=== PATIENT | female | born 1975 | race Two or more races ===

== ENCOUNTER 2020-04-19 14:05 | Outpatient (REF) | payer OTHER, SELFPAY ==
[2020-04-24 11:37] LABS: CT PCR NOT DETECTED (Not Detect.); NG PCR NOT DETECTED (Not Detect.)
== END 2020-04-19 14:06 | disposition home or self-care (01) ==
LOC: HO.LAB 14:05
PROVIDERS: Visit Provider Advanced Practice Midwife
DX: Z01.419 Encounter for gynecological examination (general) (routine) without abnormal findings (principal); B96.89 Other specified bacterial agents as the cause of diseases classified elsewhere; N76.0 Acute vaginitis; Z80.41 Family history of malignant neoplasm of ovary; Z20.2 Contact with and (suspected) exposure to infections with a predominantly sexual mode of transmission
CPT/HCPCS: 87491; 87591

== ENCOUNTER 2020-08-06 09:38 | Outpatient (REF) | payer OTHER, SELFPAY ==
--- NOTE | ~2020-08-06 | XR_ITS ---
EXAMINATION: XR BILATERAL KNEES XR LEFT TOE CLINICAL INFORMATION: Pain left toe. Bilateral knee pain. COMPARISON: None. TECHNIQUE: 4 views each knee. Left toe 4 views. FINDINGS: LEFT TOE: There is hallux valgus deformity 1st MTP joint. No visible acute fracture, dislocation or subluxation seen. No bony erosive changes. There is a soft tissue calcification medially likely vascular. LEFT KNEE: There is severe loss of patellofemoral compartment joint space with moderate superior patellar spurring. No loose bodies or bony erosive changes seen. No abnormal joint effusion. RIGHT KNEE: There is severe loss of patellofemoral compartment joint space with moderate superior patellar spurring. There is intercondylar eminence spurring as well. No visible acute fracture or dislocation seen. No bony erosive changes. XR/XR knee RT 3V IMPRESSION: Severe loss of patellofemoral compartment joint space with moderate superior patella spurring, right knee. Gnsuiffm-vo-hictxo loss of patellofemoral compartment joint space with moderate superior patellar enthesophyte. No acute fracture, loose bodies or joint effusion. Hallux valgus deformity 1st MTP joint. No bony erosive changes, fracture or dislocation.
--- NOTE | ~2020-08-06 | XR_ITS ---
EXAMINATION: XR BILATERAL KNEES XR LEFT TOE CLINICAL INFORMATION: Pain left toe. Bilateral knee pain. COMPARISON: None. TECHNIQUE: 4 views each knee. Left toe 4 views. FINDINGS: LEFT TOE: There is hallux valgus deformity 1st MTP joint. No visible acute fracture, dislocation or subluxation seen. No bony erosive changes. There is a soft tissue calcification medially likely vascular. LEFT KNEE: There is severe loss of patellofemoral compartment joint space with moderate superior patellar spurring. No loose bodies or bony erosive changes seen. No abnormal joint effusion. RIGHT KNEE: There is severe loss of patellofemoral compartment joint space with moderate superior patellar spurring. There is intercondylar eminence spurring as well. No visible acute fracture or dislocation seen. No bony erosive changes. XR/XR toe LT min 2V IMPRESSION: Severe loss of patellofemoral compartment joint space with moderate superior patella spurring, right knee. Nzcnetyh-gy-esvolh loss of patellofemoral compartment joint space with moderate superior patellar enthesophyte. No acute fracture, loose bodies or joint effusion. Hallux valgus deformity 1st MTP joint. No bony erosive changes, fracture or dislocation.
--- NOTE | ~2020-08-06 | XR_ITS ---
EXAMINATION: XR BILATERAL KNEES XR LEFT TOE CLINICAL INFORMATION: Pain left toe. Bilateral knee pain. COMPARISON: None. TECHNIQUE: 4 views each knee. Left toe 4 views. FINDINGS: LEFT TOE: There is hallux valgus deformity 1st MTP joint. No visible acute fracture, dislocation or subluxation seen. No bony erosive changes. There is a soft tissue calcification medially likely vascular. LEFT KNEE: There is severe loss of patellofemoral compartment joint space with moderate superior patellar spurring. No loose bodies or bony erosive changes seen. No abnormal joint effusion. RIGHT KNEE: There is severe loss of patellofemoral compartment joint space with moderate superior patellar spurring. There is intercondylar eminence spurring as well. No visible acute fracture or dislocation seen. No bony erosive changes. XR/XR knee LT 3V IMPRESSION: Severe loss of patellofemoral compartment joint space with moderate superior patella spurring, right knee. Poxhbscr-tl-kkaoaa loss of patellofemoral compartment joint space with moderate superior patellar enthesophyte. No acute fracture, loose bodies or joint effusion. Hallux valgus deformity 1st MTP joint. No bony erosive changes, fracture or dislocation.
[2020-08-06 10:35] LABS: MANUAL DIFF FLAG NO
[2020-08-06 10:46] LABS: Basophils Percent Auto 0.8 % (0-2); Eosinophils Absolute Auto 0.1 X10*3/uL (0.0-0.4); Eosinophils Percent Auto 1.6 % (0-4); Hematocrit 34.3 % (37-47); Hemoglobin 10.3 g/dl (12.0-16.0); Imm Gran Abs Auto 0.01 X10*3/uL (0.00-0.03); Imm Gran Pct Auto 0.2 % (0.0-0.4); Lymphocytes Absolute Auto 1.4 X10*3/uL (1.2-4.9); Mean Corpuscular Hemoglobin 25.2 pg (27.0-33.0); Mean Corpuscular Volume 83.9 fL (80-98); Mean Platelet Volume 12.5 fL (9.4-12.3); Monocytes Absolute Auto 0.4 X10*3/uL (0.1-1.2); Monocytes Percent Auto 8.5 % (2-11); Neutrophils Percent Auto 60.9 % (45-73); Platelet Count 251 X10*3/uL (160-400); Red Blood Count 4.09 X10*6/uL (4.20-5.50); Red Cell Distribution Width 14.8 % (11.0-16.0); White Blood Count 4.9 X10*3/uL (4.8-10.8)
[2020-08-06 11:30] LABS: Alanine Aminotransferase 11 U/L (0-31); Albumin Level 3.7 g/dL (3.5-5.0); Alkaline Phosphatase 94 U/L (39-117); Anion Gap 11 (12-20); Aspartate Amino Transferase 19 U/L (5-31); Bilirubin Total 0.2 mg/dL (0.0-1.0); Blood Urea Nitrogen 13 mg/dL (9-16); Calcium 8.6 mg/dL (8.4-10.2); Carbon Dioxide 27 mmol/L (22-29); Chloride 105 mmol/L (96-108); Cholesterol 137 mg/dL; Estimated Glomerular Filt Rate > 60; Glucose Fasting 88 mg/dL (60-99); HDL Cholesterol 69 mg/dL; LDL Cholesterol Calculated 57 mg/dl; Potassium 4.1 mmol/L (3.3-5.1); Sodium 139 mmol/L (135-145); Total Protein 6.5 g/dL (6.5-8.0); Triglycerides 58 mg/dL
[2020-08-06 11:37] LABS: TSH reflex Free T4 0.63 uIU/mL (0.32-4.0)
[2020-08-06 11:38] LABS: Syphilis Screen Nonreactive (Nonreactive)
[2020-08-06 11:42] LABS: Erythrocyte Sedimentation Rate 16 MM/HR (0-20); Glucose Urine UA NEG (NEG); Leukocyte Esterase Urine TRACE (NEG); Nitrite Urine POS (NEG); PH 6.5 (5.0-8.0); Specific Gravity - Urine 1.025 (1.005-1.025); UACC Culture Trigger YES; Urine Blood NEG (NEG); Urine Ketones NEG (NEG); Urine Protein NEG (NEG-TRACE)
[2020-08-06 11:43] LABS: ~HepC Num1 0.09 S/CO (0.00-0.79); ~Hepatitis C Antibody Nonreactive (Nonreactive)
[2020-08-06 11:44] LABS: HBsAGNum1 0.14 S/CO (0.00-0.99); HIV AB/AG Nonreactive (Nonreactive); HIV Num 1 0.05 S/CO (0.00-0.99); Hepatitis B Surface Antigen Negative (Negative)
[2020-08-06 11:45] LABS: Appearance Urine HAZY; Color Urine AMBER
[2020-08-06 21:05] LABS: Bacteria Urine 4+ /LPF; Calcium Oxalate Crystals Urine TRACE /LPF; Mucus Urine TRACE /LPF; Squamous Epithelial Cell Urine 1+ /LPF
== END 2020-08-06 09:39 | disposition home or self-care (01) ==
LOC: HO.LAB 09:38
PROVIDERS: Advanced Practice Midwife; PCP Internal Medicine; Visit Provider Internal Medicine
DX: Z00.00 Encounter for general adult medical examination without abnormal findings (principal); E66.9 Obesity, unspecified; M16.51 Unilateral post-traumatic osteoarthritis, right hip; M17.0 Bilateral primary osteoarthritis of knee; M79.675 Pain in left toe(s); Z20.2 Contact with and (suspected) exposure to infections with a predominantly sexual mode of transmission
CPT/HCPCS: 36415; 73562; 73660; 80053; 80061; 81001; 81003; 84443; 84550; 85025; 85652; 86780; 86803; 87086; 87088; 87186; 87340; 87389

== ENCOUNTER 2020-12-13 09:10 | Outpatient (REF) | payer OTHER, SELFPAY | END 2020-12-13 09:11 | disposition home or self-care (01) | LOC: HO.HOSX 09:10 | PROVIDERS: Visit Provider Orthopaedic Surgery | DX: Z13.89 Encounter for screening for other disorder (principal) ==

== ENCOUNTER 2020-12-25 07:41 | Outpatient (REF) | payer OTHER, SELFPAY ==
--- NOTE | ~2020-12-25 | XR_ITS ---
EXAMINATION: XR HIP, RIGHT CLINICAL INFORMATION: Pain in the right hip. COMPARISON: None TECHNIQUE: Two views of the right hip. FINDINGS: AP pelvis and right hip: There is deformity and healed right subcapital femoral fracture with a solitary cancellous screw extending through the femoral neck and head junction. The left hip joint space is maintained. No acute fracture or dislocation involving the left hip. Rest of the pelvis is unremarkable. There is severe loss of right hip joint space with secondary osteoarthritis. XR/XR hip RT w PEL1V IMPRESSION: Deformity right femoral head with a solitary screw stabilizing an old healed fracture. No recurrent acute fractures seen. There is severe loss of right hip joint space from degenerative arthritic changes. Unremarkable left hip and SI joints.
== END 2020-12-25 07:42 | disposition home or self-care (01) ==
LOC: HO.XRAY 07:41
PROVIDERS: PCP Internal Medicine; Visit Provider Nurse Practitioner Family
DX: M25.551 Pain in right hip (principal)
CPT/HCPCS: 73502

== ENCOUNTER 2020-12-26 13:48 | Outpatient (REF) | payer OTHER, SELFPAY ==
[2020-12-26 14:05] LABS: MANUAL DIFF FLAG NO
[2020-12-26 14:11] LABS: Basophils Percent Auto 0.6 % (0-2); Eosinophils Absolute Auto 0.1 X10*3/uL (0.0-0.4); Eosinophils Percent Auto 2.1 % (0-4); Hematocrit 33.1 % (37-47); Hemoglobin 10.1 g/dl (12.0-16.0); Imm Gran Abs Auto 0.01 X10*3/uL (0.00-0.03); Imm Gran Pct Auto 0.2 % (0.0-0.4); Lymphocytes Absolute Auto 1.8 X10*3/uL (1.2-4.9); Lymphocytes Percent Auto 28.9 % (20-40); Mean Corpuscular HGB Conc 30.5 g/dl (31.0-35.0); Mean Corpuscular Hemoglobin 26.2 pg (27.0-33.0); Mean Platelet Volume 11.5 fL (9.4-12.3); Monocytes Absolute Auto 0.6 X10*3/uL (0.1-1.2); Monocytes Percent Auto 9.5 % (2-11); Neutrophils Absolute Auto 3.7 X10*3/uL (2.0-8.3); Neutrophils Percent Auto 58.7 % (45-73); Platelet Count 275 X10*3/uL (160-400); Red Blood Count 3.85 X10*6/uL (4.20-5.50); White Blood Count 6.3 X10*3/uL (4.8-10.8)
[2020-12-26 14:17] LABS: INTERNATIONAL NORM RATIO 1.1 (0.9-1.1); Prothrombin Time 12.1 SEC (9.9-13.0)
[2020-12-26 14:20] LABS: Partial Thromboplastin Time 38.2 SEC (24.1-38.0)
== END 2020-12-26 13:49 | disposition home or self-care (01) ==
LOC: HO.LAB 13:48
PROVIDERS: PCP Internal Medicine; Visit Provider Internal Medicine
DX: R23.3 Spontaneous ecchymoses (principal); I10 Essential (primary) hypertension; Z20.822 Contact with and (suspected) exposure to COVID-19
CPT/HCPCS: 81241; 85025; 85610; 85730; U0003; U0005

== ENCOUNTER → 2021-02-08 15:29 | Outpatient (BNVA) | payer OTHER, SELFPAY | PROVIDERS: PCP Internal Medicine; Visit Provider Nurse Practitioner Family | DX: M16.11 Unilateral primary osteoarthritis, right hip (principal); M17.11 Unilateral primary osteoarthritis, right knee | CPT/HCPCS: 99202 ==

== ENCOUNTER 2021-03-07 08:26 | Outpatient (REF) | payer OTHER, SELFPAY ==
--- NOTE | ~2021-03-07 | XR_ITS ---
EXAMINATION: XR PELVIS CLINICAL INFORMATION: Pain COMPARISON: Right hip x-rays including frontal pelvis December 25, 2020 TECHNIQUE: AP view of the pelvis. FINDINGS: The pelvic ring is intact. Sacroiliac joints are symmetric. Again demonstrated are posttraumatic/postsurgical changes of the right hip with severe associated degenerative changes. The left hip is grossly unremarkable. Surgical clip projects over the left hemipelvis. XR/XR pelvis 1-2V IMPRESSION: No pelvic fracture.
== END 2021-03-07 08:27 | disposition home or self-care (01) ==
LOC: HO.HOSX 08:26
PROVIDERS: Visit Provider Orthopaedic Surgery
DX: M16.51 Unilateral post-traumatic osteoarthritis, right hip (principal)
CPT/HCPCS: 72170; 99202

== ENCOUNTER 2021-04-01 14:40 | Outpatient (REF) | payer OTHER, SELFPAY ==
[2021-04-01 14:54] LABS: MANUAL DIFF FLAG NO
[2021-04-01 15:07] LABS: Basophils Absolute Auto 0.1 X10*3/uL (0.0-0.2); Basophils Percent Auto 0.7 % (0-2); Eosinophils Absolute Auto 0.1 X10*3/uL (0.0-0.4); Eosinophils Percent Auto 1.8 % (0-4); Hematocrit 33.6 % (37.0-47.0); Hemoglobin 10.2 g/dl (12.0-16.0); Imm Gran Abs Auto 0.02 X10*3/uL (0.00-0.03); Imm Gran Pct Auto 0.3 % (0.0-0.4); Immature Retic Fraction 9.7 % (3.0-15.9); Lymphocytes Absolute Auto 1.4 X10*3/uL (1.2-4.9); Mean Corpuscular HGB Conc 30.4 g/dl (31.0-35.0); Mean Corpuscular Hemoglobin 26.7 pg (27.0-33.0); Mean Platelet Volume 12.2 fL (9.4-12.3); Monocytes Absolute Auto 0.7 X10*3/uL (0.1-1.2); Monocytes Percent Auto 9.2 % (2-11); Neutrophils Absolute Auto 4.9 x10*3/uL (2.0-8.3); Platelet Count 324 X10*3/uL (160-400); Red Blood Count 3.82 X10*6/uL (4.20-5.50); Red Cell Distribution Width 15.9 % (11.0-16.0); Retic HGB Equivalent 27.2 pg (30.0-35.0); Reticulocyte Percent 1.3 % (0.5-1.8); Reticulocytes Absolute 0.049 X10*6/uL (0.026-0.095); White Blood Count 7.1 X10*3/uL (4.8-10.8)
[2021-04-01 15:32] LABS: Iron 21 mcg/dL (30-160); Percent Iron Saturation 6 % (15-50); Total Iron Binding Capacity 355 mcg/dL (228-428); Unsaturated Iron Binding 334 ug/dL
== END 2021-04-01 14:41 | disposition home or self-care (01) ==
LOC: HO.LAB 14:40
PROVIDERS: PCP Internal Medicine; Visit Provider Internal Medicine
DX: D50.9 Iron deficiency anemia, unspecified (principal)
CPT/HCPCS: 36415; 83540; 85025; 85045

== ENCOUNTER → 2021-05-02 08:59 | Outpatient (REF) | payer OTHER, SELFPAY ==
[2021-05-02 10:22] LABS: MANUAL DIFF FLAG NO
--- NOTE | 2021-05-02 10:23 | ECG_ITS ---
Test Reason : preop Blood Pressure : / mmHG Vent. Rate : 057 BPM Atrial Rate : 057 BPM P-R Int : 136 ms QRS Dur : 096 ms QT Int : 440 ms P-R-T Axes : 077 -16 -06 degrees QTc Int : 428 ms Sinus bradycardia Cannot rule out Anterior infarct , age undetermined Abnormal ECG When compared with ECG of 03-APR-2016 14:21, No significant change was found Referred By: Syed Sen Electronically Signed By:NICA GREWAL MD
[2021-05-02 10:38] LABS: Basophils Absolute Auto 0.1 X10*3/uL (0.0-0.2); Basophils Percent Auto 0.8 % (0-2); Eosinophils Absolute Auto 0.1 X10*3/uL (0.0-0.4); Eosinophils Percent Auto 1.9 % (0-4); Hematocrit 39.3 % (37.0-47.0); Imm Gran Abs Auto 0.01 X10*3/uL (0.00-0.03); Imm Gran Pct Auto 0.2 % (0.0-0.4); Lymphocytes Absolute Auto 1.5 X10*3/uL (1.2-4.9); Mean Corpuscular HGB Conc 30.5 g/dl (31.0-35.0); Mean Corpuscular Hemoglobin 27.5 pg (27.0-33.0); Mean Corpuscular Volume 90.1 fL (80.0-98.0); Mean Platelet Volume 11.8 fL (9.4-12.3); Monocytes Absolute Auto 0.5 X10*3/uL (0.1-1.2); Neutrophils Absolute Auto 4.2 x10*3/uL (2.0-8.3); Neutrophils Percent Auto 66.1 % (45-73); Platelet Count 328 X10*3/uL (160-400); Red Blood Count 4.36 X10*6/uL (4.20-5.50); White Blood Count 6.4 X10*3/uL (4.8-10.8)
[2021-05-02 11:02] LABS: Anion Gap 12 (12-20); Blood Urea Nitrogen 16 mg/dL (9-16); Carbon Dioxide 28 mmol/L (22-29); Chloride 107 mmol/L (96-108); Estimated Glomerular Filt Rate > 60; Glucose Random 91 mg/dL (60-115); Potassium 4.7 mmol/L (3.3-5.1); Sodium 142 mmol/L (135-145)
== END ==
LOC: HO.CARD 08:59
PROVIDERS: PCP Internal Medicine; Visit Provider Orthopaedic Surgery
DX: Z01.818 Encounter for other preprocedural examination (principal)
CPT/HCPCS: 36415; 80048; 85025; 93005

== ENCOUNTER → 2021-05-30 14:22 | Outpatient (BNVA) | payer OTHER, SELFPAY | PROVIDERS: Visit Provider Physician Assistant ==

== ENCOUNTER 2021-06-11 07:51 | Inpatient (IN) | payer OTHER, SELFPAY ==
[2021-05-24 12:04] VITALS: BP 116/64; PULSE 71; RESP 16; O2SAT 99; BMI 31.5
[2021-05-24 14:30] LABS: MRSA Nasal PCR NEGATIVE (Negative); SA Nasal PCR NEGATIVE (Negative)
--- NOTE | 2021-06-03 09:02 | HO.ANESPROP2 ---
Documented by User: Gabbie Hernadez NP 06/10/21 11:47 HPI - Anesthesia Eval Consult details Narrative: 46yo F for Right Hip Total Replacement PCP cleared [facility] Active Problems Active Problems: All Active Problems (Updated 05/22/21 @ 15:22 by [facility] Mora-C) Pre-op evaluation (Acute) Anemia (Acute) Post-traumatic acute tubular necrosis (Acute) Osteoarthritis of right knee (Acute) Osteoarthritis of right hip (Acute) Spontaneous ecchymoses (Acute) Right hip pain (Acute) Obesity (BMI 30-39.9) (Acute) Pain in left toe(s) (Acute) Bunion of great toe of left foot (Acute) Post-traumatic osteoarthritis of right hip (Acute) Primary osteoarthritis of both knees (Acute) Potential exposure to STD (Acute) Bacterial vaginosis (Acute) Family hx of ovarian malignancy (Acute) control counseling (Acute) Well woman exam with routine gynecological exam (Acute) Past Medical History Medical History Arthritis Bunion of great toe of left foot Obesity (BMI 30-39.9) Pain in left toe(s) Post-traumatic osteoarthritis of right hip Primary osteoarthritis of both knees Right hip pain Spontaneous ecchymoses Family History Family History Mother Ovarian cancer Diabetes Father HIV (human immunodeficiency virus infection) Maternal Grandmother Stomach cancer Maternal Grandfather Myocardial infarction Brother In good health Sister In good health Mental health disorder Son In good health Daughter In good health Surgical History Surgical History H/O gastric bypass History of bilateral breast reduction surgery History of hip surgery History of laparoscopic cholecystectomy History of surgery History of tubal ligation Social History Social History Housing: Apartment Are you a primary team primary care physician to a significant other at home: Yes (son age 7) Do you presently have visiting nurse or other home services: No Alcohol intake: current Alcohol intake frequency: holidays/special occasions only Patient Tobacco Use Status: Former Tobacco user Quit Date: 2009 Tobacco use type: Cigarette e-Cigarette/Vaping Use: Never Used Second Hand Smoke Exposure: No service: No Current occupational status: unemployed Gender identity: Female Cognitive needs: No Hearing needs: No Vision needs: No Meds Allergies Allergy/AdvReac Type Severity Reaction Status Date / Time hazelnut [HAZELNUT] Allergy Intermediate ITCHING Verified 05/24/21 12:17 THROAT Home Medications Medication Instructions Recorded Confirmed Last Taken Type miscellaneous medical supply ea MISCELLANEOUS 11/26/20 05/22/21 Unknown History Exam Exam Date and Time: June 03, 2021 0902 Height,Weight and Vital Signs: Height 5 ft 6 in Weight 88.6 kg Last Vital Signs Pulse 71 05/24/21 12:04 Resp 16 05/24/21 12:04 BP 116/64 05/24/21 12:04 Pulse Ox 99 05/24/21 12:04 Pertinent Lab Results Pertinent Lab Results: Laboratory Tests 05/24/21 05/24/21 12:30 13:00 Nasal Screen MRSA (PCR) NEGATIVE Nasal S. aureus Screen NEGATIVE Nasal MRSA/S.aureus Interp SEE NOTE Blood Type O Positive Antibody Screen NEGATIVE Laboratory Tests 05/02/21 05/02/21 10:20 10:20 WBC 6.4 Hgb 12.0 Hct 39.3 Plt Count 328 Sodium 142 Potassium 4.7 Chloride 107 Carbon Dioxide 28 BUN 16 Creatinine 0.72 Narrative Narrative: EKG 04/2021 Vent. Rate : 057 BPM ? ? Atrial Rate : 057 BPM ?? P-R Int : 136 ms? QRS Dur : 096 ms ? ? QT Int : 440 ms ? ? ? P-R-T Axes : 077 -16 -06 degrees ?? QTc Int : 428 ms ? Sinus bradycardia Cannot rule out Anterior infarct , age undetermined Abnormal ECG When compared with ECG of 03-APR-2016 14:21, No significant change was found Assessment and Plan Assessment Anesthesia Assessment: Chart Reviewed Documented by User: Reggie Gonzalez MD 06/11/21 10:45 PMFSH Past Medical History Medical History Arthritis Bunion of great toe of left foot Obesity (BMI 30-39.9) Pain in left toe(s) Post-traumatic osteoarthritis of right hip Primary osteoarthritis of both knees Right hip pain Spontaneous ecchymoses Family History Family History Mother Ovarian cancer Diabetes Father HIV (human immunodeficiency virus infection) Maternal Grandmother Stomach cancer Maternal Grandfather Myocardial infarction Brother In good health Sister In good health Mental health disorder Son In good health Daughter In good health Family history of problems with anesthesia: No Surgical History Surgical History H/O gastric bypass History of bilateral breast reduction surgery History of hip surgery History of laparoscopic cholecystectomy History of surgery History of tubal ligation History of Problems with Anesthesia: No Social History Social History Housing: Apartment Are you a primary team primary care physician to a significant other at home: Yes (son age 7) Do you presently have visiting nurse or other home services: No Alcohol intake: current Alcohol intake frequency: holidays/special occasions only Patient Tobacco Use Status: Former Tobacco user Quit Date: 2009 Tobacco use type: Cigarette e-Cigarette/Vaping Use: Never Used Second Hand Smoke Exposure: No service: No Current occupational status: unemployed Gender identity: Female Cognitive needs: No Hearing needs: No Vision needs: No Meds Allergies Allergy/AdvReac Type Severity Reaction Status Date / Time hazelnut [HAZELNUT] Allergy Intermediate ITCHING Verified 05/24/21 12:17 THROAT Home Medications Medication Instructions Recorded Confirmed Last Taken Type miscellaneous medical supply ea MISCELLANEOUS 11/26/20 05/22/21 Unknown History Exam Airway Mallampati Class: I TM Dist: >3cm Neck ROM: Full Loose/Missing/Broken Teeth: Yes Other: irremovable piercings lip, genital, nipple. pt counseled of risks of burn and laceration. expresses understanding and willing to proceed. Assessment and Plan Assessment Anesthesia Assessment: Anesthesia Plan Discussed Final Anesthetic Review Family History of Problems with Anesthesia: No History of Problems with Anesthesia: No NPO: Yes ASA Class: III Final Preanesthetic Review: No Changes in Pt Med Stat, Meds/Allgs Chart Reviewed, Consent Obtained/Reviewed and Anes Risks/Benef Reviewed Anesthetic Plan Anesthetic Plan: GA Disposition: Standard PACU
[2021-06-11] VITALS (15 sets, daily range): BP systolic 101–149; BP diastolic 52–94; PULSE 70–83; RESP 16–18; TEMP 36.4–37.4; O2SAT 97–100
--- NOTE | ~2021-06-11 | XR_ITS ---
EXAMINATION: XR PELVIS CLINICAL INFORMATION: Right hip replacement COMPARISON: Previous x-ray most recent February 2021 TECHNIQUE: AP view of the pelvis. FINDINGS: There is a new right hip replacement in satisfactory position. No fracture or dislocation is seen. The left hip joint is unremarkable. Bones of the visualized pelvis are unremarkable. There are postoperative changes to the soft tissues. XR/XR pelvis 1-2V IMPRESSION: Satisfactory appearance of right hip replacement.
[2021-06-11 08:31] LABS: COVID-19 Test Negative (Negative); IDNOW Serial# 9DD0AD1C
[2021-06-11] MEDS: Lactated Ringers 1,000 ML 100 ML IVCONT (08:50)
[2021-06-11] MEDS: oxyCODONE HCl ER 10 MG TAB.ER.12H PO ×2 (08:50→20:47)
--- NOTE | 2021-06-11 09:39 | MHC.SHP ---
Pre-Procedural Eval Section A Date of Service: 06/11/21 The patient is an INPATIENT: No Changes since office visit: Yes Patient answered all questions; No Cold of Flu in the past 2 weeks, No New Medical Problems and No Changes in Medication The History & Physical has been completed within 30 days and I have reviewed it.: Yes Section B Chief Complaint: RT BERNIE Allergies: Allergies Allergy/AdvReac Type Severity Reaction Status Date / Time hazelnut [HAZELNUT] Allergy Intermediate ITCHING Verified 05/24/21 12:17 THROAT Plan I have reviewed the history and physical and performed a pertinent physical examination on my patient. No changes have occurred unless specified.
--- NOTE | 2021-06-11 12:02 | P.BOP_ITS ---
Brief Operative Note Date of Service: 06/11/21 Pre-op diagnosis: right hip post traumatic OA Post-op diagnosis: same Procedure: Right BERNIE Implants: Lyla trident 2 #52/20 deg liner Lyla SucureFit #8 127 deg with + 5 36 ceramic femoral head Surgeon: Syed Sen MD Anesthesia: GETA and local Was an Physician Asst used for this Procedure?: Yes Physician Asst: Kylie John Estimated blood loss (mL): 200 IV fluids (mL): 1,000 Pathology: other Condition: stable Disposition: PACU
--- NOTE | 2021-06-11 12:07 | P.OP_ITS ---
Operative Note Operative Note Date of Service: 06/11/21 Narrative: Date of Service: 06/11/21 Pre-op diagnosis: right hip post traumatic OA Post-op diagnosis: same Procedure: Right BERNIE Implants: Lyla trident 2 #52/20 deg liner Lyla SucureFit #8 127 deg with + 5 36 ceramic femoral head Surgeon: Syed Sen MD Anesthesia: GETA and local Was an Associate Professor Computer Science used for this Procedure?: Yes Associate Professor Computer Science: Kylie John Estimated blood loss (mL): 200 IV fluids (mL): 1,000 Pathology: other Condition: stable Disposition: PACU Procedure in detail: Patient was brought into the operating room and placed in the left lateral decubitus position. All bony prominences were well padded and the limb was prepped and draped in standard sterile fashion. Time-out was called to identify proper site procedure proper surgeon IV antibiotics and 1 g of transaxemic acid were administered. I began by making a curvilinear incision over the posterolateral aspect of the greater trochanter. Dissection was taken down to the tensor fascia which was incised in line with the incision and a Charnley re tractor was placed. Cautery was used to maintain hemostasis. A werewolf device was also used. The hip was internally rotated and the external rotators were identified. The vessels were cauterized and a full-thickness capsular/external rotator layer was developed starting just proximal to the piriformis. This layer was tagged and a dull Hohmann retractor was placed underneath the neck in the hip was dislocated. The head was eburnated and deformed. There was a cannulated screw that was then removed throught the same incision. It was too embedded in the head to be removed with a screwdriver and so the head was chiseled off the screw and the head of the screw cut with a fell cutter and the remainder of the screw removed retrograde. A clean-up neck cut was made 1 cm proximal to the lesser trochanter I started with a 44 reamer and sequentially reamed up to a size51. The cupe was worn posteriorly and superiorly. I impacted a 52 at approximately 45 degrees of inclination and 25 degrees of version. I then placed a 20 deg posterior lipped liner and turned my attention to the femur. I identified the piriformis insertion and used this as a starting point for my junior cutter. The medius tendon was protected with a Hibs retractor. I then used a Charnley awl to identify the canal and a curved curette to remove the lateral bone. I irrigated copiously. I then hand-reamed to an 8 sequentially broached in the patient's natural version to a size 8 and placed my trial implant. Using a trail head I took the hip through range of motion. I was satisfied with the length. She was approximately 2 cm short on the right pre- operativley.I was very satisfied with the stability and length. Therefore I removed all instrumentation and copiously irrigated. I then placed my final femoral implant and again took the hip through range of motion and was satisfied with the stability and length using a +5 36 head. I then irrigated for 3 minutes with iodine and placed 1 g of local tranaxemic acid. I then performed a capsular closure with 2.0 fiberwire, Francesca's fascia with 0 Vicryl, subcuticular with 2-0 Vicryl and the skin with amelia. Patient was placed into a sterile dressing. Radiographs were obtained at the completion of the case and I was satisfied with the component position. Patient was extubated brought to the recovery room in stable condition.
[2021-06-11] MEDS: Ketorolac Tromethamine 15 MG/ML VIAL IVPUSH (13:18)
[2021-06-11] MEDS: oxyCODONE HCl Immed Release 5 MG TABLET PO (15:20)
[2021-06-11] MEDS: ceFAZolin Sodium/Dextrose,Iso 2 GM/50 ML PIGGYBACK IV ×3 (15:53→16:30)
[2021-06-11] MEDS: Ketorolac Tromethamine 30 MG/ML VIAL 15 MG IVPUSH (16:35)
[2021-06-11] MEDS: Dextrose 5 % and 0.45 % NaCl 1,000 ML 100 ML IVCONT (16:58)
[2021-06-11] MEDS: Docusate Sodium 100 MG CAPSULE PO (20:47)
[2021-06-11] MEDS: HYDROmorphone HCl 1 MG/ML SYRINGE 0.25 MG IVPUSH (20:47)
[2021-06-11] MEDS: Celecoxib 200 MG CAPSULE PO (20:47)
[2021-06-11] MEDS: oxyCODONE HCl Immed Release 5 MG TABLET 10 MG PO (22:53)
[2021-06-11] MEDS: Acetaminophen 325 MG TABLET 650 MG PO (22:54)
[2021-06-12 02:50] VITALS: BP 111/61; PULSE 74; RESP 18; TEMP 36.9; O2SAT 100
[2021-06-12] MEDS: Dextrose 5 % and 0.45 % NaCl 1,000 ML 100 ML IVCONT (04:00)
[2021-06-12] MEDS: oxyCODONE HCl Immed Release 5 MG TABLET 10 MG PO ×4 (05:08→16:31)
[2021-06-12] MEDS: Acetaminophen 325 MG TABLET 650 MG PO (05:08)
[2021-06-12 06:06] LABS: MANUAL DIFF FLAG NO
[2021-06-12 06:28] LABS: Anion Gap 11 (12-20); Blood Urea Nitrogen 8 mg/dL (9-16); Calcium 8.5 mg/dL (8.4-10.2); Carbon Dioxide 26 mmol/L (22-29); Chloride 105 mmol/L (96-108); Creatinine Clr Calc Pharmacy 131.9; Estimated Glomerular Filt Rate > 60; Glucose Fasting 118 mg/dL (60-99); Potassium 3.8 mmol/L (3.3-5.1); Sodium 138 mmol/L (135-145)
[2021-06-12 06:44] LABS: Basophils Percent Auto 0.3 % (0-2); Eosinophils Percent Auto 0.3 % (0-4); Hematocrit 29.9 % (37.0-47.0); Hemoglobin 9.4 g/dl (12.0-16.0); Imm Gran Abs Auto 0.05 X10*3/uL (0.00-0.03); Imm Gran Pct Auto 0.5 % (0.0-0.4); Lymphocytes Absolute Auto 1.1 X10*3/uL (1.2-4.9); Lymphocytes Percent Auto 10.5 % (20-40); Mean Corpuscular HGB Conc 31.4 g/dl (31.0-35.0); Mean Corpuscular Hemoglobin 28.1 pg (27.0-33.0); Mean Corpuscular Volume 89.3 fL (80.0-98.0); Mean Platelet Volume 12.8 fL (9.4-12.3); Monocytes Absolute Auto 1.1 X10*3/uL (0.1-1.2); Monocytes Percent Auto 11.4 % (2-11); Neutrophils Absolute Auto 7.7 x10*3/uL (2.0-8.3); Platelet Count 211 X10*3/uL (160-400); Red Blood Count 3.35 X10*6/uL (4.20-5.50); Red Cell Distribution Width 14.3 % (11.0-16.0)
[2021-06-12] MEDS: oxyCODONE HCl ER 10 MG TAB.ER.12H PO ×2 (06:44→19:54)
[2021-06-12] MEDS: Docusate Sodium 100 MG CAPSULE PO ×2 (06:44→19:54)
[2021-06-12] MEDS: Celecoxib 200 MG CAPSULE PO ×2 (06:44→19:54)
[2021-06-12 07:17] VITALS: BP 108/62; PULSE 79; RESP 17; TEMP 37.2; O2SAT 99
--- NOTE | 2021-06-12 07:42 | P.PNOP_ITS ---
Subjective Subjective Date of Service: 06/12/21 Interval history: POD1 s/p RTHA. Patient is resting comfortably in bed. No overnight events. Pain is managed, No additional complaints. Physical Exam Verdana 4l Vital Signs: Verdana 4d Verdana 4d Vital Signs: Verdana 4d Verdana 4Bd Last Vital Signs Verdana 4d Bit Gatherer New 4d Bit Gatherer New 4d Temp 98.9 F 06/12/21 07:17 Bit Gatherer New 4d Pulse 79 06/12/21 07:17 Bit Gatherer New 4d Resp 17 06/12/21 07:17 BP 108/62 06/12/21 07:17 Pulse Ox 99 06/12/21 07:17 BMI result Body Mass Index 31.5 Const: General: cooperative, healthy appearing and no acute distress Resp: Effort & Inspection: normal respiratory effort and able to speak in complete sentences Cardio: Rate: regular rate Peripheral pulses: Peripheral pulses 2+ throughout GI: Palpation (GI): Soft to palpation Skin: Lesions: no lesions Rashes: no rashes Extrem: Other: Right hip Aquacel is clean, dry, and intact. Patient is able to dorsiflex and plantarflex. NVI. Procedures Date of Service Date of Service: 06/12/21 Progress Note: A&P Assessment and plan (1) Status post total replacement of right hip: Status: Acute Assessment and Plan: Continue pain mgmnt Begin ASA for dvt ppx Continue PT for RTHA Dispo planning-Pending PT eval, pain mgmnt Fall Risk Details Current Medications: Current Medications Acetaminophen (Acetaminophen 325 Mg Tablet) 650 mg PO Q6H PRN PRN Reason: Pain, Mild (Pain Scale 1-3) Last Admin: 06/12/21 05:08 Dose: 650 mg Documented by: Celecoxib (Celecoxib 200 Mg Capsule) 200 mg PO BID [facility] Last Admin: 06/12/21 06:44 Dose: 200 mg Documented by: Docusate Sodium (Docusate Sodium 100 Mg Capsule) 100 mg PO BID [facility] Last Admin: 06/12/21 06:44 Dose: 100 mg Documented by: Hydromorphone HCl (Hydromorphone Hcl 1 Mg/Ml Syringe) 0.25 mg IVPUSH Q4H PRN; Protocol PRN Reason: Pain, Severe (Pain Scale 7-10) Last Admin: 06/11/21 20:47 Dose: 0.25 mg Documented by: Dextrose/Sodium Chloride (D51/2ns) 1,000 mls @ 100 mls/hr IVCONT .Q10H [facility] Last Admin: 06/12/21 04:00 Dose: 100 mls/hr Documented by: Ondansetron HCl (Ondansetron Hcl 4 Mg/2 Ml Vial) 4 mg IVPUSH Q8H PRN PRN Reason: Nausea and Vomiting Oxycodone HCl (Oxycodone Hcl Immed Release 5 Mg Tablet) 10 mg PO Q4H PRN PRN Reason: Pain, Moderate (Pain Scale 4-6 Last Admin: 06/12/21 05:08 Dose: 10 mg Documented by: Oxycodone HCl (Oxycodone Hcl Er 10 Mg Tab.Er.12h) 10 mg PO BID [facility] Last Admin: 06/12/21 06:44 Dose: 10 mg Documented by: Sodium Chloride (0.9 % Sodium Chloride Flush 3 Ml Syringe) [facility] Last Admin: 06/12/21 06:44 Dose: Not Given Documented by: Sodium Chloride (0.9 % Sodium Chloride Flush 3 Ml Syringe) 3 ml IVFLUSH [facility] Last Admin: 06/12/21 06:44 Dose: Not Given Documented by: Time Spent With Patient Time: Total time spent is greater than 50% in coordination of care (as documented) at patient's floor/unit and/or counseling patient: Time with patient: less than 15 minutes Quality Stroke Does the patient have a stroke diagnosis?: No VTE Prior VTE?: No VTE Risk Level:: Surgical - very high VTE Device Contraindication: N/A - Device Ordered VTE Drug Contraindication: N/A - Med Ordered
[2021-06-12] MEDS: Aspirin 325 MG TABLET PO ×2 (08:58→19:54)
--- NOTE | 2021-06-12 09:53 | MHC.CM.PN ---
MET WITH PT WHO IS INDEPENDENT CM INTERVENTION IS NOT EXPECTED TO BE NEEDED
--- NOTE | 2021-06-12 10:04 | HO.POSTANES ---
Post Anesthesia Evaluation Post Anesthesia Evaluation Vital Signs: Vital Signs Temp Pulse Resp BP Pulse Ox 06/12/21 07:17 98.9 F 79 17 108/62 99 06/12/21 02:50 98.5 F 74 18 111/61 100 06/11/21 23:35 98.8 F 75 16 122/65 98 Anesthesia: General Mental Status: Awake Pain Control: Satisfactory Nausea/Vomiting: None Hydration: Adequate Anesthesia-Related Issues: No Anes. Related Issues
[2021-06-12 11:41] VITALS: BP 115/78; PULSE 80; RESP 18; TEMP 36.9; O2SAT 100
--- NOTE | 2021-06-12 13:39 | MHC.CM.PN ---
Per PT note recommends home w/ services. referral for [facility] sent @ 11:21, accepted by [facility]. Discussed with patient, accepting of home services.
[2021-06-12 15:16] VITALS: BP 110/61; PULSE 88; RESP 18; TEMP 36.5; O2SAT 100
[2021-06-12 19:34] VITALS: BP 104/57; PULSE 92; RESP 18; TEMP 37.1; O2SAT 100
[2021-06-13] VITALS: BP 106/58; PULSE 67; RESP 16; TEMP 36.8; O2SAT 98
[2021-06-13] MEDS: oxyCODONE HCl Immed Release 5 MG TABLET 10 MG PO ×4 (00:06→14:00)
[2021-06-13 04:00] VITALS: BP 115/69; PULSE 72; RESP 16; TEMP 36.9; O2SAT 97
[2021-06-13 05:43] LABS: MANUAL DIFF FLAG NO
[2021-06-13 05:49] LABS: Basophils Percent Auto 0.3 % (0-2); Eosinophils Absolute Auto 0.1 X10*3/uL (0.0-0.4); Eosinophils Percent Auto 0.5 % (0-4); Hematocrit 27.7 % (37.0-47.0); Hemoglobin 8.7 g/dl (12.0-16.0); Imm Gran Abs Auto 0.04 X10*3/uL (0.00-0.03); Imm Gran Pct Auto 0.3 % (0.0-0.4); Lymphocytes Absolute Auto 0.9 X10*3/uL (1.2-4.9); Lymphocytes Percent Auto 7.4 % (20-40); Mean Corpuscular HGB Conc 31.4 g/dl (31.0-35.0); Mean Corpuscular Hemoglobin 28.2 pg (27.0-33.0); Mean Corpuscular Volume 89.9 fL (80.0-98.0); Mean Platelet Volume 12.8 fL (9.4-12.3); Monocytes Absolute Auto 1.2 X10*3/uL (0.1-1.2); Monocytes Percent Auto 10.1 % (2-11); Neutrophils Absolute Auto 9.4 x10*3/uL (2.0-8.3); Neutrophils Percent Auto 81.4 % (45-73); Platelet Count 196 X10*3/uL (160-400); Red Blood Count 3.08 X10*6/uL (4.20-5.50); Red Cell Distribution Width 14.4 % (11.0-16.0); White Blood Count 11.5 X10*3/uL (4.8-10.8)
[2021-06-13 06:32] LABS: Anion Gap 10 (12-20); Blood Urea Nitrogen 8 mg/dL (9-16); Calcium 8.6 mg/dL (8.4-10.2); Carbon Dioxide 27 mmol/L (22-29); Chloride 104 mmol/L (96-108); Creatinine Clr Calc Pharmacy 136.3; Estimated Glomerular Filt Rate > 60; Glucose Fasting 99 mg/dL (60-99); Potassium 3.6 mmol/L (3.3-5.1); Sodium 137 mmol/L (135-145)
[2021-06-13 08:00] VITALS: BP 119/73; PULSE 98; RESP 20; TEMP 37; O2SAT 100
[2021-06-13] MEDS: oxyCODONE HCl ER 10 MG TAB.ER.12H PO (09:43)
[2021-06-13] MEDS: Aspirin 325 MG TABLET PO (09:43)
[2021-06-13] MEDS: Celecoxib 200 MG CAPSULE PO (09:43)
[2021-06-13] MEDS: Docusate Sodium 100 MG CAPSULE PO (09:43)
[2021-06-13 11:59] VITALS: BP 116/87; PULSE 100; RESP 20; TEMP 36.9; O2SAT 99
--- NOTE | 2021-06-13 12:31 | P.DS_ITS ---
DS: Providers Provider Date of Service: 06/13/21 <Glo Mijares PA-C - Last Filed: 06/13/21 19:20> Date of admission: 06/11/21 07:51 <Glo Mijares PA-C - Last Filed: 06/13/21 19:20> Primary care physician: Aditya Aguirre MD <Glo Mjiares PA-C - Last Filed: 06/13/21 19:20> DS: Diagnosis Discharge Diagnosis (1) Status post total replacement of right hip: Status: Acute <Glo Mijares PA-C - Last Filed: 06/13/21 19:20> DS: Summary Hospital Course Hospital Course: The patient underwent a successful right total hip arthroplasty, they were transferred to PACU and then to the floor to recover. During their stay, their vitals were stable, afebrile at 98.4. Labs were unremarkable, H/H 8.7/11/12. POD 1 they were started on Aspirin 325mg po bid for DVT ppx, they also received Physical Therapy services twice a day. Prior to discharge, their dressing was changed, incision clean dry and intact, new Aquacel dressing applied and the plan was to be discharged home with VNA services. <Glo Mijares PA-C - Last Filed: 06/13/21 19:20> Time Spent with Patient Time attestation: Total time spent providing and/or coordinating discharge services: <Glo Mijares PA-C - Last Filed: 06/13/21 19:20> Discharge coordination time: Less than 30 minutes <Glo Mijares PA-C - Last Filed: 06/13/21 19:20> Quality: Stroke Does the patient have a stroke diagnosis?: No <Glo Mijares PA-C - Last Filed: 06/13/21 19:20> Physical Exam Verdana 4l Vital Signs: Verdana 4d Verdana 4d Vital Signs: Verdana 4d Verdana 4Bd Last Vital Signs Verdana 4d Education Specialist New 4d Education Specialist New 4d Temp 98.5 F 06/13/21 11:59 Education Specialist New 4d Pulse 100 06/13/21 11:59 Education Specialist New 4d Resp 20 06/13/21 11:59 BP 116/87 06/13/21 11:59 Pulse Ox 99 06/13/21 11:59 BMI result Body Mass Index 31.5 <KENDRICK Amaya Last Filed: 06/13/21 19:20> Extrem: Other: Right hip Aquacel is clean, dry, and intact. [place] intact. No drainage. Daysi ent is able to dorsiflex and plantarflex. NVI. New Aquacel dressing applied. <KENDRICK Amaya Last Filed: 06/13/21 19:20> DS: Data Data Completed and Pending Pending studies at discharge: Pending at discharge 06/11/21 11:11 Surgical [PTH] Routine <KENDRICK Amaya Last Filed: 06/13/21 19:20> Labs on day of discharge: Laboratory Results - last 24 hr 06/13/21 06/13/21 05:07 05:07 WBC 11.5 H RBC 3.08 L Hgb 8.7 L Hct 27.7 L MCV 89.9 MCH 28.2 MCHC 31.4 RDW 14.4 Plt Count 196 MPV 12.8 H Immature Gran % (Auto) 0.3 Neut % (Auto) 81.4 H Lymph % (Auto) 7.4 L Gilchrist % (Auto) 10.1 Eos % (Auto) 0.5 Baso % (Auto) 0.3 Lymph # (Auto) 0.9 L Gilchrist # (Auto) 1.2 Eos # (Auto) 0.1 Baso # (Auto) 0.0 Abs Immat Gran (auto) 0.04 H Absolute Neuts (auto) 9.4 H Absolute Nucleated RBC 0.000 Nucleated RBC % (auto) 0.0 Sodium 137 Potassium 3.6 Chloride 104 Carbon Dioxide 27 Anion Gap 10 L BUN 8 L Creatinine 0.59 Estim Creat Clear Calc 136.3 Estimated GFR > 60 Fasting Glucose 99 Calcium 8.6 <KENDRICK Amaya Last Filed: 06/13/21 19:20> Discharge Plan Discharge Patient Disposition: Home Health Service <KENDRICK Amaya Last Filed: 06/13/21 19:20> Discharge Diagnosis: RT BERNIE <Glo Mijares PA-C - Last Filed: 06/13/21 19:20> Referrals: [facility] [Outside] - 1 Day (HOME PHYSICAL THERAPY) Kylie John PA-C [Physician Human Resources Vice President] - 1 Week (06/27/20 at 1:45pm) <Glo Mijares PA-C - Last Filed: 06/13/21 19:20> Discharge Medications: New celecoxib 200 mg Capsule 200 mg PO BID 42 Days Qty: 84 0RF acetaminophen 325 mg Tablet 650 mg PO Q6H PRN (Reason: Pain, Mild (Pain Scale 1-3)) 30 Days Qty: 240 0RF aspirin 325 mg Tablet 325 mg PO BID 42 Days Qty: 84 0RF docusate sodium 100 mg Capsule 100 mg PO BID 30 Days Qty: 60 0RF oxycodone 5 mg Tablet 10 mg PO Q4H PRN (Reason: Pain, Moderate (Pain Scale 4-6) 7 Days Qty: 42 0RF Continued ferrous sulfate 325 mg (65 mg iron) tablet 325 mg PO DAILY Qty: 90 0RF (DME) cane Device See Rx Instructions .ROUTE .MEDSUPPLY Qty: 1 0RF Rx Instructions: As directed (DME) walker Misc See Rx Instructions .MEDSUPPLY Qty: 1 0RF Rx Instructions: Folding Front wheeled walker lidocaine [Aspercreme (lidocaine HCl)] 4 % adhesive patch,medicated 1 patch topical DAILY PRN (Reason: pain) Qty: 15 1RF (DME) LIGHTWEIGHT CANE See Rx Instructions .Route .MEDSUPPLY Qty: 1 0RF Rx Instructions: As directed ibuprofen 800 mg tablet 800 mg PO TID PRN (Reason: pain) 30 Days Qty: 90 3RF Rx Instructions: take WITH FOOD Discontinued tramadol 50 mg tablet 50 mg PO TID PRN (Reason: pain) 30 Days Qty: 90 0RF No Action (DME) miscellaneous medical supply Misc See Rx Instructions .Route Qty: 1 0RF Rx Instructions: As directed <Glo Mijares PA-C - Last Filed: 06/13/21 19:20> Discharge Orders: Discharge Order (Routine); Ordered 06/13/21 Ordered By: Glo Mijares <Glo Mijares PA-C - Last Filed: 06/13/21 19:20> Diet: advance to usual diet <Glo Mijares PA-C - Last Filed: 06/13/21 19:20> Activity on Discharge: Use cane or walker <Glo Mijares PA-C - Last Filed: 06/13/21 19:20> Stand Alone Forms: Patient Portal Discharge page <KENDRICK Amaya Last Filed: 06/13/21 19:20> Activity Restrictions/Additional Instructions: Physical Therapy for total hip arthroplasty: posterior precautions, gait training, ROM, strength Limit stair climbing No showering, no tub bath-keep dressing clean, dry and intact No driving x6 weeks Continue Aspirin tabs twce a day x 6 weeks Follow up with [facility] Orthopedics in 2 weeks <Glo Mijares PA-C - Last Filed: 06/13/21 19:20> Care Plan Goals: restore fxn to right hip <Glo Mijares PA-C - Last Filed: 06/13/21 19:20> Health Concerns: none <Glo Mijares PA-C - Last Filed: 06/13/21 19:20> Plan of Treatment: Physical Therapy for total hip arthroplasty: posterior precautions, gait training, ROM, strength Limit stair climbing No showering, no tub bath-keep dressing clean, dry and intact No driving x6 weeks Follow up with [facility] Orthopedics in 2 weeks <Glo Mijares PA-C - Last Filed: 06/13/21 19:20> Assessment: stable for d/c <Glo Mijares PA-C - Last Filed: 06/13/21 19:20> Discharge Date/Time: 06/13/21 14:43 <Glo Mijares PA-C - Last Filed: 06/13/21 19:20>
== END 2021-06-13 14:43 | disposition home health service (06) | DRG 324 ==
LOC: HO.SSSA 08:05 → HO.S3 15:01
PROVIDERS: Physician Assistant; Admitting Provider Orthopaedic Surgery; PCP Internal Medicine; Visit Provider Orthopaedic Surgery
PROC: 0SR903A Replacement of Right Hip Joint with Ceramic Synthetic Substitute, Uncemented, Open Approach (ICD-10-PCS; CPT 27130; principal; 2021-06-11 09:40)
DX: M16.11 Unilateral primary osteoarthritis, right hip (principal); E66.9 Obesity, unspecified; Z20.822 Contact with and (suspected) exposure to COVID-19; Z68.31 Body mass index [BMI] 31.0-31.9, adult; Z79.899 Other long term (current) drug therapy
CPT/HCPCS: 36415; 72170; 80048; 85025; 86850; 86900; 86901; 87635; 87640; 87641; 88304; 88311; 97110; 97116; 97162; 97165; 97530; 97535; C1776; J0131; J0690; J1100; J1170; J1885; J2250; J3010

== ENCOUNTER → 2021-06-27 13:39 | Outpatient (BNVA) | payer OTHER, SELFPAY | PROVIDERS: PCP Internal Medicine; Visit Provider Physician Assistant | DX: Z47.1 Aftercare following joint replacement surgery (principal); Z96.641 Presence of right artificial hip joint | CPT/HCPCS: 99212 ==

== ENCOUNTER → 2021-07-25 10:50 | Outpatient (BNVA) | payer OTHER, SELFPAY | PROVIDERS: PCP Internal Medicine; Visit Provider Physician Assistant | DX: Z47.1 Aftercare following joint replacement surgery (principal); Z96.641 Presence of right artificial hip joint | CPT/HCPCS: 99212 ==

== ENCOUNTER 2021-08-13 09:00 | Outpatient (RCR) | payer OTHER, SELFPAY ==
--- NOTE | 2021-06-13 14:48 | W.MHC.F2F ---
Service Date Service Date: 06/13/21 Encounter Date of encounter: 06/13/21 Encounter: Pt. is considered homebound due to recent surgery. Unable to drive, poor balance, poor gait mechanics. Reasons for Services Signs and symptoms assessed: Pt. is considered homebound due to recent surgery. Unable to drive, poor balance, poor gait mechanics. Reason for physical therapy: home safety and mobility, therapeutic exercises, restore joint function, gait/transfer training, assess need for DME and ADL training Reason for occupational therapy: home safety and mobility, therapeutic exercises, restore joint function, gait/transfer training, assess need for DME and ADL training Homebound: Leaving the home is medically contraindicated at this time without the asist of a device and/or another person due th the listed conditions above and below. Reason homebound: unsteady gait / fall risk, leg weakness, pain with ambulation, pain with transfers, poor balance / fall risk and unable to drive Homebound supporting statement: Pt. is considered homebound due to recent surgery. Unable to drive, poor balance, poor gait mechanics. Certification: Based on the above findings, I certify that this patient is confined to the home and needs intermittent long term care, physical therapy and/or speech therapy, or continues to need occupational therapy. The patient is under my care, and I have initiated the establishment of the plan of care. The patient will be followed by a physician who will periodically review the plan of care.
--- NOTE | 2021-06-27 15:12 | MHC.PT.EP ---
[facility] [place] Office [place] Office [place] Office [address] Omari Perales [address] [phone] F: [phone] F: [phone] F: [phone] F: [phone] Physical Therapy Plan of Care Date of Evaluation: Date of Surgery: 06/11/21 Diagnosis: R BERNIE on 06/11/21 Assessment: pt presents to physical therapy s/p posterior hip BERNIE on 06/11/21. pt presents to physical therapy with pain, decreased range of motion, decreased strength, impaired functional mobility, impaired postural awareness, and gait deviations. pt is a good candidate for skilled PT due to age, potential remediation of impairments, typical disease/condition progression and prognosis, comorbidities, and motivation. pt would benefit from tailored strengthening and stretching exercise program, functional training, gait training, postural re-training, neuromuscular re-education, modalities as needed for pain, equipment safety demonstration. Frequency and Duration: The patient will be seen 2x/wk for 4 wks, reassess at that time Short Term Goals: pt will be I w/ HEP to promote self-management of condition. pt will improve R hip flexion to at least 4/5 to improve ease w/ lifting leg for car transfers. pt will demo proper long sitting w/ hip abduction bed mobility to comply w/ post-surgical precautions and joint replacement protection. Senior Living Goals: pt will report a statistically significant improvement in self-reported outcome measure, LEFI, to promote return to PLOF. pt will ambulate >2600' w/o AD to promote return to community level ambulation to return to grocery shopping. Treatment Plan: Modalities to reduce pain, spasms and effusion. Manual therapy to restore motion and function. Therapeutic exercise to improve strength and flexibility. Neuromuscular re-education for posture and balance. Therapeutic activities to return to functional activities of daily living. Electronically signed by: Radha Bennett PT, DPT Please sign and return to therapist. Thank you for your referral.
--- NOTE | 2021-08-13 13:01 | MHC.PT.DC ---
[facility] [place] Office [place] Office [place] Office [address] Omari Perales [address] [phone] F: [phone] F: [phone] F: [phone] F: [phone] Physical Therapy Discharge Report Diagnosis: R BERNIE on 06/11/21 Date of Surgery: 06/11/21 Date of Evaluation: 06/27/21 Date of Discharge: 08/13/21 Treatments to Date: 11 Cancellations to Date: 3 No Shows to Date: 1 Discharge Status: Achieved Goals Improved Function Independent with HEP Discharge Summary: Pt has made good progress since beginning skilled PT. Fair compliance continues during sessions as she consistently is on the phone vs focusing on her exercises. Despite this she has met all her goals at this time allowing her to demonstrate good functional status. At times she still has some low level pain consistent with the procedure she had performed but with time this will continue to subside. Reviewed importance of continuation of HEP to continue to make strength gains and she verbalized understanding. At this point max benefits of PT have been provided and skilled PT is no longer indicated. Pt is in agreement with d/c at this time. Electronically signed by: Anne Hussein, PT, DPT, ATC Please sign and return to therapist. Thank you for your referral.
== END 2021-08-13 13:01 | disposition home or self-care (01) ==
LOC: HO.PTCHIC 09:00
PROVIDERS: Visit Provider Physician Assistant
DX: Z96.641 Presence of right artificial hip joint (principal)
CPT/HCPCS: 97110; 97162; 97530

== ENCOUNTER 2021-09-09 07:16 | Outpatient (REF) | payer OTHER, SELFPAY | END 2021-09-09 07:17 | disposition home or self-care (01) | LOC: HO.HOSX 07:16 | PROVIDERS: Visit Provider Orthopaedic Surgery | DX: Z13.89 Encounter for screening for other disorder (principal) ==

== ENCOUNTER 2021-09-11 11:48 | Outpatient (REF) | payer OTHER, SELFPAY ==
--- NOTE | ~2021-09-11 | XR_ITS ---
EXAMINATION: XR PELVIS XR HIP, RIGHT CLINICAL INFORMATION: Pain. COMPARISON: Most recent pelvic radiograph dated 06/11/2021. TECHNIQUE: AP view the pelvis. AP view the right hip. FINDINGS: Redemonstration of a right hip arthroplasty in unchanged anatomic alignment. No acute hardware or osseous fracture. No perihardware lucency to suggest loosening or infection. No osseous erosion. No abnormal soft tissue calcification. XR/XR pelvis 1-2V IMPRESSION: Right hip arthroplasty without evidence of complication.
--- NOTE | ~2021-09-11 | XR_ITS ---
EXAMINATION: XR PELVIS XR HIP, RIGHT CLINICAL INFORMATION: Pain. COMPARISON: Most recent pelvic radiograph dated 06/11/2021. TECHNIQUE: AP view the pelvis. AP view the right hip. FINDINGS: Redemonstration of a right hip arthroplasty in unchanged anatomic alignment. No acute hardware or osseous fracture. No perihardware lucency to suggest loosening or infection. No osseous erosion. No abnormal soft tissue calcification. XR/XR hip RT 1V IMPRESSION: Right hip arthroplasty without evidence of complication.
--- NOTE | ~2021-09-11 | XR_ITS ---
EXAMINATION: XR KNEE, LEFT CLINICAL INFORMATION: Left knee osteoarthritis. COMPARISON: None TECHNIQUE: Four views of the left knee. FINDINGS: Moderate patellofemoral degenerative joint changes are seen more pronounced laterally with joint space narrowing and periarticular sclerosis. Mild medial femoral-tibial joint space narrowing is seen. There is no acute fracture or dislocation. There is a small suprapatellar joint effusion. The soft tissues are unremarkable. XR/XR knee LT 4V IMPRESSION: 1. Degenerative joint changes most pronounced in the lateral femoral tibial compartment, most consistent with osteoarthritis. 2. Small suprapatellar joint effusion.
--- NOTE | ~2021-09-11 | XR_ITS ---
EXAMINATION: XR KNEE, RIGHT CLINICAL INFORMATION: Right knee osteoarthritis. COMPARISON: None TECHNIQUE: Four views of the right knee. FINDINGS: Moderate patellofemoral degenerative joint changes are seen most pronounced in the lateral patellofemoral joint space. Mild medial femoral-tibial joint space narrowing is seen. There is no acute fracture, dislocation or joint effusion. XR/XR knee RT 4V IMPRESSION: Degenerative joint changes most consistent with osteoarthritis. No acute abnormality.
== END 2021-09-11 11:49 | disposition home or self-care (01) ==
LOC: HO.XRAY 11:48
PROVIDERS: Absent Provider Internal Medicine; PCP Internal Medicine; Visit Provider Orthopaedic Surgery
DX: M25.551 Pain in right hip (principal); M17.0 Bilateral primary osteoarthritis of knee
CPT/HCPCS: 72170; 73501; 73502; 73564

== ENCOUNTER 2021-09-23 09:45 | Emergency (ER) | payer OTHER, SELFPAY ==
[2021-09-23 09:53] VITALS: BP 114/62; PULSE 83; RESP 18; TEMP 36.7; O2SAT 99; BMI 29.0
--- NOTE | 2021-09-23 10:48 | ED_ITS ---
HPI - Eye Problem General Chief complaint: Eye Problems Stated complaint: Eye pain Time Seen by Provider: 09/23/21 10:26 Source: patient Mode of arrival: ambulatory Limitations: no limitations History of Present Illness chief complaint: eye redness Onset (ago): day(s) (3) Onset description: gradual Duration: constant and progressively worsening Location: right eye (Now radiating to the left eyelid per patient) Eye Symptoms: burning, redness, itching and discharge Place: home Mechanism: none Severity: mild Associated symptoms: none Treatments Prior to Arrival: irrigated eye Related Data Previous Rx's Medication Instructions Recorded ferrous sulfate 325 mg (65 mg 325 mg PO DAILY #90 tab 09/14/20 iron) tablet cane #1 ea 12/07/20 LIGHTWEIGHT CANE #1 ea 12/26/20 walker #1 ea 03/07/21 lidocaine 4 % topical patch 1 patch TOPICAL DAILY PRN #15 ea 04/24/21 (Aspercreme (lidocaine)) acetaminophen 325 mg tablet 650 mg PO Q6H PRN 30 Days #240 tab 06/13/21 aspirin 325 mg tablet 325 mg PO BID 42 Days #84 tab 06/13/21 docusate sodium 100 mg capsule 100 mg PO BID 30 Days #60 cap 06/13/21 miscellaneous medical supply #1 ea 06/13/21 celecoxib 200 mg capsule 200 mg PO BID 42 Days #84 cap 07/25/21 tramadol 50 mg tablet 50 mg PO TID PRN 10 Days #30 tab 08/27/21 doxycycline monohydrate 100 mg 100 mg PO BID 10 Days #20 cap 09/23/21 capsule erythromycin 5 mg/gram (0.5 %) eye 0.5 inch OPHTHALMIC (EYE) QID 7 09/23/21 ointment Days #3.5 g Allergies Allergy/AdvReac Type Severity Reaction Status Date / Time hazelnut [HAZELNUT] Allergy Intermediate ITCHING Verified 08/27/21 10:50 THROAT Review of Systems Review of Systems: Constitutional : No fevers, no chills, No changes in activity, No lethargy, No recent prior head injury, No agitation, No increased fussiness ENT/Mouth : No Ear Pain, No Nasal discharge/drainage Eyes: + eyelid swelling/redness with associated purulent discharge/itching, No Vision changes/blurry/decreased vision, No Eye Pain, No Swelling, No Foreign Body, No Photophobia, no contact lens uses, no recent welding, no bleeding Cardiovascular : No Chest Pain, No SOB Respiratory : No Cough Gastrointestinal : No Nausea, No Vomiting, No abdominal Pain Genitourinary : No Dysuria, No Urinary Frequency, No Urinary Incontinence, No Urgency, No Flank Pain Musculoskeletal : No joint pain, No neck stiffness, No back pain/injury Skin : No lacerations Neuro : No unsteady gait, No Paresthesias, No Loss of Consciousness, No altered mental status, No dizziness, No Headache Denies past medical history of HIV, recent trauma, coagulopathy, recent spinal/ epidural procedure, new medication, URI symptoms, close contacts with similar symptoms, tick bite, or known CO2 exposure. Yes all other systems are reviewed and are negative [facility] Past Medical History Attestation statement: The following information was validated with the patient. Medical History Arthritis Bunion of great toe of left foot Obesity (BMI 30-39.9) Pain in left toe(s) Post-traumatic osteoarthritis of right hip Primary osteoarthritis of both knees Right hip pain Spontaneous ecchymoses Surgical History H/O gastric bypass History of bilateral breast reduction surgery History of hip surgery History of laparoscopic cholecystectomy History of surgery History of tubal ligation Family History Family History Mother Ovarian cancer Diabetes Father HIV (human immunodeficiency virus infection) Maternal Grandmother Stomach cancer Maternal Grandfather Myocardial infarction Brother In good health Sister In good health Mental health disorder Son In good health Daughter In good health Social History Social History Household Members: Family Housing: Apartment 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 (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 age 7) Do you presently have visiting nurse or other home services: No Alcohol intake: current Alcohol intake frequency: holidays/special occasions only Patient Tobacco Use Status: Former Tobacco user Quit Date: 2009 Tobacco use type: Cigarette e-Cigarette/Vaping Use: Never Used Second Hand Smoke Exposure: No Substance Use Type: Marijuana Advance Directives: No Advance Directives Information Provided: No Patient : No service: No Current occupational status: unemployed Gender identity: Female Cognitive needs: No Hearing needs: No Vision needs: No Physical Exam Vital Signs: Vital Signs: Last Vital Signs Temp 98.0 F 09/23/21 09:53 Pulse 83 09/23/21 09:53 Resp 18 09/23/21 09:53 BP 114/62 09/23/21 09:53 Pulse Ox 99 09/23/21 09:53 BMI result Body Mass Index 29.0 vital signs have been reviewed as normal and appeared to be correct. Blood pressure normal. Heart rate normal. Respiration rate normal. Temperature normal. Oxygen saturation normal. Appearance: Alert. Oriented X3. No acute distress. Head: Normal external exam. Normocephalic. Atraumatic. No [place] signs noted. No raccoon eyes noted Eyes: PERRLA. EOMI. Right eyelid mildly erythematous/edematous consistent with blepharitis. Conjunctiva are normal. Cornea are normal. Funduscopic exam within normal limits. Sclera normal. Left eyelid within normal limits at this time. No papilledema noted. Anterior chamber normal. No photophobia noted. ENT: EAC normal. TM's Normal. Pharynx normal. Uvula midline. Moist mucous membranes. Neck: Normal inspection. Neck supple. FROM. No adenopathy. Thyroid Normal. No meningeal signs. No neck mass noted. CVS: Normal heart rate and rhythm. Heart sound normal. No murmurs noted. Pulses normal throughout. Respiratory: No respiratory distress. Painless inspiration. Breath sounds normal. Back: Full range of motion noted. Skin: Skin warm and dry. Normal skin color. Normal skin turgor. No rashes/lesions/lacerations noted. Extremities: Extremities exhibit normal range of motion. Extremities nontender. Neuro: Oriented X 3. No motor deficit. No sensory deficit. Reflexes normal. Course Course Course Narrative: Patient with blepharitis. Will DC home with topical and oral treatment and instructions to follow-up with ophthalmology and to return if any new or worsening symptoms. Patient understands agrees with this plan. MDM - Eye Problem Medical Records Attestation: I reviewed the patient's medical records. Discharge Plan Discharge Clinical Impression: Blepharitis of eyelid of right eye Patient Disposition: Home, Self-Care Instructions: Blepharitis (ED) Prescriptions: New erythromycin 5 mg/gram (0.5 %) ointment 0.5 inch ophthalmic (eye) QID 7 Days Qty: 3.5 0RF doxycycline monohydrate 100 mg capsule 100 mg PO BID 10 Days Qty: 20 0RF No Action ferrous sulfate 325 mg (65 mg iron) tablet 325 mg PO DAILY Qty: 90 0RF (DME) cane Device See Rx Instructions .ROUTE .MEDSUPPLY Qty: 1 0RF Rx Instructions: As directed (DME) walker [facility] [place] [facility] See Rx Instructions .MEDSUPPLY Qty: 1 0RF Rx Instructions: Folding Front wheeled walker lidocaine [Aspercreme (lidocaine HCl)] 4 % adhesive patch,medicated 1 patch topical DAILY PRN (Reason: pain) Qty: 15 1RF (DME) [facility] See Rx Instructions .Route Qty: 1 0RF Rx Instructions: As directed tramadol 50 mg tablet 50 mg PO TID PRN (Reason: pain) 10 Days Qty: 30 0RF acetaminophen 325 mg Tablet 650 mg PO Q6H PRN (Reason: Pain, Mild (Pain Scale 1-3)) 30 Days Qty: 240 0RF aspirin 325 mg Tablet 325 mg PO BID 42 Days Qty: 84 0RF docusate sodium 100 mg Capsule 100 mg PO BID 30 Days Qty: 60 0RF (DME) LIGHTWEIGHT CANE See Rx Instructions .Route .MEDSUPPLY Qty: 1 0RF Rx Instructions: As directed celecoxib 200 mg capsule 200 mg PO BID 42 Days Qty: 84 0RF Referrals: Aditya Aguirre MD [Primary Care Provider] - 2 days Marcial Beverly [Physician] - 2 days Print Language: Kazakh
[2021-09-23] MEDS: Erythromycin Base 0.5% Oph Oin 1 GM TUBE 1 CM EYE-RIGHT (10:52)
== END 2021-09-23 11:14 | disposition home or self-care (01) ==
PROVIDERS: Emergency Provider Emergency Medicine; PCP Internal Medicine
DX: H01.003 Unspecified blepharitis right eye, unspecified eyelid (principal)
CPT/HCPCS: 99283

== ENCOUNTER 2021-10-07 07:02 | Outpatient (REF) | payer OTHER, SELFPAY | END 2021-10-07 07:03 | disposition home or self-care (01) | LOC: HO.HOSX 07:02 | PROVIDERS: Visit Provider Orthopaedic Surgery | DX: Z13.89 Encounter for screening for other disorder (principal) ==

== ENCOUNTER 2021-10-24 08:37 | Outpatient (REF) | payer OTHER, SELFPAY ==
--- NOTE | ~2021-10-24 | XR_ITS ---
EXAMINATION: XR PELVIS CLINICAL INFORMATION: Pain COMPARISON: Previous x-ray August 2021 TECHNIQUE: AP view of the pelvis. FINDINGS: There is a right hip replacement in satisfactory position. No fracture or dislocation is seen. The left hip joint is normal. Bones of the pelvis are normal. There are degenerative changes of the lower lumbar spine. Soft tissues are normal. XR/XR pelvis 1-2V IMPRESSION: Satisfactory appearance of right hip replacement.
== END 2021-10-24 08:38 | disposition home or self-care (01) ==
LOC: HO.HOSX 08:37
PROVIDERS: Visit Provider Orthopaedic Surgery
DX: M17.12 Unilateral primary osteoarthritis, left knee (principal); Z96.641 Presence of right artificial hip joint
CPT/HCPCS: 20610; 72170; J1100

== ENCOUNTER 2021-11-08 07:41 | Emergency (ER) | payer OTHER, SELFPAY ==
--- NOTE | ~2021-11-08 | US_ITS ---
EXAMINATION: US PELVIS CLINICAL INFORMATION: Right adnexal tenderness and vaginal bleeding COMPARISON: None TECHNIQUE: Ultrasound of the pelvis is performed using both transabdominal and transvaginal transducers along with Doppler. Transvaginal imaging is performed due to inadequate visualization transabdominally. FINDINGS: Uterus: The uterus is anteverted and measures 9.9 x 4.9 x 6.3 cm. There is a small 6 mm hypoechoic lesion in the posterior uterine body questionable for a small fibroid. No other focal uterine lesion. The double wall endometrial thickness is 0.9 mm. The uterus is smooth in contour and has normal myometrial echogenicity. No visible fibroid. Adnexa: Both ovaries are visualized. There is normal color flow to the adnexa. There is no ovarian torsion. There is a small amount of fluid in the pelvis. Right ovary measures 2.8 x 3.4 x 2.7 cm. There is a small likely complex 2.3 x 1.3 x 1.8 cm cyst. Left ovary measures 4 x 3.8 x 2.8 cm. There is a 2.8 x 2.3 x 2.5 cm cyst. US/US pelvic and transvaginal IMPRESSION: No evidence of torsion. Small bilateral ovarian cysts. Small amount of fluid in the pelvis.
--- NOTE | ~2021-11-08 | US_ITS ---
EXAMINATION: US PELVIS CLINICAL INFORMATION: Right adnexal tenderness and vaginal bleeding COMPARISON: None TECHNIQUE: Ultrasound of the pelvis is performed using both transabdominal and transvaginal transducers along with Doppler. Transvaginal imaging is performed due to inadequate visualization transabdominally. FINDINGS: Uterus: The uterus is anteverted and measures 9.9 x 4.9 x 6.3 cm. There is a small 6 mm hypoechoic lesion in the posterior uterine body questionable for a small fibroid. No other focal uterine lesion. The double wall endometrial thickness is 0.9 mm. The uterus is smooth in contour and has normal myometrial echogenicity. No visible fibroid. Adnexa: Both ovaries are visualized. There is normal color flow to the adnexa. There is no ovarian torsion. There is a small amount of fluid in the pelvis. Right ovary measures 2.8 x 3.4 x 2.7 cm. There is a small likely complex 2.3 x 1.3 x 1.8 cm cyst. Left ovary measures 4 x 3.8 x 2.8 cm. There is a 2.8 x 2.3 x 2.5 cm cyst. US/US pelvic ovarian doppler IMPRESSION: No evidence of torsion. Small bilateral ovarian cysts. Small amount of fluid in the pelvis.
[2021-11-08 07:42] VITALS: BP 123/76; PULSE 80; RESP 17; TEMP 36.6; O2SAT 99; BMI 29.0
[2021-11-08 08:10] VITALS: BP 121/69; PULSE 66; RESP 16; O2SAT 99
--- NOTE | 2021-11-08 08:29 | ED.GENADULT ---
HPI - General Adult General Chief complaint: Abdominal Pain Stated complaint: pelvic pain Time Seen by Provider: 11/08/21 08:28 Source: patient Mode of arrival: ambulatory Limitations: no limitations History of Present Illness HPI narrative: 46-year-old female with past medical history of gastric bypass and tubal ligation presents for pelvic pain for the last 7 days and abnormal vaginal bleeding. Patient has had pelvic pain right more than left, that is a sharp pain, in addition she has had urinary urgency and dysuria. Patient is also had dyspareunia. Patient's last menstrual period was October 30, but she has had spotting since then. Patient does request STD testing as well Related Data Previous Rx's Medication Instructions Recorded ferrous sulfate 325 mg (65 mg 325 mg PO DAILY #90 tabs 09/14/20 iron) tablet cane #1 ea 12/07/20 LIGHTWEIGHT CANE #1 ea 12/26/20 walker #1 ea 03/07/21 lidocaine 4 % topical patch 1 patch topical DAILY PRN pain #15 04/24/21 (Aspercreme (lidocaine)) ea acetaminophen 325 mg tablet 650 mg PO Q6H PRN Pain, Mild (Pain 06/13/21 Scale 1-3) 30 days #240 tabs aspirin 325 mg tablet 325 mg PO BID 42 days #84 tabs 06/13/21 docusate sodium 100 mg capsule 100 mg PO BID 30 days #60 caps 06/13/21 miscellaneous medical supply #1 ea 06/13/21 celecoxib 200 mg capsule 200 mg PO BID pain and swelling 07/25/21 42 days #84 caps doxycycline monohydrate 100 mg 100 mg PO BID 10 days #20 caps 09/23/21 capsule erythromycin 5 mg/gram (0.5 %) eye 0.5 inch ophthalmic (eye) QID 09/23/21 ointment Blepharitis 7 days #3.5 grams tramadol 50 mg tablet 50 mg PO TID PRN pain 30 days #90 10/22/21 tabs diclofenac sodium 1 % topical gel 4 g topical QID #100 grams 10/24/21 (Arthritis Pain (diclofenac)) cephalexin 500 mg capsule 500 mg PO QID 5 days #20 caps 11/08/21 doxycycline hyclate 100 mg tablet 100 mg PO BID 7 days #14 tabs 11/08/21 Allergies Allergy/AdvReac Type Severity Reaction Status Date / Time hazelnut [HAZELNUT] Allergy Intermediate ITCHING Verified 10/24/21 09:37 THROAT Review of Systems Constitutional: Constitutional: Denies body ache(s), Denies chills, Denies fatigue, Denies fever(s), Denies malaise and Denies weakness Eyes: Eyes: Denies diplopia Cardiovascular: Cardiovascular: Denies chest pain, Denies syncope, Denies leg edema, Denies lightheadedness, Denies Loss of Consciousness, Denies palpitations and Denies dyspnea Respiratory: Respiratory: Denies chest congestion, Denies cough and Denies dyspnea Gastrointestinal: Gastrointestinal: Denies abdominal pain, Denies hematochezia, Denies constipation, Denies diarrhea, Reports nausea and Denies vomiting Genitourinary: Genitourinary: Reports abnormal vaginal bleeding, Reports dyspareunia, Reports dysuria, Reports pelvic pain, Denies flank pain, Reports urinary urgency, Denies vaginal odor and Denies vaginal pruritus Musculoskeletal: Musculoskeletal: Reports no additional musculoskeletal complaints and Denies back pain Integumentary/Breasts: Skin/Breast: Denies rash Neurologic: Denies confusion, Denies syncope and Denies weakness Psychiatric: Psychiatric: Denies anxiety, Denies confusion and Denies depression Endocrine: Endocrine: Denies fatigue and Denies palpitations PMFSH Past Medical History Medical History Arthritis Surgical History H/O gastric bypass History of bilateral breast reduction surgery History of hip surgery History of laparoscopic cholecystectomy History of surgery History of tubal ligation Family History Family History Mother Ovarian cancer Diabetes Father HIV (human immunodeficiency virus infection) Maternal Grandmother Stomach cancer Maternal Grandfather Myocardial infarction Brother In good health Sister In good health Mental health disorder Son In good health Daughter In good health Social History Social History Household Members: Family Housing: Apartment 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 you 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 at home: Yes (son age 7) Do you presently have visiting nurse or other home services: No Alcohol intake: current Alcohol intake frequency: holidays/special occasions only Patient Tobacco Use Status: Former Tobacco user Quit Date: 2009 Tobacco use type: Cigarette e-Cigarette/Vaping Use: Never Used Second Hand Smoke Exposure: No Substance Use Type: Marijuana Advance Directives: No Advance Directives Information Provided: Yes service: No Current occupational status: unemployed Gender identity: Female Cognitive needs: No Hearing needs: No Vision needs: No Physical Exam ED Vital Signs: Vital Signs - 24 hr 11/08/21 07:42 11/08/21 08:10 11/08/21 10:02 Temperature 98 F Pulse Rate 80 66 57 Respiratory Rate 17 16 18 Blood Pressure 123/76 121/69 114/72 Pulse Oximetry 99 99 100 Oxygen Delivery Method Room Air Room Air Room Air 11/08/21 12:01 Temperature Pulse Rate 65 Respiratory Rate 16 Blood Pressure 120/69 Pulse Oximetry 100 Oxygen Delivery Method Room Air BMI result Body Mass Index 29.0 Const General: No confusion Nutritional Appearance: well nourished Orientation/consciousness: No confusion Limitations: no limitations Eyes Conjunctivae: conjunctivae normal Pupils: Equal, round and reactive pupils present EOM: EOMs intact bilaterally Neck Neck: Yes full ROM, Yes no lymphadenopathy and Yes supple Resp Effort & Inspection: normal respiratory effort and able to speak in complete sentences Auscultation: clear to auscultation bilaterally, no crackles, no rales, no rhonchi and no wheezes Cardio Rate: regular rate Rhythm: regular rhythm Heart sounds: S1 normal heart sound present and S2 normal heart sound present GI Inspection: Yes normal to inspection Palpation (GI): Soft to palpation, nontender, no guarding and not rigid Percussion: Yes normal to percussion Auscultation: normal bowel sounds External Female Exam: normal external appearance and normal appearance of the urethra Speculum Exam - Vagina: normal appearance of the vagina, normal palpation, vaginal bleeding (scant) and nontender Speculum Exam - Cervix: normal appearance of the cervix, normal palpation and normal vervical discharge Bimanual exam- vagina & uterus: normal palpation and normal palpation Bimanual Exam- Adnexa, other: tender on the right OB/external & speculum: vaginal bleeding (scant) Skin General skin exam: no rashes or lesions noted Neuro General: No confusion Cranial nerves: Yes Equal, round and reactive pupils present Extrem General: Yes normal to inspection and Yes full ROM Psych Appearance: grossly normal Affect: normal affect Attitude: cooperative Thought process: Normal thought process present Course Course Course Narrative: 46-year-old female presents with pelvic pain for the last week. Patient has had right-sided pelvic pain that is sharp, with dysuria and urinary frequency, dyspareunia, and some mild vaginal bleeding between her periods. On exam, patient is well-appearing, benign abdominal exam, vitals are stable, afebrile. Patient has tenderness on portable track crew chief exam right adnexa. Speculum exam reveals some blood in the vaginal vault. BV panel and CTNG were obtained, I called the lab, and BV panel will not return until tomorrow. Patient has infection in her urine, she is not , labs are remarkable for anemia which is her baseline, ultrasound shows small fibroid Will treat for gonorrhea and Chlamydia, will treat for UTI, will refer to Dr. Wright before normal vaginal bleeding, counseled patient will call her tomorrow if her bacterial vaginosis panel returns positive. Counseled patient to call her PCP for anemia treatment Roll Tube Setter return to emergency room if worsening pelvic pain, fevers, vomiting, lightheadedness or dizziness, or any new or concerning symptoms Reevaluation(s) Reevaluation #1: FINDINGS: Uterus: The uterus is anteverted and measures 9.9 x 4.9 x 6.3 cm. There is a small 6 mm hypoechoic lesion in the posterior uterine body questionable for a small fibroid. No other focal uterine lesion. The double wall endometrial thickness is 0.9 mm.? The uterus is smooth in contour and has normal myometrial echogenicity. ? No visible fibroid. Adnexa: Both ovaries are visualized. There is normal color flow to the adnexa. There is no ovarian torsion.? There is a small amount of fluid in the pelvis. Right ovary measures 2.8 x 3.4 x 2.7 cm. There is a small likely complex 2.3 x 1.3 x 1.8 cm cyst. Left ovary measures 4 x 3.8 x 2.8 cm. There is a 2.8 x 2.3 x 2.5 cm cyst. US/US pelvic and transvaginal IMPRESSION: No evidence of torsion. Small bilateral ovarian cysts. Small amount of fluid in the pelvis. Medical Decision Making Lab Data Result diagrams: 11/08/21 09:45 11/08/21 09:45 Labs: Lab Results 11/08/21 11/08/21 11/08/21 Range/Units 09:37 09:37 09:45 WBC 6.0 (4.8-10.8) X10*3/uL RBC 4.16 L D (4.20-5.50) X10*6/uL Hgb 9.9 L (12.0-16.0) g/dl Hct 33.1 L (37.0-47.0) % MCV 79.6 L (80.0-98.0) fL MCH 23.8 L (27.0-33.0) pg MCHC 29.9 L (31.0-35.0) g/dl RDW 17.6 H (11.0-16.0) % Plt Count 323 D (160-400) X10*3/uL MPV 12.4 H (9.4-12.3) fL Immature Gran % (Auto) 0.3 (0.0-0.4) % Neut % (Auto) 67.7 (45-73) % Lymph % (Auto) 21.2 (20-40) % [place] % (Auto) 9.1 (2-11) % Eos % (Auto) 1.0 (0-4) % Baso % (Auto) 0.7 (0-2) % Lymph # (Auto) 1.3 (1.2-4.9) X10*3/uL [place] # (Auto) 0.6 (0.1-1.2) X10*3/uL Eos # (Auto) 0.1 (0.0-0.4) X10*3/uL Baso # (Auto) 0.0 (0.0-0.2) X10*3/uL Abs Immat Gran (auto) 0.02 (0.00-0.03) X10*3/uL Absolute Neuts (auto) 4.1 (2.0-8.3) x10*3/uL Absolute Nucleated RBC 0.000 (0.0-0.012) X10*3/uL Nucleated RBC % (auto) 0.0 (0.0-0.2) /100WBC Sodium (135-145) mmol/L Potassium (3.3-5.1) mmol/L Chloride (96-108) mmol/L Carbon Dioxide (22-29) mmol/L Anion Gap (12-20) BUN (9-16) mg/dL Creatinine (0.5-1.4) mg/dL Estim Creat Clear Calc Estimated GFR Random Glucose (60-115) mg/dL Calcium (8.4-10.2) mg/dL Total Bilirubin (0.0-1.0) mg/dL AST (5-31) U/L ALT (0-31) U/L Alkaline Phosphatase (39-117) U/L Total Protein (6.5-8.0) g/dL Albumin (3.5-5.0) g/dL Urine Color YELLOW Urine Appearance HAZY Urine pH 6.5 (5.0-8.0) Ur Specific [place] 1.020 (1.005-1.025) Urine Protein NEG (NEG-TRACE) MG/DL Urine Glucose (UA) NEG (NEG) MG/DL Urine Ketones NEG (NEG) MG/DL Urine Blood TRACE (NEG) Urine Nitrite NEG (NEG) Ur Leukocyte Esterase 1+ H (NEG) Urine RBC 1-4 (0) /HPF Urine WBC 10-14 H (0-4) /HPF Ur Squamous Epith Cells 2+ /LPF Urine Bacteria 4+ /LPF Urine Test NEGATIVE (NEGATIVE) 11/08/21 Range/Units 09:45 WBC (4.8-10.8) X10*3/uL RBC (4.20-5.50) X10*6/uL Hgb (12.0-16.0) g/dl Hct (37.0-47.0) % MCV (80.0-98.0) fL MCH (27.0-33.0) pg MCHC (31.0-35.0) g/dl RDW (11.0-16.0) % Plt Count (160-400) X10*3/uL MPV (9.4-12.3) fL Immature Gran % (Auto) (0.0-0.4) % Neut % (Auto) (45-73) % Lymph % (Auto) (20-40) % [place] % (Auto) (2-11) % Eos % (Auto) (0-4) % Baso % (Auto) (0-2) % Lymph # (Auto) (1.2-4.9) X10*3/uL [place] # (Auto) (0.1-1.2) X10*3/uL Eos # (Auto) (0.0-0.4) X10*3/uL Baso # (Auto) (0.0-0.2) X10*3/uL Abs Immat Gran (auto) (0.00-0.03) X10*3/uL Absolute Neuts (auto) (2.0-8.3) x10*3/uL Absolute Nucleated RBC (0.0-0.012) X10*3/uL Nucleated RBC % (auto) (0.0-0.2) /100WBC Sodium 138 (135-145) mmol/L Potassium 4.0 (3.3-5.1) mmol/L Chloride 105 (96-108) mmol/L Carbon Dioxide 26 (22-29) mmol/L Anion Gap 11 L (12-20) BUN 13 D (9-16) mg/dL Creatinine 0.70 (0.5-1.4) mg/dL Estim Creat Clear Calc 110.4 Estimated GFR > 60 Random Glucose 88 (60-115) mg/dL Calcium 8.8 (8.4-10.2) mg/dL Total Bilirubin 0.4 (0.0-1.0) mg/dL AST 16 (5-31) U/L ALT 12 (0-31) U/L Alkaline Phosphatase 87 (39-117) U/L Total Protein 6.7 (6.5-8.0) g/dL Albumin 3.8 (3.5-5.0) g/dL Urine Color Urine Appearance Urine pH (5.0-8.0) Ur Specific [place] (1.005-1.025) Urine Protein (NEG-TRACE) MG/DL Urine Glucose (UA) (NEG) MG/DL Urine Ketones (NEG) MG/DL Urine Blood (NEG) Urine Nitrite (NEG) Ur Leukocyte Esterase (NEG) Urine RBC (0) /HPF Urine WBC (0-4) /HPF Ur Squamous Epith Cells /LPF Urine Bacteria /LPF Urine Test (NEGATIVE) Discharge Plan Discharge Clinical Impression: Abnormal vaginal bleeding in premenopausal patient, Anemia, UTI (urinary tract infection), Potential exposure to STD Patient Disposition: Home, Self-Care Instructions: Dysfunctional Uterine Bleeding (ED), Sexually Transmitted Diseases (ED), Safe Sex Practices (ED), Urinary Tract Infection in Women (ED) Additional Instructions: Please call your primary care provider to see if they want to start you again on iron supplements for your mild anemia. You also have a urinary tract infection, I will treat that with antibiotics to her pharmacy. You will also be treated with a different antibiotic for possible chlamydia. We will call you if your sexually transmitted disease labs come back positive. Please call Dr. Wright at the following number, I have referred you to him, but if you do not hear from him by Thursday, please call [phone] for follow-up of your abnormal vaginal bleeding, as this could be uterine cancer and we want to rule that out Please alternate Tylenol and ibuprofen for pain. Take 1 or the other every 4 hours. For example, at midnight take 1000 mg of Tylenol, then at 4:00 a.m. take 800 mg ibuprofen, at 8:00 a.m. take 1000 mg of Tylenol, at noon take 800 mg of ibuprofen, at 4:00 p.m. take 1000 mg of Tylenol, at 8:00 p.m. take 800 mg of ibuprofen. Do not exceed 3000 mg of Tylenol in 24 hours. This method is proven to be as effective as an opioid for pain control. Please return to emergency room if you have any lightheadedness, dizziness, worsening pain, or any other new or concerning symptoms Prescriptions: New cephalexin 500 mg capsule 500 mg PO QID 5 Days Qty: 20 0RF doxycycline hyclate 100 mg tablet 100 mg PO BID 7 Days Qty: 14 0RF No Action ferrous sulfate 325 mg (65 mg iron) tablet 325 mg PO DAILY Qty: 90 0RF (DME) cane Device See Rx Instructions .ROUTE .MEDSUPPLY Qty: 1 0RF Rx Instructions: As directed [place]DME[place] [facility] [place]MEDSUPPLY Qty: 1 0RF Rx Instructions: [place] Front wheeled daren lidocaine [Aspercreme (lidocaine HCl)] 4 % adhesive patch,medicated 1 patch topical DAILY PRN (Reason: pain) Qty: 15 1RF (DME) [facility] See Rx Instructions .Route Qty: 1 0RF Rx Instructions: As directed tramadol 50 mg tablet 50 mg PO TID PRN (Reason: pain) 30 Days Qty: 90 0RF acetaminophen 325 mg Tablet 650 mg PO Q6H PRN (Reason: Pain, Mild (Pain Scale 1-3)) 30 Days Qty: 240 0RF aspirin 325 mg Tablet 325 mg PO BID 42 Days Qty: 84 0RF docusate sodium 100 mg Capsule 100 mg PO BID 30 Days Qty: 60 0RF erythromycin 5 mg/gram (0.5 %) ointment 0.5 inch ophthalmic (eye) QID 7 Days Qty: 3.5 0RF doxycycline monohydrate 100 mg capsule 100 mg PO BID 10 Days Qty: 20 0RF (DME) LIGHTWEIGHT CANE See Rx Instructions .Route .MEDSUPPLY Qty: 1 0RF Rx Instructions: As directed celecoxib 200 mg capsule 200 mg PO BID 42 Days Qty: 84 0RF diclofenac sodium [Arthritis Pain (diclofenac)] 1 % gel 4 g topical QID Qty: 100 0RF Rx Instructions: apply to single knee, ankle, foot; for foot includes sole/toes/top of foot Referrals: Narinder Wright MD [Physician] -
[2021-11-08 09:48] LABS: MANUAL DIFF FLAG NO
[2021-11-08 09:55] LABS: Appearance Urine HAZY; Color Urine YELLOW; Glucose Urine UA NEG (NEG); Leukocyte Esterase Urine 1+ (NEG); Nitrite Urine NEG (NEG); PH 6.5 (5.0-8.0); UACC Culture Trigger YES; Urine Blood TRACE (NEG); Urine Ketones NEG (NEG); Urine Protein NEG (NEG-TRACE)
[2021-11-08 09:57] LABS: UPreg QC Valid YES; Urine Pregnancy NEGATIVE (NEGATIVE)
[2021-11-08 10:02] VITALS: BP 114/72; PULSE 57; RESP 18; O2SAT 100
[2021-11-08 10:05] LABS: Bacteria Urine 4+ /LPF; Squamous Epithelial Cell Urine 2+ /LPF
[2021-11-08 10:07] LABS: Alanine Aminotransferase 12 U/L (0-31); Albumin Level 3.8 g/dL (3.5-5.0); Alkaline Phosphatase 87 U/L (39-117); Anion Gap 11 (12-20); Aspartate Amino Transferase 16 U/L (5-31); Bilirubin Total 0.4 mg/dL (0.0-1.0); Blood Urea Nitrogen 13 mg/dL (9-16); Calcium 8.8 mg/dL (8.4-10.2); Carbon Dioxide 26 mmol/L (22-29); Chloride 105 mmol/L (96-108); Creatinine Clr Calc Pharmacy 110.4; Estimated Glomerular Filt Rate > 60; Glucose Random 88 mg/dL (60-115); Sodium 138 mmol/L (135-145); Total Protein 6.7 g/dL (6.5-8.0)
[2021-11-08 10:09] LABS: Basophils Percent Auto 0.7 % (0-2); Eosinophils Absolute Auto 0.1 X10*3/uL (0.0-0.4); Hematocrit 33.1 % (37.0-47.0); Hemoglobin 9.9 g/dl (12.0-16.0); Imm Gran Abs Auto 0.02 X10*3/uL (0.00-0.03); Imm Gran Pct Auto 0.3 % (0.0-0.4); Lymphocytes Absolute Auto 1.3 X10*3/uL (1.2-4.9); Lymphocytes Percent Auto 21.2 % (20-40); Mean Corpuscular HGB Conc 29.9 g/dl (31.0-35.0); Mean Corpuscular Hemoglobin 23.8 pg (27.0-33.0); Mean Corpuscular Volume 79.6 fL (80.0-98.0); Mean Platelet Volume 12.4 fL (9.4-12.3); Monocytes Absolute Auto 0.6 X10*3/uL (0.1-1.2); Monocytes Percent Auto 9.1 % (2-11); Neutrophils Absolute Auto 4.1 x10*3/uL (2.0-8.3); Neutrophils Percent Auto 67.7 % (45-73); Platelet Count 323 X10*3/uL (160-400); Red Blood Count 4.16 X10*6/uL (4.20-5.50); Red Cell Distribution Width 17.6 % (11.0-16.0)
[2021-11-08 12:01] VITALS: BP 120/69; PULSE 65; RESP 16; O2SAT 100
[2021-11-08 12:59] LABS: CT PCR NOT DETECTED (Not Detect.); NG PCR NOT DETECTED (Not Detect.)
[2021-11-08] MEDS: cefTRIAXone sodium 500 MG, Lidocaine HCl 1 % MPF 1 ML IM (13:40)
[2021-11-09 15:09] LABS: BV Int Neg Control Negative (Negative); BV Int Pos Control Positive (Positive)
== END 2021-11-08 13:42 | disposition home or self-care (01) ==
PROVIDERS: Physician Assistant; Emergency Provider Emergency Medicine Emergency Medical Services; PCP Internal Medicine
DX: N92.4 Excessive bleeding in the premenopausal period (principal); N39.0 Urinary tract infection, site not specified; D64.9 Anemia, unspecified; R30.0 Dysuria; R35.0 Frequency of micturition; Z20.2 Contact with and (suspected) exposure to infections with a predominantly sexual mode of transmission; Z87.891 Personal history of nicotine dependence; Z79.899 Other long term (current) drug therapy; Z98.84 Bariatric surgery status
CPT/HCPCS: 36415; 76830; 76856; 80053; 81001; 81025; 85025; 87086; 87088; 87186; 87480; 87491; 87510; 87591; 87660; 93975; 96372; 99284; J0696

== ENCOUNTER → 2021-11-27 08:33 | Outpatient (BNVA) | payer OTHER, SELFPAY | PROVIDERS: PCP Internal Medicine; Visit Provider Physician Assistant Surgical | DX: E66.3 Overweight (principal); R10.13 Epigastric pain; Z98.84 Bariatric surgery status; Z68.29 Body mass index [BMI] 29.0-29.9, adult | CPT/HCPCS: 99212 ==

== ENCOUNTER 2021-11-28 06:24 | Outpatient (REF) | payer OTHER, SELFPAY ==
[2021-11-28 06:39] LABS: MANUAL DIFF FLAG NO
[2021-11-28 08:25] LABS: Basophils Percent Auto 0.7 % (0-2); Eosinophils Absolute Auto 0.1 X10*3/uL (0.0-0.4); Eosinophils Percent Auto 1.9 % (0-4); Hematocrit 29.9 % (37.0-47.0); Hemoglobin 8.8 g/dl (12.0-16.0); Imm Gran Abs Auto 0.01 X10*3/uL (0.00-0.03); Imm Gran Pct Auto 0.2 % (0.0-0.4); Lymphocytes Absolute Auto 1.5 X10*3/uL (1.2-4.9); Lymphocytes Percent Auto 25.5 % (20-40); Mean Corpuscular HGB Conc 29.4 g/dl (31.0-35.0); Mean Corpuscular Hemoglobin 23.5 pg (27.0-33.0); Mean Corpuscular Volume 79.7 fL (80.0-98.0); Mean Platelet Volume 11.8 fL (9.4-12.3); Monocytes Absolute Auto 0.6 X10*3/uL (0.1-1.2); Monocytes Percent Auto 10.2 % (2-11); Neutrophils Absolute Auto 3.6 x10*3/uL (2.0-8.3); Neutrophils Percent Auto 61.5 % (45-73); Platelet Count 308 X10*3/uL (160-400); Red Blood Count 3.75 X10*6/uL (4.20-5.50); Red Cell Distribution Width 16.8 % (11.0-16.0); White Blood Count 5.9 X10*3/uL (4.8-10.8)
[2021-11-28 08:29] LABS: Estimated Average Glucose 103 mg/dL; Hemoglobin A1c % 5.2 %
[2021-11-28 08:50] LABS: Alanine Aminotransferase 14 U/L (0-31); Albumin Level 3.8 g/dL (3.5-5.0); Alkaline Phosphatase 81 U/L (39-117); Anion Gap 11 (12-20); Aspartate Amino Transferase 20 U/L (5-31); Bilirubin Total 0.3 mg/dL (0.0-1.0); Blood Urea Nitrogen 19 mg/dL (9-16); C Reactive Protein 0.06 mg/dL (< or = 0.50); Calcium 8.5 mg/dL (8.4-10.2); Carbon Dioxide 27 mmol/L (22-29); Chloride 104 mmol/L (96-108); Cholesterol 149 mg/dL; Estimated Glomerular Filt Rate > 60; Glucose Random 80 mg/dL (60-115); HDL Cholesterol 67 mg/dL; Iron 22 mcg/dL (30-160); LDL Cholesterol Calculated 71 mg/dl; Percent Iron Saturation 6 % (15-50); Potassium 4.1 mmol/L (3.3-5.1); Sodium 138 mmol/L (135-145); Total Iron Binding Capacity 361 mcg/dL (228-428); Total Protein 6.3 g/dL (6.5-8.0); Triglycerides 59 mg/dL; Unsaturated Iron Binding 339 ug/dL
[2021-11-28 09:17] LABS: Ferritin 6 ng/mL (10-250); TSH reflex Free T4 0.56 uIU/mL (0.32-4.0); Vitamin D 25-OH Total 22.9 ng/mL (>30)
[2021-11-28 09:23] LABS: Folate 16.2 ng/mL (> or = 4.0); Vitamin B12 171 pg/mL (200-900)
[2021-11-28 09:55] LABS: Insulin 7 uU/mL (2-29)
[2021-11-29 13:26] LABS: Calcium (PTHI) 8.7 mg/dL (8.6-10.2); PTHI 82 pg/mL (16-77)
[2021-12-03 05:52] LABS: Zinc 76 mcg/dL (60-130)
[2021-12-04 16:37] LABS: Vitamin B1 8 nmol/L (8-30)
[2021-12-04 17:27] LABS: Vitamin A 37 mcg/dL (38-98)
== END 2021-11-28 06:25 | disposition home or self-care (01) ==
LOC: HO.LAB 06:24
PROVIDERS: PCP Internal Medicine; Visit Provider Physician Assistant Surgical
DX: Z98.84 Bariatric surgery status (principal)
CPT/HCPCS: 36415; 80053; 80061; 82306; 82607; 82728; 82746; 83036; 83525; 83540; 83970; 84425; 84443; 84590; 84630; 85025; 86140

== ENCOUNTER → 2022-03-17 09:19 | Outpatient (BNVA) | payer OTHER, SELFPAY | PROVIDERS: PCP Internal Medicine; Visit Provider Orthopaedic Surgery | DX: M17.12 Unilateral primary osteoarthritis, left knee (principal); Z96.641 Presence of right artificial hip joint | CPT/HCPCS: 20610; 99212; J1100 ==

== ENCOUNTER → 2022-04-08 10:31 | Outpatient (BNVA) | payer OTHER, SELFPAY | PROVIDERS: PCP Internal Medicine; Visit Provider Physician Assistant Surgical | DX: R10.13 Epigastric pain (principal); E66.3 Overweight; Z98.84 Bariatric surgery status | CPT/HCPCS: 99212 ==

== ENCOUNTER 2022-04-22 06:33 | Day surgery (SDC) | payer OTHER, SELFPAY ==
--- NOTE | 2022-04-18 23:11 | MHC.SHP ---
Pre-Procedural Eval Section A Date of Service: 04/18/22 The patient is an INPATIENT: No The History & Physical has been completed within 30 days and I have reviewed it.: Yes Section B Chief Complaint: Epigastric pain Relevant Family History (Specify if Yes): No Relevant Social History: None Present Medications: None Medical History: No relevant PMH History of Previous Operations: Relevant previous surgery/procedure and date(s) (lap gastric bypass) Allergies: Allergies Allergy/AdvReac Type Severity Reaction Status Date / Time hazelnut [HAZELNUT] Allergy Intermediate ITCHING Verified 04/08/22 10:35 THROAT Review of Systems Sugical H&P ROS: Negative: Constitution, Cardiovascular, Respiratory, Neurological, Psychiatric, Hem-Onc, Allergic/Immunologic, Genitourinary, Musculoskeletal, Integumentary, Endocrine and Eyes/Ears/Nose/Throat and Yes, Specify: Gastrointestinal (epigastric pain) Exam Surgical H&P Exam: Normal: HEENT, Normal: Heart, Normal: Lungs, Normal: Extremities, Normal: Abdomen, Normal: Skin and Normal: Neurological Plan Diagnosis/Plan: Unchanged (Endoscopy to rule out an anastomotic ulcer. Risks and complications including bleeding and perforation were discussed with the patient. Patient is in agreement with the plan ) I have reviewed the history and physical and performed a pertinent physical examination on my patient. No changes have occurred unless specified.
--- NOTE | 2022-04-21 10:27 | HO.ANESPROP2 ---
Documented by User: Gabbie Hernadez NP 04/21/22 10:29 HPI - Anesthesia Eval Consult details Narrative: 47yo F for Upper Endoscopy prn Tramadol PMFSH Active Problems Active Problems: All Active Problems (Updated 11/27/21 @ 09:59 by CAMILA Hess) Epigastric abdominal pain (Acute) S/P gastric bypass (Acute) Overweight (Acute) Bromhidrosis (Acute) Hyperhidrosis of axilla (Acute) Abnormal vaginal bleeding in premenopausal patient (Acute) Anemia (Acute) UTI (urinary tract infection) (Acute) Osteoarthritis of left knee (Acute) Status post total replacement of right hip (Acute) Pre-op evaluation (Acute) Anemia (Acute) Post-traumatic acute tubular necrosis (Acute) Osteoarthritis of right knee (Acute) Osteoarthritis of right hip (Acute) Spontaneous ecchymoses (Acute) Right hip pain (Acute) Obesity (BMI 30-39.9) (Acute) Pain in left toe(s) (Acute) Bunion of great toe of left foot (Acute) Post-traumatic osteoarthritis of right hip (Acute) Primary osteoarthritis of both knees (Acute) Potential exposure to STD (Acute) Bacterial vaginosis (Acute) Family hx of ovarian malignancy (Acute) control counseling (Acute) Well woman exam with routine gynecological exam (Acute) Past Medical History Medical History Arthritis Family History Family History Mother Ovarian cancer Diabetes Father HIV (human immunodeficiency virus infection) Maternal Grandmother Stomach cancer Maternal Grandfather Myocardial infarction Brother In good health Sister In good health Mental health disorder Son In good health Daughter In good health Family history of problems with anesthesia: No Surgical History Surgical History H/O gastric bypass History of bilateral breast reduction surgery History of hip surgery History of laparoscopic cholecystectomy History of surgery History of tubal ligation History of Problems with Anesthesia: No Social History Social History Household Members: Family Housing: Apartment 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 at home: Yes (son age 7) Do you presently have visiting nurse or other home services: No Alcohol intake: current Alcohol intake frequency: holidays/special occasions only Patient Tobacco Use Status: Former Tobacco user Quit Date: 2009 Tobacco use type: Cigarette e-Cigarette/Vaping Use: Never Used Second Hand Smoke Exposure: No Substance Use Type: Marijuana service: No Current occupational status: unemployed Gender identity: Female Cognitive needs: No Hearing needs: No Vision needs: No Meds Allergies Allergy/AdvReac Type Severity Reaction Status Date / Time hazelnut [HAZELNUT] Allergy Intermediate ITCHING Verified 04/08/22 10:35 THROAT Home Medications Medication Instructions Recorded Confirmed Last Taken Type sennosides 8.6 mg-docusate sodium 1 tab PO DAILY 11/27/21 04/22/22 Unknown History 50 mg tablet (Stool Softener-Laxative) Exam Exam Date and Time: April 21, 2022 1027 Pertinent Lab Results Pertinent Lab Results: Laboratory Tests 11/28/21 11/28/21 06:37 06:37 WBC 5.9 Hgb 8.8 L Hct 29.9 L Plt Count 308 Sodium 138 Potassium 4.1 Chloride 104 Carbon Dioxide 27 BUN 19 H Creatinine 0.69 Assessment and Plan Assessment Anesthesia Assessment: Chart Reviewed Final Anesthetic Review Family History of Problems with Anesthesia: No History of Problems with Anesthesia: No Documented by User: German Murcia MD 04/22/22 19:39 [facility] Past Medical History Medical History Arthritis Functional capacity: independent ambulation Family History Family History Mother Ovarian cancer Diabetes Father HIV (human immunodeficiency virus infection) Maternal Grandmother Stomach cancer Maternal Grandfather Myocardial infarction Brother In good health Sister In good health Mental health disorder Son In good health Daughter In good health Surgical History Surgical History H/O gastric bypass History of bilateral breast reduction surgery History of hip surgery History of laparoscopic cholecystectomy History of surgery History of tubal ligation Social History Social History Household Members: Family Housing: Apartment 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 at home: Yes (son age 7) Do you presently have visiting nurse or other home services: No Alcohol intake: current Alcohol intake frequency: holidays/special occasions only Patient Tobacco Use Status: Former Tobacco user Quit Date: 2009 Tobacco use type: Cigarette e-Cigarette/Vaping Use: Never Used Second Hand Smoke Exposure: No Substance Use Type: Marijuana service: No Current occupational status: unemployed Gender identity: Female Cognitive needs: No Hearing needs: No Vision needs: No Meds Allergies Allergy/AdvReac Type Severity Reaction Status Date / Time hazelnut [HAZELNUT] Allergy Intermediate ITCHING Verified 04/08/22 10:35 THROAT Home Medications Medication Instructions Recorded Confirmed Last Taken Type sennosides 8.6 mg-docusate sodium 1 tab PO DAILY 11/27/21 04/22/22 Unknown History 50 mg tablet (Stool Softener-Laxative) Exam Airway Mallampati Class: III TM Dist: >3cm Neck ROM: Full Loose/Missing/Broken Teeth: Yes (Missing teeth ) Heart: S1,S2 Lungs: b/l breath sounds Assessment and Plan Assessment Anesthesia Assessment: Anesthesia Plan Discussed Final Anesthetic Review NPO: Yes ASA Class: III Final Preanesthetic Review: Meds/Allgs Chart Reviewed, Consent Obtained/Reviewed and Anes Risks/Benef Reviewed Patient Risk: Intermediate Procedure Risk: Intermediate Anesthetic Plan Anesthetic Plan: MAC: Disposition: Standard PACU
[2022-04-21 13:53] LABS: COVID-19 Test Negative (Negative); IDNOW Serial# 55D5AD1C
[2022-04-22 06:47] VITALS: BMI 28.2
[2022-04-22 06:55] VITALS: BP 104/40; PULSE 72; RESP 16; TEMP 36.3; O2SAT 98
[2022-04-22] MEDS: Lactated Ringers 1,000 ML 80 ML IVCONT (07:05)
--- NOTE | 2022-04-22 07:42 | PM.OP ---
Brief Operative Note Procedure: PROCEDURE DATE: ?04/22/2022 PREOPERATIVE DIAGNOSIS: Epigastric pain, s/p gastric bypass POSTOPERATIVE DIAGNOSIS: ?Same as above. PROCEDURE: [id number] with biopsies Surgeon: ?Arturo Krishnan M.D.. Ph.D. Capacity Planning Engineer: ?None ? Anesthesia: IV sedation Estimated blood loss: ?Minimal FINDINGS AND PROCEDURE: ? OPERATIVE INDICATIONS: ?The patient is a 47 year old female known to me who underwent a laparoscopic gastric bypass by me. The patient complains of persistent epigastric pain intermittently for the last 2 years.? Based on this information I recommended an upper endoscopy to evaluate the patient's symptoms.? Risks and complications of the surgery were discussed with the patient in advance particularly the possibility of perforation or bleeding that may require surgical intervention. The patient understood the risks and was in agreement with the plan. ? PROCEDURE: After informed consent was obtained by the patient, the patient was ?transferred to the Operating Room and was placed in the supine position.? After successful induction of IV sedation, a mouth block was placed and the patient was placed in the left lateral decubitus position. An upper endoscopy was performed next, the oropharynx and esophagus appeared within the normal limits. There was no hiatal hernia.? The z-line was smooth. Two biopsies were obtained from the distal esophagus 2-3 cm proximal to the GE junction and two biopsies from the GE junction. The small pouch was entered, appeared to be of normal size. There was no gastritis and the gastrojejunostomy was patent. A biopsy was obtained from the gastric pouch. No significant bleeding was noted from any of the biopsy sites. There was no anastomotic ulcer.? At that point the scope was advanced into the proximal small intestine (proximal Jose limb) which appeared to be normal as well. The Jose limb and the pouch were decompressed and the scope was withdrawn from the patient's mouth. The patient was awaken and was transferred in stable condition to the Recovery Room for further care. I was present and performed all steps of the procedure. There were no residents to assist with this case. Arturo Krishnan M.D., Ph.D. Surgeon: Jv Krishnan MD Was an Capacity Planning Engineer used for this Procedure?: No
--- NOTE | 2022-04-22 08:01 | PM.OP ---
Brief Operative Note Date of Service: 04/22/22 Pre-op diagnosis: Epigastric pain, s/p gastric bypass Post-op diagnosis: same Procedure: PROCEDURE DATE: ?04/22/2022 PREOPERATIVE DIAGNOSIS: Epigastric pain, s/p gastric bypass POSTOPERATIVE DIAGNOSIS: ?Same as above. Enteritis at the gastro-jejunostomy PROCEDURE: [id number] with biopsy Surgeon: ?Arturo Krishnan M.D.. Ph.D. Roofing Subcontractor: ?None ? Anesthesia: IV sedation Estimated blood loss: ?Minimal FINDINGS AND PROCEDURE: ? OPERATIVE INDICATIONS: ?The patient is a 47 year old female known to me who underwent a laparoscopic gastric bypass by me. The patient complains of intermittent epigastric pain for the last 2 years.? Based on this information I recommended an upper endoscopy to evaluate the patient's symptoms.? Risks and complications of the surgery were discussed with the patient in advance particularly the possibility of perforation or bleeding that may require surgical intervention. The patient understood the risks and was in agreement with the plan. ? PROCEDURE: After informed consent was obtained by the patient, the patient was ?transferred to the Operating Room and was placed in the supine position.? After successful induction of IV sedation, a mouth block was placed and the patient was placed in the left lateral decubitus position. An upper endoscopy was performed next, the oropharynx and esophagus appeared within the normal limits. There was no hiatal hernia.? The z-line was smooth. The small pouch was entered, appeared to be of normal size. There was no gastritis and the gastrojejunostomy was patent. A biopsy was obtained from the gastric pouch. No significant bleeding was noted from any of the biopsy sites. There was no discrete anastomotic ulcer but there was some inflammation at the gastro-jejunostomy.? At that point the scope was advanced into the proximal small intestine (proximal Jose limb) which appeared to be normal as well. The Jose limb and the pouch were decompressed and the scope was withdrawn from the patient's mouth. The patient was awaken and was transferred in stable condition to the Recovery Room for further care. I was present and performed all steps of the procedure. There were no residents to assist with this case. Arturo Krishnan M.D., Ph.D. Surgeon: Jv Krishnan MD Anesthesia: MAC Was an Roofing Subcontractor used for this Procedure?: No Estimated blood loss (mL): 0 IV fluids (mL): 400 Urine output (mL): 0 (No Goins to record) Pathology: other (1) gastric pouch) Condition: stable Disposition: PACU
[2022-04-22 08:33] VITALS: BP 130/83; PULSE 105; RESP 16; TEMP 36.8; O2SAT 96
[2022-04-22 08:54] VITALS: BP 133/76; PULSE 98; RESP 18; TEMP 36.8; O2SAT 100
== END 2022-04-22 09:07 | disposition home or self-care (01) ==
PROVIDERS: Physician Assistant Surgical; PCP Internal Medicine; Visit Provider Surgery
PROC: 0DJ08ZZ Inspection of Upper Intestinal Tract, Via Natural or Artificial Opening Endoscopic (ICD-10-PCS; CPT 43235; principal; 2022-04-22 08:10)
DX: R10.13 Epigastric pain (principal); K52.9 Noninfective gastroenteritis and colitis, unspecified; Z98.84 Bariatric surgery status; Z90.49 Acquired absence of other specified parts of digestive tract; Z20.822 Contact with and (suspected) exposure to COVID-19
CPT/HCPCS: 43239; 87635; 88305; 88342; J2250

== ENCOUNTER → 2022-07-31 11:09 | Outpatient (BNVA) | payer OTHER, SELFPAY | PROVIDERS: PCP Internal Medicine; Visit Provider Physician Assistant Surgical | DX: R10.13 Epigastric pain (principal); L98.7 Excessive and redundant skin and subcutaneous tissue; Z98.84 Bariatric surgery status | CPT/HCPCS: 99212 ==

== ENCOUNTER → 2022-08-26 10:44 | Outpatient (BNVA) | payer OTHER, SELFPAY | PROVIDERS: PCP Internal Medicine; Visit Provider Physician Assistant Surgical | DX: E66.3 Overweight (principal); L98.7 Excessive and redundant skin and subcutaneous tissue; Z68.25 Body mass index [BMI] 25.0-25.9, adult | CPT/HCPCS: 99212 ==

== ENCOUNTER → 2022-10-02 10:35 | Outpatient (BNVA) | payer OTHER, SELFPAY | PROVIDERS: PCP Internal Medicine; Visit Provider Physician Assistant Surgical | DX: E66.3 Overweight (principal); Z68.25 Body mass index [BMI] 25.0-25.9, adult; L98.7 Excessive and redundant skin and subcutaneous tissue; Z98.84 Bariatric surgery status | CPT/HCPCS: 99212 ==

== ENCOUNTER 2022-10-14 14:32 | Outpatient (REF) | payer OTHER, SELFPAY ==
[2022-10-14 17:35] LABS: Appearance Urine Cloudy; Color Urine Yellow; Glucose Urine UA Negative (Negative); Leukocyte Esterase Urine Moderate (2+) (Negative); Nitrite Urine Negative (Negative); UMIC TRIGGER UACC YES; Urine Blood Negative (Negative); Urine Ketones Negative (Negative); Urine Protein Negative (Neg-Trace)
[2022-10-14 17:41] LABS: Bacteria Urine 4+ (None Seen); Hyaline Casts Urine 0-2 /LPF (0-2); RBC Urine 0-2 /HPF (0-2); UACC Culture Trigger YES; WBC Urine 21-50 /HPF (0-5)
[2022-10-14 18:49] LABS: CT PCR NOT DETECTED (Not Detect.); NG PCR NOT DETECTED (Not Detect.)
[2022-10-15 12:38] LABS: BV Int Neg Control Negative (Negative); BV Int Pos Control Positive (Positive)
== END 2022-10-14 14:33 | disposition home or self-care (01) ==
LOC: HO.LAB 14:32
PROVIDERS: PCP Internal Medicine; Visit Provider Advanced Practice Midwife
DX: N89.8 Other specified noninflammatory disorders of vagina (principal); R82.90 Unspecified abnormal findings in urine
CPT/HCPCS: 0353U; 81001; 81003; 87086; 87088; 87186; 87480; 87510; 87660; 99202

== ENCOUNTER 2022-10-14 15:34 | Outpatient (REF) | payer OTHER, SELFPAY ==
[2022-10-16 22:54] LABS: HPV mRNA E6/E7 rflx Not Detected (Not Detected)
== END 2022-10-14 15:35 | disposition home or self-care (01) ==
LOC: HO.LNP 15:34
PROVIDERS: Visit Provider Advanced Practice Midwife
DX: Z12.4 Encounter for screening for malignant neoplasm of cervix (principal); Z11.51 Encounter for screening for human papillomavirus (HPV)
CPT/HCPCS: 87624; 88142

== ENCOUNTER 2022-10-27 11:39 | Emergency (ER) | payer OTHER, SELFPAY ==
[2022-10-27 11:52] VITALS: BP 110/39; PULSE 85; RESP 18; TEMP 36.6; O2SAT 98; BMI 25.0
--- NOTE | 2022-10-27 11:52 | ED_ITS ---
HPI - General Adult General Chief complaint: Eye Problems Stated complaint: Eye irritation/Unable to taste/Fatigue Time Seen by Provider: 10/27/22 12:00 Source: patient Mode of arrival: ambulatory Limitations: no limitations History of Present Illness HPI narrative: Patient is a 47 year old female with history of bilateral itching and discharge from eyes, decreased sense of taste and fatigue for a week. She states that her eye itching and discharge began in her left eye and then a couple of days later spread to her right eye as well. She states that the discharge is white/clear colored and without odor and very thin/liquid. Discharge is worse in the morning. She reports it has been worse when she is outside and she has been outside a lot lately. Denies sick contacts. She denies fever, chills, chest aliyah n, shortness of breath, changes in vision, , painful eye movements, nausea, vomiting, abdominal pain, diarrhea,changes in hearing, numbness, tingling at this time. Related Data Home Medications Medication Instructions Recorded Confirmed sennosides 8.6 mg-docusate sodium 1 tab PO DAILY 11/27/21 10/02/22 50 mg tablet (Stool Softener-Laxative) cyanocobalamin (vitamin B-12) 1,000 mcg PO DAILY 10/14/22 1,000 mcg tablet Previous Rx's Medication Instructions Recorded cane #1 ea 12/07/20 diclofenac sodium 1 % topical gel 4 g topical QID #100 grams 10/24/21 (Arthritis Pain (diclofenac)) cholecalciferol (vitamin D3) 25 25 mcg PO DAILY #30 caps 12/05/21 mcg (1,000 unit) capsule ferrous sulfate 325 mg (65 mg 325 mg PO DAILY #30 tabs 12/05/21 iron) tablet mecobalamin (vitamin B12) 1,000 1,000 mcg PO DAILY #30 tabs 12/05/21 mcg chewable tablet (B12 Active) vitamin A palmitate 7,500 mcg 7,500 mcg PO DAILY #30 caps 12/05/21 (25,000 unit) capsule clotrimazole 1 % topical cream 1 appl topical BID #45 grams 07/31/22 pantoprazole 40 mg tablet,delayed 40 mg PO DAILY #90 tabs 07/31/22 release sucralfate 100 mg/mL oral 10 ml PO BID #414 mL 07/31/22 suspension (Carafate) metronidazole 500 mg tablet 500 mg PO BID 7 days #14 tabs 10/16/22 nitrofurantoin 100 mg PO BID 5 days #10 caps 10/16/22 monohydrate/macrocrystals 100 mg capsule (Macrobid) tramadol 50 mg tablet 50 mg PO TID PRN pain 30 days #90 10/24/22 tabs loratadine 10 mg tablet 10 mg PO DAILY #30 tabs 10/27/22 sulfacetamide sodium 10 % eye drops 1 drp ophthalmic (eye) Q4H 7 days 10/27/22 #15 mL Allergies Allergy/AdvReac Type Severity Reaction Status Date / Time hazelnut [HAZELNUT] Allergy Intermediate ITCHING Verified 10/27/22 11:52 THROAT Review of Systems Review of Systems: Constitutional : No Weight loss, No Fever, No Chills, + Fatigue, + Malaise ENT/Mouth : No sore throat, No Rhinorrhea Eyes: + pruritis bilaterally. + discharge bilaterally. No Eye Pain, No Swelling, No Redness Cardiovascular : No Chest Pain, No SOB, No Dyspnea on Exertion, No Orthopnea, No Edema, No Palpitations Respiratory : No Cough, No Sputum, No Wheezing Gastrointestinal : No Nausea, No Vomiting, No Diarrhea, No Constipation, No abdominal Pain, No Hematochezia, No Melena Genitourinary : No Dysuria, No Urinary Frequency, No Hematuria, Musculoskeletal : No joint pain, No Myalgias, No Joint Swelling Skin : No Skin Lesions, No rash Neuro : No Weakness, No Numbness, No Dizziness, No Headache Psych : No Anxiety/Panic, No Depression All other systems reviewed and are negative [facility] Past Medical History Attestation statement: The following information was validated with the patient. Source: old records reviewed and nursing notes reviewed Medical History Arthritis Bunion of great toe of left foot Obesity (BMI 30-39.9) Pain in left toe(s) Post-traumatic osteoarthritis of right hip Primary osteoarthritis of both knees Right hip pain Spontaneous ecchymoses Surgical History H/O gastric bypass History of bilateral breast reduction surgery History of hip surgery History of laparoscopic cholecystectomy History of surgery History of tubal ligation Family History Family History Mother Ovarian cancer Diabetes Father HIV (human immunodeficiency virus infection) Maternal Grandmother Stomach cancer Maternal Grandfather Myocardial infarction Brother In good health Sister In good health Mental health disorder Son In good health Daughter In good health Social History Social History Household Members: Family Housing: Apartment Are you a primary child care director to a significant other at home: Yes (son age 7) Do you presently have visiting nurse or other home services: No Alcohol intake: current Alcohol intake frequency: holidays/special occasions only Patient Tobacco Use Status: Former Tobacco user Quit Date: 2009 Tobacco use type: Cigarette e-Cigarette/Vaping Use: Never Used Second Hand Smoke Exposure: No Substance Use Type: Marijuana Advance Directives: No Advance Directives Information Provided: Yes service: No Current occupational status: unemployed Gender identity: Female Cognitive needs: No Hearing needs: No Vision needs: No Physical Exam ED Vital Signs: Vital Signs - 24 hr 10/27/22 11:52 Temperature 98 F Pulse Rate 85 Respiratory Rate 18 Blood Pressure 110/39 L Pulse Oximetry 98 BMI result Body Mass Index 25.0 vital signs stable Appearance: Alert.? Oriented X3.? No acute distress.? Head: Normocephalic, atraumatic, no step-offs or deformities Eyes: Minimal erythema bilaterally to scleral. No discharge presently. No pain with extraocular eye movements. Pupils equal, round and reactive to light.? no periorbital cellulitis or warmth. ENT: Pharynx normal.??External ears normal, TMs normal bilaterally and EAC's normal. No pain with manipulation of external ears bilaterally. No mastoid tenderness.? CVS: Normal heart rate and rhythm.? Pulses normal.? Respiratory: No respiratory distress.? Breath sounds normal.? Abdomen: Soft and nontender.? Skin: Skin warm and dry.? Normal skin color.? Normal skin turgor.? Extremities: No lower extremity edema.? No calf ttp. 5/5 strength to bilateral upper and lower extremities Neuro: Oriented X 3.? No motor deficit.? No sensory deficit. CN 2-12 intact Course Course Course Narrative: RME: 47yo F w/PMHx gastric bypass, anemia, c/o bilateral eye irritation, crusting and drainage since . Also reports loss of taste/smell. Took home COVID which was negative, requesting to be re-tested Admits to wearing glasses not contacts COVID/Flu, Visual acuity ordered. Full HPI, ROS and PE to be performed by primary ED provider. Reevaluation(s) Reevaluation #1: Viral panel negative. will treat patient for conjunctivitis and will also give her loratadine for seasonal allergies. Educated patient on diagnosis and treatment plan, answered all question, patient verbalizes understanding. At this time patient will be discharged home, advised to return with new or worsening symptoms. Educated on worrisome signs and symptoms and when to return. At this time I feel comfortable discharge home. Time: 12:55 Medical Decision Making Medical Decision Making [facility] Narrative: Patient is a 47 year old female presenting with one week of eye pruritis with white discharge, decreased sense of taste and fatigue. Physical exam Minimal erythema bilaterally to scleral. No discharge presently. No pain with extraocular eye movements. Pupils equal, round and reactive to light.? no periorbital cellulitis or warmth. Differential diagnosis includes most likely viral vs bacterial conjunctivitis, COVID, flu, rhinovirus. Unlikely orbital celulitis as there is no eye pain. No lesions or erythema evident on exam, unlikely blepharitis, hordeolum. I am not concerned for acute closed angle glaucoma, wet macular degeneration, periorbital or orbital cellulitis. Plan viral panel. Differential Diagnosis Differential Diagnoses: The differential diagnosis associated with the presentation includes Differential diagnosis includes most likely viral vs bacterial conjunctivitis, COVID, flu, rhinovirus. Unlikely orbital celulitis as there is no eye pain. No lesions or erythema evident on exam, unlikely blepharitis, hordeolum. I am not concerned for acute closed angle glaucoma, wet macular degeneration, periorbital or orbital cellulitis. Admission/Observation Consideration of admission/observation: Escalation of care including admission/observation considered unlikely Lab Data MDM Lab Attestation statement: I reviewed the patient's lab results. Labs: Lab Results 10/27/22 10/27/22 Range/Units 12:00 12:00 COVID-19 (BRAIN) Negative (Negative) COVID-19 Clin Com See Note Influenza Type A (ANYI) Negative (Negative) Influenza Type B (ANYI) Negative (Negative) Influenza A & B Note See Note External Record Review External record reviewed: Inpatient record, Office record, Outpatient record, Prior outpatient labs, Prior outpatient radiology, Primary care record and Outside ED record Core Measures AMI core measures followed: Yes Measure exclusions: not indicated Discharge Plan Discharge Clinical Impression: Conjunctivitis, Allergies Patient Disposition: Home, Self-Care Instructions: Conjunctivitis (ED), Allergy Testing (ED) Additional Instructions: Take your medications as prescribed. If you were prescribed antibiotics today, it is important that you take your medication to their entirety, do not skip any doses, do not finish them early. Follow-up with your primary care provider this week. Return to the emergency department with new or worsening symptoms. Such as fevers, chills, chest pain, shortness of breath, nausea, vomiting, dizziness, headache, vision changes, lethargy In case of emergency call 911 Prescriptions: New sulfacetamide sodium 10 % drops 1 drp ophthalmic (eye) Q4H 7 Days Qty: 15 0RF loratadine 10 mg tablet 10 mg PO DAILY Qty: 30 0RF No Action (DME) cane Device See Rx Instructions .ROUTE .MEDSUPPLY Qty: 1 0RF Rx Instructions: As directed ferrous sulfate 325 mg (65 mg iron) tablet 325 mg PO DAILY Qty: 30 11RF B12 Active 1,000 mcg tablet,chewable 1,000 mcg PO DAILY Qty: 30 11RF cholecalciferol (vitamin D3) 25 mcg (1,000 unit) capsule 25 mcg PO DAILY Qty: 30 11RF vitamin A palmitate 7,500 mcg (25,000 unit) capsule 7,500 mcg PO DAILY Qty: 30 11RF nitrofurantoin monohyd/m-cryst [Macrobid] 100 mg capsule 100 mg PO BID 5 Days Qty: 10 0RF tramadol 50 mg tablet 50 mg PO TID PRN (Reason: pain) 30 Days Qty: 90 0RF diclofenac sodium [Arthritis Pain (diclofenac)] 1 % gel 4 g topical QID Qty: 100 0RF Rx Instructions: apply to single knee, ankle, foot; for foot includes sole/toes/top of foot sennosides-docusate sodium [Stool Softener-Laxative] 8.6-50 mg tablet 1 tab PO DAILY pantoprazole 40 mg tablet,delayed release (DR/EC) 40 mg PO DAILY Qty: 90 3RF sucralfate [Carafate] 100 mg/mL suspension 10 ml PO BID Qty: 414 3RF clotrimazole 1 % cream 1 appl topical BID Qty: 45 3RF cyanocobalamin (vitamin B-12) 1,000 mcg tablet 1,000 mcg PO DAILY metronidazole 500 mg tablet 500 mg PO BID 7 Days Qty: 14 0RF Rx Instructions: Take with food, Avoid alcohol and vinegar products Referrals: Aditya Aguirre MD [Primary Care Provider] - 2 days
--- NOTE | 2022-10-27 12:10 | ED_ITS ---
HPI - Eye Problem General Chief complaint: Eye Problems Stated complaint: Eye irritation/Unable to taste/Fatigue Time Seen by Provider: 10/27/22 12:00 Source: patient Mode of arrival: ambulatory Limitations: no limitations Related Data Home Medications Medication Instructions Recorded Confirmed sennosides 8.6 mg-docusate sodium 1 tab PO DAILY 11/27/21 10/02/22 50 mg tablet (Stool Softener-Laxative) cyanocobalamin (vitamin B-12) 1,000 mcg PO DAILY 10/14/22 1,000 mcg tablet Previous Rx's Medication Instructions Recorded cane #1 ea 12/07/20 diclofenac sodium 1 % topical gel 4 g topical QID #100 grams 10/24/21 (Arthritis Pain (diclofenac)) cholecalciferol (vitamin D3) 25 25 mcg PO DAILY #30 caps 12/05/21 mcg (1,000 unit) capsule ferrous sulfate 325 mg (65 mg 325 mg PO DAILY #30 tabs 12/05/21 iron) tablet mecobalamin (vitamin B12) 1,000 1,000 mcg PO DAILY #30 tabs 12/05/21 mcg chewable tablet (B12 Active) vitamin A palmitate 7,500 mcg 7,500 mcg PO DAILY #30 caps 12/05/21 (25,000 unit) capsule clotrimazole 1 % topical cream 1 appl topical BID #45 grams 07/31/22 pantoprazole 40 mg tablet,delayed 40 mg PO DAILY #90 tabs 07/31/22 release sucralfate 100 mg/mL oral 10 ml PO BID #414 mL 07/31/22 suspension (Carafate) metronidazole 500 mg tablet 500 mg PO BID 7 days #14 tabs 10/16/22 nitrofurantoin 100 mg PO BID 5 days #10 caps 10/16/22 monohydrate/macrocrystals 100 mg capsule (Macrobid) tramadol 50 mg tablet 50 mg PO TID PRN pain 30 days #90 10/24/22 tabs Allergies Allergy/AdvReac Type Severity Reaction Status Date / Time hazelnut [HAZELNUT] Allergy Intermediate ITCHING Verified 10/27/22 11:52 THROAT PMFSH Past Medical History Medical History Arthritis Bunion of great toe of left foot Obesity (BMI 30-39.9) Pain in left toe(s) Post-traumatic osteoarthritis of right hip Primary osteoarthritis of both knees Right hip pain Spontaneous ecchymoses Surgical History H/O gastric bypass History of bilateral breast reduction surgery History of hip surgery History of laparoscopic cholecystectomy History of surgery History of tubal ligation Family History Family History Mother Ovarian cancer Diabetes Father HIV (human immunodeficiency virus infection) Maternal Grandmother Stomach cancer Maternal Grandfather Myocardial infarction Brother In good health Sister In good health Mental health disorder Son In good health Daughter In good health Social History Social History Household Members: Family Housing: Apartment Are you 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 coronary care 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 to a significant other at home: Yes (son age 7) Do you presently have visiting nurse or other home services: No Alcohol intake: current Alcohol intake frequency: holidays/special occasions only Patient Tobacco Use Status: Former Tobacco user Quit Date: 2009 Tobacco use type: Cigarette e-Cigarette/Vaping Use: Never Used Second Hand Smoke Exposure: No Substance Use Type: Marijuana Advance Directives: No Advance Directives Information Provided: Yes service: No Current occupational status: unemployed Gender identity: Female Cognitive needs: No Hearing needs: No Vision needs: No Physical Exam Vital Signs: Vital Signs: Last Vital Signs Temp 98 F 10/27/22 11:52 Pulse 85 10/27/22 11:52 Resp 18 10/27/22 11:52 BP 110/39 L 10/27/22 11:52 Pulse Ox 98 10/27/22 11:52 BMI result Body Mass Index 25.0 Discharge Plan Discharge Prescriptions: No Action (DME) cane Device See Rx Instructions .ROUTE .MEDSUPPLY Qty: 1 0RF Rx Instructions: As directed ferrous sulfate 325 mg (65 mg iron) tablet 325 mg PO DAILY Qty: 30 11RF B12 Active 1,000 mcg tablet,chewable 1,000 mcg PO DAILY Qty: 30 11RF cholecalciferol (vitamin D3) 25 mcg (1,000 unit) capsule 25 mcg PO DAILY Qty: 30 11RF vitamin A palmitate 7,500 mcg (25,000 unit) capsule 7,500 mcg PO DAILY Qty: 30 11RF nitrofurantoin monohyd/m-cryst [Macrobid] 100 mg capsule 100 mg PO BID 5 Days Qty: 10 0RF tramadol 50 mg tablet 50 mg PO TID PRN (Reason: pain) 30 Days Qty: 90 0RF diclofenac sodium [Arthritis Pain (diclofenac)] 1 % gel 4 g topical QID Qty: 100 0RF Rx Instructions: apply to single knee, ankle, foot; for foot includes sole/toes/top of foot sennosides-docusate sodium [Stool Softener-Laxative] 8.6-50 mg tablet 1 tab PO DAILY pantoprazole 40 mg tablet,delayed release (DR/EC) 40 mg PO DAILY Qty: 90 3RF sucralfate [Carafate] 100 mg/mL suspension 10 ml PO BID Qty: 414 3RF clotrimazole 1 % cream 1 appl topical BID Qty: 45 3RF cyanocobalamin (vitamin B-12) 1,000 mcg tablet 1,000 mcg PO DAILY metronidazole 500 mg tablet 500 mg PO BID 7 Days Qty: 14 0RF Rx Instructions: Take with food, Avoid alcohol and vinegar products
--- NOTE | 2022-10-27 12:10 | ED.EYEPROB ---
HPI - Eye Problem General Chief complaint: Eye Problems Stated complaint: Eye irritation/Unable to taste/Fatigue Time Seen by Provider: 10/27/22 12:00 Related Data Previous Rx's ?Medication ?Instructions ?Recorded cane #1 ea 12/07/20 pantoprazole 40 mg tablet,delayed 40 mg PO DAILY #90 tabs 03/24/23 release sucralfate 100 mg/mL oral 10 ml PO BID #414 mL 03/24/23 suspension (Carafate) ferrous sulfate 325 mg (65 mg 325 mg PO DAILY #30 tabs 05/19/23 iron) tablet (FeroSul) cholecalciferol (vitamin D3) 25 25 mcg PO DAILY #30 caps 08/25/23 mcg (1,000 unit) capsule (Vitamin D3) clotrimazole 1 % topical cream 1 appl topical BID #45 grams 08/25/23 cyanocobalamin (vitamin B-12) 1,000 mcg PO DAILY #30 tabs 08/25/23 1,000 mcg tablet loratadine 10 mg tablet 10 mg PO DAILY #30 tabs 08/25/23 vitamin A palmitate 7,500 mcg 7,500 mcg PO DAILY #30 caps 08/25/23 (25,000 unit) capsule diclofenac sodium 1 % topical gel 4 g topical QID #100 grams 10/26/23 (Arthritis Pain (diclofenac)) tramadol 50 mg tablet 50 mg PO TID PRN pain 30 days #90 10/26/23 tabs estradiol 10 mcg vaginal tablet 10 mcg vaginal 2XW #8 tabs 11/05/23 (Vagifem) levofloxacin 500 mg tablet 500 mg PO DAILY 7 days #7 tabs 11/05/23 Allergies Allergy/AdvReac Type Severity Reaction Status Date / Time hazelnut [HAZELNUT] Allergy Intermediate ITCHING Verified 11/05/23 09:07 THROAT PMFSH Past Medical History Medical History Overweight (BMI 25.0-29.9) Excess skin Spontaneous ecchymoses Right hip pain Obesity (BMI 30-39.9) Pain in left toe(s) Bunion of great toe of left foot Post-traumatic osteoarthritis of right hip Primary osteoarthritis of both knees Arthritis Surgical History History of esophagogastroduodenoscopy (EGD) History of total right hip arthroplasty (~06/04/21) History of surgery History of bilateral breast reduction surgery History of hip surgery H/O gastric bypass History of laparoscopic cholecystectomy History of tubal ligation Family History Family History Mother Ovarian cancer Diabetes Father HIV (human immunodeficiency virus infection) Maternal Grandmother Stomach cancer Maternal Grandfather Myocardial infarction Brother In good health Sister In good health Mental health disorder Son In good health Daughter In good health Social History Social History Household Members: Family Household Members Other:: minor child Housing: Apartment Are you a primary home health care physician to a significant other at home: No Do you presently have visiting nurse or other home services: No Alcohol intake: current Alcohol intake frequency: does not drink Patient Tobacco Use Status: Former Tobacco user Tobacco use type: Cigarette e-Cigarette/Vaping Use: Never Used Second Hand Smoke Exposure: No Substance Use Type: Marijuana service: No Current occupational status: unemployed Gender identity: Female Cognitive needs: No Hearing needs: No Vision needs: No Physical Exam Vital Signs: Vital Signs: Last Vital Signs Temp 98 F 10/27/22 11:52 Pulse 85 10/27/22 11:52 Resp 18 10/27/22 11:52 BP 110/39 L 10/27/22 11:52 Pulse Ox 98 10/27/22 11:52 BMI result Body Mass Index 25.0 Medical Decision Making Lab Data Labs: Lab Results 10/27/22 Range/Units 12:00 COVID-19 (BRAIN) Negative (Negative) COVID-19 Clin Com See Note Influenza Type A (ANYI) Negative (Negative) Influenza Type B (ANYI) Negative (Negative) Influenza A & B Note See Note Discharge Plan Discharge Clinical Impression: Conjunctivitis, Allergies Patient Disposition: Home, Self-Care Instructions: Conjunctivitis (ED), Allergy Testing (ED) Additional Instructions: Take your medications as prescribed. If you were prescribed antibiotics today, it is important that you take your medication to their entirety, do not skip any doses, do not finish them early. Follow-up with your primary care provider this week. Return to the emergency department with new or worsening symptoms. Such as fevers, chills, chest pain, shortness of breath, nausea, vomiting, dizziness, headache, vision changes, lethargy In case of emergency call 911 Prescriptions: No Action (DME) cane Device See Rx Instructions .ROUTE .MEDSUPPLY Qty: 1 0RF Rx Instructions: As directed ferrous sulfate [FeroSul] 325 mg (65 mg iron) tablet 325 mg PO DAILY Qty: 30 11RF diclofenac sodium [Arthritis Pain (diclofenac)] 1 % gel 4 g topical QID Qty: 100 0RF Rx Instructions: apply to single knee, ankle, foot; for foot includes sole/toes/top of foot tramadol 50 mg tablet 50 mg PO TID PRN (Reason: pain) 30 Days Qty: 90 0RF clotrimazole 1 % cream 1 appl topical BID Qty: 45 3RF vitamin A palmitate 7,500 mcg (25,000 unit) capsule 7,500 mcg PO DAILY Qty: 30 11RF cyanocobalamin (vitamin B-12) 1,000 mcg tablet 1,000 mcg PO DAILY Qty: 30 11RF cholecalciferol (vitamin D3) [Vitamin D3] 25 mcg (1,000 unit) capsule 25 mcg PO DAILY Qty: 30 11RF loratadine 10 mg tablet 10 mg PO DAILY Qty: 30 0RF estradiol [Vagifem] 10 mcg tablet 10 mcg vaginal 2XW Qty: 8 3RF Rx Instructions: insert vaginally at bedtime twice a week Mon and Thurs levofloxacin 500 mg tablet 500 mg PO DAILY 7 Days Qty: 7 0RF sucralfate [Carafate] 100 mg/mL suspension 10 ml PO BID Qty: 414 3RF pantoprazole 40 mg tablet,delayed release (DR/EC) 40 mg PO DAILY Qty: 90 3RF Referrals: Aditya Aguirre MD [Primary Care Provider] - 2 days Interventions: ED Discharge Assessment Last Done: 10/27/22 13:19 Discharge Date/Time: 10/27/22 13:19 Print Language: Japanese
[2022-10-27 12:47] LABS: COVID-19 Test Negative (Negative); IDNOW Serial# 55D5AD1C
[2022-10-27 12:48] LABS: IDNOW Serial# 9DB6401D; Influenza A Negative (Negative); Influenza B2 Negative (Negative)
== END 2022-10-27 13:19 | disposition home or self-care (01) ==
PROVIDERS: Physician Assistant; Emergency Provider Emergency Medicine; PCP Internal Medicine
DX: H10.9 Unspecified conjunctivitis (principal); R53.83 Other fatigue; Z20.822 Contact with and (suspected) exposure to COVID-19
CPT/HCPCS: 87502; 87635; 99283

== ENCOUNTER 2023-02-04 17:02 | Outpatient (AMB) | payer OTHER, SELFPAY ==
[2023-02-04 17:04] VITALS: BP 110/68; PULSE 68; O2SAT 98; BMI 26.5
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
== END 2023-02-04 17:30 | disposition home or self-care (01) ==
PROVIDERS: PCP Internal Medicine; Visit Provider Internal Medicine
DX: Z00.00 Encounter for general adult medical examination without abnormal findings (principal); M54.2 Cervicalgia; M25.511 Pain in right shoulder; M25.521 Pain in right elbow; M25.551 Pain in right hip; R07.9 Chest pain, unspecified; D64.9 Anemia, unspecified; E66.3 Overweight; Z12.31 Encounter for screening mammogram for malignant neoplasm of breast; Z12.11 Encounter for screening for malignant neoplasm of colon
CPT/HCPCS: 99396

== ENCOUNTER 2023-02-05 06:50 | Outpatient (REF) | payer OTHER, SELFPAY ==
--- NOTE | ~2023-02-05 | XR_ITS ---
EXAMINATION: XR SHOULDER, RIGHT XR ELBOW, RIGHT CLINICAL INFORMATION: Pain. COMPARISON: None available. TECHNIQUE: AP, Grashey, scapular Y, and axillary views of the right shoulder. AP, oblique, and lateral views of the right elbow. FINDINGS: Right Shoulder: No acute fracture or dislocation. Acromioclavicular joint space narrowing with moderate marginal osteophytes. No glenohumeral joint space narrowing or marginal osteophytes. No osseous erosion. No abnormal soft tissue calcification. Right Elbow: No acute fracture or dislocation. Mild ulnotrochlear joint space narrowing with small marginal osteophytes. No osseous erosion. No significant joint effusion. No abnormal soft tissue calcification. XR/XR elbow RT min 3V IMPRESSION: RIGHT SHOULDER: [id number] acromioclavicular osteoarthritis. RIGHT ELBOW: Mild ulnotrochlear osteoarthritis.
--- NOTE | ~2023-02-05 | XR_ITS ---
EXAMINATION: XR CERVICAL SPINE CLINICAL INFORMATION: Cervicalgia. COMPARISON: None available. TECHNIQUE: 3 views of the cervical spine were obtained. FINDINGS: Straightening of the normal cervical lordosis which may be positional or related to muscular spasm. No acute fracture or subluxation. Normal atlantoaxial alignment. No loss of vertebral body height. Loss of intervertebral disc with anterior and posterior osteophytes at C4-C5 and C5-C6. No concerning lytic or blastic osseous lesion. Unremarkable prevertebral soft tissues. XR/XR cervical spine 3V IMPRESSION: 1. Straightening of the normal cervical lordosis which may be positional or related to muscular spasm. 2. Moderate degenerative disc disease at C4-C5 and C5-C6.
--- NOTE | ~2023-02-05 | XR_ITS ---
EXAMINATION: XR HIP, RIGHT CLINICAL INFORMATION: Pain. Arthroplasty. COMPARISON: Most recent pelvic radiographs dated 10/24/2021. TECHNIQUE: 2 views of the right hip. FINDINGS: Right hip arthroplasty in unchanged anatomic alignment. No evidence of asymmetric wear. No hardware or osseous fracture. Perihardware lucency adjacent to the distal aspect of the femoral component measuring up to 0.3 cm which may represent the postsurgical result or indicate early loosening. Phleboliths redemonstrated within the pelvis. XR/XR hip RT min 2V IMPRESSION: 1. Right hip arthroplasty in unchanged anatomic alignment. 2. Perihardware lucency adjacent to the distal aspect of the femoral component measuring up to 0.3 cm which may represent the postsurgical result or indicate early loosening.
--- NOTE | ~2023-02-05 | XR_ITS ---
EXAMINATION: XR RIBS, RIGHT CLINICAL INFORMATION: Chest pain. COMPARISON: Most recent chest radiograph dated 06/22/2017. TECHNIQUE: PA view of the chest as well as 3 views of the right ribs. FINDINGS: No airspace consolidation. No pleural effusion or pneumothorax. Stable cardiomediastinal silhouette. Left and right upper quadrant surgical clips are redemonstrated. No displaced fracture. No lytic or blastic osseous lesion. No abnormal soft tissue calcification. XR/XR ribs RT min 3V w CXR1V IMPRESSION: No displaced fracture.
--- NOTE | ~2023-02-05 | XR_ITS ---
EXAMINATION: XR SHOULDER, RIGHT XR ELBOW, RIGHT CLINICAL INFORMATION: Pain. COMPARISON: None available. TECHNIQUE: AP, Grashey, scapular Y, and axillary views of the right shoulder. AP, oblique, and lateral views of the right elbow. FINDINGS: Right Shoulder: No acute fracture or dislocation. Acromioclavicular joint space narrowing with moderate marginal osteophytes. No glenohumeral joint space narrowing or marginal osteophytes. No osseous erosion. No abnormal soft tissue calcification. Right Elbow: No acute fracture or dislocation. Mild ulnotrochlear joint space narrowing with small marginal osteophytes. No osseous erosion. No significant joint effusion. No abnormal soft tissue calcification. XR/XR shoulder RT min 2V IMPRESSION: RIGHT SHOULDER: [id number] acromioclavicular osteoarthritis. RIGHT ELBOW: Mild ulnotrochlear osteoarthritis.
[2023-02-05 07:08] LABS: MANUAL DIFF FLAG NO
[2023-02-05 07:34] LABS: Appearance Urine Cloudy; Color Urine Yellow; Glucose Urine UA Negative (Negative); Leukocyte Esterase Urine Moderate (2+) (Negative); Nitrite Urine Positive (Negative); PH 6.5 (5.0-9.0); Specific Gravity - Urine 1.025 (1.005-1.025); UMIC TRIGGER UACC YES; Urine Blood Negative (Negative); Urine Ketones Negative (Negative); Urine Protein Trace mg/dL (Neg-Trace)
[2023-02-05 07:37] LABS: Basophils Absolute Auto 0.1 X10*3/uL (0.0-0.2); Basophils Percent Auto 1.2 % (0-2); Eosinophils Absolute Auto 0.1 X10*3/uL (0.0-0.4); Eosinophils Percent Auto 1.8 % (0-4); Hematocrit 35.1 % (37.0-47.0); Hemoglobin 10.4 g/dl (12.0-16.0); Imm Gran Abs Auto 0.02 X10*3/uL (0.00-0.03); Imm Gran Pct Auto 0.4 % (0.0-0.4); Lymphocytes Absolute Auto 1.4 X10*3/uL (1.2-4.9); Mean Corpuscular HGB Conc 29.6 g/dl (31.0-35.0); Mean Corpuscular Hemoglobin 24.5 pg (27.0-33.0); Mean Corpuscular Volume 82.6 fL (80.0-98.0); Mean Platelet Volume 12.6 fL (9.4-12.3); Monocytes Absolute Auto 0.5 X10*3/uL (0.1-1.2); Monocytes Percent Auto 10.1 % (2-11); Neutrophils Absolute Auto 2.9 x10*3/uL (2.0-8.3); Neutrophils Percent Auto 58.5 % (45-73); Platelet Count 322 X10*3/uL (160-400); Red Blood Count 4.25 X10*6/uL (4.20-5.50); Red Cell Distribution Width 15.3 % (11.0-16.0)
[2023-02-05 07:38] LABS: Basophils Absolute Auto 0.1 X10*3/uL (0.0-0.2); Eosinophils Absolute Auto 0.1 X10*3/uL (0.0-0.4); Hematocrit 34.7 % (37.0-47.0); Hemoglobin 10.3 g/dl (12.0-16.0); Imm Gran Abs Auto 0.01 X10*3/uL (0.00-0.03); Imm Gran Pct Auto 0.2 % (0.0-0.4); Lymphocytes Absolute Auto 1.4 X10*3/uL (1.2-4.9); Lymphocytes Percent Auto 28.4 % (20-40); MANUAL DIFF FLAG SCAN; Mean Corpuscular HGB Conc 29.7 g/dl (31.0-35.0); Mean Corpuscular Hemoglobin 24.3 pg (27.0-33.0); Mean Corpuscular Volume 81.8 fL (80.0-98.0); Mean Platelet Volume 12.3 fL (9.4-12.3); Monocytes Absolute Auto 0.4 X10*3/uL (0.1-1.2); Monocytes Percent Auto 8.8 % (2-11); Neutrophils Absolute Auto 2.9 x10*3/uL (2.0-8.3); Neutrophils Percent Auto 59.6 % (45-73); Platelet Count 311 X10*3/uL (160-400); Red Blood Count 4.24 X10*6/uL (4.20-5.50); Red Cell Distribution Width 15.3 % (11.0-16.0); Reticulocytes Absolute 0.043 X10*6/uL (0.026-0.095); SCAN SMEAR FLAG 1; White Blood Count 4.9 X10*3/uL (4.8-10.8)
[2023-02-05 07:40] LABS: Bacteria Urine 4+ (None Seen); Hyaline Casts Urine 0-2 /LPF (0-2); UACC Culture Trigger YES; WBC Urine >50 /HPF (0-5)
[2023-02-05 07:52] LABS: Estimated Average Glucose 105 mg/dL; Hemoglobin A1c % 5.3 % (<6.0)
[2023-02-05 07:57] LABS: SLIDE REVIEW VERIFIED
[2023-02-05 08:13] LABS: Cholesterol 156 mg/dL (<200); HDL Cholesterol 82 mg/dL (>40); Iron 35 mcg/dL (30-160); LDL Cholesterol Calculated 65 mg/dL (<100); Percent Iron Saturation 10 % (15-50); Total Iron Binding Capacity 338 mcg/dL (228-428); Triglycerides 49 mg/dL (<150); Unsaturated Iron Binding 303 ug/dL
[2023-02-05 08:30] LABS: TSH reflex Free T4 0.67 uIU/mL (0.32-4.0)
[2023-02-05 08:32] LABS: Alanine Aminotransferase 14 U/L (0-31); Albumin Level 3.7 g/dL (3.5-5.0); Alkaline Phosphatase 71 U/L (39-117); Anion Gap 10 (12-20); Aspartate Amino Transferase 18 U/L (5-31); Bilirubin Total 0.3 mg/dL (0.0-1.0); Blood Urea Nitrogen 18 mg/dL (9-16); C Reactive Protein < 0.04 mg/dL (< or = 0.50); Carbon Dioxide 29 mmol/L (22-29); Chloride 107 mmol/L (96-108); Cholesterol 154 mg/dL (<200); Estimated Glomerular Filt Rate > 60; Glucose Fasting 90 mg/dL (60-99); Glucose Random 89 mg/dL (60-115); HDL Cholesterol 80 mg/dL (>40); Iron 33 mcg/dL (30-160); LDL Cholesterol Calculated 65 mg/dL (<100); Percent Iron Saturation 10 % (15-50); Potassium 3.8 mmol/L (3.3-5.1); Sodium 142 mmol/L (135-145); Total Iron Binding Capacity 332 mcg/dL (228-428); Total Protein 6.5 g/dL (6.5-8.0); Triglycerides 47 mg/dL (<150); Unsaturated Iron Binding 299 ug/dL
[2023-02-05 08:36] LABS: Ferritin 10 ng/mL (10-250); Insulin 7 uU/mL (2-29); TSH reflex Free T4 0.69 uIU/mL (0.32-4.0); Vitamin D 25-OH Total 30.6 ng/mL (>30)
[2023-02-05 08:51] LABS: Folate 14.9 ng/mL (> or = 4.0); Vitamin B12 494 pg/mL (200-900)
[2023-02-05 08:53] LABS: Folate 14.3 ng/mL (> or = 4.0); Vitamin B12 425 pg/mL (200-900)
[2023-02-07 02:09] LABS: Erythropoietin (EPO) 30.4 mIU/mL (2.6-18.5)
[2023-02-09 14:38] LABS: Calcium (PTHI) 9.3 mg/dL (8.6-10.2); PTHI 54 pg/mL (16-77)
[2023-02-10 06:28] LABS: Zinc 69 mcg/dL (60-130)
[2023-02-13 17:13] LABS: Vitamin B1 38 nmol/L (8-30)
== END 2023-02-05 06:51 | disposition home or self-care (01) ==
LOC: HO.LAB 06:50
PROVIDERS: Physician Assistant Surgical; PCP Internal Medicine; Visit Provider Internal Medicine
DX: Z00.00 Encounter for general adult medical examination without abnormal findings (principal); R82.90 Unspecified abnormal findings in urine; M25.511 Pain in right shoulder; M16.11 Unilateral primary osteoarthritis, right hip; R07.9 Chest pain, unspecified; M25.521 Pain in right elbow; M54.2 Cervicalgia; E53.8 Deficiency of other specified B group vitamins; D64.9 Anemia, unspecified; E55.9 Vitamin D deficiency, unspecified; R30.0 Dysuria; E78.00 Pure hypercholesterolemia, unspecified; M25.551 Pain in right hip; Z98.84 Bariatric surgery status
CPT/HCPCS: 36415; 71101; 72040; 73030; 73080; 73502; 80053; 80061; 81001; 82306; 82607; 82668; 82728; 82746; 83036; 83525; 83540; 83970; 84425; 84443; 84590; 84630; 85025; 85045; 86140; 87086; 87088; 87186

== ENCOUNTER 2023-02-06 11:03 | Outpatient (REF) | payer OTHER, SELFPAY ==
[2023-02-12 05:48] LABS: Vitamin A 44 mcg/dL (38-98)
== END 2023-02-06 11:04 | disposition home or self-care (01) ==
LOC: HO.LAB 11:03
PROVIDERS: PCP Internal Medicine; Visit Provider Physician Assistant Surgical
DX: Z98.84 Bariatric surgery status (principal)
CPT/HCPCS: 36415; 84590

== ENCOUNTER 2023-02-17 08:51 | Outpatient (REF) | payer OTHER, SELFPAY ==
--- NOTE | ~2023-02-17 | MM_ITS ---
EXAMINATION: MM SCREENING DIGITAL BREAST TOMOSYNTHESIS, BILATERAL CLINICAL INFORMATION: Screening. Asymptomatic. The patient is status post breast reduction and significant weight loss. COMPARISON: Mammography: This study is compared with prior exams dating back to 2016. There are no interval mammograms between 2019 and 2022. TECHNIQUE: Digital breast tomosynthesis is performed in both the craniocaudal and mediolateral oblique views along with computer-aided detection (CAD). Synthesized 2D images are generated from the tomosynthesis. FINDINGS: There are scattered areas of fibroglandular density (ACR BI-RADS breast composition Category b). There are no significant masses, abnormal calcifications, or other abnormalities. Post reduction changes are present. MM/MM tomosynthesis screening BI IMPRESSION: No mammographic evidence of malignancy. ASSESSMENT: BI-RADS BI-RADS 2 - Benign Findings RECOMMENDATION: Routine annual mammography screening. 1 year F/U This examination should not preclude the clinical evaluation of a suspicious palpable abnormality. This patient's information was entered into a reminder system with a target due date for their next mammogram.
== END 2023-02-17 08:52 | disposition home or self-care (01) ==
LOC: HO.MAMMO 08:51
PROVIDERS: Visit Provider Internal Medicine
DX: Z12.31 Encounter for screening mammogram for malignant neoplasm of breast (principal)
CPT/HCPCS: 77063; 77067

== ENCOUNTER → 2023-02-17 09:00 | Outpatient (BNV) | payer OTHER, SELFPAY | PROVIDERS: Visit Provider Radiology Diagnostic Radiology | DX: Z12.31 Encounter for screening mammogram for malignant neoplasm of breast (principal) | CPT/HCPCS: 77063; 77067 ==

== ENCOUNTER 2023-03-24 10:41 | Outpatient (AMB) | payer OTHER, SELFPAY ==
--- NOTE | 2023-03-24 10:47 | A.OFFVIS_ITS ---
Intake Vital Signs 03/24/23 10:49 Height 5 ft 6 in Weight 160 lb BMI 25.8 BP 111/62 Blood Pressure Location Lt brachial Position Sitting Pulse 65 Intake Visit Reasons: Colonoscopy Screening Intake Note: Patient new consult for 1st pre colonoscopy screening. Patient cc: no appetite, loss weight, abdominal pain with acid reflex on and off, denies any other GI issues. Regulatory Affairs Consultant Required: No Accompanied by: Self / Same As Patient Allergies hazelnut [HAZELNUT] Allergy (Intermediate, Verified 03/24/23 12:41) ITCHING THROAT Medication List - Last Reconciled 03/24/23 by Maribell Rivera PA-C cane As directed cholecalciferol (vitamin D3) 50 mcg PO DAILY 90 days clotrimazole 1% 1 appl topical BID cyanocobalamin (vitamin B-12) 1,000 mcg PO DAILY diclofenac sodium 1% (Arthritis Pain (diclofenac)) 4 grams topical QID ferrous sulfate 325 mg PO DAILY loratadine 10 mg PO DAILY mecobalamin (vitamin B12) (B12 Active) 1,000 mcg PO DAILY pantoprazole 40 mg PO DAILY sennosides-docusate sodium 8.6-50 mg (Stool Softener-Laxative) 1 tab PO DAILY sucralfate (Carafate) 10 mL PO BID tramadol 50 mg PO TID PRN 30 days vitamin A palmitate 7,500 mcg PO DAILY HPI HPI Comments History of Present Illness Details 47-year-old female referred for index sc reening colonoscopy presents with of weight loss- however- appetite less since gastric bypass. She does not want to lose any more weight She has acid reflux despite PPI, intermittent discomfort when eating unable to describe. No nausea or vomiting Bowels are normal she has no issues Abnormal menses- pre menopause- ,TL- She has no nausea, no vomiting, some water brash, no hematemesis or hematoch ezia. No fevers or chills PFSH Medical History (Updated 03/24/23 @ 11:12 by Maribell Rivera PA-C) Overweight (BMI 25.0-29.9) Spontaneous ecchymoses Right hip pain Obesity (BMI 30-39.9) Pain in left toe(s) Bunion of great toe of left foot Post-traumatic osteoarthritis of right hip Primary osteoarthritis of both knees Arthritis Surgical History History of total right hip arthroplasty (~06/04/21) History of surgery History of bilateral breast reduction surgery History of hip surgery H/O gastric bypass History of laparoscopic cholecystectomy History of tubal ligation Family History Mother Ovarian cancer Diabetes Father HIV (human immunodeficiency virus infection) Maternal Grandmother Stomach cancer Maternal Grandfather Myocardial infarction Brother In good health Sister In good health Mental health disorder Son In good health Daughter In good health Social History Household Members: Family Housing: Apartment Are you a primary career technical counselor to a significant other at home: Yes (son age 7) Do you presently have visiting nurse or other home services: No Alcohol intake: current Alcohol intake frequency: holidays/special occasions only Patient Tobacco Use Status: Former Tobacco user Quit Date: 2009 Tobacco use type: Cigarette e-Cigarette/Vaping Use: Never Used Second Hand Smoke Exposure: No Substance Use Type: Marijuana service: No Current occupational status: unemployed Gender identity: Female Cognitive needs: No Hearing needs: No Vision needs: No Female Reproductive History Menstrual Age of Menarche: 15 Review of Systems Const All systems reviewed & are unremarkable except as noted in HPI and below Card Denies dyspnea Resp Denies dyspnea GI Denies abdominal pain, Reports heartburn, Denies diarrhea and Denies nausea Physical Exam Vital Signs: Last Vital Signs Pulse 65 03/24/23 10:49 BP 111/62 03/24/23 10:49 BMI result Body Mass Index 25.8 Const General: cooperative, healthy appearing, comfortable and no acute distress Orientation/consciousness: patient oriented x3 Limitations: no limitations Eyes Sclerae: sclerae normal Resp Effort & Inspection: normal respiratory effort and able to speak in complete sentences Auscultation: clear to auscultation bilaterally, no rales, no rhonchi and no wheezes Cardio Rate: regular rate Rhythm: regular rhythm Heart sounds: S1 normal heart sound present and S2 normal heart sound present GI Palpation (GI): Soft to palpation and nontender Auscultation: normal bowel sounds Skin General skin exam: no rashes or lesions noted Neuro General: patient oriented x3 Extrem General: Yes full ROM Psych Appearance: grossly normal and well kempt Mental Status: mental status grossly normal Affect: normal affect Attitude: cooperative Thought content: Normal thought content present Insight: Good insight present (Psych) Judgement: Good judgement present (Psych) Assessment & Plan Assessment & Plan (1) S/P gastric bypass: Comment: Acid reflux, Code(s): Z98.84 - Bariatric surgery status Plan: Continue pantoprazole 40 mg daily Avoid culprits (2) Anemia: Code(s): D64.9 - Anemia, unspecified Qualifiers: Anemia type: unspecified type Qualified Code(s): D64.9 - Anemia, unspecified (3) H/O gastric bypass: Comment: 07/10/2016 upper endoscopy and laparoscopic Jose-en-Y gastric bypass (with a total bypassed limb of 200 cm) - Dr. Krishnan Code(s): Z98.84 - Bariatric surgery status (4) Acid reflux: Code(s): K21.9 - Gastro-esophageal reflux disease without esophagitis Plan: s/p-gastric bypass EGD r/o pud, nonulcer dyspepsia, esophagitis, other endoscopic findings to account for Plan EGD/ colo MG Orders: Orders EGD/[place] Combo - GI Use Only Today D64.9 - Anemia, unspecified, K21.9 - Gastro- esophageal reflux disease without esophagitis, Z98.84 - Bariatric surgery status Medications: New bisacodyl (Dulcolax (bisacodyl)) Day before procedure, prep day Take 4 tablets by mouth upon awakening followed by large glass of water 20 mg (4 x 5 mg) PO ONCE 1 day 4 tabs 0RF colonoscopy prep Z12.11 - Encounter for screening for malignant neoplasm of colon polyethylene glycol 3350 (Miralax) Take as directed by mouth the day before your procedure. 238 grams PO ONCE 1 day PRN 238 grams 0RF laxative effect Patient Instructions: 47-year-old female status post gastric bypass persistent acid reflux age- appropriate for index screening colonoscopy Discussed procedures Rare risks Need for escorted due to anesthesia MiraLax Gatorade prep Reflux precautions Avoid culprits Encouraged to call questions or concerns Follow back with weight management for any concerns with weight Coding Level of Care Code New Pt Level 4 (32933) Diagnoses S/P gastric bypass Z98.84 Anemia, unspecified type D64.9 Anemia type: unspecified type H/O gastric bypass Z98.84 Acid reflux K21.9 Time Spent (min) 35 Comment
[2023-03-24 10:49] VITALS: BP 111/62; PULSE 65; BMI 25.8
== END 2023-03-24 11:36 | disposition home or self-care (01) ==
PROVIDERS: PCP Internal Medicine; Visit Provider Physician Assistant
DX: Z98.84 Bariatric surgery status (principal); D64.9 Anemia, unspecified; K21.9 Gastro-esophageal reflux disease without esophagitis
CPT/HCPCS: 99204

== ENCOUNTER → 2023-03-24 10:41 | Outpatient (BNVA) | payer OTHER, SELFPAY | PROVIDERS: PCP Internal Medicine; Visit Provider Physician Assistant | DX: E66.3 Overweight (principal); L98.7 Excessive and redundant skin and subcutaneous tissue; K21.9 Gastro-esophageal reflux disease without esophagitis; D64.9 Anemia, unspecified; Z98.84 Bariatric surgery status; Z68.27 Body mass index [BMI] 27.0-27.9, adult | CPT/HCPCS: 99202; 99212 ==

== ENCOUNTER 2023-03-24 12:37 | Outpatient (AMB) | payer OTHER, SELFPAY ==
--- NOTE | 2023-03-24 12:40 | A.OFFVIS_ITS ---
Intake VS Expanded 03/24/23 12:56 BP 119/77 Blood Pressure Location Rt brachial Blood Pressure Position Sitting Pulse 71 Pulse Source Pulse Oximeter Temp 97.5 F Temperature Source Temporal Artery Scan Pulse Oximetry 100 Oxygen Delivery Method Room Air Height 5 ft 5 in Weight 165 lb BMI 27.5 Body Fat % 23.1 Body Fat Mass 38.2 Fat Free Mass 126.8 Visceral Fat Rating 4.0 Body Water % 54.8 Body Water Mass 90.4 Muscle Mass/Score 120.4 Basal Metabolic Rate/Score 1,671 Intake Visit Reasons: (OV)PO GBP 07/10/16 Allergies hazelnut [HAZELNUT] Allergy (Intermediate, Verified 03/24/23 12:41) ITCHING THROAT Medication List - Last Reconciled 03/24/23 by CAMILA Hess bisacodyl (Dulcolax (bisacodyl)) 20 mg (4 x 5 mg) PO ONCE 1 day cane As directed cholecalciferol (vitamin D3) (Vitamin D3) 25 mcg PO DAILY clotrimazole 1% 1 appl topical BID cyanocobalamin (vitamin B-12) 1,000 mcg PO DAILY diclofenac sodium 1% (Arthritis Pain (diclofenac)) 4 grams topical QID ferrous sulfate (FeroSul) 325 mg PO DAILY loratadine 10 mg PO DAILY mecobalamin (vitamin B12) (B12 Active) 1,000 mcg PO DAILY pantoprazole 40 mg PO DAILY polyethylene glycol 3350 (Miralax) 238 grams PO ONCE PRN 1 day sennosides-docusate sodium 8.6-50 mg (Stool Softener-Laxative) 1 tab PO DAILY sucralfate (Carafate) 10 mL PO BID tramadol 50 mg PO TID PRN 30 days vitamin A palmitate 7,500 mcg PO DAILY HPI HPI Comments History of Present Illness Details Pt is s/p RYGB 2017. Weight has remained relatively stable since last visit with less than 5% change. She had undergone EGD 04/22/22 with findings of enteritis at GJ anastomosis. She continues to feel with the PPI and carafate. Pt does not smoke cigarettes, occasionally smokes marijuana, rare use of NSAIDs around menstrual cycle. Doing better getting enough protein, using protein rapp. Having repeat EGD as well as colonoscopy with GI soon. Continues to exercise 5x/week 1 hour usually, doing mostly home exercises and includes weight training. Currently taking iron for anemia. Pt reports problems of ongoing problems of excess skin of abdomen and arms. Regarding abdomen, reports rashes of skin fold of abdomen and has been using clotrimazole ointment since July 2022 but this has not helped. Moisture collects in skin fold which smells malodorous. Has to shower multiple times a day to keep area clean and prevent odor. Extra skin is very uncomfortable during walking and exercise as it limits her range of motion. It also increases her back pain due to heaviness of the excess skin of her abdomen. Regarding arms, pt reports malodorous moisture that collects in excess skin of arm folds. Gets rashes up near axillae due to excess skin making contact/friction with the rest of the body. Topical creams including clotrimazole have not been helping; she has been trying to use topical Rx creams since July 2022. The moisture here has been with increasingly unpleasant odor and she has to shower multiple times a day to prevent odor. Has limited range of motion at the gym and has difficulty performing all the movements/exercises she would like to do, due to discomfort and skin getting in the way. She tries to wear compression sleeves on her upper arms to help with discomfort but this does not solve the problem. ON LICENSE OF [facility] Medical History (Updated 03/24/23 @ 11:12 by Maribell Rivera PA-C) Overweight (BMI 25.0-29.9) Spontaneous ecchymoses Right hip pain Obesity (BMI 30-39.9) Pain in left toe(s) Bunion of great toe of left foot Post-traumatic osteoarthritis of right hip Primary osteoarthritis of both knees Arthritis Surgical History History of total right hip arthroplasty (~06/04/21) History of surgery History of bilateral breast reduction surgery History of hip surgery H/O gastric bypass History of laparoscopic cholecystectomy History of tubal ligation Family History Mother Ovarian cancer Diabetes Father HIV (human immunodeficiency virus infection) Maternal Grandmother Stomach cancer Maternal Grandfather Myocardial infarction Brother In good health Sister In good health Mental health disorder Son In good health Daughter In good health Social History Household Members: Family Housing: Apartment Are you a primary patient care technician to a significant other at home: Yes (son age 7) Do you presently have visiting nurse or other home services: No Alcohol intake: current Alcohol intake frequency: holidays/special occasions only Patient Tobacco Use Status: Former Tobacco user Quit Date: 2009 Tobacco use type: Cigarette e-Cigarette/Vaping Use: Never Used Second Hand Smoke Exposure: No Substance Use Type: Marijuana service: No Current occupational status: unemployed Gender identity: Female Cognitive needs: No Hearing needs: No Vision needs: No Female Reproductive History Menstrual Age of Menarche: 15 Physical Exam Const General: cooperative, comfortable and no acute distress Orientation/consciousness: patient oriented x3 Skin Other: Grade II pannus arms with excess skin measuring 8cm on L arm, 7cm on R arm from level of the triceps Neuro General: patient oriented x3 Assessment & Plan Assessment & Plan (1) H/O gastric bypass: Comment: 07/10/2016 upper endoscopy and laparoscopic Jose-en-Y gastric bypass (with a total bypassed limb of 200 cm) - Dr. Krishnan Code(s): Z98.84 - Bariatric surgery status (2) Overweight (BMI 25.0-29.9): Code(s): E66.3 - Overweight (3) Excess skin: Code(s): L98.7 - Excessive and redundant skin and subcutaneous tissue Plan Pt is having problems of excess skin of abdomen, resulting in malodorous painful rashes refractory to topical rx treatment. She is also experiencing additional pain from heaviness of skin which worsens her back pain. She would benefit from panniculectomy for definitive treatment to restore integrity of her skin, alleviate pain and discomfort, and restore physical function, including ability to walk and exercise to be able to maintain her excellent weight loss results. In addition, pt is having problems of excess skin of upper arms, resulting in malodorous rashes refractory to topical rx treatment. The excess skin also causes heaviness and discomfort which worsens evgeny pain. She would benefit from bilateral brachioplasty for definitive treatment to restore integrity of her skin, alleviate pain and discomfort, and restore physical function, including normal range of motion and ability to exercise to be able to maintain her excellent weight loss results. Pt's weight has remained stable within 5% variance since last visit. She will continue high protein meal plan and exercise regimen. Will submit to insurance today, photos taken. Advised to stop smoking anything for at least 1 month prior to surgery and avoid NSAIDs as well. Pt expressed understanding. Patient is overweight with problems of excess skin and is not considered stable at this time. I spent a total of 30 minutes reviewing/updating records, examining the patient and counseling the patient on weight management as detailed above. Medications: Refilled sucralfate (Carafate) 10 mL PO BID 414 mL 3RF pantoprazole 40 mg PO DAILY 90 tabs 3RF Coding Level of Care Code Est Pt Level 4 (64306) Diagnoses H/O gastric bypass Z98.84 Overweight (BMI 25.0-29.9) E66.3 Excess skin L98.7
[2023-03-24 12:56] VITALS: BP 119/77; PULSE 71; TEMP 36.4; O2SAT 100; BMI 27.5
== END 2023-03-24 13:13 | disposition home or self-care (01) ==
PROVIDERS: PCP Internal Medicine; Visit Provider Physician Assistant Surgical
DX: L98.7 Excessive and redundant skin and subcutaneous tissue (principal); E66.3 Overweight; Z68.27 Body mass index [BMI] 27.0-27.9, adult; Z98.84 Bariatric surgery status
CPT/HCPCS: 99214

== ENCOUNTER 2023-04-17 07:56 | Outpatient (AMB) | payer OTHER, SELFPAY ==
--- NOTE | 2023-04-17 08:16 | A.OFFVIS_ITS ---
Intake Intake Visit Reasons: TV Pre Op Pannic/Brachio 04/23/23 Allergies hazelnut [HAZELNUT] Allergy (Intermediate, Verified 03/24/23 12:41) ITCHING THROAT HPI TV Pre Op Pannic/Brachio 04/23/23 HPI Details Start time: 8.07am, End time: 8.37am ?I spent 25 minutes speaking with the patient on the phone plus an additional 5 minutes reviewing and updating records for a total of 30 minutes HPI Comments History of Present Illness Details Excellent weight loss of 121.4lbs, or 43.14% TBWL Is doing one Fairlife and Quest and one meal Has developed excess skin in upper arms and abdomen. [facility]LY [facility] Medical History (Updated 04/17/23 @ 08:32 by Jv Krishnan MD) Excess skin Overweight (BMI 25.0-29.9) Spontaneous ecchymoses Right hip pain Obesity (BMI 30-39.9) Pain in left toe(s) Bunion of great toe of left foot Post-traumatic osteoarthritis of right hip Primary osteoarthritis of both knees Arthritis Surgical History History of total right hip arthroplasty (~06/04/21) History of surgery History of bilateral breast reduction surgery History of hip surgery H/O gastric bypass History of laparoscopic cholecystectomy History of tubal ligation Family History Mother Ovarian cancer Diabetes Father HIV (human immunodeficiency virus infection) Maternal Grandmother Stomach cancer Maternal Grandfather Myocardial infarction Brother In good health Sister In good health Mental health disorder Son In good health Daughter In good health Social History Household Members: Family Housing: Apartment Are you a primary residential caregiver to a significant other at home: Yes (son age 7) Do you presently have visiting nurse or other home services: No Alcohol intake: current Alcohol intake frequency: holidays/special occasions only Comment: aware of trip hazard Patient Tobacco Use Status: Former Tobacco user Quit Date: 2009 Tobacco use type: Cigarette e-Cigarette/Vaping Use: Never Used Second Hand Smoke Exposure: No Substance Use Type: Marijuana service: No Current occupational status: unemployed Gender identity: Female Cognitive needs: No Hearing needs: No Vision needs: No Female Reproductive History Menstrual Age of Menarche: 15 Assessment & Plan Assessment & Plan (1) Excess skin: Code(s): L98.7 - Excessive and redundant skin and subcutaneous tissue Plan: 1. Plan for bilateral brachioplasty and panniculectomy. Risks of infection, bleeding, asymmetry, wound dehiscence and blood clots were discussed with the patient. 2. You will have a drain the abdomen that may stay a few weeks before it may be removed 3. You will need to be doing sponge baths the first 1-2 weeks. No showers. You need to have help at home to get you up and limit your activities as much as possible for at least the 4-6 weeks after surgery 4. We will arrange for a visiting nurse to come at home to help you with dressing changes and send me pictures of the procedures. We will send at your home supplies for the dressing changes. 5. Change nutritional plan to three FAIRLIFE shakes (mixing one third of the bottle to 6oz of low fat unsweetened almond milk at 6am-8am, 9am-11am and 12pm- 2pm, one Quest bar at 3pm-5pm and one meal at 6pm (6 forks of protein and 6 forks of salad or vegetables). If needed, do another HALF bar at 8pm-9pm if you feel hungry. This will improve weight loss and healing after surgery. 6. Continue all vitamins 7. Stop Ibuprofen as of today 04/17/23 8. Do blood work not fasting today 04/17/23 and slate picker the antibiotic prescription from your pharmacy 9. Risks and complications were discussed the possibility of bleeding that may require transfusion, loss of the umbilicus, wound dehiscence or infection, dog ears , flap asymmetry. We also discussed the importance of strict avoidance of weight lifting. 10. Avoid aspirin, motrin, ibuprofen, Aleve, Advil, Naproxyn. Only Tylenol is OK Plan 1. Plan for bilateral brachioplasty and panniculectomy. Risks of infection, bl eeding, asymmetry, wound dehiscence and blood clots were discussed with the patient. 2. You will have a drain the abdomen that may stay a few weeks before it may be removed 3. You will need to be doing sponge baths the first 1-2 weeks. No showers. You need to have help at home to get you up and limit your activities as much as possible for at least the 4-6 weeks after surgery 4. We will arrange for a visiting nurse to come at home to help you with dressing changes and send me pictures of the procedures. We will send at your h ome supplies for the dressing changes. 5. Change nutritional plan to three FAIRLIFE shakes (mixing one third of the bottle to 6oz of low fat unsweetened almond milk at 6am-8am, 9am-11am and 12pm- 2pm, one Quest bar at 3pm-5pm and one meal at 6pm (6 forks of protein and 6 forks of salad or vegetables). If needed, do another HALF bar at 8pm-9pm if you feel hungry. This will improve weight loss and healing after surgery. 6. Continue all vitamins 7. Stop Ibuprofen as of today 04/17/23 8. Do blood work not fasting today 04/17/23 and slate picker the antibiotic prescription from your pharmacy 9. Risks and complications were discussed the possibility of bleeding that may require transfusion, loss of the umbilicus, wound dehiscence or infection, dog ears , flap asymmetry. We also discussed the importance of strict avoidance of weight lifting. 10. Avoid aspirin, motrin, ibuprofen, Aleve, Advil, Naproxyn. 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 Panel Today K91.2 - Postsurgical malabsorption, not elsewhere classified, 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] Medications: New docusate sodium (Colace) 100 mg PO DAILY 30 caps 2RF K59.00 - Constipation, unspecified cephalexin 500 mg PO Q12H 30 caps 2RF L03.90 - Cellulitis, unspecified Telehealth Telehealth Location of provider rendering services: practice address Location of patient: address on file Patient Identification confirmed using: Name, : Yes Telehealth method: voice only Patient verbally consented to treatment: Yes Patient verbally consented to billing insurance company: Yes Patient informed of any privacy concerns related to visit: Yes Minutes spent on Phone/Video with Pt.: 30 Coding Level of Care Code Tele Est Pt Level 4 (14832) Diagnoses Excess skin L98.7 Time Spent (min) 30
== END 2023-04-17 08:38 | disposition home or self-care (01) ==
LOC: HO.HBS 07:56
PROVIDERS: PCP Internal Medicine; Visit Provider Surgery
DX: L98.7 Excessive and redundant skin and subcutaneous tissue (principal)
CPT/HCPCS: 99214

== ENCOUNTER 2023-04-17 07:56 | Outpatient (REF) | payer OTHER, SELFPAY ==
[2023-04-17 10:30] LABS: MANUAL DIFF FLAG NO
[2023-04-17 10:35] LABS: Basophils Percent Auto 0.6 % (0-2); Eosinophils Absolute Auto 0.1 X10*3/uL (0.0-0.4); Eosinophils Percent Auto 1.1 % (0-4); Hematocrit 31.4 % (37.0-47.0); Hemoglobin 9.4 g/dl (12.0-16.0); Imm Gran Abs Auto 0.01 X10*3/uL (0.00-0.03); Imm Gran Pct Auto 0.2 % (0.0-0.4); Lymphocytes Absolute Auto 1.1 X10*3/uL (1.2-4.9); Lymphocytes Percent Auto 17.4 % (20-40); Mean Corpuscular HGB Conc 29.9 g/dl (31.0-35.0); Mean Corpuscular Hemoglobin 25.1 pg (27.0-33.0); Mean Platelet Volume 12.2 fL (9.4-12.3); Monocytes Absolute Auto 0.5 X10*3/uL (0.1-1.2); Monocytes Percent Auto 7.3 % (2-11); Neutrophils Absolute Auto 4.8 x10*3/uL (2.0-8.3); Neutrophils Percent Auto 73.4 % (45-73); Platelet Count 275 X10*3/uL (160-400); Red Blood Count 3.74 X10*6/uL (4.20-5.50); Red Cell Distribution Width 16.2 % (11.0-16.0); White Blood Count 6.6 X10*3/uL (4.8-10.8)
[2023-04-17 10:41] LABS: INTERNATIONAL NORM RATIO 0.9 (0.9-1.1)
[2023-04-17 10:44] LABS: Partial Thromboplastin Time 30.3 SEC (26.0-36.4)
[2023-04-17 11:08] LABS: Alanine Aminotransferase 12 U/L (0-31); Albumin Level 3.7 g/dL (3.5-5.0); Alkaline Phosphatase 77 U/L (39-117); Anion Gap 11 (12-20); Aspartate Amino Transferase 16 U/L (5-31); Bilirubin Total 0.2 mg/dL (0.0-1.0); Blood Urea Nitrogen 15 mg/dL (9-16); Calcium 8.4 mg/dL (8.4-10.2); Carbon Dioxide 27 mmol/L (22-29); Chloride 107 mmol/L (96-108); Estimated Glomerular Filt Rate > 60; Glucose Random 112 mg/dL (60-115); Potassium 3.6 mmol/L (3.3-5.1); Sodium 141 mmol/L (135-145); Total Protein 6.6 g/dL (6.5-8.0)
== END 2023-04-17 07:57 | disposition home or self-care (01) ==
LOC: HO.LAB 07:56
PROVIDERS: PCP Internal Medicine; Visit Provider Surgery
DX: K91.2 Postsurgical malabsorption, not elsewhere classified (principal); Z90.3 Acquired absence of stomach [part of]; L98.7 Excessive and redundant skin and subcutaneous tissue
CPT/HCPCS: 36415; 80053; 85025; 85610; 85730

== ENCOUNTER → 2023-04-22 11:58 | Outpatient (BNVA) | payer OTHER, SELFPAY | PROVIDERS: PCP Internal Medicine; Visit Provider Surgery ==

== ENCOUNTER 2023-04-23 06:03 | Day surgery (SDC) | payer OTHER, SELFPAY ==
[2023-04-17 10:27] VITALS: BMI 26.6
--- NOTE | 2023-04-19 15:29 | MHC.SHP ---
Pre-Procedural Eval Section A Date of Service: 04/19/23 The patient is an INPATIENT: No The History & Physical has been completed within 30 days and I have reviewed it.: Yes Section B Chief Complaint: Excessive and redundant skin and subcutaneous tiss Relevant Family History (Specify if Yes): No Relevant Social History: None Present Medications: None Medical History: No relevant PMH History of Previous Operations: Relevant previous surgery/procedure and date(s) (laparoscopic gastric bypass) Allergies: Allergies Allergy/AdvReac Type Severity Reaction Status Date / Time hazelnut [HAZELNUT] Allergy Intermediate ITCHING Verified 03/24/23 12:41 THROAT Review of Systems Sugical H&P ROS: Negative: Constitution, Cardiovascular, Respiratory, Neurological, Psychiatric, Hem-Onc, Allergic/Immunologic, Gastrointestinal, Genitourinary, Musculoskeletal, Integumentary, Endocrine and Eyes/Ears/Nose/Throat Exam Surgical H&P Exam: Normal: HEENT, Normal: Heart, Normal: Lungs, Normal: Skin and Normal: Neurological and Not Evaluated: Extremities (skin laxity) and Not Evaluated: Abdomen (significant abdominal pannus) Plan Diagnosis/Plan: Unchanged I have reviewed the history and physical and performed a pertinent physical examination on my patient. No changes have occurred unless specified. Time Spent With Patient Time: Total time managing care of this patient today ____ minutes.
--- NOTE | 2023-04-22 09:21 | P.CONAN_ITS ---
Documented by User: Gabbie Hernadez NP 04/22/23 09:25 HPI - Anesthesia Eval Consult details Narrative: 48yo F for Panniculectomy, Bilateral Brachioplasty PMFSH Active Problems Active Problems: All Active Problems (Updated 04/17/23 @ 08:32 by Jv Krishnan MD) Constipation (Acute) Postgastrectomy malabsorption (Acute) Acid reflux (Acute) Colon cancer screening (Acute) Breast cancer screening by mammogram (Acute) Annual physical exam (Acute) Right-sided chest pain (Acute) Right elbow pain (Acute) Right shoulder pain (Acute) Neck pain (Acute) Cervical cancer screening (Acute) Malodorous urine (Acute) Vaginal itching (Acute) Epigastric abdominal pain (Acute) S/P gastric bypass (Acute) Overweight (Acute) Bromhidrosis (Acute) Hyperhidrosis of axilla (Acute) UTI (urinary tract infection) (Acute) Anemia (Acute) Abnormal vaginal bleeding in premenopausal patient (Acute) Osteoarthritis of left knee (Acute) Status post total replacement of right hip (Acute) Pre-op evaluation (Acute) Anemia (Acute) Post-traumatic acute tubular necrosis (Acute) Osteoarthritis of right knee (Acute) Osteoarthritis of right hip (Acute) Potential exposure to STD (Acute) Bacterial vaginosis (Acute) Family hx of ovarian malignancy (Acute) control counseling (Acute) Well woman exam with routine gynecological exam (Acute) Excess skin (Acute) H/O gastric bypass (Acute) Overweight (BMI 25.0-29.9) (Acute) Spontaneous ecchymoses (Acute) Right hip pain (Acute) Obesity (BMI 30-39.9) (Acute) Pain in left toe(s) (Acute) Bunion of great toe of left foot (Acute) Post-traumatic osteoarthritis of right hip (Acute) Primary osteoarthritis of both knees (Acute) Past Medical History Medical History Overweight (BMI 25.0-29.9) Excess skin Spontaneous ecchymoses Right hip pain Obesity (BMI 30-39.9) Pain in left toe(s) Bunion of great toe of left foot Post-traumatic osteoarthritis of right hip Primary osteoarthritis of both knees Arthritis Family History Family History Mother Ovarian cancer Diabetes Father HIV (human immunodeficiency virus infection) Maternal Grandmother Stomach cancer Maternal Grandfather Myocardial infarction Brother In good health Sister In good health Mental health disorder Son In good health Daughter In good health Family history of problems with anesthesia: No Surgical History Surgical History History of esophagogastroduodenoscopy (EGD) History of total right hip arthroplasty (~06/04/21) History of surgery History of bilateral breast reduction surgery History of hip surgery H/O gastric bypass History of laparoscopic cholecystectomy History of tubal ligation History of Problems with Anesthesia: No Social History Social History Household Members: Family Household Members Other:: minor child Housing: Apartment Are you a primary neonatal intensive care nurse to a significant other at home: No Do you presently have visiting nurse or other home services: No Alcohol intake: current Alcohol intake frequency: a few times a month Comment: aware of trip hazard Patient Tobacco Use Status: Former Tobacco user Quit Date: 2009 Tobacco use type: Cigarette e-Cigarette/Vaping Use: Never Used Second Hand Smoke Exposure: No Use of substances other than those prescribed or required for medical reasons: Yes Substance Use Type: Marijuana Substance Use Frequency: Daily Have you been hit, kicked, punched, or otherwise hurt by someone within the past year? If so, by whom?: No Are you DNR?: No Advance Directives: No Advance Directives Information Provided: Yes (brochure mailed) Advance Directives on File: No Recently lost weight without trying: No Eating poorly because of decreased appetite: No Nutrition Risks: No Nutritional Risk Patient : No FDLMP: 04/16/23 : No Poor oral hygiene: No service: No Current occupational status: unemployed Gender identity: Female Cognitive needs: No Hearing needs: No Vision needs: No Meds Allergies Allergy/AdvReac Type Severity Reaction Status Date / Time hazelnut [HAZELNUT] Allergy Intermediate ITCHING Verified 03/24/23 12:41 THROAT Home Medications Medication Instructions Recorded Confirmed Last Taken Type sennosides 8.6 mg-docusate sodium 1 tab PO DAILY 11/27/21 04/17/23 Unknown History 50 mg tablet (Stool Softener-Laxative) Exam Height,Weight and Vital Signs: Height 5 ft 6 in Weight 74.843 kg Pertinent Lab Results Pertinent Lab Results: Laboratory Tests 04/17/23 10:25 Blood Type O Positive Antibody Screen NEGATIVE Laboratory Tests 04/17/23 10:28 WBC 6.6 Hgb 9.4 L Hct 31.4 L Plt Count 275 Sodium 141 Potassium 3.6 Chloride 107 Carbon Dioxide 27 BUN 15 Creatinine 0.58 Assessment and Plan Assessment Anesthesia Assessment: Chart Reviewed Final Anesthetic Review Family History of Problems with Anesthesia: No History of Problems with Anesthesia: No Documented by User: Carmen Bermudez MD 04/23/23 07:50 PMFSH Active Problems Active Problems: All Active Problems (Updated 04/23/23 @ 07:22 by Carmen Bermudez MD) Constipation (Acute) Postgastrectomy malabsorption (Acute) Acid reflux (Acute) Right-sided chest pain (Acute) Right elbow pain (Acute) Right shoulder pain (Acute) Neck pain (Acute) Epigastric abdominal pain (Acute) S/P gastric bypass (Acute) Overweight (Acute) Bromhidrosis (Acute) Hyperhidrosis of axilla (Acute) Anemia (Acute) Abnormal vaginal bleeding in premenopausal patient (Acute) Osteoarthritis of left knee (Acute) Status post total replacement of right hip (Acute) Pre-op evaluation (Acute) Post-traumatic acute tubular necrosis (Acute) Osteoarthritis of right knee (Acute) Osteoarthritis of right hip (Acute) Potential exposure to STD (Acute) Bacterial vaginosis (Acute) Family hx of ovarian malignancy (Acute) control counseling (Acute) Excess skin (Acute) H/O gastric bypass 2015 Overweight (BMI 25.0-29.9) (Acute) Spontaneous ecchymoses (Acute) Right hip pain (Acute) Obesity (BMI 30-39.9) (Acute) Pain in left toe(s) (Acute) Bunion of great toe of left foot (Acute) Post-traumatic osteoarthritis of right hip (Acute) Primary osteoarthritis of both knees (Acute) Past Medical History Medical History Overweight (BMI 25.0-29.9) Excess skin Spontaneous ecchymoses Right hip pain Obesity (BMI 30-39.9) Pain in left toe(s) Bunion of great toe of left foot Post-traumatic osteoarthritis of right hip Primary osteoarthritis of both knees Arthritis Family History Family History Mother Ovarian cancer Diabetes Father HIV (human immunodeficiency virus infection) Maternal Grandmother Stomach cancer Maternal Grandfather Myocardial infarction Brother In good health Sister In good health Mental health disorder Son In good health Daughter In good health Surgical History Surgical History History of esophagogastroduodenoscopy (EGD) History of total right hip arthroplasty (~06/04/21) History of surgery History of bilateral breast reduction surgery History of hip surgery H/O gastric bypass History of laparoscopic cholecystectomy History of tubal ligation Social History Social History Household Members: Family Household Members Other:: minor child Housing: Apartment Are you a primary neonatal intensive care nurse to a significant other at home: No Do you presently have visiting nurse or other home services: No Alcohol intake: current Alcohol intake frequency: a few times a month Comment: aware of trip hazard Patient Tobacco Use Status: Former Tobacco user Quit Date: 2009 Tobacco use type: Cigarette e-Cigarette/Vaping Use: Never Used Second Hand Smoke Exposure: No Use of substances other than those prescribed or required for medical reasons: Yes Substance Use Type: Marijuana Substance Use Frequency: Daily Have you been hit, kicked, punched, or otherwise hurt by someone within the past year? If so, by whom?: No Are you DNR?: No Advance Directives: No Advance Directives Information Provided: Yes (brochure mailed) Advance Directives on File: No Recently lost weight without trying: No Eating poorly because of decreased appetite: No Nutrition Risks: No Nutritional Risk Patient : No FDLMP: 04/16/23 : No Poor oral hygiene: No service: No Current occupational status: unemployed Gender identity: Female Cognitive needs: No Hearing needs: No Vision needs: No Meds Allergies Allergy/AdvReac Type Severity Reaction Status Date / Time hazelnut [HAZELNUT] Allergy Intermediate ITCHING Verified 03/24/23 12:41 THROAT Home Medications Medication Instructions Recorded Confirmed Last Taken Type sennosides 8.6 mg-docusate sodium 1 tab PO DAILY 11/27/21 04/17/23 Unknown History 50 mg tablet (Stool Softener-Laxative) Exam Height,Weight and Vital Signs: Height 5 ft 6 in Weight 74.843 kg Vital Signs Temp Pulse Resp BP Pulse Ox O2 Del Method 04/23/23 06:49 98.1 F 70 16 110/61 100 Room Air Pertinent Lab Results Pertinent Lab Results: Laboratory Tests 04/17/23 10:25 Blood Type O Positive Antibody Screen NEGATIVE Laboratory Tests 04/17/23 10:28 WBC 6.6 Hgb 9.4 L Hct 31.4 L Plt Count 275 Sodium 141 Potassium 3.6 Chloride 107 Carbon Dioxide 27 BUN 15 Creatinine 0.58 Lab Results 04/17/23 04/22/23 Range/Units 10:25 11:40 Blood Type O Positive O Positive Antibody Screen NEGATIVE NEGATIVE Airway Mallampati Class: I TM Dist: >3cm Neck ROM: Full Loose/Missing/Broken Teeth: Yes (Missing teeth top and bottom left back. Denies broken or loose teeth) Heart: RRR Lungs: CTAB Assessment and Plan Assessment Anesthesia Assessment: Anesthesia Plan Discussed Final Anesthetic Review NPO: Yes ASA Class: III Final Preanesthetic Review: No Changes in Pt Med Stat, Meds/Allgs Chart Reviewed, Consent Obtained/Reviewed and Anes Risks/Benef Reviewed Patient Risk: Intermediate Procedure Risk: Intermediate Assessment/Block/Sedation in SS: Assess/Block/Sedation-SS Anesthetic Plan Anesthetic Plan: GA Disposition: Standard PACU
[2023-04-23] VITALS (13 sets, daily range): BP systolic 110–155; BP diastolic 61–77; PULSE 59–84; RESP 13–18; TEMP 36.1–36.7; O2SAT 98–100
[2023-04-23] MEDS: Lactated Ringers 1,000 ML 80 ML IVCONT (06:56)
--- NOTE | 2023-04-23 07:55 | P.BOP_ITS ---
Brief Operative Note Date of Service: 04/23/23 Pre-op diagnosis: Excess skin Post-op diagnosis: same Procedure: PROCEDURE: Panniculectomy with umbilical transposition and bilateral subcutaneous fat flaps, bilateral brachioplasty INDICATION: This a 71 year old female who underwent laparoscopic gastric bypass on 07/10/2016. She had an excellent result achieving a BMI of 26.3 kg/m2 with a total weight loss of 121.4lbs, or 43.1% of her TBWL. As a result, she has developed panniculitis which has not resolved despite continuous use of clotrimazole ointment as well as skin irritation and intetrigo in both upper arms. On exam she has extreme skin laxity due to massive weight loss and age with the abdominal pannus completely hiding the genitalia and the upper arms 6 cm below the level of the triceps. Panniculectomy with bilateral brachioplasty was recommended. We discussed the two options for the panniculectomy of using a combined vertical and horizontal incisions or just a horizontal (bikini) incision. It was my recommendation to do only horizontal incision based on her body habitus and skin laxity. The patient agreed with this. Risks and complications were discussed with the patient including bleeding, infection, umbilical loss, flap necrosis, asymmetry, dehiscence, seroma, VTE. The patient understood the risks and was in agreement to proceed with surgery. In addition, the patient was found to have anemia. Given her history of gastric bypass, I would like to rule out the possibility of an anastomotic ulcer. Based on this information I recommended an upper endoscopy to evaluate the patient's symptoms.? Risks and complications of the surgery were discussed with the patient in advance particularly the possibility of perforation or bleeding that may require surgical intervention. The patient understood the risks and was in agreement with the plan. ? PROCEDURE: The incisions were appropriately marked at the preop area with the patient standing and laying down. After induction of general anesthesia a Goins catheter and pneumatic compression devices were placed. The patient was prepped and draped in the usual sterile manner and the incisions were marked again and confirmed. In similar fashion both upper arms were also marked when the patient was standing. The upper arms were performed first. The skin was infiltrated with lidocaine and epinephrine. Skin was excised with the #15 blade. Cautery was used to separate the skin from subcutaneous tissues. Careful attention was paid to make sure that the plain of excision was superficial as close to the skin as possible. The right upper arm skin was 30 cm x 9 cm and the left 34 cm x 7 cm. Skin was closed in two layers using interrupted 3.0 Monocryl sutures for the dermis and 4.0 subcuticular Monocryl suture for the skin. The skin was infiltrated with lidocaine and epinephrine. The #10 blade scalpel was used for the large incisions and the #15 blade scalpel for the umbilicus. Cautery was used to divide the subcutaneous tissues until the fascia was identified. Then I used the cautery to separate the pannus from the fascia. The inferior incision was made initially and I mobilized the flap for a several centimeters cephalad to the umbilicus. The umbilicus was incised circumferentially and detached from the surrounding tissues all the way to the fascia while its stalk was preserved. With the patient in reflex position I confirmed that the skin flaps were appropriate and would allow for the tissues to come together with reasonable tension. At that point a horizontal incision was made 4 cm above the umbilicus. #10 blade was used for the skin, cautery for the dermis and for the remaining tissues. A subcutaneous fat flap was raised from the upper skin flap in order to fill the space under the skin and support the closure of the two flaps. In addition the inferior flap was mobilized caudally for a few centimeters to create a space for the subcutaneous fat flap as well as relieve tension from the closure. A circumferential incision was made at the area where the umbilicus would be re-implanted. The umbilicus was appropriately oriented and was delivered through the defect and was secured in place with a Lilia. No bleeding was noted anywhere. One SONAM drain was placed from the left corner of the horizontal incision across the wound and was secured in place with a silk suture. A total of 7ml of Zynrelef was applied on top of the fascia and under the subcutaneous fat flaps. The subcutaneous fat flap was secured under the inferior flap with several interrupted 3.0 Monocryl sutures. The two flaps were brought together and were attached at the midline of the horizontal incision with a #3.0 Monocryl suture. At that point the umbilicus was properly oriented and was re-approximated to the skin with 8 interrupted 3.0 Monocryl sutures. In a similar fashion the skin flaps were re-approximated with multiple 3.0 Monocryl sutures. The skin was closed in all incisions and umbilicus with 4.0 Monocryl sutures. Steri-strips, xeroform gauzes and gauzes were used to cover the incisions. An abdominal binder was also placed. An upper endoscopy was performed next, the oropharynx and esophagus appeared within the normal limits. There was no hiatal hernia.? The z-line was smooth. Two biopsies were obtained from the distal esophagus 2-3 cm proximal to the GE junction and two biopsies from the GE junction. The small pouch was entered, appeared to be of normal size. There was no gastritis and the gastrojejunostomy was patent. A biopsy was obtained from the gastric pouch. No significant bleeding was noted from any of the biopsy sites. There was no anastomotic ulcer.? At that point the scope was advanced into the proximal small intestine (proximal Jose limb) which appeared to be normal as well. The Jose limb and the pouch were decompressed and the scope was withdrawn from the patient's mouth. The was awaken and was transferred to the recover room in a stable condition. I was present and performed the entire procedure. Kely was the licensed occupational therapy assistant. Arturo Krishnan MD, PhD, FACS Surgeon: Jv Krishnan MD Surgeon: Jv Krishnan MD Anesthesia: GETA, local and other (Zynrelef 7ml) Was an Squeegee Operator used for this Procedure?: No Squeegee Operator: Yair Edge Estimated blood loss (mL): 10 IV fluids (mL): 2,000 Urine output (mL): 500 Pathology: other (1) abdominal pannus, 2) bilateral upper arm skin) Condition: stable Disposition: PACU
[2023-04-23] MEDS: oxyCODONE HCl Immed Release 5 MG TABLET PO (14:21)
[2023-04-23] MEDS: HYDROmorphone HCl 0.5 MG/0.5 ML SYRINGE 0.25 MG IVPUSH (14:21)
== END 2023-04-23 17:17 | disposition home or self-care (01) ==
PROVIDERS: PCP Internal Medicine; Visit Provider Surgery
PROC: 0JB80ZZ Excision of Abdomen Subcutaneous Tissue and Fascia, Open Approach (ICD-10-PCS; CPT 15830; principal; 2023-04-23 07:30)
PROC: (CPT 15836; 2023-04-23 07:30)
PROC: 0DJ08ZZ Inspection of Upper Intestinal Tract, Via Natural or Artificial Opening Endoscopic (ICD-10-PCS; CPT 43235; 2023-04-23 07:30)
DX: L98.7 Excessive and redundant skin and subcutaneous tissue (principal); K91.2 Postsurgical malabsorption, not elsewhere classified; Z90.3 Acquired absence of stomach [part of]; L30.4 Erythema intertrigo; M79.3 Panniculitis, unspecified; D64.9 Anemia, unspecified; M17.0 Bilateral primary osteoarthritis of knee; M16.51 Unilateral post-traumatic osteoarthritis, right hip; T14.90XS Injury, unspecified, sequela; Z98.84 Bariatric surgery status; Z87.891 Personal history of nicotine dependence; Z98.890 Other specified postprocedural states; Z79.899 Other long term (current) drug therapy
CPT/HCPCS: 15830; 15847; 15836; 86850; 86900; 86901; 88304; C9088; J0131; J0690; J1100; J1170; J1756; J2250; J2371; J2405; J2704; J3010; J3370

== ENCOUNTER → 2023-04-23 06:03 | Outpatient (BNV) | payer OTHER, SELFPAY | PROVIDERS: PCP Internal Medicine; Visit Provider Surgery | DX: L98.7 Excessive and redundant skin and subcutaneous tissue (principal); Z90.3 Acquired absence of stomach [part of]; Z98.84 Bariatric surgery status | CPT/HCPCS: 15830; 15836 ==

== ENCOUNTER 2023-04-29 09:58 | Outpatient (AMB) | payer OTHER, SELFPAY ==
--- NOTE | 2023-04-29 10:03 | A.OFFVIS_ITS ---
Intake VS Expanded 04/29/23 10:24 BP 150/95 H Blood Pressure Location Rt brachial Blood Pressure Position Sitting Pulse 100 Pulse Source Pulse Oximeter Temp 98.4 F Temperature Source Tympanic Pulse Oximetry 99 Oxygen Delivery Method Room Air Height 5 ft 5 in Weight 159 lb 12.8 oz BMI 26.6 Body Fat % 19.5 Body Fat Mass 31.0 Fat Free Mass 128.6 Visceral Fat Rating 3.0 Body Water % 57.3 Body Water Mass 91.4 Muscle Mass/Score 122.2 Basal Metabolic Rate/Score 1,680 Intake Visit Reasons: (OV) PO Pannic/Brachio 04/23/23 Allergies hazelnut [HAZELNUT] Allergy (Intermediate, Verified 04/29/23 10:27) ITCHING THROAT HPI HPI Comments History of Present Illness Details Pleasant 48-year-old female, postop day 6, status post panniculectomy and brachioplasty performed on 04/23/2023. She states that she is following the meal plan ?mostly? in that she is not doing the protein bars. She is having some sugar free candy. We discussed the importance of communicating with Dr. Krishnan exactly what she is doing and not doing to ensure her optimal healing and she states that she will communicate this with him. She continues on antibiotics. She offers no significant complaints. 40-50 mL serosanguineous fluid output vi a drain daily. [facility] Medical History Overweight (BMI 25.0-29.9) Excess skin Spontaneous ecchymoses Right hip pain Obesity (BMI 30-39.9) Pain in left toe(s) Bunion of great toe of left foot Post-traumatic osteoarthritis of right hip Primary osteoarthritis of both knees Arthritis Surgical History History of esophagogastroduodenoscopy (EGD) History of total right hip arthroplasty (~06/04/21) History of surgery History of bilateral breast reduction surgery History of hip surgery H/O gastric bypass History of laparoscopic cholecystectomy History of tubal ligation Family History Mother Ovarian cancer Diabetes Father HIV (human immunodeficiency virus infection) Maternal Grandmother Stomach cancer Maternal Grandfather Myocardial infarction Brother In good health Sister In good health Mental health disorder Son In good health Daughter In good health Social History Household Members: Family Household Members Other:: minor child Housing: Apartment Are you a primary medicare coordinator to a significant other at home: No Do you presently have visiting nurse or other home services: No Alcohol intake: current Alcohol intake frequency: a few times a month Comment: aware of trip hazard Patient Tobacco Use Status: Former Tobacco user Quit Date: 2009 Tobacco use type: Cigarette e-Cigarette/Vaping Use: Never Used Second Hand Smoke Exposure: No Substance Use Type: Marijuana service: No Current occupational status: unemployed Gender identity: Female Cognitive needs: No Hearing needs: No Vision needs: No Female Reproductive History Menstrual Age of Menarche: 15 Physical Exam Skin Other: All incisions are healing nicely. There is some distal ecchymosis about the right arm. No evidence of dehiscence or infection. Umbilicus is viable. Assessment & Plan Assessment & Plan (1) S/P panniculectomy: Code(s): Z98.890 - Other specified postprocedural states Plan: Continue antibiotics Continue dressing change Continue monitoring fluid output Expressed the essential need to communicate with Dr. Krishnan exactly which she is doing or not doing with the meal plan. Return to clinic 1 week. (2) S/P brachioplasty: Code(s): Z98.890 - Other specified postprocedural states Plan: as above Coding Level of Care Code Global (88611) Diagnoses S/P panniculectomy Z98.890 S/P brachioplasty Z98.890
[2023-04-29 10:24] VITALS: BP 150/95; PULSE 100; TEMP 36.9; O2SAT 99; BMI 26.6
== END 2023-04-29 10:47 | disposition home or self-care (01) ==
PROVIDERS: PCP Internal Medicine; Visit Provider Physician Assistant Surgical
DX: Z98.890 Other specified postprocedural states (principal)
CPT/HCPCS: 99024

== ENCOUNTER → 2023-04-29 09:58 | Outpatient (BNVA) | payer OTHER, SELFPAY | PROVIDERS: PCP Internal Medicine; Visit Provider Physician Assistant Surgical | DX: Z98.890 Other specified postprocedural states (principal) | CPT/HCPCS: 99212 ==

== ENCOUNTER 2023-05-05 09:39 | Outpatient (AMB) | payer OTHER, SELFPAY ==
[2023-05-05 09:45] VITALS: BP 142/87; PULSE 81; TEMP 36; O2SAT 100
--- NOTE | 2023-05-05 09:45 | MHC.OFFVISWM ---
Intake VS Expanded 05/05/23 09:45 BP 142/87 H Blood Pressure Location Lt radial Pulse 81 Pulse Source Pulse Oximeter Temp 96.8 F Pulse Oximetry 100 Oxygen Delivery Method Room Air Intake Visit Reasons: (OV) PO Pannic/Brachio 04/23/23 Allergies hazelnut [HAZELNUT] Allergy (Intermediate, Verified 05/05/23 09:46) ITCHING THROAT HPI HPI Comments History of Present Illness Details 48-year-old female returns to the office today upon request of Dr. Krishnan due to a change in her umbilicus. She is not completely sure however sometime between 2 days ago and yesterday, the lower portion of the umbilicus skin and dehisced. She denies any significant pain and notes only minimal drainage from the umbilical site. She notes approximately 25-30 mL serosanguineous fluid from the collection bulb daily. She states she is following the meal plan including to ready to drink fair life shakes (26 g of protein each), 1 Quest bar, 1 meal with 6 forks of protein and 6 forks of salad or vegetables. She continues antibiotics. [facility] Medical History Overweight (BMI 25.0-29.9) Excess skin Spontaneous ecchymoses Right hip pain Obesity (BMI 30-39.9) Pain in left toe(s) Bunion of great toe of left foot Post-traumatic osteoarthritis of right hip Primary osteoarthritis of both knees Arthritis Surgical History History of esophagogastroduodenoscopy (EGD) History of total right hip arthroplasty (~06/04/21) History of surgery History of bilateral breast reduction surgery History of hip surgery H/O gastric bypass History of laparoscopic cholecystectomy History of tubal ligation Family History Mother Ovarian cancer Diabetes Father HIV (human immunodeficiency virus infection) Maternal Grandmother Stomach cancer Maternal Grandfather Myocardial infarction Brother In good health Sister In good health Mental health disorder Son In good health Daughter In good health Social History Household Members: Family Household Members Other:: minor child Housing: Apartment Are you a primary workforce investment act career manager to a significant other at home: No Do you presently have visiting nurse or other home services: No Alcohol intake: current Alcohol intake frequency: a few times a month Comment: aware of trip hazard Patient Tobacco Use Status: Former Tobacco user Quit Date: 2009 Tobacco use type: Cigarette e-Cigarette/Vaping Use: Never Used Second Hand Smoke Exposure: No Substance Use Type: Marijuana service: No Current occupational status: unemployed Gender identity: Female Cognitive needs: No Hearing needs: No Vision needs: No Female Reproductive History Menstrual Age of Menarche: 15 Physical Exam Vital Signs: Last Vital Signs Temp 96.8 F 05/05/23 09:45 Pulse 81 05/05/23 09:45 BP 142/87 H 05/05/23 09:45 Pulse Ox 100 05/05/23 09:45 Oxygen Delivery Method Room Air 05/05/23 09:45 Skin Other: Transverse incision is clean, dry, intact. There is dehiscence of the umbilicus, 3 o'clock to 10 o'clock position Assessment & Plan Assessment & Plan (1) External incisional dehiscence: Code(s): T81.31XA - Disruption of external operation (surgical) wound, not elsewhere classified, initial encounter Plan: Patient had three 3-0 vertical mattress sutures placed with reapproximation of the umbilical skin. Patient tolerated the procedure well without any difficulty. She will keep her appointment on this coming Thursday. Coding Level of Care Code Global (56825) Diagnoses External incisional dehiscence T81.31XA
== END 2023-05-05 10:53 | disposition home or self-care (01) ==
LOC: HO.HBS 09:39
PROVIDERS: PCP Internal Medicine; Visit Provider Physician Assistant Surgical
DX: T81.31XA Disruption of external operation (surgical) wound, not elsewhere classified, initial encounter (principal)
CPT/HCPCS: 99024

== ENCOUNTER → 2023-05-05 09:39 | Outpatient (BNVA) | payer OTHER, SELFPAY | PROVIDERS: PCP Internal Medicine; Visit Provider Physician Assistant Surgical | DX: T81.31XA Disruption of external operation (surgical) wound, not elsewhere classified, initial encounter (principal) | CPT/HCPCS: 99212 ==

== ENCOUNTER 2023-05-08 08:59 | Outpatient (AMB) | payer OTHER, SELFPAY ==
[2023-05-08 09:15] VITALS: BP 124/72; PULSE 74; TEMP 35.6; O2SAT 100
--- NOTE | 2023-05-08 09:15 | MHC.OFFVISWM ---
Intake VS Expanded 05/08/23 09:15 BP 124/72 Blood Pressure Location Rt brachial Blood Pressure Position Sitting Pulse 74 Pulse Source Pulse Oximeter Temp 96.0 F L Temperature Source Temporal Artery Scan Pulse Oximetry 100 Oxygen Delivery Method Room Air Intake Visit Reasons: (OV) PO Pannic/Brachio 04/23/23 Allergies hazelnut [HAZELNUT] Allergy (Intermediate, Verified 05/08/23 09:32) ITCHING THROAT HPI HPI Comments History of Present Illness Details 48-year-old female status post panniculectomy and brachioplasty on 04/23/2023. She was last seen in the office on 05/05/2023 due to dehiscence of the umbilicus. Three nylon sutures were placed at 03:00 o'clock, 06:00 o'clock, 09:00 o'clock. She returns today for follow-up. She states she continues on her meal plan as directed by Dr. Krishnan and continues antibiotics. She denies any significant pain. She reports approximately 50-60 mL of serosanguineous fluid from the collection bulb daily. [facility] Medical History Overweight (BMI 25.0-29.9) Excess skin Spontaneous ecchymoses Right hip pain Obesity (BMI 30-39.9) Pain in left toe(s) Bunion of great toe of left foot Post-traumatic osteoarthritis of right hip Primary osteoarthritis of both knees Arthritis Surgical History History of esophagogastroduodenoscopy (EGD) History of total right hip arthroplasty (~06/04/21) History of surgery History of bilateral breast reduction surgery History of hip surgery H/O gastric bypass History of laparoscopic cholecystectomy History of tubal ligation Family History Mother Ovarian cancer Diabetes Father HIV (human immunodeficiency virus infection) Maternal Grandmother Stomach cancer Maternal Grandfather Myocardial infarction Brother In good health Sister In good health Mental health disorder Son In good health Daughter In good health Social History Household Members: Family Household Members Other:: minor child Housing: Apartment Are you a primary grounds caretaker to a significant other at home: No Do you presently have visiting nurse or other home services: No Alcohol intake: current Alcohol intake frequency: a few times a month Comment: aware of trip hazard Patient Tobacco Use Status: Former Tobacco user Quit Date: 2009 Tobacco use type: Cigarette e-Cigarette/Vaping Use: Never Used Second Hand Smoke Exposure: No Substance Use Type: Marijuana service: No Current occupational status: unemployed Gender identity: Female Cognitive needs: No Hearing needs: No Vision needs: No Female Reproductive History Menstrual Age of Menarche: 15 Physical Exam Vital Signs: Last Vital Signs Temp 96.0 F L 05/08/23 09:15 Pulse 74 05/08/23 09:15 BP 124/72 05/08/23 09:15 Pulse Ox 100 05/08/23 09:15 Oxygen Delivery Method Room Air 05/08/23 09:15 Skin Other: The sutures did not hold the dehiscence. The 03:00 o'clock and 09:00 o'clock suture continue to tether the skin however the 06:00 o'clock suture was removed. The rest of the transverse abdominal incision and bilateral arm incisions are intact and healing nicely Assessment & Plan Assessment & Plan (1) External incisional dehiscence: Code(s): T81.31XA - Disruption of external operation (surgical) wound, not elsewhere classified, initial encounter Plan: Very gently pack the inferior half of the dehisced umbilical open area with quarter-inch packing strip daily. Continue to wear the abdominal binder, follow the meal plan, continue antibiotics. Return to clinic in 1 week. (2) S/P panniculectomy: Code(s): Z98.890 - Other specified postprocedural states Plan: As above (3) S/P brachioplasty: Code(s): Z98.890 - Other specified postprocedural states Plan: As above Coding Level of Care Code Global (60390) Diagnoses External incisional dehiscence T81.31XA S/P panniculectomy Z98.890 S/P brachioplasty Z98.890
== END 2023-05-08 09:55 | disposition home or self-care (01) ==
PROVIDERS: PCP Internal Medicine; Visit Provider Physician Assistant Surgical
DX: T81.31XA Disruption of external operation (surgical) wound, not elsewhere classified, initial encounter (principal); Z98.890 Other specified postprocedural states
CPT/HCPCS: 99024

== ENCOUNTER → 2023-05-08 08:59 | Outpatient (BNVA) | payer OTHER, SELFPAY | PROVIDERS: PCP Internal Medicine; Visit Provider Physician Assistant Surgical | DX: T81.31XD Disruption of external operation (surgical) wound, not elsewhere classified, subsequent encounter (principal); Z98.890 Other specified postprocedural states | CPT/HCPCS: 99212 ==

== ENCOUNTER 2023-05-15 11:56 | Outpatient (AMB) | payer OTHER, SELFPAY ==
--- NOTE | 2023-05-15 11:58 | MHC.OFFVISWM ---
Intake VS Expanded 05/15/23 12:07 BP 132/76 Blood Pressure Location Rt brachial Blood Pressure Position Sitting Pulse 90 Pulse Source Pulse Oximeter Temp 97.3 F Temperature Source Tympanic Pulse Oximetry 100 Oxygen Delivery Method Room Air Height 5 ft 5 in Weight 172 lb 3.2 oz BMI 28.7 Body Fat % 22.2 Body Fat Mass 38.2 Fat Free Mass 134.0 Visceral Fat Rating 4.0 Body Water % 55.4 Body Water Mass 95.4 Muscle Mass/Score 127.2 Basal Metabolic Rate/Score 1,762 Intake Visit Reasons: (OV) PO Pannic/Brachio 04/23/23 Allergies hazelnut [HAZELNUT] Allergy (Intermediate, Verified 05/15/23 12:14) ITCHING THROAT HPI HPI Comments History of Present Illness Details 48-year-old female returns to the office today in follow-up. She is status post panniculectomy and brachioplasty performed on 04/23/2023. She states that she is still having approximally 25-30 mL of serosanguineous fluid from the drain bulb collected daily although the color is lightening. She additionally is complaining of some constipation and has run out of MiraLax. No other complaints. [facility] Medical History Overweight (BMI 25.0-29.9) Excess skin Spontaneous ecchymoses Right hip pain Obesity (BMI 30-39.9) Pain in left toe(s) Bunion of great toe of left foot Post-traumatic osteoarthritis of right hip Primary osteoarthritis of both knees Arthritis Surgical History History of esophagogastroduodenoscopy (EGD) History of total right hip arthroplasty (~06/04/21) History of surgery History of bilateral breast reduction surgery History of hip surgery H/O gastric bypass History of laparoscopic cholecystectomy History of tubal ligation Family History Mother Ovarian cancer Diabetes Father HIV (human immunodeficiency virus infection) Maternal Grandmother Stomach cancer Maternal Grandfather Myocardial infarction Brother In good health Sister In good health Mental health disorder Son In good health Daughter In good health Social History Household Members: Family Household Members Other:: minor child Housing: Apartment Are you a primary progressive care manager to a significant other at home: No Do you presently have visiting nurse or other home services: No Alcohol intake: current Alcohol intake frequency: a few times a month Comment: aware of trip hazard Patient Tobacco Use Status: Former Tobacco user Quit Date: 2009 Tobacco use type: Cigarette e-Cigarette/Vaping Use: Never Used Second Hand Smoke Exposure: No Substance Use Type: Marijuana service: No Current occupational status: unemployed Gender identity: Female Cognitive needs: No Hearing needs: No Vision needs: No Female Reproductive History Menstrual Age of Menarche: 15 Physical Exam Vital Signs: Last Vital Signs Temp 97.3 F 05/15/23 12:07 Pulse 90 05/15/23 12:07 BP 132/76 05/15/23 12:07 Pulse Ox 100 05/15/23 12:07 Oxygen Delivery Method Room Air 05/15/23 12:07 BMI result Body Mass Index 28.7 Skin Other: Bilateral arms and transverse abdominal incision are all healing nicely. The umbilical dehiscence is filling in slightly from the inferior portion. No evidence of infection. Assessment & Plan Assessment & Plan (1) S/P panniculectomy: Code(s): Z98.890 - Other specified postprocedural states Plan: Continue current treatment plans. Continue antibiotics. Continue meal plan as prescribed by Dr. Krishnan. Increased water from 2 bottles per day to 4 bottles per day given her complaint of constipation. Rx for MiraLax has been renewed. Return to clinic 2 weeks (2) S/P brachioplasty: Code(s): Z98.890 - Other specified postprocedural states Plan: As above Medications: Changed From polyethylene glycol 3350 (Miralax) Take as directed by mouth the day before your procedure. 238 grams PO ONCE 1 day PRN 238 grams 0RF laxative effect To polyethylene glycol 3350 (Miralax) Take as directed by mouth the day before your procedure. 17 grams PO ONCE PRN 238 grams 2RF laxative effect 1 day Coding Level of Care Code Global (67586) Diagnoses S/P panniculectomy Z98.890 S/P brachioplasty Z98.890
[2023-05-15 12:07] VITALS: BP 132/76; PULSE 90; TEMP 36.3; O2SAT 100; BMI 28.7
== END 2023-05-15 12:34 | disposition home or self-care (01) ==
PROVIDERS: PCP Internal Medicine; Visit Provider Physician Assistant Surgical
DX: Z98.890 Other specified postprocedural states (principal)
CPT/HCPCS: 99024

== ENCOUNTER → 2023-05-15 11:56 | Outpatient (BNVA) | payer OTHER, SELFPAY | PROVIDERS: PCP Internal Medicine; Visit Provider Physician Assistant Surgical | DX: Z48.89 Encounter for other specified surgical aftercare (principal) | CPT/HCPCS: 99212 ==

== ENCOUNTER 2023-05-29 11:00 | Outpatient (AMB) | payer OTHER, SELFPAY ==
--- NOTE | 2023-05-29 11:01 | A.OFFVIS_ITS ---
Intake VS Expanded 05/29/23 11:09 BP 130/82 Blood Pressure Location Rt brachial Blood Pressure Position Sitting Pulse 70 Pulse Source Pulse Oximeter Temp 96.5 F L Temperature Source Temporal Artery Scan Intake Visit Reasons: (OV) PO Pannic/Brachio 04/23/23 Allergies hazelnut [HAZELNUT] Allergy (Intermediate, Verified 05/29/23 11:10) ITCHING THROAT HPI HPI Comments History of Present Illness Details 48-year-old female returns to the office today in follow up after her brachioplasty and panniculectomy performed on 04/23/2023. Overall she reports she is doing very well. She states she is having approximately 10-15 mL of the collection bulb per day. She continues to follow with meal plan and continues antibiotics. She has no complaints. Previous constipation has resolved. [facility] Medical History Overweight (BMI 25.0-29.9) Excess skin Spontaneous ecchymoses Right hip pain Obesity (BMI 30-39.9) Pain in left toe(s) Bunion of great toe of left foot Post-traumatic osteoarthritis of right hip Primary osteoarthritis of both knees Arthritis Surgical History History of esophagogastroduodenoscopy (EGD) History of total right hip arthroplasty (~06/04/21) History of surgery History of bilateral breast reduction surgery History of hip surgery H/O gastric bypass History of laparoscopic cholecystectomy History of tubal ligation Family History Mother Ovarian cancer Diabetes Father HIV (human immunodeficiency virus infection) Maternal Grandmother Stomach cancer Maternal Grandfather Myocardial infarction Brother In good health Sister In good health Mental health disorder Son In good health Daughter In good health Social History Household Members: Family Household Members Other:: minor child Housing: Apartment Are you a primary healthcare financial analyst to a significant other at home: No Do you presently have visiting nurse or other home services: No Alcohol intake: current Alcohol intake frequency: a few times a month Comment: aware of trip hazard Patient Tobacco Use Status: Former Tobacco user Quit Date: 2009 Tobacco use type: Cigarette e-Cigarette/Vaping Use: Never Used Second Hand Smoke Exposure: No Substance Use Type: Marijuana service: No Current occupational status: unemployed Gender identity: Female Cognitive needs: No Hearing needs: No Vision needs: No Female Reproductive History Menstrual Age of Menarche: 15 Physical Exam Vital Signs: Last Vital Signs Temp 96.5 F L 05/29/23 11:09 Pulse 70 05/29/23 11:09 BP 130/82 05/29/23 11:09 GI Other: Transverse incision of the abdomen and bilateral arm incisions are healing nicely. Umbilicus is granulating. No evidence of infection. Approximately 15 mL serous fluid in the collection bulb. Assessment & Plan Assessment & Plan (1) S/P panniculectomy: Code(s): Z98.890 - Other specified postprocedural states Plan: Incisions healing nicely. Umbilicus is viable. Continue with a small strip of Xeroform to the umbilicus daily. The drain was removed without incident. She may shower in 48 hours. No submerge in into a bath or body of water. Continue antibiotics for 1 more week. Return to clinic in 2 weeks. Coding Level of Care Code Global (68175) Diagnoses S/P panniculectomy Z98.890
[2023-05-29 11:09] VITALS: BP 130/82; PULSE 70; TEMP 35.8
== END 2023-05-29 11:28 | disposition home or self-care (01) ==
PROVIDERS: PCP Internal Medicine; Visit Provider Physician Assistant Surgical
DX: Z98.890 Other specified postprocedural states (principal)
CPT/HCPCS: 99024

== ENCOUNTER → 2023-05-29 11:00 | Outpatient (BNVA) | payer OTHER, SELFPAY | PROVIDERS: PCP Internal Medicine; Visit Provider Physician Assistant Surgical | DX: Z48.89 Encounter for other specified surgical aftercare (principal) | CPT/HCPCS: 99212 ==

== ENCOUNTER 2023-06-16 10:29 | Outpatient (AMB) | payer OTHER, SELFPAY ==
--- NOTE | 2023-06-16 10:38 | MHC.OFFVISWM ---
Intake VS Expanded 06/16/23 10:39 BP 124/89 Blood Pressure Location Rt radial Blood Pressure Position Sitting Pulse 72 Pulse Source Pulse Oximeter Temp 96.3 F L Temperature Source Tympanic Pulse Oximetry 100 Oxygen Delivery Method Room Air Intake Visit Reasons: (OV) PO Pannic/Brachio 04/23/23 Allergies hazelnut [HAZELNUT] Allergy (Intermediate, Verified 06/16/23 10:39) ITCHING THROAT HPI HPI Comments History of Present Illness Details The patient is a pleasant 48-year-old female who returns to the office today in follow-up. She is status post panniculectomy and brachioplasty performed on 04/23/2023. She had her drain removed approximately 2 weeks ago. She is doing very well, continuing to wear the abdominal binder. Offers no complaints at today's visit. [facility] Medical History Overweight (BMI 25.0-29.9) Excess skin Spontaneous ecchymoses Right hip pain Obesity (BMI 30-39.9) Pain in left toe(s) Bunion of great toe of left foot Post-traumatic osteoarthritis of right hip Primary osteoarthritis of both knees Arthritis Surgical History History of esophagogastroduodenoscopy (EGD) History of total right hip arthroplasty (~06/04/21) History of surgery History of bilateral breast reduction surgery History of hip surgery H/O gastric bypass History of laparoscopic cholecystectomy History of tubal ligation Family History Mother Ovarian cancer Diabetes Father HIV (human immunodeficiency virus infection) Maternal Grandmother Stomach cancer Maternal Grandfather Myocardial infarction Brother In good health Sister In good health Mental health disorder Son In good health Daughter In good health Social History Household Members: Family Household Members Other:: minor child Housing: Apartment Are you a primary lawn caretaker to a significant other at home: No Do you presently have visiting nurse or other home services: No Alcohol intake: current Alcohol intake frequency: a few times a month Comment: aware of trip hazard Patient Tobacco Use Status: Former Tobacco user Quit Date: 2009 Tobacco use type: Cigarette e-Cigarette/Vaping Use: Never Used Second Hand Smoke Exposure: No Substance Use Type: Marijuana service: No Current occupational status: unemployed Gender identity: Female Cognitive needs: No Hearing needs: No Vision needs: No Female Reproductive History Menstrual Age of Menarche: 15 Physical Exam Vital Signs: Last Vital Signs Temp 96.3 F L 06/16/23 10:39 Pulse 72 06/16/23 10:39 BP 124/89 06/16/23 10:39 Pulse Ox 100 06/16/23 10:39 Oxygen Delivery Method Room Air 06/16/23 10:39 GI Inspection: Yes incision (Incisions healing nicely. Umbilical dehiscence has granulated) Assessment & Plan Assessment & Plan (1) S/P panniculectomy: Code(s): Z98.890 - Other specified postprocedural states Plan: Previously noted umbilical dehiscence has granulated. She is doing very well. She requires no further dressings. VNA can be discontinued. She will resume treadmill next week, for 2 weeks, and then incorporate elliptical, continuing to wear the abdominal binder for 3 months total and no abdominal exercises for 3 months total. Return to clinic 1 month. Coding Level of Care Code Global (03642) Diagnoses S/P panniculectomy Z98.890
[2023-06-16 10:39] VITALS: BP 124/89; PULSE 72; TEMP 35.7; O2SAT 100
== END 2023-06-16 10:49 | disposition home or self-care (01) ==
PROVIDERS: PCP Internal Medicine; Visit Provider Physician Assistant Surgical
DX: Z98.890 Other specified postprocedural states (principal)
CPT/HCPCS: 99024

== ENCOUNTER → 2023-06-16 10:29 | Outpatient (BNVA) | payer OTHER, SELFPAY | PROVIDERS: PCP Internal Medicine; Visit Provider Physician Assistant Surgical | DX: Z48.89 Encounter for other specified surgical aftercare (principal) | CPT/HCPCS: 99212 ==

== ENCOUNTER 2023-07-24 09:31 | Outpatient (AMB) | payer OTHER, SELFPAY ==
--- NOTE | 2023-07-24 09:41 | MHC.OFFVISWM ---
Intake VS Expanded 07/24/23 09:48 BP 109/60 Blood Pressure Location Rt brachial Blood Pressure Position Sitting Pulse 76 Pulse Source Pulse Oximeter Temp 97.6 F Temperature Source Tympanic Pulse Oximetry 98 Oxygen Delivery Method Room Air Height 5 ft 5 in Weight 169 lb BMI 28.1 Body Fat % 29.1 Body Fat Mass 49.2 Fat Free Mass 119.8 Visceral Fat Rating 6.0 Body Water % 50.5 Body Water Mass 85.4 Muscle Mass/Score 113.8 Basal Metabolic Rate/Score 1,600 Intake Visit Reasons: (OV) PO Pannic/Brachio 04/23/23 Braille Proofreader Required: No Allergies hazelnut [HAZELNUT] Allergy (Intermediate, Verified 06/16/23 10:39) ITCHING THROAT Medication List - Last Reconciled 07/24/23 by CAMILA Jacques bisacodyl (Dulcolax (bisacodyl)) 20 mg (4 x 5 mg) PO ONCE 1 day cane As directed cholecalciferol (vitamin D3) (Vitamin D3) 25 mcg PO DAILY clotrimazole 1% 1 appl topical BID cyanocobalamin (vitamin B-12) 1,000 mcg PO DAILY diclofenac sodium 1% (Arthritis Pain (diclofenac)) 4 grams topical QID docusate sodium (Colace) 100 mg PO DAILY ferrous sulfate (FeroSul) 325 mg PO DAILY loratadine 10 mg PO DAILY mecobalamin (vitamin B12) (B12 Active) 1,000 mcg PO DAILY pantoprazole 40 mg PO DAILY polyethylene glycol 3350 (Miralax) 17 grams PO ONCE PRN 1 day sucralfate (Carafate) 10 mL PO BID tramadol 50 mg PO TID PRN 30 days vitamin A palmitate 7,500 mcg PO DAILY HPI HPI Comments History of Present Illness Details Patient is a very pleasant 48 year old female who has a history of gastric bypass performed on 07/10/2016 and panniculectomy with brachioplasty performed on 04/23/2023. She reports she has healed well from her panniculectomy and brachioplasty. She offers no significant complaints at today's visit. Weight today is 169 lb with a BMI of 28.1. meal plan: 2 eggs, 6 am fairlife 30 gm rtd, 9 am salad, crackers, chicken, 4 forks chciken/4 forks salad, 12 noon yogurt, 2 pm 1/2 shkae, 6 forks meat 40-60 oz fluids Exercise plan: walking outside 3 x per week Any post op complications: none TERESSA: never DM: never HTN: never Hyperlipidemia: never GERD:?0-5 scale ??0 = no symptoms ??1 = symptoms noticeable but not bothersome 2 =symptoms bothersome but not daily ? 3 = symptoms bothersome and daily 4 = symptoms affect daily activities 5 = symptoms are incapacitating, unable to do daily activities ? How bad is the heartburn: 0 ? Heartburn while lying down: 0 ? Heartburn when standing up: 0 ? Heartburn after meals: 0 ? Does heartburn change your diet: 0 ? Does heartburn wake you up from sleep: 0 ? Do you have difficulty swallowin ? Do you have pain with swallowin ? If you take medicine for your reflux, does this affect your daily life: 0 Satisfaction with present condition - satisfied or not satisfied: ramona [facility] Medical History Overweight (BMI 25.0-29.9) Excess skin Spontaneous ecchymoses Right hip pain Obesity (BMI 30-39.9) Pain in left toe(s) Bunion of great toe of left foot Post-traumatic osteoarthritis of right hip Primary osteoarthritis of both knees Arthritis Surgical History History of esophagogastroduodenoscopy (EGD) History of total right hip arthroplasty (~06/04/21) History of surgery History of bilateral breast reduction surgery History of hip surgery H/O gastric bypass History of laparoscopic cholecystectomy History of tubal ligation Family History Mother Ovarian cancer Diabetes Father HIV (human immunodeficiency virus infection) Maternal Grandmother Stomach cancer Maternal Grandfather Myocardial infarction Brother In good health Sister In good health Mental health disorder Son In good health Daughter In good health Social History Household Members: Family Household Members Other:: minor child Housing: Apartment Are you a primary healthcare corporate account director to a significant other at home: No Do you presently have visiting nurse or other home services: No Alcohol intake: current Alcohol intake frequency: a few times a month Comment: aware of trip hazard Patient Tobacco Use Status: Former Tobacco user Quit Date: 2009 Tobacco use type: Cigarette e-Cigarette/Vaping Use: Never Used Second Hand Smoke Exposure: No Substance Use Type: Marijuana service: No Current occupational status: unemployed Gender identity: Female Cognitive needs: No Hearing needs: No Vision needs: No Female Reproductive History Menstrual Age of Menarche: 15 Review of Systems Const All systems reviewed & are unremarkable except as noted in HPI and below Physical Exam Const General: cooperative and no acute distress Orientation/consciousness: patient oriented x3 Resp Effort & Inspection: normal respiratory effort Auscultation: clear to auscultation bilaterally Cardio Rate: regular rate Rhythm: regular rhythm GI Inspection: Yes normal to inspection and Yes incision (well healed) Palpation (GI): Soft to palpation, no masses and Other GI palpation findings present (Some firmness to the suprapubic fat pad without tenderness) Skin Other: Incisions all healed nicely. Neuro General: patient oriented x3 Assessment & Plan Assessment & Plan (1) S/P gastric bypass: Comment: Acid reflux, Code(s): Z98.84 - Bariatric surgery status Plan: Check 7 year postop labs. Recommend 1 shake per day, split in half. Additionally 1 egg in the morning instead of 2. Stop crackers. Increase exercise to daily, increased pace of walking. Track calories while walking. Return to clinic in 6 weeks, sooner with any questions or concerns. Additionally encouraged to text weekly her weight and if any questions. (2) S/P panniculectomy: Code(s): Z98.890 - Other specified postprocedural states Plan: Well healed (3) S/P brachioplasty: Code(s): Z98.890 - Other specified postprocedural states Plan: Well healed Orders: Orders Insulin Today K91.2 - Postsurgical malabsorption, not elsewhere classified, 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], Z98.84 - Bariatric surgery status Hemoglobin A1c Today K91.2 - Postsurgical malabsorption, not elsewhere classified, 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], Z98.84 - Bariatric surgery status Complete Blood Count Auto Diff Today K91.2 - Postsurgical malabsorption, not elsewhere classified, 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], Z98.84 - Bariatric surgery status Lipid Panel Today K91.2 - Postsurgical malabsorption, not elsewhere classified, 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], Z98.84 - Bariatric surgery status IRON PROFILE Today K91.2 - Postsurgical malabsorption, not elsewhere classified, 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], Z98.84 - Bariatric surgery status Vitamin B12 and Folate Today K91.2 - Postsurgical malabsorption, not elsewhere classified, 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], Z98.84 - Bariatric surgery status Zinc Today K91.2 - Postsurgical malabsorption, not elsewhere classified, 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], Z98.84 - Bariatric surgery status C Reactive Protein Today K91.2 - Postsurgical malabsorption, not elsewhere classified, 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], Z98.84 - Bariatric surgery status Vitamin B1 Today K91.2 - Postsurgical malabsorption, not elsewhere classified, 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], Z98.84 - Bariatric surgery status Vitamin A Today K91.2 - Postsurgical malabsorption, not elsewhere classified, 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], Z98.84 - Bariatric surgery status TSH reflex Free T4 Today K91.2 - Postsurgical malabsorption, not elsewhere classified, 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], Z98.84 - Bariatric surgery status Ferritin Today K91.2 - Postsurgical malabsorption, not elsewhere classified, 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], Z98.84 - Bariatric surgery status Vitamin D 25-OH Total Today K91.2 - Postsurgical malabsorption, not elsewhere classified, 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], Z98.84 - Bariatric surgery status Basic Metabolic Panel Today K91.2 - Postsurgical malabsorption, not elsewhere classified, 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], Z98.84 - Bariatric surgery status Coding Level of Care Code Est Pt Level 4 (45210) Diagnoses S/P gastric bypass Z98.84 S/P panniculectomy Z.890 S/P brachioplasty Z98.0
[2023-07-24 09:48] VITALS: BP 109/60; PULSE 76; TEMP 36.4; O2SAT 98; BMI 28.1
== END 2023-07-24 10:09 | disposition home or self-care (01) ==
PROVIDERS: PCP Internal Medicine; Visit Provider Physician Assistant Surgical
DX: L98.7 Excessive and redundant skin and subcutaneous tissue (principal); E66.3 Overweight; Z68.28 Body mass index [BMI] 28.0-28.9, adult; Z98.84 Bariatric surgery status
CPT/HCPCS: 99214

== ENCOUNTER → 2023-07-24 09:31 | Outpatient (BNVA) | payer OTHER, SELFPAY | PROVIDERS: PCP Internal Medicine; Visit Provider Physician Assistant Surgical | DX: Z98.890 Other specified postprocedural states (principal); Z98.84 Bariatric surgery status | CPT/HCPCS: 99212 ==

== ENCOUNTER 2023-08-25 12:50 | Outpatient (AMB) | payer OTHER, SELFPAY ==
--- NOTE | 2023-08-25 12:58 | A.OFFPC_ITS ---
Vital Signs 08/25/23 13:00 Height 5 ft 5 in Weight 174 lb 2 oz BMI 29.0 BP 120/74 Blood Pressure Location Lt brachial Position Sitting Pulse 73 Pulse Source Pulse Oximeter Pulse Oximetry (%) 99 Oxygen Delivery Method Room Air Intake Visit Reasons: follow up with pcp Intake Note: Patient is here to follow up on GERD, Osteoarthritis . Risk Control Director Required: No President And Chief Commercial Officer: Not Required per policy Accompanied by: Self / Same As Patient Allergies hazelnut [HAZELNUT] Allergy (Intermediate, Verified 02/10/24 14:41) ITCHING THROAT Medication List - Last Reconciled 08/25/23 by Aditya Aguirre MD bisacodyl (Dulcolax (bisacodyl)) 20 mg (4 x 5 mg) PO ONCE 1 day cane As directed cholecalciferol (vitamin D3) (Vitamin D3) 25 mcg PO DAILY clotrimazole 1% 1 appl topical BID cyanocobalamin (vitamin B-12) 1,000 mcg PO DAILY diclofenac sodium 1% (Arthritis Pain (diclofenac)) 4 grams topical QID docusate sodium (Colace) 100 mg PO DAILY ferrous sulfate (FeroSul) 325 mg PO DAILY loratadine 10 mg PO DAILY pantoprazole 40 mg PO DAILY polyethylene glycol 3350 (Miralax) 17 grams PO ONCE PRN 1 day sucralfate (Carafate) 10 mL PO BID tramadol 50 mg PO TID PRN 30 days vitamin A palmitate 7,500 mcg PO DAILY Tobacco use date assessed: 08/25/23 Dental Screening Dental Screen Date: 08/25/23 Did you have a dental visit in the last 12 months?: Yes Did you have a dental problem in the last 6 months where you did not have access to dental care?: No Was dental information given to patient?: Patient has dentist HPI follow up with pcp HPI Details Patient comes in today for her follow up visit States that she has been experiencing recurrent symptoms of urinary incontinence for almost a year now, and feels that her symptoms have been increasing lately She denies any pain or burning sensation on urination She denies any headaches or dizziness Denies any chest pains, no increased SOB No nausea/vomiting, no abdominal pain No change in bowel habits noted Needs several of her Rx refilled She was not able to get her previously ordered labs done yet - states that she will try to get them done [facility] Medical History (Updated 02/14/24 @ 20:06 by Aditya Aguirre MD) Allergic rhinitis GERD without esophagitis Vitamin D deficiency Overweight (BMI 25.0-29.9) Excess skin Spontaneous ecchymoses Right hip pain Obesity (BMI 30-39.9) Pain in left toe(s) Bunion of great toe of left foot Post-traumatic osteoarthritis of right hip Primary osteoarthritis of both knees Arthritis Surgical History (Updated 02/14/24 @ 19:39 by Aditya Aguirre MD) Hx of colonoscopy History of esophagogastroduodenoscopy (EGD) History of total right hip arthroplasty (~06/04/21) History of surgery History of bilateral breast reduction surgery History of hip surgery H/O gastric bypass History of laparoscopic cholecystectomy History of tubal ligation Family History Mother Ovarian cancer Diabetes Father HIV (human immunodeficiency virus infection) Maternal Grandmother Stomach cancer Maternal Grandfather Myocardial infarction Brother In good health Sister In good health Mental health disorder Son In good health Daughter In good health Social History Household Members: Family Household Members Other:: minor child Housing: Apartment Are you a primary care services manager to a significant other at home: No Do you presently have visiting nurse or other home services: No Alcohol intake: current Alcohol intake frequency: does not drink Patient Tobacco Use Status: Former Tobacco user Tobacco use type: Cigarette e-Cigarette/Vaping Use: Never Used Second Hand Smoke Exposure: No Substance Use Type: Marijuana service: No Current occupational status: unemployed Gender identity: Female Cognitive needs: No Hearing needs: No Vision needs: No Female Reproductive History Menstrual Age of Menarche: 15 Questionnaire PHQ-9 Over the last 2 weeks, how often have you been bothered by any of the following problems? 1. Little interest or pleasure in doing things: not at all 2. Feeling down, depressed, or hopeless: not at all 3. Trouble falling or staying asleep, or sleeping too much: not at all 4. Feeling tired or having little energy: not at all 5. Poor appetite or overeating: not at all 6. Feeling bad about yourself - or that you are a failure or have let yourself or your family down: not at all 7. Trouble concentrating on things, such as reading the newspaper or watching television: not at all 8. Moving or speaking so slowly that other people could have noticed. Or the opposite - being so fidgety or restless that you have been moving around a lot more than usual: not at all 9. Thoughts that you would be better off or of hurting yourself in some way: not at all Total score: 0 Depression Screening Interpretation: Negative Depression Screening Done: Yes 88948 - PHQ-9 Billing: Yes Source: Developed by Drs. Rashel Oneil, Cassandra Alcazar, Raymon Joseph and colleagues, with an educational naman from [email or web address] Thrive Questionnaire Date Thrive assessed: 08/25/23 I am a: Patient What is your living situation today?: I have a steady place to live Within the past 12 months, did the food you bought not last and you didn't have the money to get more?: Never true Within the past 12 months, did you worry whether your food would run out before you got money to buy more?: Never true Do you have trouble paying for medicines?: No Do you have trouble getting transportation to medical appointments?: No Do you have trouble paying your heating and electricity bill?: No Do you have trouble taking care of your child, family member or friend?: No Do you have trouble with day-to-day activities such as bathing, preparing meals, shopping, managing finances, etc.?: No Are you currently unemployed and looking for a job?: No Are you interested in more education?: No Currently or been in a relationship where the following occur: no concerns reported THRIVE Score: 0 AUDIT C Alcohol Use Questionnaire (AUDIT-C) 1. How often do you have a drink containing alcohol?: Monthly or less 2. How many drinks containing alcohol do you have on a typical day when you are drinking?: 1 or 2 3. How often do you have six or more drinks on one occasion?: Never Total Score: 1 Score Reviewed/Action Taken: Yes ADRIAN-7 AMB Questionnaire ADRIAN-7 Date ADRIAN - 7 assessed: 08/25/23 Feeling nervous, anxious, or on edge: 0 = Not at all Not being able to stop or control worryin = Not at all Worrying too much about different things: 0 = Not at all Trouble relaxin = Not at all Being so restless that it is hard to sit still: 0 = Not at all Becoming easily annoyed or irritable: 0 = Not at all Feeling afraid as if something awful might happen: 0 = Not at all Total ADRIAN-7 score (0-4 normal; 5-9 mild; 10-14 moderate; 15-21 severe): 0 Source: Developed by Drs. Rashel Oneil, Cassandra Alcazar, Raymon Joseph and colleagues, with an educational naman from [email or web address] Review of Systems Const Denies fatigue, Denies fever(s) and Denies headache(s) ENT Denies dysphagia, Denies dizziness, Denies otalgia, Denies headache(s), Denies neck pain, Denies odynophagia and Denies sore throat Card Denies chest pain, Denies irregular heart rhythm, Denies palpitations and Denies dyspnea Resp Denies chest congestion, Denies cough and Denies dyspnea GI Denies abdominal pain, Denies constipation, Denies dysphagia, Denies heartburn, Denies diarrhea, Denies nausea, Denies odynophagia and Denies vomiting Denies hematuria, Denies urinary frequency, Denies dysuria, Denies urinary incontinence and Denies urinary urgency Musc Denies back pain, Reports arthralgias (in the right hip, right shoulder and right elbow) and Denies neck pain Skin/Breast Denies rash Neuro Denies dizziness, Denies headache(s) and Denies paresthesias Psych Denies anxiety Endo Denies fatigue and Denies palpitations Murali/Lymph Denies easy bruising Physical exam (Primary Care) Vital Signs: Last Vital Signs Pulse 73 08/25/23 13:00 BP 120/74 08/25/23 13:00 Pulse Ox 99 08/25/23 13:00 Oxygen Delivery Method Room Air 08/25/23 13:00 BMI result Body Mass Index 29.0 Tobacco/Smoking Status: Tobacco use Status Tobacco use date assessed 08/25/23 08/25/23 13:05 Patient Tobacco Use Status Former Tobacco user 08/25/23 13:05 Tobacco use type Cigarette 08/25/23 13:05 e-Cigarette/Vaping Use Never Used 08/25/23 13:05 PHQ-9: PHQ-9 Score PHQ-9: Total score 0 08/25/23 13:58 Depression Screening Interpretation: Negative Thrive Assessment: Date of Thrive Assessment Date Thrive assessed 08/25/23 08/25/23 13:05 Currently or been in a relationship where the following occur: no concerns re ported Const General: no acute distress and alert HENMT Ears: TM's normal bilaterally and EAC's normal Throat: Yes posterior oropharynx normal and Yes tonsils normal (no TP congestion) Neck Neck: Yes no lymphadenopathy and Yes supple Thyroid: Thyroid normal Resp Auscultation: clear to auscultation bilaterally, no rales and no wheezes Cardio Rate: regular rate Rhythm: regular rhythm Heart sounds: no murmurs GI Palpation (GI): Soft to palpation and nontender Auscultation: normal bowel sounds General: Yes no CVA tenderness Back/Spine/Pelvis Back: no CVA tenderness Cervical Spine: Cervical spine tenderness (mild) Thoracic/Lumbar Spine: No lumbar spinal tenderness Skin Rashes: no rashes Extrem General: Yes no clubbing, cyanosis or edema Right upper extremity: shoulder/upper arm Details: tenderness Location: of the A-C joint and elbow/forearm Details: tenderness Location: of the olecranon Right lower extremity: hip/thigh Details: tenderness Location: of the hip Assessment and Plan Assessment & Plan (1) Urinary incontinence: Code(s): R32 - Unspecified urinary incontinence Qualifiers: Urinary Incontinence type: unspecified incontinence Qualified Code(s): R32 - Unspecified urinary incontinence Plan: Will refer her to urology for further evaluation and management (2) Anemia: Code(s): D64.9 - Anemia, unspecified Qualifiers: Anemia type: unspecified type Qualified Code(s): D64.9 - Anemia, unspecified Plan: Continue Ferrous Sulfate 325 mg QD She is instructed to get her previously ordered labs done JACK and this should also update her CBC Will also refer her to hematology for further evaluation and management (3) Vitamin D deficiency: Code(s): E55.9 - Vitamin D deficiency, unspecified Plan: Continue Vitamin D3 1000 units QD (4) GERD without esophagitis: Code(s): K21.9 - Gastro-esophageal reflux disease without esophagitis Plan: Dietary restrictions reinforced Continue Pantoprazole 40 mg QD and Carafate 10 ml BID (5) Allergic rhinitis: Code(s): J30.9 - Allergic rhinitis, unspecified Qualifiers: Allergic rhinitis trigger: unspecified Allergic rhinitis seasonality: unspecified Qualified Code(s): J30.9 - Allergic rhinitis, unspecified Plan: Continue Loratadine 10 mg QD PRN (6) Right hip pain: Code(s): M25.551 - Pain in right hip Plan: (+) Hx of right hip surgery X-rays of her right hip in January 2023 came out okay - (+) right hip arthroplasty in unchanged anatomic alignment. Perihardware lucency adjacent to the distal aspect of the femoral component measuring up to 0.3 cm which may represent the postsurgical result or indicate early loosening Continue topical Diclofenac 1% QID PRN and Tramadol 50 mg TID PRN for pain (7) Osteoarthritis: Code(s): M19.90 - Unspecified osteoarthritis, unspecified site Qualifiers: Osteoarthritis location: multiple joints Osteoarthritis type: primary Qualified Code(s): M15.0 - Primary generalized (osteo)arthritis Plan: Have advised patient that her right shoulder and right elbow x-rays done last January (2022) revealed (+ OA changes Continue Tramadol 50 mg TID PRN and Diclofenac 1% topical gel QID PRN for pain Can consider referring to orthopedics if her joint pains get worse (8) Overweight (BMI 25.0-29.9): Code(s): E66.3 - Overweight Plan: S/P bariatric surgery (gastric bypass) back on 07/10/2016 Reinforced diet/exercise as tolerated/lose weight Follow up with weight management as scheduled Plan To return as scheduled on 02/10/2024 for her annual physical examination Orders: Referrals Urology Referral R32 - Unspecified urinary incontinence Hematology & Oncology Referral D64.9 - Anemia, unspecified Medications: Changed From diclofenac sodium 1% apply to single knee, ankle, foot; for foot includes sole/toes/top of foot 4 grams topical QID 100 grams 0RF To diclofenac sodium 1% (Arthritis Pain (diclofenac)) apply to single knee, ankle, foot; for foot includes sole/toes/top of foot 4 grams topical QID 100 grams 0RF From vitamin A palmitate 7,500 mcg PO DAILY 30 caps 11RF To vitamin A palmitate 7,500 mcg PO DAILY 30 caps 11RF From cyanocobalamin (vitamin B-12) 1,000 mcg PO DAILY 30 tabs 11RF To cyanocobalamin (vitamin B-12) 1,000 mcg PO DAILY 30 tabs 11RF Refilled clotrimazole 1% 1 appl topical BID 45 grams 3RF tramadol 50 mg PO TID PRN 90 tabs 0RF pain 30 days cholecalciferol (vitamin D3) (Vitamin D3) 25 mcg PO DAILY 30 caps 11RF loratadine 10 mg PO DAILY 30 tabs 0RF Coding Level of Care Code Est Pt Level 4 (52586) Diagnoses Urinary incontinence, unspecified type R32 Urinary Incontinence type: unspecified incontinence Anemia, unspecified type D64.9 Anemia type: unspecified type Vitamin D deficiency E55.9 GERD without esophagitis K21.9 Allergic rhinitis, unspecified seasonality, unspecified trigger J30.9 Allergic rhinitis trigger: unspecified Allergic rhinitis seasonality: unspecified Right hip pain M25.551 Primary osteoarthritis involving multiple joints M15.0 Osteoarthritis location: multiple joints Osteoarthritis type: primary Overweight (BMI 25.0-29.9) E66.3
[2023-08-25 13:00] VITALS: BP 120/74; PULSE 73; O2SAT 99; BMI 29.0
== END 2023-08-25 14:08 | disposition home or self-care (01) ==
PROVIDERS: PCP Internal Medicine; Visit Provider Internal Medicine
DX: R32 Unspecified urinary incontinence (principal); D64.9 Anemia, unspecified; E55.9 Vitamin D deficiency, unspecified; K21.9 Gastro-esophageal reflux disease without esophagitis; J30.9 Allergic rhinitis, unspecified; M25.551 Pain in right hip; M15.0 Primary generalized (osteo)arthritis; E66.3 Overweight
CPT/HCPCS: 99499

== ENCOUNTER 2023-09-02 07:57 | Day surgery (SDC) | payer OTHER, SELFPAY ==
[2023-08-28 13:17] VITALS: BMI 25.8
[2023-09-02 08:04] VITALS: BP 127/71; PULSE 65; RESP 20; TEMP 36.9; O2SAT 98; BMI 26.2
--- NOTE | 2023-09-02 08:23 | P.CONAN_ITS ---
HPI - Anesthesia Eval Consult details Narrative: for upper and colon PMFSH Active Problems Active Problems: All Active Problems Urinary incontinence (Acute) External incisional dehiscence (Acute) S/P brachioplasty (Acute) S/P panniculectomy (Acute) Constipation (Acute) Postgastrectomy malabsorption (Acute) Acid reflux (Acute) Colon cancer screening (Acute) Breast cancer screening by mammogram (Acute) Annual physical exam (Acute) Right-sided chest pain (Acute) Right elbow pain (Acute) Right shoulder pain (Acute) Neck pain (Acute) Cervical cancer screening (Acute) Malodorous urine (Acute) Vaginal itching (Acute) Epigastric abdominal pain (Acute) S/P gastric bypass (Acute) Overweight (Acute) Bromhidrosis (Acute) Hyperhidrosis of axilla (Acute) UTI (urinary tract infection) (Acute) Anemia (Acute) Abnormal vaginal bleeding in premenopausal patient (Acute) Osteoarthritis of left knee (Acute) Status post total replacement of right hip (Acute) Pre-op evaluation (Acute) Anemia (Acute) Post-traumatic acute tubular necrosis (Acute) Osteoarthritis of right knee (Acute) Osteoarthritis of right hip (Acute) Potential exposure to STD (Acute) Bacterial vaginosis (Acute) Family hx of ovarian malignancy (Acute) control counseling (Acute) Well woman exam with routine gynecological exam (Acute) Excess skin (Acute) H/O gastric bypass (Acute) Overweight (BMI 25.0-29.9) (Acute) Spontaneous ecchymoses (Acute) Right hip pain (Acute) Obesity (BMI 30-39.9) (Acute) Pain in left toe(s) (Acute) Bunion of great toe of left foot (Acute) Post-traumatic osteoarthritis of right hip (Acute) Primary osteoarthritis of both knees (Acute) Past Medical History Medical History Overweight (BMI 25.0-29.9) Excess skin Spontaneous ecchymoses Right hip pain Obesity (BMI 30-39.9) Pain in left toe(s) Bunion of great toe of left foot Post-traumatic osteoarthritis of right hip Primary osteoarthritis of both knees Arthritis Family History Family History Mother Ovarian cancer Diabetes Father HIV (human immunodeficiency virus infection) Maternal Grandmother Stomach cancer Maternal Grandfather Myocardial infarction Brother In good health Sister In good health Mental health disorder Son In good health Daughter In good health Family history of problems with anesthesia: No Surgical History Surgical History History of esophagogastroduodenoscopy (EGD) History of total right hip arthroplasty (~06/04/21) History of surgery History of bilateral breast reduction surgery History of hip surgery H/O gastric bypass History of laparoscopic cholecystectomy History of tubal ligation History of Problems with Anesthesia: No Social History Social History Household Members: Family Household Members Other:: minor child Housing: Apartment Are you a primary care transitions manager to a significant other at home: No Do you presently have visiting nurse or other home services: No Alcohol intake: current Alcohol intake frequency: does not drink Comment: aware of trip hazard Patient Tobacco Use Status: Former Tobacco user Quit Date: 2009 Tobacco use type: Cigarette e-Cigarette/Vaping Use: Never Used Second Hand Smoke Exposure: No Substance Use Type: Marijuana Substance Use Type Other:: SMOKED YESTERDAY NIGHT MARIJUANA Are you DNR?: No Advance Directives: No Advance Directives Information Provided: Yes Nutrition Risks: No Nutritional Risk service: No Current occupational status: unemployed Gender identity: Female Cognitive needs: No Hearing needs: No Vision needs: No Meds Allergies Allergy/AdvReac Type Severity Reaction Status Date / Time hazelnut [HAZELNUT] Allergy Intermediate ITCHING Verified 08/25/23 13:57 THROAT Active Medications: Current Medications Lactated Ringer's (Lr) 1,000 mls @ 50 mls/hr IVCONT .Q20H [facility] Exam Height,Weight and Vital Signs: Height 5 ft 6 in Weight 73.5 kg Last Vital Signs Temp 98.5 F 09/02/23 08:04 Pulse 65 09/02/23 08:04 Resp 20 09/02/23 08:04 BP 127/71 09/02/23 08:04 Pulse Ox 98 09/02/23 08:04 O2 Del Method Room Air 09/02/23 08:04 Airway Mallampati Class: II TM Dist: >3cm Neck ROM: Full Heart: rrr Lungs: cta Assessment and Plan Assessment Anesthesia Assessment: Anesthesia Plan Discussed and Chart Reviewed Final Anesthetic Review Family History of Problems with Anesthesia: No History of Problems with Anesthesia: No NPO: Yes ASA Class: II Final Preanesthetic Review: No Changes in Pt Med Stat, Meds/Allgs Chart Reviewed, Consent Obtained/Reviewed and Anes Risks/Benef Reviewed Patient Risk: Low Procedure Risk: Low Anesthetic Plan Anesthetic Plan: MAC: Disposition: Standard PACU
[2023-09-02] MEDS: Lactated Ringers 1,000 ML 50 ML IVCONT (08:24)
--- NOTE | 2023-09-02 08:40 | MHC.SHP ---
Pre-Procedural Eval Section A - 24 Hr Update-Section A only Date of Service: 09/02/23 Section B - Complete if H&P > 30 days Chief Complaint: Bariatric surgery status,gerd, Relevant Family History (Specify if Yes): No Relevant Social History: None Present Medications: see Short Stay Collaborative assessment Medical History: Significant History (Overweight (BMI 25.0-29.9) Excess skin Spontaneous ecchymoses Right hip pain Obesity (BMI 30-39.9) Pain in left toe(s) Bunion of great toe of left foot Post-traumatic osteoarthritis of right hip Primary osteoarthritis of both knees Arthritis) History of Previous Operations: Relevant previous surgery/procedure and date(s) (History of esophagogastroduodenoscopy (EGD) History of total right hip arthroplasty (~06/04/21) History of surgery History of bilateral breast reduction surgery History of hip surgery H/O gastric bypass History of laparoscopic cholecystectomy History of tubal ligation) Allergies: Allergies Allergy/AdvReac Type Severity Reaction Status Date / Time hazelnut [HAZELNUT] Allergy Intermediate ITCHING Verified 08/25/23 13:57 THROAT Review of Systems Sugical H&P ROS: Negative: Constitution, Cardiovascular, Respiratory, Neurological, Psychiatric, Hem-Onc, Allergic/Immunologic, Gastrointestinal, Genitourinary, Musculoskeletal, Integumentary, Endocrine and Eyes/Ears/Nose/Throat Exam Surgical H&P Exam: Normal: HEENT, Normal: Heart, Normal: Lungs, Normal: Extremities, Normal: Abdomen, Normal: Skin and Normal: Neurological Plan Diagnosis/Plan: Unchanged I have reviewed the history and physical and performed a pertinent physical examination on my patient. No changes have occurred unless specified. Time Spent With Patient Time: Total time managing care of this patient today ____ minutes.
--- NOTE | 2023-09-02 08:42 | W.PM.OPN ---
Operative Note Operative Note Date of Service: 09/02/23 Narrative: Operative Information Procedure Description: EGD, Colonoscopy Indication: GERD and screening Anesthesia: MAC FLEXIBLE TRANSORAL UPPER GASTROINTESTINAL ENDOSCOPY AND COLONOSCOPY PROCEDURE NOTE UPPER ENDOSCOPY Consent: Indications for the procedure and potential complications of bleeding, perforation, reaction to medications and missed diagnosis were discussed with the patient and informed consent was obtained. Instrument: Olympus GIF H 190 J mid size upper endoscope Monitoring: Vital signs and clinical assessment, continuous EKG monitoring, Pulse oximetry, Carbon Dioxide monitoring and blood pressure monitoring were done throughout the procedure. Procedure: The patient was placed in the left lateral decubitis position and pre-procedure medications were administered and a bite block was placed. The endoscope was inserted into the mouth and advanced under direct vision to the third part of duodenum. A careful inspection was made as the upper endoscope was withdrawn including a retroflexed examination of the proximal stomach; Findings and interventions are described below. Findings: Larynx:normal Esophagus: GE junction at 38 cm, diaphragm hiatus at 38 cm, normal mucosa, distal esophagus bx taken Stomach pouch: Normal mucosa. Biopsies were obtained. Grade 2 flap valve on retroflexed examination of the cardia. gastrojejunal junction--erythema, bx taken also retained amelia removed jejunum: normal, bx taken Intervention: Biopsies as noted above, removal of amelia COLONOSCOPY Instrument: Olympus variable stiffness pediatric scope 190L Colonoscopy Monitoring: Vital signs and clinical assessment, continuous EKG monitoring, Pulse oximetry, Carbon Dioxide monitoring and blood pressure monitoring were done throughout the procedure. Colon withdrawal time was 6 minutes. Procedure: The patient was placed in the left lateral decubitis position and pre-procedure medications were administered. After a digital rectal examination of the ano-rectum, the video colonoscope was inserted into the rectum and advanced through the colon to the cecum/TI. The colonoscope was slowly withdrawn in a retrograde panoramic fashion and the colon mucosa was carefully examined including a retroflexed view of the rectum. Findings and interventions are described below. Procedure Difficulty:moderate Findings: Terminal Ileum-normal Cecum:normal right sided retroflexion- normal Ascending Colon: normal Transverse Colon -normal Descending Colon:normal Sigmoid Colon: normal Rectum: Retroflexion with small internal hemorrhoids, grade I, 10 mm sessile polyp removed with cold snare Anorectum - normal Colon preparation: [place] Bowel Preparation Scale Right colon; 3 Transverse colon: 3 Left colon; 3 (0 = Unprepared colon segment with mucosa not seen due to solid stool that cannot be cleared. 1 = Portion of mucosa of the colon segment seen, but other areas of the colon segment not well seen due to staining, residual stool and/or opaque liquid. 2 = Minor amount of residual staining, small fragments of stool and/or opaque liquid, but mucosa of colon segment seen well. 3 = Entire mucosa of colon segment seen well with no residual staining, small fragments of stool or opaque liquid) Impression and Post Procedure Diagnosis: Endoscopy Findings: mild erythema gastrojejunal jn around amelia, removed and bx taken Colonoscopy Findings: colon polyp internal hemorrhoids Plan: Await Pathology results Repeat Colonoscopy in 5 years due to adenomatous polyp or earlier if clinically indicated High fiber diet leaflet avoid straining at stool, epsom salts and sitz bath, anusol supps or cream GERD precautions Above findings were reviewed with the patient and relevant handouts were provided if indicated.
[2023-09-02 09:18] VITALS: BP 100/49; PULSE 69; RESP 16; TEMP 36.4; O2SAT 98
[2023-09-02 09:33] VITALS: BP 124/71; PULSE 54; RESP 16; O2SAT 99
[2023-09-02 09:48] VITALS: BP 102/70; PULSE 50; RESP 16; TEMP 36.2; O2SAT 100
== END 2023-09-02 10:47 | disposition home or self-care (01) ==
PROVIDERS: PCP Internal Medicine; Visit Provider Internal Medicine Gastroenterology
PROC: (CPT 45385; principal; 2023-09-02 09:20)
DX: Z12.11 Encounter for screening for malignant neoplasm of colon (principal); D12.8 Benign neoplasm of rectum; K64.0 First degree hemorrhoids; K21.9 Gastro-esophageal reflux disease without esophagitis; K29.50 Unspecified chronic gastritis without bleeding; K44.9 Diaphragmatic hernia without obstruction or gangrene; Z98.84 Bariatric surgery status; M79.5 Residual foreign body in soft tissue; D64.9 Anemia, unspecified; Z79.899 Other long term (current) drug therapy; Z87.891 Personal history of nicotine dependence; Z98.890 Other specified postprocedural states; Z56.0 Unemployment, unspecified
CPT/HCPCS: 45385; 43247; 43239; 88305; 88313; 88342; J1100; J1596; J2704

== ENCOUNTER → 2023-09-02 07:57 | Outpatient (BNV) | payer OTHER, SELFPAY | PROVIDERS: PCP Internal Medicine; Visit Provider Internal Medicine Gastroenterology | DX: Z12.11 Encounter for screening for malignant neoplasm of colon (principal); K21.9 Gastro-esophageal reflux disease without esophagitis; D12.0 Benign neoplasm of cecum; D12.8 Benign neoplasm of rectum | CPT/HCPCS: 43239; 45385 ==

== ENCOUNTER 2023-09-03 07:19 | Outpatient (REF) | payer OTHER, SELFPAY ==
[2023-09-03 07:37] LABS: MANUAL DIFF FLAG NO
[2023-09-03 08:30] LABS: Basophils Percent Auto 0.5 % (0-2); Eosinophils Absolute Auto 0.1 X10*3/uL (0.0-0.4); Eosinophils Percent Auto 1.1 % (0-4); Hematocrit 39.3 % (37.0-47.0); Hemoglobin 12.5 g/dl (12.0-16.0); Imm Gran Abs Auto 0.01 X10*3/uL (0.00-0.03); Imm Gran Pct Auto 0.2 % (0.0-0.4); Lymphocytes Absolute Auto 1.8 X10*3/uL (1.2-4.9); Lymphocytes Percent Auto 28.3 % (20-40); Mean Corpuscular HGB Conc 31.8 g/dl (31.0-35.0); Mean Corpuscular Hemoglobin 29.1 pg (27.0-33.0); Mean Corpuscular Volume 91.4 fL (80.0-98.0); Mean Platelet Volume 12.6 fL (9.4-12.3); Monocytes Absolute Auto 0.5 X10*3/uL (0.1-1.2); Monocytes Percent Auto 8.5 % (2-11); Neutrophils Absolute Auto 3.8 x10*3/uL (2.0-8.3); Neutrophils Percent Auto 61.4 % (45-73); Platelet Count 234 X10*3/uL (160-400); Red Cell Distribution Width 13.3 % (11.0-16.0); White Blood Count 6.2 X10*3/uL (4.8-10.8)
[2023-09-03 08:36] LABS: Estimated Average Glucose 117 mg/dL; Hemoglobin A1c % 5.7 % (<6.0)
[2023-09-03 09:14] LABS: Anion Gap 12 (12-20); Blood Urea Nitrogen 10 mg/dL (9-16); C Reactive Protein < 0.10 mg/dL (< or = 0.50); Calcium 9.2 mg/dL (8.4-10.2); Carbon Dioxide 27 mmol/L (22-29); Chloride 109 mmol/L (96-108); Cholesterol 171 mg/dL (<200); Estimated Glomerular Filt Rate > 60; HDL Cholesterol 81 mg/dL (>40); Iron 33 mcg/dL (30-160); LDL Cholesterol Calculated 80 mg/dL (<100); Percent Iron Saturation 10 % (15-50); Potassium 3.5 mmol/L (3.3-5.1); Sodium 144 mmol/L (135-145); Total Iron Binding Capacity 327 mcg/dL (228-428); Triglycerides 50 mg/dL (<150); Unsaturated Iron Binding 294 ug/dL
[2023-09-03 09:20] LABS: Glucose Random 56 mg/dL (60-115)
[2023-09-03 09:31] LABS: Folate 10.4 ng/mL (> or = 4.0); Vitamin B12 311 pg/mL (200-900)
[2023-09-03 09:32] LABS: Ferritin 14 ng/mL (10-250); Insulin 29 uU/mL (2-29); Vitamin D 25-OH Total 19.3 ng/mL (>30)
[2023-09-07 12:48] LABS: Zinc 57 mcg/dL (60-130)
[2023-09-07 15:37] LABS: Vitamin B1 9 nmol/L (8-30)
[2023-09-08 06:14] LABS: Vitamin A 33 mcg/dL (38-98)
== END 2023-09-03 07:20 | disposition home or self-care (01) ==
LOC: HO.LAB 07:19
PROVIDERS: PCP Internal Medicine; Referring Provider Internal Medicine; Visit Provider Physician Assistant Surgical
DX: K91.2 Postsurgical malabsorption, not elsewhere classified (principal); Z90.3 Acquired absence of stomach [part of]; Z98.84 Bariatric surgery status
CPT/HCPCS: 36415; 80048; 80061; 82306; 82607; 82728; 82746; 83036; 83525; 83540; 84425; 84443; 84590; 84630; 85025; 86140

== ENCOUNTER → 2023-09-18 10:59 | Outpatient (BNV) | payer OTHER, SELFPAY | PROVIDERS: PCP Internal Medicine; Visit Provider Internal Medicine | DX: D50.9 Iron deficiency anemia, unspecified (principal); Z98.84 Bariatric surgery status | CPT/HCPCS: 99203 ==

== ENCOUNTER 2023-11-05 08:55 | Outpatient (AMB) | payer OTHER, SELFPAY ==
--- NOTE | 2023-11-05 09:06 | A.OFFVIS_ITS ---
Intake Visit Reasons: urinary incontinence Intake Note: NEW Patient presents today to established treatment for Urinary Incotinence: Meds- None Allergies to Antibiotic- No Known Allergies Blood Thinner- None Post Void Residual: 38 mL Channel Specialist Required: No Accompanied by: Self / Same As Patient Allergies hazelnut [HAZELNUT] Allergy (Intermediate, Verified 11/05/23 09:07) ITCHING THROAT HPI Comments Details: Meghna is a 48-year-old female who states she has had urinary incontinence which is worsening over the last year. She leaks with coughing and sneezing she also has urgency. She has had recurrent UTIs in the past. In further discussion she does admit to vaginal dryness and irregular menstrual cycle. Urinalysis is nitrite positive. I will empirically start Levaquin 500 mg daily pending urine culture. Schedule renal bladder ultrasound. Discussed Vagifem twice a week. Will refer to gyn physician regarding irregular menstrual cycle. [facility] Medical History Overweight (BMI 25.0-29.9) Excess skin Spontaneous ecchymoses Right hip pain Obesity (BMI 30-39.9) Pain in left toe(s) Bunion of great toe of left foot Post-traumatic osteoarthritis of right hip Primary osteoarthritis of both knees Arthritis Surgical History History of esophagogastroduodenoscopy (EGD) History of total right hip arthroplasty (~06/04/21) History of surgery History of bilateral breast reduction surgery History of hip surgery H/O gastric bypass History of laparoscopic cholecystectomy History of tubal ligation Family History Mother Ovarian cancer Diabetes Father HIV (human immunodeficiency virus infection) Maternal Grandmother Stomach cancer Maternal Grandfather Myocardial infarction Brother In good health Sister In good health Mental health disorder Son In good health Daughter In good health Social History Household Members: Family Household Members Other:: minor child Housing: Apartment Are you a primary customer care specialist to a significant other at home: No Do you presently have visiting nurse or other home services: No Alcohol intake: current Alcohol intake frequency: does not drink Patient Tobacco Use Status: Former Tobacco user Tobacco use type: Cigarette e-Cigarette/Vaping Use: Never Used Second Hand Smoke Exposure: No Substance Use Type: Marijuana service: No Current occupational status: unemployed Gender identity: Female Cognitive needs: No Hearing needs: No Vision needs: No Female Reproductive History Menstrual Age of Menarche: 15 Review of Systems Const All systems reviewed & are unremarkable except as noted in HPI and below Reports no additional complaints Eyes Reports no additional complaints ENT Reports no additional complaints Card Reports no additional complaints Resp Reports no additional complaints GI Reports no additional complaints Reports as per HPI Musc Reports no additional complaints Skin/Breast Reports system reviewed and no additional complaints, except as documented Neuro Reports no additional complaints Psych Reports no additional complaints Endo Reports no additional complaints Murali/Lymph Reports no additional complaints Aller/Immun Reports no additional complaints Physical Exam Const General: cooperative, healthy appearing and no acute distress Orientation/consciousness: patient oriented x3 HEENT Head: Yes normal to inspection, Yes normocephalic and Yes atraumatic Eyes Conjunctivae: conjunctivae normal Neck Neck: Yes normal visual inspection and Yes trachea midline Chest Chest palpation & inspection: normal inspection of the chest Resp Effort & Inspection: normal respiratory effort Cardio Rate: regular rate GI Inspection: Yes normal to inspection Palpation (GI): Soft to palpation Skin General skin exam: no rashes or lesions noted Neuro General: patient oriented x3 Extrem General: No edema Psych Appearance: grossly normal Office Procedures Post Void Residual Post Residual Void Post Void Residual (PVR): 38 [id number] Void Residual by ultrasound Results AMB Urinalysis, Automated UA Leukoctes 70 Qing/uL Last Edit by GUILHERME De Los Santos on 11/05/23 09:31 1+ Evy Gilliam 11/05/23 09:31 UA Nitrite Positive Last Edit by GUILHERME De Los Santos on 11/05/23 09:31 UA Urobilinogen 0.2 mg/dL Last Edit by GUILHERME De Los Santos on 11/05/23 09:3 1 UA Protein 15 mg/dL Last Edit by AMERICA De Los SantosA on 11/05/23 09:31 UA pH 6.0 Last Edit by Evy Gilliam A on 11/05/23 09:31 UA Blood 0 Adelso/uL Last Edit by MikaAMERICA BlockA on 11/05/23 09:31 UA Specific [place] 1.020 Last Edit by Evy Gilliam A on 11/05/23 09: 31 UA Ketone Negative Last Edit by AMERICA De Los SantosA on 11/05/23 09:31 UA Bilirubin 0 mg/dL Last Edit by AMERICA De Los SantosA on 11/05/23 09:31 UA Glucose 0 mg/dL Last Edit by GUILHEREM De Los Santos on 11/05/23 09:31 Results Reviewed Results Reviewed: Laboratory Last Values Urine pH (Auto) 6.0 11/05/23 09:30 Specific [place] (Auto) 1.020 11/05/23 09:30 Urine Protein (Auto) 15 mg/dL 11/05/23 09:30 Glucose (UA)(Auto) 0 mg/dL 11/05/23 09:30 Urine Ketones (Auto) Negative 11/05/23 09:30 Urine Blood (Auto) 0 Adelso/uL 11/05/23 09:30 Urine Nitrite (Auto) Positive 11/05/23 09:30 Urine Bilirubin (Auto) 0 mg/dL 11/05/23 09:30 Urine Urobilinogen (Auto) 0.2 mg/dL 11/05/23 09:30 Leukocyte Esterase (Auto) 70 Qing/uL 11/05/23 09:30 Collected: 02/05/23 Status: COMP Req#: [id number] Received: 02/05/23 Source: [facility] Sp Desc: Urine page Subm Dr: Aditya Aguirre MD Ordered: Urine Culture Procedure Result Verified Urine Culture Final 02/07/23 Organism 1 Escherichia coli Quant > 100,000 cfu/mL E coli M.I.C. RX --------- --- Ampicillin >=32 R Ceftriaxone <=0.25 S Gentamicin <=1 S Levofloxacin <=0.12 S Nitrofurantoin <=16 S Trimethoprim/Sulfamethoxazole >=320 R Assessment & Plan Assessment & Plan (1) Urinary incontinence: Code(s): R32 - Unspecified urinary incontinence Category: Medical (2) Recurrent UTI: Code(s): N39.0 - Urinary tract infection, site not specified Category: Medical (3) Perimenopausal atrophic vaginitis: Code(s): N95.2 - Postmenopausal atrophic vaginitis Category: Medical (4) Perimenopausal symptoms: Code(s): N95.1 - Menopausal and female climacteric states Category: Medical Plan Urine Culture Levaquin 500 mg for 7 days pending urine culture. Renal/bladder ultrasound Vagifem Urodynamics Referral to gyn physician Orders: Orders AMB Post Void Residual by ultrasound Today N39.8 - Other specified disorders of urinary system Urine Culture Today N39.0 - Urinary tract infection, site not specified US retroperitoneal comp Today N39.0 - Urinary tract infection, site not specified AMB Urinalysis Automated Today Z13.9 - Encounter for screening, unspecified Referrals AUDIO EXPERIENCE EXPERT Referral N95.1 - Menopausal and female climacteric states Medications: New estradiol (Vagifem) insert vaginally at bedtime twice a week Mon and Thurs 10 mcg vaginal 2XW 8 tabs 3RF levofloxacin 500 mg PO DAILY 7 days 7 tabs 0RF Patient Instructions: The patient had an opportunity to ask questions regarding treatment plan. The patient expressed understanding and agreement with the above treatment plan. The patient is aware they should contact our office by phone for worsening of their current condition or the appearance of new symptoms. Compliance is encouraged with any medications and followup testing that is ordered. It is a privilege to be allowed the opportunity to participate in the urologic care of your patient. If you have any questions or concerns regarding treatment for the above conditions please do not hesitate to contact me. The office telephone contact is [phone]. This note is constructed in part using voice recognition software. While every effort has been made to ensure accuracy bar helper errors may have been included. Yours sincerely, Marla Webster MD Coding Level of Care Code New Pt Level 4 (49132) Diagnoses Urinary incontinence R32 Recurrent UTI N39.0 Perimenopausal atrophic vaginitis N95.2 Perimenopausal symptoms N95.1 CPT Codes Post Residual Void - PVR CPT Code: 96344-Cvkt Void Residual by ultrasound ([id number])
== END 2023-11-05 10:09 | disposition home or self-care (01) ==
PROVIDERS: PCP Internal Medicine; Visit Provider Urology
DX: R32 Unspecified urinary incontinence (principal); N39.0 Urinary tract infection, site not specified; N95.2 Postmenopausal atrophic vaginitis; N95.1 Menopausal and female climacteric states; Z13.9 Encounter for screening, unspecified
CPT/HCPCS: 99204

== ENCOUNTER 2023-11-05 08:55 | Outpatient (REF) | payer OTHER, SELFPAY | END 2023-11-05 08:56 | disposition home or self-care (01) | LOC: HO.LAB 08:55 | PROVIDERS: PCP Internal Medicine; Visit Provider Urology | DX: N39.0 Urinary tract infection, site not specified (principal); R32 Unspecified urinary incontinence; N95.2 Postmenopausal atrophic vaginitis; N95.1 Menopausal and female climacteric states | CPT/HCPCS: 51798; 81003; 87086; 87088; 87186; 99202 ==

== ENCOUNTER 2023-11-24 10:44 | Outpatient (AMB) | payer OTHER, SELFPAY ==
--- NOTE | 2023-11-24 10:51 | A.OFFVIS_ITS ---
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 She could 2 tampons in and she thinks she removed it but isn't sure this period Is also lingering on her so she wants to be sure. Since she was last seen here she had cosmetic surgery on arms to remove excess skin. She had lost in total 150 lb, 50 before her bypass surgery 100 after. Also after her hip replacement she lost a lot of weight she was depressed. She is feeling great right now. She thought she needed knee surgery in her left knee but she was recommended by the doctor to put it off that she was too young. On questioning and demonstration she is doing quad strengthening exercises that she showed me.. Also after she had changed she shared that she is in the middle of a workup with a doctor to figure out if she needs some sort of bladder surgery because sometimes she pees on herself. She also has questions about menopause and the changes she is noticing more vag inal dryness and she has on occasion skipped a period. [facility] Medical History Overweight (BMI 25.0-29.9) Excess skin Spontaneous ecchymoses Right hip pain Obesity (BMI 30-39.9) Pain in left toe(s) Bunion of great toe of left foot Post-traumatic osteoarthritis of right hip Primary osteoarthritis of both knees Arthritis Surgical History History of esophagogastroduodenoscopy (EGD) History of total right hip arthroplasty (~06/04/21) History of surgery History of bilateral breast reduction surgery History of hip surgery H/O gastric bypass History of laparoscopic cholecystectomy History of tubal ligation Family History Mother Ovarian cancer Diabetes Father HIV (human immunodeficiency virus infection) Maternal Grandmother Stomach cancer Maternal Grandfather Myocardial infarction Brother In good health Sister In good health Mental health disorder Son In good health Daughter In good health Social History Household Members: Family Household Members Other:: minor child Housing: Apartment Are you a primary primary care physician to a significant other at home: No Do you presently have visiting nurse or other home services: No Alcohol intake: current Alcohol intake frequency: does not drink Patient Tobacco Use Status: Former Tobacco user Tobacco use type: Cigarette e-Cigarette/Vaping Use: Never Used Second Hand Smoke Exposure: No Substance Use Type: Marijuana service: No Current occupational status: unemployed Gender identity: Female Cognitive needs: No Hearing needs: No Vision needs: No Female Reproductive History Menstrual Age of Menarche: 15 Duration of menses: <3 days Date of last menstrual period: 11/16/23 control method: permanent sterilization Total pregnancies: 2 Full term: 2 Date of last pap smear: 08/15/22 (negative) History of abnormal pap smear: No Physical Exam Vital Signs: Last Vital Signs BP 112/70 11/24/23 10:52 External Female Exam: normal external appearance Speculum Exam - Vagina: normal appearance of the vagina and normal vaginal discharge Speculum Exam - Cervix: normal appearance of the cervix Bimanual exam- vagina & uterus: normal bimanual exam, uterine size normal, consistency normal, uterine mobility normal, uterine shape normal and non-tender Bimanual Exam- Adnexa, other: normal adnexae, no masses and No adnexal tenderness Results Reviewed Results Reviewed: Name: Meghna Louie Age/Sex: 47/F Attending: Kristine Malik CNM : 1975 Submitted by: Kristine Malik CNM Copies to: MR #: [id number] Status: DEP REF Collected: 10/14/22 Location: [facility] Received: 10/15/22 Interpretation Satisfactory for evaluation. Negative for intraepithelial lesion or malignancy. HPV mRNA E6/E7: NOT DETECTED This assay detects E6/E7 viral messenger RNA (mRNA) from 14 high-risk HPV types (16, 18, 31, 33, 35, 39, 45, 51, 52, 56, 58, 59, 66, 68) HPV testing performed by [employer], [place], [place]. See reference laboratory portion of the EMR for entire report. Clinical Information LMP: 09/15/22 Previous PAP test: 2013, WNL Material Received ThinPrep-Cervical Electronically Signed By: Saskia Louise 11/03/22 1316 The Pap Test is a screening procedure with the inherent possibility of both false negative and false positive results. Results should be interpreted in the context of historic and current clinical findings. Reliability of the Pap Test is enhanced by performing the test on a regular repetitive basis. Patient: Meghna Louie Age/Sex: 47/F MR#: [id number] Page 1 of 1 Assessment & Plan Assessment & Plan (1) Perimenopausal symptoms: Code(s): N95.1 - Menopausal and female climacteric states Category: Medical (2) Perimenopausal atrophic vaginitis: Code(s): N95.2 - Postmenopausal atrophic vaginitis Category: Medical (3) External incisional dehiscence: Code(s): T81.31XA - Disruption of external operation (surgical) wound, not elsewhere classified, initial encounter Category: Medical (4) Encounter for screening examination for sexually transmitted disease: Code(s): Z11.3 - Encounter for screening for infections with a predominantly sexual mode of transmission Category: Medical Plan No tampon found on exam patient had a normal exam with pink end of menses type discharge no foreign body found at all cultures done out of an abundance of caution. Discussed menopausal changes they are in fact normal discussed use of [id number] water-based lubricant if she desires discussed that if she had bothersome symptoms and wanted to discuss further taking hormonal replacement she might want to see a different provider than myself. Discussed doing Kegel exercises while she has in the middle of her evaluation to see if she needs surgery. Also discussed the physical therapy is helpful for this I did not teach her Kegel's during the exam because the issues brought up as she was getting dressed and leaving the office but I did give her a handout on how to do them her muscle tone was perceived to be decent during the exam though again it was specifically tested for. Discussed her content min with her various surgeries and the need to make sure that she has weight-bearing exercise and calcium for her bones as she enters the menopausal range discussed the real symptoms of menopause but that they are in fact normal. Coding Level of Care Code Est Pt Level 3 (24416) Diagnoses Perimenopausal symptoms N95.1 Perimenopausal atrophic vaginitis N95.2 External incisional dehiscence T81.31XA Encounter for screening examination for sexually transmitted disease Z11.3
[2023-11-24 10:52] VITALS: BP 112/70; BMI 29.5
== END 2023-11-24 11:37 | disposition home or self-care (01) ==
LOC: HO.HWSM 10:44
PROVIDERS: PCP Internal Medicine; Visit Provider Advanced Practice Midwife
DX: N95.1 Menopausal and female climacteric states (principal); N95.2 Postmenopausal atrophic vaginitis; T81.31XA Disruption of external operation (surgical) wound, not elsewhere classified, initial encounter; Z11.3 Encounter for screening for infections with a predominantly sexual mode of transmission
CPT/HCPCS: 99213

== ENCOUNTER 2023-11-24 10:44 | Outpatient (REF) | payer OTHER, SELFPAY ==
[2023-11-25 04:49] LABS: CT PCR NOT DETECTED (Not Detect.); NG PCR NOT DETECTED (Not Detect.)
[2023-11-25 09:19] LABS: Bacterial Vaginosis PCR POSITIVE (Negative); Candida Group PCR NOT DETECTED (Not Detect); Candida glab krusei PCR NOT DETECTED (Not Detect); Trichomonas vaginalis PCR DETECTED (Not Detect)
== END 2023-11-24 10:45 | disposition home or self-care (01) ==
LOC: HO.LAB 10:44
PROVIDERS: PCP Internal Medicine; Visit Provider Advanced Practice Midwife
DX: Z11.3 Encounter for screening for infections with a predominantly sexual mode of transmission (principal); N95.1 Menopausal and female climacteric states; N95.2 Postmenopausal atrophic vaginitis; T81.31XA Disruption of external operation (surgical) wound, not elsewhere classified, initial encounter
CPT/HCPCS: 0352U; 87491; 87591; 99212

== ENCOUNTER 2023-12-16 11:04 | Outpatient (AMB) | payer OTHER, SELFPAY ==
[2023-12-16 11:08] VITALS: BP 110/60; BMI 29.1
--- NOTE | 2023-12-16 11:08 | A.OFFVIS_ITS ---
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: No Information Interpreted: clinical only Employment Director: Employment Director Present Allergies hazelnut [HAZELNUT] Allergy (Intermediate, Verified 12/16/23 11:10) ITCHING THROAT Medication List - Last Reconciled 12/16/23 by VIVIAN Cruz As directed cholecalciferol (vitamin D3) (Vitamin D3) 25 mcg PO DAILY clotrimazole 1% 1 appl topical BID cyanocobalamin (vitamin B-12) 1,000 mcg PO DAILY diclofenac sodium 1% (Arthritis Pain (diclofenac)) 4 grams topical QID estradiol (Vagifem) 10 mcg vaginal 2XW ferrous sulfate (FeroSul) 325 mg PO DAILY levofloxacin 500 mg PO DAILY 7 days loratadine 10 mg PO DAILY pantoprazole 40 mg PO DAILY sucralfate (Carafate) 10 mL PO BID tramadol 50 mg PO TID PRN 30 days vitamin A palmitate 7,500 mcg PO DAILY Is last menstrual period known: Yes Last menstrual period: 11/16/23 Do you need a note to return to daycare/school/sports/work: No HPI HPI cee 2-3 weeks: Details: For test of cure visit. She was diagnosed with trichomoniasis at the November 23 visit. She says she took medicine right away and she took it for a week twice a day and she does knows her discharge better she did not really have any symptoms of it before she came. She did tell her partner who is the only person she had been with and he e xpressed surprise. She said she made appointment for him to go get treated but she does not if he has but she is not talking to have anymore anyway safer sex and exchange infections back and forth was discussed. [facility] Medical History Overweight (BMI 25.0-29.9) Excess skin Spontaneous ecchymoses Right hip pain Obesity (BMI 30-39.9) Pain in left toe(s) Bunion of great toe of left foot Post-traumatic osteoarthritis of right hip Primary osteoarthritis of both knees Arthritis Surgical History History of esophagogastroduodenoscopy (EGD) History of total right hip arthroplasty (~06/04/21) History of surgery History of bilateral breast reduction surgery History of hip surgery H/O gastric bypass History of laparoscopic cholecystectomy History of tubal ligation Family History Mother Ovarian cancer Diabetes Father HIV (human immunodeficiency virus infection) Maternal Grandmother Stomach cancer Maternal Grandfather Myocardial infarction Brother In good health Sister In good health Mental health disorder Son In good health Daughter In good health Social History Household Members: Family Household Members Other:: minor child Housing: Apartment Are you a primary foster care therapist to a significant other at home: No Do you presently have visiting nurse or other home services: No Alcohol intake: current Alcohol intake frequency: does not drink Patient Tobacco Use Status: Former Tobacco user Tobacco use type: Cigarette e-Cigarette/Vaping Use: Never Used Second Hand Smoke Exposure: No Substance Use Type: Marijuana service: No Current occupational status: unemployed Gender identity: Female Cognitive needs: No Hearing needs: No Vision needs: No Female Reproductive History Menstrual Age of Menarche: 15 Duration of menses: <3 days Date of last menstrual period: 11/16/23 control method: permanent sterilization Total pregnancies: 2 Full term: 2 Date of last pap smear: 08/15/22 (negative) Physical Exam Vital Signs: Last Vital Signs BP 110/60 12/16/23 11:08 BMI result Body Mass Index 29.1 Other: External exam within normal limits vagina is pink and moist fairly normal appearing whitish clear mucus multiparous cervix is pink and smooth with no abnormal discharge. External Female Exam: normal external appearance and normal appearance of the urethra Speculum Exam - Vagina: normal appearance of the vagina and normal vaginal discharge Speculum Exam - Cervix: normal appearance of the cervix and Cervical os closed Results Reviewed Results Reviewed: Name: Meghan Louie Age/Sex: 48/F [facility] 1975 [id number] [id number] Attend Dr: Kristine Malik Jarret VIVIAN Re11/24/23 Status: DEP REF Location: .LAB Dis ch: SPEC : [id number] JACK: 11/24/23-UNK STATUS: COMP REQ : [id number] RECD: 11/24/[address]: Kristine Malik Jarret MARYANN COMP: 11/25/23 ENTERED: 11/24/[address]: Aditya Aguirre MD ORDERED: BV Panel Test Result Flag Reference TV PCR DETECTED A Not Detect BV PCR POSITIVE A Negative The BV organism targets of the Xpert Xpress MVP test can be commensal in women; Xpert Xpress MVP positive results for bacterial vaginosis should be considered in conjunction with other clinical and patient information to determine the disease status. Organisms that are not detected by the Xpert Xpress MVP test have also been reported to be associated with BV and aerobic vaginitis. The Xpert Xpress MVP test performance has not been evaluated in patients under the age of 14. Keturah Grp PCR NOT DETECTED Not Detect Can gla-kru NOT DETECTED Not Detect END OF REPORT Assessment & Plan Assessment & Plan (1) Encounter for screening examination for sexually transmitted disease: Code(s): Z11.3 - Encounter for screening for infections with a predominantly sexual mode of transmission Category: Medical (2) Trichomoniasis: Comment: DX 11/24/2023 treated, test of cure done 12/16/2023 recommend serum testing for STIs as well. Code(s): A59.9 - Trichomoniasis, unspecified Category: Medical Plan For test of cure visit. She was diagnosed with trichomoniasis at the November 23 visit. She says she took medicine right away and she took it for a week twice a day and she does knows her discharge better she did not really have any symptoms of it before she came. She did tell her partner who is the only person she had been with and he expressed surprise. She said she made appointment for him to go get treated but she does not if he has but she is not talking to have anymore anyway safer sex and exchange infections back and forth was discussed. Testing done today during the visit for gonorrhea chlamydia trichomoniasis bacterial vaginosis and Keturah. (BV often is present when trich is present.) Discussed safer sex in detail also foot orders in for other STI tests and gave her the information on portal and she will ask her friend to help her set it up. This is so she can get her results herself. We will see her in a year. Orders: Orders CT NG by PCR Today N89.8 - Other specified noninflammatory disorders of vagina, Z20.2 - Contact with and (suspected) exposure to infections with a predominantly sexual mode of transmission Bacterial Vaginosis Panel Today N89.8 - Other specified noninflammatory disorders of vagina Hepatitis B Surface Antigen Today A59.9 - Trichomoniasis, unspecified, Z11.3 - Encounter for screening for infections with a predominantly sexual mode of transmission Hepatitis C Antibody Today A59.9 - Trichomoniasis, unspecified, Z11.3 - Encounter for screening for infections with a predominantly sexual mode of transmission HIV Ab/Ag Today A59.9 - Trichomoniasis, unspecified, Z11.3 - Encounter for screening for infections with a predominantly sexual mode of transmission Syphilis Screen Today A59.9 - Trichomoniasis, unspecified, Z11.3 - Encounter for screening for infections with a predominantly sexual mode of transmission Coding Level of Care Code Est Pt Level 3 (22101) Diagnoses Encounter for screening examination for sexually transmitted disease Z11.3 Trichomoniasis A59.9
== END 2023-12-16 11:47 | disposition home or self-care (01) ==
LOC: HO.HWSM 11:04
PROVIDERS: PCP Internal Medicine; Visit Provider Advanced Practice Midwife
DX: Z11.3 Encounter for screening for infections with a predominantly sexual mode of transmission (principal); A59.9 Trichomoniasis, unspecified
CPT/HCPCS: 99213

== ENCOUNTER 2023-12-16 11:04 | Outpatient (REF) | payer OTHER, SELFPAY ==
[2023-12-17 04:10] LABS: CT PCR NOT DETECTED (Not Detect.); NG PCR NOT DETECTED (Not Detect.)
[2023-12-17 09:43] LABS: Bacterial Vaginosis PCR NEGATIVE (Negative); Candida Group PCR DETECTED (Not Detect); Candida glab krusei PCR NOT DETECTED (Not Detect); Trichomonas vaginalis PCR NOT DETECTED (Not Detect)
== END 2023-12-16 11:05 | disposition home or self-care (01) ==
LOC: HO.LAB 11:04
PROVIDERS: PCP Internal Medicine; Visit Provider Advanced Practice Midwife
DX: N89.8 Other specified noninflammatory disorders of vagina (principal); A59.9 Trichomoniasis, unspecified; Z20.2 Contact with and (suspected) exposure to infections with a predominantly sexual mode of transmission
CPT/HCPCS: 0352U; 87491; 87591; 99212

== ENCOUNTER 2024-02-10 13:43 | Outpatient (AMB) | payer OTHER, SELFPAY ==
[2024-02-10 13:45] VITALS: BP 118/76; PULSE 73; O2SAT 96; BMI 29.4
--- NOTE | 2024-02-10 13:45 | A.OFFPC_ITS ---
Vital Signs 02/10/24 13:45 Height 5 ft 5 in Weight 176 lb 8 oz BMI 29.4 BP 118/76 Blood Pressure Location Lt brachial Position Sitting Pulse 73 Pulse Source Pulse Oximeter Pulse Oximetry (%) 96 Oxygen Delivery Method Room Air Intake Visit Reasons: pe Acid Painter Required: No Accompanied by: Self / Same As Patient Allergies hazelnut [HAZELNUT] Allergy (Intermediate, Verified 02/10/24 14:41) ITCHING THROAT Medication List - Last Reconciled 02/10/24 by MD angelina Sheriffe As directed cholecalciferol (vitamin D3) (Vitamin D3) 25 mcg PO DAILY clotrimazole 1% 1 appl topical BID cyanocobalamin (vitamin B-12) 1,000 mcg PO DAILY diclofenac sodium 1% (Arthritis Pain (diclofenac)) 4 grams topical QID estradiol (Vagifem) 10 mcg vaginal 2XW ferrous sulfate (FeroSul) 325 mg PO DAILY loratadine 10 mg PO DAILY pantoprazole 40 mg PO DAILY polyethylene glycol 3350 (Miralax) 17 grams PO DAILY 30 days sucralfate (Carafate) 10 mL PO BID terconazole 0.8% 1 appful vaginal BEDTIME 3 days tramadol 50 mg PO TID PRN 30 days vitamin A palmitate 7,500 mcg PO DAILY Tobacco use date assessed: 02/10/24 Dental Screening Dental Screen Date: 02/10/24 Did you have a dental visit in the last 12 months?: Yes Did you have a dental problem in the last 6 months where you did not have access to dental care?: No Was dental information given to patient?: Patient has dentist HPI pe HPI Details Patient comes in today for her annual physical examination States that she has been experiencing increased pain in her right hip for a while now (+) Hx of right hip surgery and states t hat her x-rays last year did not really show any changes She denies any recent injury to her hip States that she feels okay otherwise She denies any headaches or dizziness Denies any chest pains, no SOB No nausea/vomiting, no abdominal pain but her stomach feels bloated often as she has been experiencing increased constipation lately She denies any acute urinary symptoms She last had her mammogram in February 2023 and is scheduled for her yearly mammogram next week on 02/19/2024 She was seen by gynecology for her yearly exam back in late November 2023 She had her colonoscopy done last August (09/02/2023) with Dr. Cardoso and was advised to get a repeat colonoscopy done in 5 years (2028) [facility] Medical History (Updated 02/14/24 @ 19:54 by Aditya Aguirre MD) Allergic rhinitis GERD without esophagitis Vitamin D deficiency Overweight (BMI 25.0-29.9) Excess skin Spontaneous ecchymoses Right hip pain Obesity (BMI 30-39.9) Pain in left toe(s) Bunion of great toe of left foot Post-traumatic osteoarthritis of right hip Primary osteoarthritis of both knees Arthritis Surgical History (Updated 02/14/24 @ 19:39 by Aditya Aguirre MD) Hx of colonoscopy History of esophagogastroduodenoscopy (EGD) History of total right hip arthroplasty (~06/04/21) History of surgery History of bilateral breast reduction surgery History of hip surgery H/O gastric bypass History of laparoscopic cholecystectomy History of tubal ligation Family History Mother Ovarian cancer Diabetes Father HIV (human immunodeficiency virus infection) Maternal Grandmother Stomach cancer Maternal Grandfather Myocardial infarction Brother In good health Sister In good health Mental health disorder Son In good health Daughter In good health Social History Household Members: Family Household Members Other:: minor child Housing: Apartment Are you a primary child care center assistant director to a significant other at home: No Do you presently have visiting nurse or other home services: No Alcohol intake: current Alcohol intake frequency: does not drink Patient Tobacco Use Status: Former Tobacco user Tobacco use type: Cigarette e-Cigarette/Vaping Use: Never Used Second Hand Smoke Exposure: No Substance Use Type: Marijuana service: No Current occupational status: unemployed Gender identity: Female Cognitive needs: No Hearing needs: No Vision needs: No Female Reproductive History Menstrual Age of Menarche: 15 Questionnaire PHQ-9 Over the last 2 weeks, how often have you been bothered by any of the following problems? 1. Little interest or pleasure in doing things: nearly every day 2. Feeling down, depressed, or hopeless: several days 3. Trouble falling or staying asleep, or sleeping too much: several days 4. Feeling tired or having little energy: several days 5. Poor appetite or overeating: several days 6. Feeling bad about yourself - or that you are a failure or have let yourself or your family down: more than half the days 7. Trouble concentrating on things, such as reading the newspaper or watching television: not at all 8. Moving or speaking so slowly that other people could have noticed. Or the opposite - being so fidgety or restless that you have been moving around a lot more than usual: not at all 9. Thoughts that you would be better off or of hurting yourself in some way: not at all Total score: 0 Depression Screening Interpretation: Negative Depression Screening Done: Yes 88449 - PHQ-9 Billing: Yes Source: Developed by Drs. Rashel Oneil, Cassandra Alcazar, Raymon Joseph and colleagues, with an educational naman from [email or web address]. Thrive Questionnaire Date Thrive assessed: 02/10/24 I am a: Patient What is your living situation today?: I choose not to answer this question Within the past 12 months, did the food you bought not last and you didn't have the money to get more?: Never true Within the past 12 months, did you worry whether your food would run out before you got money to buy more?: Never true Do you have trouble paying for medicines?: No Do you have trouble getting transportation to medical appointments?: I choose not to answer this question Do you have trouble paying your heating and electricity bill?: I choose not to answer this question Do you have trouble taking care of your child, family member or friend?: I choose not to answer this question Do you have trouble with day-to-day activities such as bathing, preparing meals, shopping, managing finances, etc.?: No Are you currently unemployed and looking for a job?: I choose not to answer this question Are you interested in more education?: I choose not to answer this question Please select the resources that you would like help with: Childcare Currently or been in a relationship where the following occur: I choose not to answer THRIVE Score: 0 AUDIT C Alcohol Use Questionnaire (AUDIT-C) 1. How often do you have a drink containing alcohol?: Never 3. How often do you have six or more drinks on one occasion?: Never Total Score: 0 Score Reviewed/Action Taken: Yes ADRIAN-7 AMB Questionnaire ADRIAN-7 Date ADRIAN - 7 assessed: 02/10/24 Feeling nervous, anxious, or on edge: 1 = Several days Not being able to stop or control worryin = Not at all Worrying too much about different things: 1 = Several days Trouble relaxin = Several days Being so restless that it is hard to sit still: 1 = Several days Becoming easily annoyed or irritable: 1 = Several days Feeling afraid as if something awful might happen: 1 = Several days Total ADRIAN-7 score (0-4 normal; 5-9 mild; 10-14 moderate; 15-21 severe): 6 Source: Developed by Drs. Rashel Oneil, Cassandra Alcazar, Raymon Joseph and colleagues, with an educational naman from [email or web address]. Review of Systems Const Denies chills, Denies fatigue, Denies fever(s), Denies headache(s) and Denies malaise Eyes Denies blurry vision, Denies change in vision, Denies irritation and Denies itchy eyes ENT Denies dysphagia, Denies dizziness, Denies otalgia, Denies headache(s), Denies nasal congestion, Denies neck pain, Denies odynophagia, Denies sinus pain and Denies sore throat Card Denies chest pain, Denies rapid heart rate, Denies irregular heart rhythm, Denies palpitations and Denies dyspnea Resp Denies chest congestion, Denies cough, Denies dyspnea and Denies wheezing GI Denies abdominal pain, Reports bloating (recurrent), Reports constipation (increased lately), Denies dysphagia, Denies heartburn, Denies diarrhea, Denies nausea, Denies odynophagia and Denies vomiting Denies hematuria, Denies urinary frequency, Denies dysuria, Denies urinary incontinence and Denies urinary urgency Musc Denies back pain, Reports arthralgias (in the right hip, right shoulder and right elbow), Denies joint swelling, Denies muscle weakness and Denies neck pain Skin/Breast Denies breast pain, Denies breast mass, Denies change in pigmentation, Denies lesions, Denies rash and Denies unusual bruising Neuro Denies dizziness, Denies headache(s) and Denies paresthesias Psych Denies anxiety and Denies depression Endo Denies fatigue and Denies palpitations Murali/Lymph Denies easy bruising Aller/Immun Denies itchy eyes and Denies wheezing Physical exam (Primary Care) Vital Signs: Last Vital Signs Pulse 73 02/10/24 13:45 BP 118/76 02/10/24 13:45 Pulse Ox 96 02/10/24 13:45 Oxygen Delivery Method Room Air 02/10/24 13:45 BMI result Body Mass Index 29.4 Tobacco/Smoking Status: Tobacco use Status Tobacco use date assessed 02/10/24 02/10/24 13:54 Patient Tobacco Use Status Former Tobacco user 02/10/24 13:54 Tobacco use type Cigarette 02/10/24 13:54 e-Cigarette/Vaping Use Never Used 02/10/24 13:54 Depression Screening Interpretation: Negative Thrive Assessment: Date of Thrive Assessment Date Thrive assessed 02/10/24 02/10/24 13:54 Currently or been in a relationship where the following occur: I choose not to answer Const General: no acute distress, alert and awake Orientation/consciousness: patient oriented x3 HENMT Head: Yes normocephalic and Yes atraumatic Ears: external ears normal, TM's normal bilaterally and EAC's normal General nose exam: No nasal discharge present Face and sinus: Yes normal facial exam and Yes sinuses nontender Teeth and gingiva: dentition normal Throat: Yes posterior oropharynx normal and Yes tonsils normal (no TP congestion) Eyes Eyelids: Yes eyelids normal Conjunctivae: conjunctivae normal Pupils: Equal, round and reactive pupils present EOM: EOMs intact bilaterally Neck Neck: Yes no lymphadenopathy and Yes supple Thyroid: Thyroid normal Resp Auscultation: clear to auscultation bilaterally, no rales and no wheezes Cardio Rate: regular rate Rhythm: regular rhythm Heart sounds: no murmurs GI Palpation (GI): Soft to palpation, nontender and No hepatosplenomegaly present Auscultation: normal bowel sounds General: Yes no CVA tenderness Back/Spine/Pelvis Back: no CVA tenderness Thoracic/Lumbar Spine: thoracic and lumbar spine normal to inspection Skin Lesions: no lesions Rashes: no rashes Neuro General: patient oriented x3, moves all extremities, no focal motor deficits and CN's II-XI intact bilaterally Cranial nerves: Yes Equal, round and reactive pupils present Cognition (Neuro): normal cognition Gait exam (Neuro): Normal gait present Extrem General: Yes no clubbing, cyanosis or edema Right lower extremity: hip/thigh Details: tenderness Location: of the hip Results Reviewed Results Reviewed: Laboratory Tests 09/03/23 07:35 WBC 6.2 Hgb 12.5 D Hct 39.3 D Plt Count 234 Sodium 144 Potassium 3.5 Creatinine 0.70 Estimated GFR > 60 Random Glucose 56 L* Hemoglobin A1c % 5.7 Insulin Level 29 Calcium 9.2 D Triglycerides 50 Cholesterol 171 LDL Cholesterol, Calc 80 HDL Cholesterol 81 Vitamin A 33 L Vitamin B1 9 Vitamin B12 311 25-OH Vitamin D Total 19.3 L TSH 0.50 Assessment and Plan Assessment & Plan (1) Annual physical exam: Code(s): Z00.00 - Encounter for general adult medical examination without abnormal findings Plan: Check labs She is currently up-to-date with all of her cancer screenings (2) Right hip pain: Code(s): M25.551 - Pain in right hip Plan: (+) Hx of right hip surgery X-rays of her right hip last year came out okay - (+) right hip arthroplasty in unchanged anatomic alignment. Perihardware lucency adjacent to the distal aspect of the femoral component measuring up to 0.3 cm which may represent the postsurgical result or indicate early loosening Continue topical Diclofenac 1% QID PRN and Tramadol 50 mg TID PRN for pain Will send her for repeat x-rays of the right hip for further evaluation (3) Anemia: Code(s): D64.9 - Anemia, unspecified Qualifiers: Anemia type: unspecified type Qualified Code(s): D64.9 - Anemia, unspecified Plan: Her H/H was normal at 12.5/39.3 when last checked in August 2023 Continue Ferrous Sulfate 325 mg QD Will send her for repeat CBC for follow-up (4) Constipation: Code(s): K59.00 - Constipation, unspecified Qualifiers: Constipation type: unspecified constipation type Qualified Code(s): K59.00 - Constipation, unspecified Plan: Encouraged increased oral fluids and dietary fiber Advised that her iron tablets may be contributing to her constipation Will start patient again on Miralax 17 gm QD (5) Vitamin D deficiency: Code(s): E55.9 - Vitamin D deficiency, unspecified Plan: Continue Vitamin D3 1000 units QD (6) GERD without esophagitis: Code(s): K21.9 - Gastro-esophageal reflux disease without esophagitis Plan: Dietary restrictions reinforced Continue Pantoprazole 40 mg QD (7) Allergic rhinitis: Code(s): J30.9 - Allergic rhinitis, unspecified Qualifiers: Allergic rhinitis trigger: unspecified Allergic rhinitis seasonality: unspecified Qualified Code(s): J30.9 - Allergic rhinitis, unspecified Plan: Continue Loratadine 10 mg QD PRN (8) Overweight (BMI 25.0-29.9): Code(s): E66.3 - Overweight Plan: S/P bariatric surgery (gastric bypass) back on 07/10/2016 Reinforced diet/exercise as tolerated/lose weight Follow up with weight management as scheduled Plan Follow up in 4 months Orders: Orders Complete Blood Count Auto Diff 02/10/24 D64.9 - Anemia, unspecified, Z00.00 - Encounter for general adult medical examination without abnormal findings Comprehensive [place]. Panel Fast 02/10/24 E78.00 - Pure hypercholesterolemia, unspecified, Z00.00 - Encounter for general adult medical examination without abnormal findings Lipid Panel 02/10/24 E78.00 - Pure hypercholesterolemia, unspecified, Z00.00 - Encounter for general adult medical examination without abnormal findings TSH reflex Free T4 02/10/24 E78.00 - Pure hypercholesterolemia, unspecified, Z00.00 - Encounter for general adult medical examination without abnormal findings Hemoglobin A1c 02/10/24 E11.9 - Type 2 diabetes mellitus without complications, Z00.00 - Encounter for general adult medical examination without abnormal findings XR hip RT min 2V 02/10/24 M25.551 - Pain in right hip IRON PROFILE 02/10/24 D50.9 - Iron deficiency anemia, unspecified UA CC w/rflx Micro + Cult 02/10/24 R30.0 - Dysuria, Z00.00 - Encounter for general adult medical examination without abnormal findings Vitamin D 25-OH Total 02/10/24 E55.9 - Vitamin D deficiency, unspecified, Z00.00 - Encounter for general adult medical examination without abnormal findings Vitamin B12 and Folate 02/10/24 E53.8 - Deficiency of other specified B group vitamins, K91.2 - Postsurgical malabsorption, not elsewhere classified, Z00.00 - Encounter for general adult medical examination without abnormal findings, 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] Medications: New polyethylene glycol 3350 (Miralax) 17 grams PO DAILY 30 days 510 grams 3RF Coding Level of Care Code Est Pt Prev Care 40-64y(46772) Diagnoses Annual physical exam Z00.00 Right hip pain M25.551 Anemia, unspecified type D64.9 Anemia type: unspecified type Constipation, unspecified constipation type K59.00 Constipation type: unspecified constipation type Vitamin D deficiency E55.9 GERD without esophagitis K21.9 Allergic rhinitis, unspecified seasonality, unspecified trigger J30.9 Allergic rhinitis trigger: unspecified Allergic rhinitis seasonality: unspecified Overweight (BMI 25.0-29.9) E66.3
== END 2024-02-10 14:47 | disposition home or self-care (01) ==
PROVIDERS: PCP Internal Medicine; Visit Provider Internal Medicine
DX: Z00.00 Encounter for general adult medical examination without abnormal findings (principal); M25.551 Pain in right hip; D64.9 Anemia, unspecified; K59.00 Constipation, unspecified; E55.9 Vitamin D deficiency, unspecified; K21.9 Gastro-esophageal reflux disease without esophagitis; J30.9 Allergic rhinitis, unspecified; E66.3 Overweight

== ENCOUNTER → 2024-02-10 13:43 | Outpatient (BNVA) | payer OTHER, SELFPAY | PROVIDERS: PCP Internal Medicine; Visit Provider Internal Medicine | DX: Z00.01 Encounter for general adult medical examination with abnormal findings (principal); M25.551 Pain in right hip; D64.9 Anemia, unspecified; K59.00 Constipation, unspecified; E55.9 Vitamin D deficiency, unspecified; K21.9 Gastro-esophageal reflux disease without esophagitis; J30.9 Allergic rhinitis, unspecified; E66.3 Overweight; Z68.29 Body mass index [BMI] 29.0-29.9, adult; Z71.3 Dietary counseling and surveillance | CPT/HCPCS: 96127; 99396 ==

== ENCOUNTER → 2024-02-19 09:45 | Outpatient (BNV) | payer OTHER, SELFPAY | PROVIDERS: PCP Internal Medicine; Visit Provider Internal Medicine | DX: Z12.31 Encounter for screening mammogram for malignant neoplasm of breast (principal) | CPT/HCPCS: 77063; 77067 ==

== ENCOUNTER 2024-02-19 09:46 | Outpatient (REF) | payer OTHER, SELFPAY ==
--- NOTE | ~2024-02-19 | MM_ITS ---
EXAMINATION: MM SCREENING DIGITAL BREAST TOMOSYNTHESIS, BILATERAL CLINICAL INFORMATION: Screening. Asymptomatic. COMPARISON: Mammography: Comparison is made with available priors TECHNIQUE: Digital breast mammography with tomosynthesis is performed in both the craniocaudal and mediolateral oblique views along with computer-aided detection (CAD). FINDINGS: There are scattered areas of fibroglandular density (ACR BI-RADS breast composition Category b). Bilateral reduction mammoplasty. There are no significant masses, abnormal calcifications, or other abnormalities. MM/MM tomosynthesis screening BI IMPRESSION: No mammographic evidence of malignancy. ASSESSMENT: BI-RADS BI-RADS 2 - Benign Findings RECOMMENDATION: Routine annual mammography screening. 1 year F/U This examination should not preclude the clinical evaluation of a suspicious palpable abnormality. This patient's information was entered into a reminder system with a target due date for their next mammogram. Electronically signed by: Catrachita Mcgregor DO 03/02/2024 12:51 PM EDT
== END 2024-02-19 09:47 | disposition home or self-care (01) ==
LOC: HO.MAMMO 09:46
PROVIDERS: PCP Internal Medicine; Visit Provider Internal Medicine
DX: Z12.31 Encounter for screening mammogram for malignant neoplasm of breast (principal)
CPT/HCPCS: 77063; 77067

== ENCOUNTER 2024-02-29 08:27 | Outpatient (REF) | payer OTHER, SELFPAY ==
--- NOTE | ~2024-02-29 | XR_ITS ---
EXAMINATION: XR HIP, RIGHT CLINICAL INFORMATION: Pain in the right hip COMPARISON: X-ray of the right hip January 2023 TECHNIQUE: Two views of the right hip. FINDINGS: Right total hip arthroplasty in place. The components are in the usual position and are unchanged. Minimal lucency surrounding the distal tip of the femoral prosthesis unchanged. There is no effusion. . Surrounding soft tissues are normal. Incidental note made of surgical clips in the right pelvis. Phleboliths in the pelvis unchanged. XR/XR hip RT min 2V IMPRESSION: Right total hip arthroplasty without complication or change by x-ray. Stable minimal periprostatic lucency along the distal tip of the femur likely reflects postsurgical result rather than a focal osteolysis Electronically signed by: Michael Piedra MD 03/06/2024 11:54 AM EDT RP
[2024-02-29 08:44] LABS: MANUAL DIFF FLAG NO
[2024-02-29 08:53] LABS: Basophils Percent Auto 0.9 % (0-2); Eosinophils Absolute Auto 0.1 X10*3/uL (0.0-0.4); Eosinophils Percent Auto 1.3 % (0-4); Hemoglobin 10.7 g/dl (12.0-16.0); Imm Gran Abs Auto 0.02 X10*3/uL (0.00-0.03); Imm Gran Pct Auto 0.4 % (0.0-0.4); Lymphocytes Absolute Auto 1.4 X10*3/uL (1.2-4.9); Mean Corpuscular HGB Conc 31.5 g/dl (31.0-35.0); Mean Corpuscular Hemoglobin 28.1 pg (27.0-33.0); Mean Corpuscular Volume 89.2 fL (80.0-98.0); Mean Platelet Volume 11.3 fL (9.4-12.3); Monocytes Absolute Auto 0.4 X10*3/uL (0.1-1.2); Monocytes Percent Auto 9.6 % (2-11); Neutrophils Absolute Auto 2.6 x10*3/uL (2.0-8.3); Neutrophils Percent Auto 57.8 % (45-73); Platelet Count 273 X10*3/uL (160-400); Red Blood Count 3.81 X10*6/uL (4.20-5.50); Red Cell Distribution Width 13.8 % (11.0-16.0); White Blood Count 4.6 X10*3/uL (4.8-10.8)
[2024-02-29 09:07] LABS: Estimated Average Glucose 105 mg/dL; Hemoglobin A1C 89.1791 umol/L; Hemoglobin A1c % 5.3 % (<6.0); Total Hemoglobin (HGBA1C) 2616.6164 umol/L
[2024-02-29 09:33] LABS: Alanine Aminotransferase 14 U/L (0-31); Albumin Level 3.7 g/dL (3.5-5.0); Alkaline Phosphatase 68 U/L (39-117); Anion Gap 9 (12-20); Aspartate Amino Transferase 20 U/L (5-31); Bilirubin Total 0.3 mg/dL (0.0-1.0); Blood Urea Nitrogen 14 mg/dL (9-16); Calcium 8.6 mg/dL (8.4-10.2); Carbon Dioxide 30 mmol/L (22-29); Chloride 107 mmol/L (96-108); Cholesterol 164 mg/dL (<200); Estimated Glomerular Filt Rate > 60; Glucose Fasting 96 mg/dL (60-99); HDL Cholesterol 86 mg/dL (>40); Iron 21 mcg/dL (30-160); LDL Cholesterol Calculated 69 mg/dL (<100); Percent Iron Saturation 7 % (15-50); Potassium 4.2 mmol/L (3.3-5.1); Sodium 142 mmol/L (135-145); Total Iron Binding Capacity 317 mcg/dL (228-428); Total Protein 6.1 g/dL (6.5-8.0); Triglycerides 49 mg/dL (<150); Unsaturated Iron Binding 296 ug/dL
[2024-02-29 09:43] LABS: Appearance Urine Clear; Color Urine Yellow; Glucose Urine UA Negative (Negative); Leukocyte Esterase Urine Negative (Negative); Nitrite Urine Negative (Negative); PH 6.5 (5.0-9.0); Specific Gravity - Urine 1.025 (1.005-1.025); Urine Blood Negative (Negative); Urine Ketones Negative (Negative); Urine Protein Negative (Neg-Trace)
[2024-02-29 09:49] LABS: TSH reflex Free T4 0.96 uIU/mL (0.32-4.0); Vitamin D 25-OH Total 23.8 ng/mL (>30)
[2024-02-29 09:57] LABS: Folate 11.6 ng/mL (> or = 4.0); Vitamin B12 317 pg/mL (200-900)
== END 2024-02-29 08:28 | disposition home or self-care (01) ==
LOC: HO.XRAY 08:27
PROVIDERS: PCP Internal Medicine; Visit Provider Internal Medicine
DX: Z00.00 Encounter for general adult medical examination without abnormal findings (principal); M25.551 Pain in right hip; Z96.641 Presence of right artificial hip joint; D64.9 Anemia, unspecified; E78.00 Pure hypercholesterolemia, unspecified; E11.9 Type 2 diabetes mellitus without complications; D50.9 Iron deficiency anemia, unspecified; R30.0 Dysuria; E53.8 Deficiency of other specified B group vitamins; K91.2 Postsurgical malabsorption, not elsewhere classified; Z90.3 Acquired absence of stomach [part of]
CPT/HCPCS: 36415; 73502; 80053; 80061; 81003; 82306; 82607; 82746; 83036; 83540; 84443; 85025

== ENCOUNTER 2024-04-26 09:36 | Outpatient (REF) | payer OTHER, SELFPAY | END 2024-04-26 09:37 | disposition home or self-care (01) | LOC: HO.LAB 09:36 | PROVIDERS: PCP Internal Medicine; Visit Provider Urology | DX: R32 Unspecified urinary incontinence (principal); N39.0 Urinary tract infection, site not specified; B96.20 Unspecified Escherichia coli [E. coli] as the cause of diseases classified elsewhere | CPT/HCPCS: 81003; 87086; 87088; 87186 ==

== ENCOUNTER 2024-04-26 09:36 | Outpatient (AMB) | payer OTHER, SELFPAY | END 2024-04-26 10:27 | disposition home or self-care (01) | PROVIDERS: PCP Internal Medicine; Visit Provider Urology | DX: N39.0 Urinary tract infection, site not specified (principal); R32 Unspecified urinary incontinence ==

== ENCOUNTER 2024-05-06 13:57 | Outpatient (AMB) | payer OTHER, SELFPAY ==
--- NOTE | 2024-05-05 23:52 | A.OFFVIS_ITS ---
Intake Visit Reasons: urodynamics Intake Note: Patient is present for Urodynamics Urology Med: Estradiol Antibiotic Allergy: None Blood Thinner: None Patient Symptoms: Final Application Reviewer Required: No Accompanied by: Self / Same As Patient Allergies hazelnut [HAZELNUT] Allergy (Intermediate, Verified 05/06/24 14:05) ITCHING THROAT HPI Comments Details: 05/06/2024--here for urodynamics. Meghna is a 49-year-old female with complaints of urinary incontinence. Interpretation: During the filling phase there was normal sensation, strong urge was noted at 415 mL, the patient felt that she was at capacity at 433 mL. Leakage was observed during cough and valsalva stress. Findings consistent with ISD, EMG- Appropriate changes in the waveforms were noted through out the study. I discussed treatment options to include urethral bulking and sling procedures, risks include but are not limited to urinary retention, infection, bleeding, need for another procedure, mesh erosion, urgency. Review of chart 11/05/2023--Meghna is a 48-year-old female who states she has had urinary incontinence which is worsening over the last year. She leaks with coughing and sneezing she also has urgency. She has had recurrent UTIs in the past. In further discussion she does admit to vaginal dryness and irregular menstrual cycle. Urinalysis is nitrite positive. I will empirically start Levaquin 500 mg daily pending urine culture. Schedule renal bladder ultrasound. Discussed Vagifem twice a week. Will refer to shipping hand regarding irregular menstrual cycle. [facility] Medical History Allergic rhinitis GERD without esophagitis Vitamin D deficiency Overweight (BMI 25.0-29.9) Excess skin Spontaneous ecchymoses Right hip pain Obesity (BMI 30-39.9) Pain in left toe(s) Bunion of great toe of left foot Post-traumatic osteoarthritis of right hip Primary osteoarthritis of both knees Arthritis Surgical History Hx of colonoscopy History of esophagogastroduodenoscopy (EGD) History of total right hip arthroplasty (~06/04/21) History of surgery History of bilateral breast reduction surgery History of hip surgery H/O gastric bypass History of laparoscopic cholecystectomy History of tubal ligation Family History Mother Ovarian cancer Diabetes Father HIV (human immunodeficiency virus infection) Maternal Grandmother Stomach cancer Maternal Grandfather Myocardial infarction Brother In good health Sister In good health Mental health disorder Son In good health Daughter In good health Social History Household Members: Family Household Members Other:: minor child Housing: Apartment Are you a primary family day care worker to a significant other at home: No Do you presently have visiting nurse or other home services: No Alcohol intake: current Alcohol intake frequency: does not drink Patient Tobacco Use Status: Former Tobacco user Tobacco use type: Cigarette e-Cigarette/Vaping Use: Never Used Second Hand Smoke Exposure: No Substance Use Type: Marijuana service: No Current occupational status: unemployed Gender identity: Female Cognitive needs: No Hearing needs: No Vision needs: No Female Reproductive History Menstrual Age of Menarche: 15 Office Procedures Urodynamic Studies Consent Discussed risk and benefit or proposed procedure with the patient. Information consent for procedure given to the patient. Discussed technical aspects, risks, benefits and alternatives in full. Addressed all of the patient's questions and concerns regarding the procedure. The patient demonstrated knowledge and understanding. They wish to proceed with this procedure. Preparation The patient was prepped in the usual manner. A mica splitter was present and in the room. Genitalia was prepped with betadine solution in a sterile manner. Procedure Complex Uroflow Complex uroflow performed by: Marla Webster Maximum urinary flow rate (mL/second): 30 Voiding time (seconds): 15 Voided volume (mL): 187 Residual urine (mL): 0 Cystometrogram Vaginal/rectal catheter type: vaginal First sensation at (mL): 271 mL First desire at (mL): 399 mL Maximum fill (mL): 433 mL Voided with max detrussor pressure of (cm H2O): 22 Maximum flow rate (mL/second): 14 mL/s Prep: The patient was prepped in the usual manner. A mica splitter was present and in the room. Genitalia was prepped with betadine solution in a sterile manner. 44310-Mdcstwnzautlyv w/ SOCIAL STAFF WORKER 49504-Xrjjwqo-Ydqrqycmnnje First 00395-Znfn/Urinary Muscle Study 00426-Plosv-Lujqswcfd Pressure Test Procedure code (CPT) selection complete Office Meds nitrofurantoin monohydrate/macrocrystals 100 mg capsule Performing Provider: Marla Webster MD Performing Location: [facility] [place] [facility] Administered by: Quan Norwood LPN on 05/06/24 14:20 Dose Route Admin Location Dispensed Lot Number Expiration Date NDC Mobile Designer 100 mg PO 1 cap Assessment & Plan Assessment & Plan (1) Intrinsic sphincter deficiency (ISD): Code(s): N36.42 - Intrinsic sphincter deficiency (ISD) Category: Medical (2) MARIAH (stress urinary incontinence, female): Code(s): N39.3 - Stress incontinence (female) (male) Category: Medical Plan Bulkamid urethral bulking Orders: Orders AMB Urodynamics Studies 05/06/24 N39.0 - Urinary tract infection, site not specified, R32 - Unspecified urinary incontinence Patient Instructions: The patient had an opportunity to ask questions regarding treatment plan. The patient expressed understanding and agreement with the above treatment plan. The patient is aware they should contact our office by phone for worsening of their current condition or the appearance of new symptoms. Compliance is encouraged with any medications and followup testing that is ordered. It is a privilege to be allowed the opportunity to participate in the urologic care of your patient. If you have any questions or concerns regarding treatment for the above conditions please do not hesitate to contact me. The office telephone contact is [phone]. This note is constructed in part using voice recognition software. While every effort has been made to ensure accuracy caddie supervisor errors may have been included. Yours sincerely, Marla Webster MD Coding Level of Care Code Procedure Only Diagnoses Intrinsic sphincter deficiency (ISD) N36.42 MARIAH (stress urinary incontinence, female) N39.3 CPT Codes Urodynamic Studies - CPT: 24420-Abfscjbhyszmqo w/ SOCIAL STAFF WORKER ([id number]) Urodynamic Studies - CPT: 63473-Bcjogsq-Lwzszamtgwpk First ([id number]) Urodynamic Studies - CPT: 62949-Mchn/Urinary Muscle Study ([id number]) Urodynamic Studies - CPT: 97081-Tfttt-Dewlhfwxw Pressure Test ([id number])
== END 2024-05-06 15:28 | disposition home or self-care (01) ==
PROVIDERS: PCP Internal Medicine; Visit Provider Urology
DX: R32 Unspecified urinary incontinence (principal); N39.0 Urinary tract infection, site not specified
CPT/HCPCS: 51728; 51741; 51784; 51797

== ENCOUNTER → 2024-05-06 13:57 | Outpatient (BNVA) | payer OTHER, SELFPAY | PROVIDERS: PCP Internal Medicine; Visit Provider Urology | DX: N39.3 Stress incontinence (female) (male) (principal); N36.42 Intrinsic sphincter deficiency (ISD); N39.0 Urinary tract infection, site not specified | CPT/HCPCS: 51728; 51741; 51784; 51797 ==

== ENCOUNTER 2024-06-07 12:39 | Day surgery (SDC) | payer OTHER, SELFPAY ==
[2024-06-03 14:18] VITALS: BMI 29.3
--- NOTE | 2024-06-06 11:56 | HO.ANESPROP2 ---
Documented by User: Gabbie Hernadez NP 06/06/24 11:56 HPI - Anesthesia Eval Consult details Narrative: 49yo F for Cystoscopy with bulkamid PMFSH Active Problems Active Problems: All Active Problems MARIAH (stress urinary incontinence, female) (Acute) Intrinsic sphincter deficiency (ISD) (Acute) Osteoarthritis (Acute) Allergic rhinitis (Acute) GERD without esophagitis (Acute) Vitamin D deficiency (Acute) Trichomoniasis (Acute) Encounter for screening examination for sexually transmitted disease (Acute) Perimenopausal symptoms (Acute) Perimenopausal atrophic vaginitis (Acute) Recurrent UTI (Acute) Urinary incontinence (Acute) External incisional dehiscence (Acute) S/P brachioplasty (Acute) S/P panniculectomy (Acute) Constipation (Acute) Postgastrectomy malabsorption (Acute) Acid reflux (Acute) Colon cancer screening (Acute) Breast cancer screening by mammogram (Acute) Annual physical exam (Acute) Right-sided chest pain (Acute) Right elbow pain (Acute) Right shoulder pain (Acute) Neck pain (Acute) Cervical cancer screening (Acute) Malodorous urine (Acute) Vaginal itching (Acute) Epigastric abdominal pain (Acute) S/P gastric bypass (Acute) Overweight (Acute) Bromhidrosis (Acute) Hyperhidrosis of axilla (Acute) UTI (urinary tract infection) (Acute) Anemia (Chronic) Abnormal vaginal bleeding in premenopausal patient (Acute) Osteoarthritis of left knee (Acute) Status post total replacement of right hip (Acute) Pre-op evaluation (Acute) Anemia (Acute) Post-traumatic acute tubular necrosis (Acute) Osteoarthritis of right knee (Acute) Osteoarthritis of right hip (Acute) Potential exposure to STD (Acute) Bacterial vaginosis (Acute) Family hx of ovarian malignancy (Acute) control counseling (Acute) Well woman exam with routine gynecological exam (Acute) Excess skin (Acute) H/O gastric bypass (Acute) Overweight (BMI 25.0-29.9) (Acute) Spontaneous ecchymoses (Acute) Right hip pain (Acute) Obesity (BMI 30-39.9) (Acute) Pain in left toe(s) (Acute) Bunion of great toe of left foot (Acute) Post-traumatic osteoarthritis of right hip (Acute) Primary osteoarthritis of both knees (Acute) Past Medical History Medical History Allergic rhinitis GERD without esophagitis Vitamin D deficiency Overweight (BMI 25.0-29.9) Excess skin Spontaneous ecchymoses Right hip pain Obesity (BMI 30-39.9) Pain in left toe(s) Bunion of great toe of left foot Post-traumatic osteoarthritis of right hip Primary osteoarthritis of both knees Arthritis Family History Family History Mother Ovarian cancer Diabetes Father HIV (human immunodeficiency virus infection) Maternal Grandmother Stomach cancer Maternal Grandfather Myocardial infarction Brother In good health Sister In good health Mental health disorder Son In good health Daughter In good health Family history of problems with anesthesia: No Surgical History Surgical History Hx of colonoscopy History of esophagogastroduodenoscopy (EGD) History of total right hip arthroplasty (~06/04/21) History of surgery History of bilateral breast reduction surgery History of hip surgery H/O gastric bypass History of laparoscopic cholecystectomy History of tubal ligation History of Problems with Anesthesia: No Social History Social History Household Members: Family Household Members Other:: minor child Housing: Apartment Are you a primary health care facilities inspector to a significant other at home: No Do you presently have visiting nurse or other home services: No Alcohol intake: current Alcohol intake frequency: does not drink Patient Tobacco Use Status: Former Tobacco user Tobacco use type: Cigarette e-Cigarette/Vaping Use: Never Used Second Hand Smoke Exposure: No Use of substances other than those prescribed or required for medical reasons: Yes Substance Use Type: Marijuana Substance Use Type Other:: last used 3 days ago Substance Use Frequency: Daily Are you DNR?: No Advance Directives: No Advance Directives Information Provided: Yes service: No Current occupational status: unemployed Gender identity: Female Cognitive needs: No Hearing needs: No Vision needs: No Meds Allergies Allergy/AdvReac Type Severity Reaction Status Date / Time hazelnut [HAZELNUT] Allergy Intermediate ITCHING Verified 06/07/24 12:50 THROAT Exam Height,Weight and Vital Signs: Height 5 ft 5 in Weight 79.832 kg Assessment and Plan Assessment Anesthesia Assessment: Chart Reviewed Final Anesthetic Review Family History of Problems with Anesthesia: No History of Problems with Anesthesia: No Documented by User: Reggie Gonzalez MD 06/07/24 16:54 [facility] Past Medical History Medical History Allergic rhinitis GERD without esophagitis Vitamin D deficiency Overweight (BMI 25.0-29.9) Excess skin Spontaneous ecchymoses Right hip pain Obesity (BMI 30-39.9) Pain in left toe(s) Bunion of great toe of left foot Post-traumatic osteoarthritis of right hip Primary osteoarthritis of both knees Arthritis Family History Family History Mother Ovarian cancer Diabetes Father HIV (human immunodeficiency virus infection) Maternal Grandmother Stomach cancer Maternal Grandfather Myocardial infarction Brother In good health Sister In good health Mental health disorder Son In good health Daughter In good health Surgical History Surgical History Hx of colonoscopy History of esophagogastroduodenoscopy (EGD) History of total right hip arthroplasty (~06/04/21) History of surgery History of bilateral breast reduction surgery History of hip surgery H/O gastric bypass History of laparoscopic cholecystectomy History of tubal ligation Social History Social History Household Members: Family Household Members Other:: minor child Housing: Apartment Are you a primary health care facilities inspector to a significant other at home: No Do you presently have visiting nurse or other home services: No Alcohol intake: current Alcohol intake frequency: does not drink Patient Tobacco Use Status: Former Tobacco user Tobacco use type: Cigarette e-Cigarette/Vaping Use: Never Used Second Hand Smoke Exposure: No Use of substances other than those prescribed or required for medical reasons: Yes Substance Use Type: Marijuana Substance Use Type Other:: last used 3 days ago Substance Use Frequency: Daily Are you DNR?: No Advance Directives: No Advance Directives Information Provided: Yes service: No Current occupational status: unemployed Gender identity: Female Cognitive needs: No Hearing needs: No Vision needs: No Meds Allergies Allergy/AdvReac Type Severity Reaction Status Date / Time hazelnut [HAZELNUT] Allergy Intermediate ITCHING Verified 06/07/24 12:50 THROAT Exam Airway Loose/Missing/Broken Teeth: Yes Assessment and Plan Assessment Anesthesia Assessment: Anesthesia Plan Discussed Final Anesthetic Review NPO: Yes ASA Class: II Final Preanesthetic Review: No Changes in Pt Med Stat, Meds/Allgs Chart Reviewed, Consent Obtained/Reviewed and Anes Risks/Benef Reviewed Patient Risk: Low Procedure Risk: Low Assessment/Block/Sedation in SS: Assess/Block/Sedation-SS Anesthetic Plan Anesthetic Plan: TIVA Disposition: Standard PACU
[2024-06-07 13:04] VITALS: BP 121/79; PULSE 68; RESP 16; TEMP 36.6; O2SAT 98; BMI 30.6
[2024-06-07] MEDS: Lactated Ringers 1,000 ML 100 ML IVCONT (13:27)
--- OUTSIDE RECORDS SUMMARY | 2024-06-07 14:11 | XMS_ITS | Clinical Summary ---
Author Organization [facility] Address [address] [place] [address] Care Team Providers Care Video Editing Internship Name Role Phone Joy Salgado MD Primary Care Provider Surgical History Surgery Date Site/Laterality Comments GASTRIC BYPASS 06/2016 PROCEDURE: GASTRIC BYPASS FOR OBESIT; COMMENT: [facility] CHOLECYSTECTOMY 04/2016 PROCEDURE: [place] LAPAROSCOPY SURG CHOLECYSTECTOMY; COMMENT: [facility] OTHER SURGICAL HISTORY 06/2014 PROCEDURE: [place] LIG/TRNSXJ FLP TUBE ABDL/VAG APPR UNI/BI; COMMENT: [facility] BREAST REDUCTION 2004 PROCEDURE: [place] BREAST REDUCTION; COMMENT: [facility] Medical History Medical History Date Comments Anxiety state DX:Anxiety state Abnormal cytological finding in specimen from cervix DX:Abnormal cytological find ing in specimen from cervix Essential hypertension DX:Essent ial hypertension Generalized osteoarthrosis, unspecified site DX:Generalized osteoarthrosi s, unspecified site; COMMENT: arthritis Venereal disease 2001 DX:Venereal dis ease; COMMENT: + chlamydia Family History Medical History Relation Name Comments Hypertension Father Arthritis Maternal Grandmother Diabetes Maternal Grandmother Stomach cancer Maternal Grandmother Breast cancer Mother Diabetes Mother Other cancer Mother uterine cancer Colon cancer Neg Hx Ovarian cancer Neg Hx Prostate cancer Neg Hx Relation Name Status Comments Father Maternal Grandmother Mother Social History Tobacco Use Types Packs/Day Years Used Date Smoking Tobacco: Never Smokeless Tobacco: Never Alcohol Use Standard Drinks/Week Comments No 0 (1 standard drink = 0.6 oz pur e alcohol) Sex and Gender Information Value Date Recorded Sex Assigned at Not on file Gender Identity Not on file Sexual Orientation Not on file Obstetrics History Last Filed Vital Signs Vital Sign Reading Time Taken Comments Blood Pressure 121/83 11/13/2021 9:22 AM EDT Pulse 87 11/13/2021 9:22 AM EDT Temperature - - Respiratory Rate - - Oxygen Saturation - - Inhaled Oxygen Concentration - - Weight 83.5 kg (184 lb) 11/13/2021 9:22 AM EDT Height 167.6 cm (5' 6 ) 11/13/2021 9:22 AM EDT Body Mass Index 29.7 11/13/2021 9:22 AM EDT Plan of Treatment Health Maintenance Due Date Last Done Comments Breast Cancer Screening 1977 DTaP,Tdap,and Td Vaccines (1 - Tdap) 1996 Cervical Cancer Screening: P ap Smear 1998 Hepatitis B Vaccines (2 of 3 - Hep B Twinrix 3-dose series) 03/18/2017 02/18/2017 Colorectal Cancer Screening: Colonoscopy 04/20/2022 Depression Screening 04/20/2022 HIV Screening 04/20/2022 Hepatitis C Screening 04/20/2022 Social Influencers of Health Screening 04/20/2022 COVID-19 Vaccine (1 - 2023-2 5 season) 2024 Influenza Vaccine (#1) 2024 Hepatitis A Vaccines Aged Out 02/18/2017 No long er eligible based on patient's age to complete this topic HIB Vaccines Aged Out No longer eligi ble based on patient's age to complete this topic HPV Vaccines Aged Out No longer eligi ble based on patient's age to complete this topic IPV Vaccines Aged Out No longer eligi ble based on patient's age to complete this topic MMR Vaccines Aged Out No longer eligi ble based on patient's age to complete this topic Meningococcal ACWY Vaccine Aged Out N o longer eligible based on patient's age to complete this topic Pneumococcal Vaccine: Pediat rics (0 to 5 Years) and At-Risk Patients (6 to 64 Years) Aged Out No longer eligi ble based on patient's age to complete this topic RSV Immunization Patients Un georgie 20 months Aged Out No longer eligible b ased on patient's age to complete this topic Varicella Vaccines Aged Out No longer eligible based on patient's age to complete this topic Care Teams Video Editing Internship Relationship Specialty Start Date End Date Joy Salgado MD [address] [place] [address] [address] [facility] [place] [address] PCP - General Internal Medicine 12/01/18
--- NOTE | 2024-06-07 14:48 | MHC.SHP ---
Pre-Procedural Eval Section A - 24 Hr Update-Section A only Date of Service: 06/07/24 The patient is an INPATIENT: No The patient has been examined within 24 hours of the surgical procedure. The History & Physical has been completed within 30 days and I have reviewed it.: Yes Section B - Complete if H&P > 30 days Chief Complaint: Intrinsic sphincter deficiency (ISD) Allergies: Allergies Allergy/AdvReac Type Severity Reaction Status Date / Time hazelnut [HAZELNUT] Allergy Intermediate ITCHING Verified 06/07/24 12:50 THROAT Plan Diagnosis/Plan: Unchanged I have reviewed the history and physical and performed a pertinent physical examination on my patient. No changes have occurred unless specified. Cystoscopy. Bulkamid urethral bulking Time Spent With Patient Time: Total time managing care of this patient today ____ minutes.
--- NOTE | 2024-06-07 17:03 | P.OP_ITS ---
Operative Note Operative Note Date of Service: 06/07/24 Narrative: Preop diagnosis: Intrinsic sphincter deficiency Postop diagnosis: Intrinsic sphincter deficiency Procedure: Cystoscopy urethral bulking with bulkamid system at the proximal urethra Surgeon: Dr. Marla Webster Details of procedure: The patient was brought into the operating room placed on the OR table in supine position IV sedation was administered. Antibiotics confirmed. The patient was placed in lithotomy position prepped and draped in the usual sterile fashion. Safety time-out was done. A 14 Togolese straight catheter was used to send urine for culture. 2% lidocaine jelly was inserted transurethrally 10 mL. Using the 0 degree 11 cm cystoscope with the light cord in the 6 o'clock position, the bladder was filled with sterile water to 150 mL the bladder was visualized. With the sheath at the 5 o'clock position the needle was inserted to the 1 cm chaparro and 0.5 mL of gel was injected there was good bulking noted. This was repeated on the 7 o'clock position. The 2nd needle was inserted into the sheath and an injection was done at the 2 o'clock position and again at the 11 o'clock position. a 3rd needle was used. There was bulking of the mucosa noted with good coaptation. The patient tolerated the procedure and was taken to recovery in stable condition. Complication: none Drains: none
[2024-06-07 17:10] VITALS: BP 105/65; PULSE 70; RESP 16; TEMP 36.2
[2024-06-07 17:15] VITALS: BP 97/55; PULSE 95; RESP 16; O2SAT 95
[2024-06-07] MEDS: Phenazopyridine HCL 200 MG TABLET PO (17:16)
[2024-06-07 17:20] VITALS: BP 112/69; PULSE 73; RESP 16; O2SAT 94
[2024-06-07 17:25] VITALS: BP 113/58; PULSE 72; RESP 20; O2SAT 96
[2024-06-07 17:40] VITALS: BP 131/80; PULSE 84; RESP 20; TEMP 36.4; O2SAT 96
== END 2024-06-07 17:42 | disposition home or self-care (01) ==
PROVIDERS: PCP Internal Medicine; Visit Provider Urology
PROC: 0TJB8ZZ Inspection of Bladder, Via Natural or Artificial Opening Endoscopic (ICD-10-PCS; CPT 52000; principal; 2024-06-07 14:00)
DX: N36.42 Intrinsic sphincter deficiency (ISD) (principal); N39.3 Stress incontinence (female) (male); E55.9 Vitamin D deficiency, unspecified; J30.9 Allergic rhinitis, unspecified; Z79.899 Other long term (current) drug therapy; Z91.018 Allergy to other foods; Z87.891 Personal history of nicotine dependence; Z56.0 Unemployment, unspecified
CPT/HCPCS: 51715; 87086; J0690; J2003; J2004; J2250; J2405; J2704; J3010; L8606

== ENCOUNTER → 2024-06-07 12:39 | Outpatient (BNV) | payer OTHER, SELFPAY | PROVIDERS: PCP Internal Medicine; Visit Provider Urology | DX: N36.42 Intrinsic sphincter deficiency (ISD) (principal) | CPT/HCPCS: 51715 ==

== ENCOUNTER → 2024-06-13 11:01 | Outpatient (BNVA) | payer OTHER, SELFPAY | PROVIDERS: PCP Internal Medicine; Visit Provider Urology | DX: N39.3 Stress incontinence (female) (male) (principal) | CPT/HCPCS: 51798 ==

== ENCOUNTER 2024-06-16 10:06 | Outpatient (AMB) | payer OTHER, SELFPAY ==
[2024-06-16 10:10] VITALS: BP 118/76; PULSE 68; O2SAT 97; BMI 30.5
--- NOTE | 2024-06-16 10:10 | MHC.PC.OV ---
Vital Signs 06/16/24 10:10 Height 5 ft 5 in Weight 183 lb 8 oz BMI 30.5 BP 118/76 Blood Pressure Location Lt brachial Position Sitting Pulse 68 Pulse Source Pulse Oximeter Pulse Oximetry (%) 97 Oxygen Delivery Method Room Air Intake Visit Reasons: 4 Months f/u Boom Worker Required: No Accompanied by: Self / Same As Patient Allergies hazelnut [HAZELNUT] Allergy (Intermediate, Verified 06/16/24 10:39) ITCHING THROAT Medication List - Last Reconciled 06/16/24 by MD marilia Sheriff As directed cholecalciferol (vitamin D3) (Vitamin D3) 25 mcg PO DAILY clotrimazole 1% 1 appl topical BID cyanocobalamin (vitamin B-12) 1,000 mcg PO DAILY diclofenac sodium 1% (Arthritis Pain (diclofenac)) 4 grams topical QID estradiol (Vagifem) 10 mcg vaginal 2XW ferrous sulfate (FeroSul) 325 mg PO DAILY loratadine 10 mg PO DAILY pantoprazole 40 mg PO DAILY phenazopyridine (Pyridium) 100 mg PO TID polyethylene glycol 3350 (Miralax) 17 grams PO DAILY 30 days sucralfate (Carafate) 10 mL PO BID terconazole 0.8% 1 appful vaginal BEDTIME 3 days tramadol 50 mg PO TID PRN 30 days vitamin A palmitate 7,500 mcg PO DAILY Tobacco use date assessed: 06/16/24 Dental Screening Dental Screen Date: 06/16/24 Did you have a dental visit in the last 12 months?: Yes Did you have a dental problem in the last 6 months where you did not have access to dental care?: No Was dental information given to patient?: Patient has dentist HPI 4 Months f/u HPI Details Patient comes in today for her follow up visit States that she still has frequent bouts of fatigue, especially when she feels cold She is on iron supplements for anemia but states that she sometimes runs out of this medication and ends up not taking her iron tablets for a while until she remembers to Adds that she has been experiencing alternating sensations of hot and cold, which she feels started a couple of years ago - is wondering if she is starting to go into menopause at this time She still has occasional heartburns but her medications, especially Carafate, help relieve her symptoms She had an upper endoscopy and colonoscopy done last year (09/02/2023) and gastric and GE junction biopsies done were negative for H pylori and dysplasia She denies any headaches or dizziness Denies any chest pains, no increased shortness of breath No nausea/vomiting, no abdominal pain No change in bowel habits noted Needs a few of her Rx refilled She would like to know how her labs done back in February 2024 came out [facility] Medical History Allergic rhinitis GERD without esophagitis Vitamin D deficiency Overweight (BMI 25.0-29.9) Excess skin Spontaneous ecchymoses Right hip pain Obesity (BMI 30-39.9) Pain in left toe(s) Bunion of great toe of left foot Post-traumatic osteoarthritis of right hip Primary osteoarthritis of both knees Arthritis Surgical History Hx of colonoscopy History of esophagogastroduodenoscopy (EGD) History of total right hip arthroplasty (~06/04/21) History of surgery History of bilateral breast reduction surgery History of hip surgery H/O gastric bypass History of laparoscopic cholecystectomy History of tubal ligation Family History Mother Ovarian cancer Diabetes Father HIV (human immunodeficiency virus infection) Maternal Grandmother Stomach cancer Maternal Grandfather Myocardial infarction Brother In good health Sister In good health Mental health disorder Son In good health Daughter In good health Social History Household Members: Family Household Members Other:: minor child Housing: Apartment Are you a primary plant care worker to a significant other at home: No Do you presently have visiting nurse or other home services: No Alcohol intake: current Alcohol intake frequency: does not drink Patient Tobacco Use Status: Former Tobacco user Tobacco use type: Cigarette e-Cigarette/Vaping Use: Never Used Second Hand Smoke Exposure: No Substance Use Type: Marijuana service: No Current occupational status: unemployed Gender identity: Female Cognitive needs: No Hearing needs: No Vision needs: No Female Reproductive History Menstrual Age of Menarche: 15 Questionnaire PHQ-9 Over the last 2 weeks, how often have you been bothered by any of the following problems? 1. Little interest or pleasure in doing things: nearly every day 2. Feeling down, depressed, or hopeless: several days 3. Trouble falling or staying asleep, or sleeping too much: several days 4. Feeling tired or having little energy: several days 5. Poor appetite or overeating: several days 6. Feeling bad about yourself - or that you are a failure or have let yourself or your family down: more than half the days 7. Trouble concentrating on things, such as reading the newspaper or watching television: not at all 8. Moving or speaking so slowly that other people could have noticed. Or the opposite - being so fidgety or restless that you have been moving around a lot more than usual: not at all 9. Thoughts that you would be better off or of hurting yourself in some way: not at all Total score: 9 Depression Screening Interpretation: Negative Depression Screening Done: Yes 11260 - PHQ-9 Billing: Yes Source: Developed by Drs. Rashel Oneil, Cassandra Alcazar, Raymon Joseph and colleagues, with an educational naman from [employer]. Thrive Questionnaire Date Thrive assessed: 06/16/24 I am a: Patient What is your living situation today?: I choose not to answer this question Within the past 12 months, did the food you bought not last and you didn't have the money to get more?: Never true Within the past 12 months, did you worry whether your food would run out before you got money to buy more?: Never true Do you have trouble paying for medicines?: No Do you have trouble getting transportation to medical appointments?: I choose not to answer this question Do you have trouble paying your heating and electricity bill?: I choose not to answer this question Do you have trouble taking care of your child, family member or friend?: I choose not to answer this question Do you have trouble with day-to-day activities such as bathing, preparing meals, shopping, managing finances, etc.?: No Are you currently unemployed and looking for a job?: I choose not to answer this question Are you interested in more education?: I choose not to answer this question Please select the resources that you would like help with: Childcare Currently or been in a relationship where the following occur: I choose not to answer THRIVE Score: 0 AUDIT C Alcohol Use Questionnaire (AUDIT-C) 1. How often do you have a drink containing alcohol?: Never 3. How often do you have six or more drinks on one occasion?: Never Total Score: 0 Score Reviewed/Action Taken: Yes ADRIAN-7 AMB Questionnaire ADRIAN-7 Date ADRIAN - 7 assessed: 06/16/24 Feeling nervous, anxious, or on edge: 1 = Several days Not being able to stop or control worryin = Not at all Worrying too much about different things: 1 = Several days Trouble relaxin = Several days Being so restless that it is hard to sit still: 1 = Several days Becoming easily annoyed or irritable: 1 = Several days Feeling afraid as if something awful might happen: 1 = Several days Total ADRIAN-7 score (0-4 normal; 5-9 mild; 10-14 moderate; 15-21 severe): 6 Source: Developed by Drs. Rashel Oneil, Cassandra Alcazar, Raymon Joseph and colleagues, with an educational naman from [employer]. Review of Systems Const Denies chills, Denies fatigue, Denies fever(s) and Denies headache(s) ENT Denies dysphagia, Denies dizziness, Denies otalgia, Denies headache(s), Denies neck pain, Denies odynophagia and Denies sore throat Card Denies chest pain, Denies irregular heart rhythm, Denies palpitations and Denies dyspnea Resp Denies chest congestion, Denies cough and Denies dyspnea GI Denies abdominal pain, Reports constipation (increased lately), Denies dysphagia, Reports heartburn (occasional), Denies diarrhea, Denies nausea, Denies odynophagia and Denies vomiting Reports as per HPI, Denies urinary frequency, Denies dysuria and Denies urinary urgency Musc Denies back pain, Reports arthralgias (in the right hip, right shoulder and right elbow) and Denies neck pain Skin/Breast Denies rash Neuro Denies dizziness, Denies headache(s) and Denies paresthesias Psych Denies anxiety and Denies depression Endo Denies fatigue and Denies palpitations Murali/Lymph Denies easy bruising Physical exam (Primary Care) Vital Signs: Last Vital Signs Pulse 68 06/16/24 10:10 BP 118/76 06/16/24 10:10 Pulse Ox 97 06/16/24 10:10 Oxygen Delivery Method Room Air 06/16/24 10:10 BMI result Body Mass Index 30.5 Tobacco/Smoking Status: Tobacco use Status Tobacco use date assessed 06/16/24 06/16/24 10:17 Patient Tobacco Use Status Former Tobacco user 06/16/24 10:17 Tobacco use type Cigarette 06/16/24 10:17 e-Cigarette/Vaping Use Never Used 06/16/24 10:17 PHQ-9: PHQ-9 Score PHQ-9: Total score 9 06/16/24 14:14 Depression Screening Interpretation: Negative Thrive Assessment: Date of Thrive Assessment Date Thrive assessed 06/16/24 06/16/24 10:17 Currently or been in a relationship where the following occur: I choose not to answer Const General: no acute distress and alert HENMT Ears: TM's normal bilaterally and EAC's normal Throat: Yes posterior oropharynx normal and Yes tonsils normal (no TP congestion) Neck Neck: Yes supple and No lymphadenopathy Thyroid: Thyroid normal Resp Auscultation: clear to auscultation bilaterally, no rales and no wheezes Cardio Rate: regular rate Rhythm: regular rhythm Heart sounds: no murmurs GI Palpation (GI): Soft to palpation and nontender Auscultation: normal bowel sounds General: Yes no CVA tenderness Back/Spine/Pelvis Back: no CVA tenderness Thoracic/Lumbar Spine: No lumbar spinal tenderness Skin Rashes: no rashes Extrem General: Yes no clubbing, cyanosis or edema Right lower extremity: hip/thigh Details: tenderness Location: of the hip Results Reviewed Results Reviewed: Laboratory Tests 02/29/24 02/29/24 08:40 08:42 WBC 4.6 L Hgb 10.7 L Hct 34.0 L Plt Count 273 Sodium 142 Potassium 4.2 Creatinine 0.63 Estimated GFR > 60 Fasting Glucose 96 Hemoglobin A1c % 5.3 Calcium 8.6 D Iron 21 L TIBC 317 % Saturation 7 L AST 20 ALT 14 Triglycerides 49 Cholesterol 164 LDL Cholesterol, Calc 69 HDL Cholesterol 86 Vitamin B12 317 25-OH Vitamin D Total 23.8 L TSH 0.96 Ur Specific Dex[place] 1.025 Urine Protein Negative Urine Glucose (UA) Negative Urine Blood Negative Urine Nitrite Negative Ur Leukocyte Esterase Negative Coding Level of Care Code Est Pt Level 4 (39952) Diagnoses Anemia, unspecified type D64.9 Anemia type: unspecified type Post-traumatic osteoarthritis of right hip M16.51 Primary osteoarthritis of both knees M17.0 Constipation, unspecified constipation type K59.00 Constipation type: unspecified constipation type Vitamin D deficiency E55.9 GERD without esophagitis K21.9 Allergic rhinitis, unspecified seasonality, unspecified trigger J30.9 Allergic rhinitis trigger: unspecified Allergic rhinitis seasonality: unspecified Urinary incontinence, unspecified type R32 Urinary Incontinence type: unspecified incontinence Obesity (BMI 30-39.9) E66.9 Additional Codes PHQ-9 - 39886 - PHQ-9 Billing: Yes ([id number]) Assessment & Plan Assessment & Plan (1) Anemia: Code(s): D64.9 - Anemia, unspecified Category: Medical Qualifiers: Anemia type: unspecified type Qualified Code(s): D64.9 - Anemia, unspecified Plan: Her H/H have dropped again to 10.7/34.0 on her labs done back in February 2024 Continue Ferrous sulfate 325 mg QD Will continue to monitor her CBC regularly (2) Post-traumatic osteoarthritis of right hip: Comment: S/P right hip fracture (at 15 y/o) that required surgical repair and pinning Code(s): M16.51 - Unilateral post-traumatic osteoarthritis, right hip Category: Medical Plan: (+) Hx of right hip surgery - total right hip arthroplasty X-rays of her right hip in 01/2023 came out okay - (+) right hip arthroplasty in unchanged anatomic alignment. Perihardware lucency adjacent to the distal aspect of the femoral component measuring up to 0.3 cm which may represent the postsurgical result or indicate early loosening Repeat x-rays done in February 2024 revealed similar findings; the minimal periprostatic lucency along the distal tip of the femur appears stable and likely reflects postsurgical result rather than a focal osteolysis Continue topical Diclofenac 1% QID PRN and Tramadol 50 mg TID PRN for pain (3) Primary osteoarthritis of both knees: Code(s): M17.0 - Bilateral primary osteoarthritis of knee Category: Medical Plan: Continue topical Diclofenac 1% QID PRN and Tramadol 50 mg TID PRN for pain Follow up with orthopedics and rheumatology as scheduled (4) Constipation: Code(s): K59.00 - Constipation, unspecified Category: Medical Qualifiers: Constipation type: unspecified constipation type Qualified Code(s): K59.00 - Constipation, unspecified Plan: She is again encouraged on increased oral fluids and dietary fiber Have advised patient that her iron tablets may be contributing to her constipation Continue Miralax 17 gm QD (5) Vitamin D deficiency: Code(s): E55.9 - Vitamin D deficiency, unspecified Category: Medical Plan: Continue Vitamin D3 1000 units QD (6) GERD without esophagitis: Code(s): K21.9 - Gastro-esophageal reflux disease without esophagitis Category: Medical Plan: Dietary restrictions reinforced Continue Pantoprazole 40 mg QD (7) Allergic rhinitis: Code(s): J30.9 - Allergic rhinitis, unspecified Category: Medical Qualifiers: Allergic rhinitis trigger: unspecified Allergic rhinitis seasonality: unspecified Qualified Code(s): J30.9 - Allergic rhinitis, unspecified Plan: Continue Loratadine 10 mg QD PRN (8) Urinary incontinence: Code(s): R32 - Unspecified urinary incontinence Category: Medical Qualifiers: Urinary Incontinence type: unspecified incontinence Qualified Code(s): R32 - Unspecified urinary incontinence Plan: Follow up with urology as scheduled (9) Obesity (BMI 30-39.9): Code(s): E66.9 - Obesity, unspecified Category: Medical Plan: S/P bariatric surgery (gastric bypass) back on 07/10/2016 Reinforced diet/exercise as tolerated/lose weight Follow up with weight management as scheduled Plan Follow up in 4 months Orders: Orders Complete Blood Count Auto Diff 4 Months D64.9 - Anemia, unspecified Comprehensive Angora. Panel Fast 4 Months E78.00 - Pure hypercholesterolemia, unspecified Lipid Panel 4 Months E78.00 - Pure hypercholesterolemia, unspecified UA CC w/rflx Micro + Cult 4 Months R30.0 - Dysuria Vitamin B12 and Folate 4 Months E53.8 - Deficiency of other specified B group vitamins TSH reflex Free T4 4 Months E78.00 - Pure hypercholesterolemia, unspecified Erythrocyte Sedimentation Rate 4 Months M79.7 - Fibromyalgia Vitamin D 25-OH Total 4 Months E55.9 - Vitamin D deficiency, unspecified Medications: Changed From cholecalciferol (vitamin D3) (Vitamin D3) 25 mcg PO DAILY 30 caps 11RF To cholecalciferol (vitamin D3) 50 mcg PO DAILY 90 days 90 caps 3RF From ferrous sulfate (FeroSul) 325 mg PO DAILY 30 tabs 11RF To ferrous sulfate (FeroSul) 325 mg PO DAILY 90 days 90 tabs 3RF Refilled sucralfate (Carafate) 10 mL PO BID 414 mL 3RF
--- OUTSIDE RECORDS SUMMARY | 2024-06-16 13:17 | XMS_ITS | Clinical Summary ---
Author Organization [employer] [facility] Address [address] [place] [address] Care Team Providers Care Supervisor Detasseling Crew Name Role Phone Joy Salgado MD Primary Care Provider [phone] Surgical History Surgery Date Site/Laterality Comments GASTRIC BYPASS 06/2016 PROCEDURE: GASTRIC BYPASS FOR OBESIT; COMMENT: [facility] CHOLECYSTECTOMY 04/2016 PROCEDURE: [place] LAPAROSCOPY SURG CHOLECYSTECTOMY; COMMENT: [facility] OTHER SURGICAL HISTORY 06/2014 PROCEDURE: [place] LIG/TRNSXJ FLP TUBE ABDL/VAG APPR UNI/BI; COMMENT: [facility] BREAST REDUCTION 2004 PROCEDURE: [place] BREAST REDUCTION; COMMENT: [facility] Medical History Medical History Date Comments [...] age to complete this topic Care Teams Supervisor Detasseling Crew Relationship Specialty Start Date End Date Joy Salgado MD [address] [place] [address] [address] [facility] [place] [address] PCP - General Internal Medicine 12/01/18
== END 2024-06-16 10:49 | disposition home or self-care (01) ==
PROVIDERS: PCP Internal Medicine; Visit Provider Internal Medicine
DX: D64.9 Anemia, unspecified (principal); M16.51 Unilateral post-traumatic osteoarthritis, right hip; E66.9 Obesity, unspecified; Z68.30 Body mass index [BMI] 30.0-30.9, adult; M17.0 Bilateral primary osteoarthritis of knee; K59.00 Constipation, unspecified; E55.9 Vitamin D deficiency, unspecified; K21.9 Gastro-esophageal reflux disease without esophagitis; J30.9 Allergic rhinitis, unspecified; R32 Unspecified urinary incontinence

== ENCOUNTER → 2024-06-16 10:06 | Outpatient (BNVA) | payer OTHER, SELFPAY | PROVIDERS: PCP Internal Medicine; Visit Provider Internal Medicine | DX: D64.9 Anemia, unspecified (principal); M16.51 Unilateral post-traumatic osteoarthritis, right hip; M17.0 Bilateral primary osteoarthritis of knee; K59.00 Constipation, unspecified; E55.9 Vitamin D deficiency, unspecified; K21.9 Gastro-esophageal reflux disease without esophagitis; J30.9 Allergic rhinitis, unspecified; R32 Unspecified urinary incontinence; E66.9 Obesity, unspecified | CPT/HCPCS: 96127; 99212 ==

== ENCOUNTER 2024-07-07 13:19 | Outpatient (AMB) | payer OTHER, SELFPAY ==
--- NOTE | 2024-07-07 13:22 | A.OFFVIS_ITS ---
Intake Visit Reasons: Bulkamid- follow up Intake Note: Patient presents today for follow up on: Bulkamid Urology Med: Estradiol Antibiotic Allergy: None Blood Thinner: None PVR: 0ml's Sausage Canner Required: No Accompanied by: Self / Same As Patient Allergies hazelnut [HAZELNUT] Allergy (Intermediate, Verified 07/07/24 13:42) ITCHING THROAT Medication List - Last Reconciled 07/07/24 by MD marilia Medrano As directed cholecalciferol (vitamin D3) 50 mcg PO DAILY 90 days clotrimazole 1% 1 appl topical BID cyanocobalamin (vitamin B-12) 1,000 mcg PO DAILY diclofenac sodium 1% (Arthritis Pain (diclofenac)) 4 grams topical QID estradiol (Vagifem) 10 mcg vaginal 2XW ferrous sulfate (FeroSul) 325 mg PO DAILY 90 days loratadine 10 mg PO DAILY pantoprazole 40 mg PO DAILY polyethylene glycol 3350 (Miralax) 17 grams PO DAILY 30 days sucralfate (Carafate) 10 mL PO BID tramadol 50 mg PO TID PRN 30 days vitamin A palmitate 7,500 mcg PO DAILY HPI Comments Details: 07/07/24--Meghna is status post of bulkamid urethral injection on 06/07/24 for stress urinary incontinence, intrinsic sphincter deficiency. She states she is doing great, no leakage with cough. UA - negative. FU in 10 months. Cont Estrace cream. 05/06/2024--here for urodynamics. Meghna is a 49-year-old female with complaints of urinary incontinence. Interpretation: During the filling phase there was normal sensation, strong urge was noted at 415 mL, the patient felt that she was at capacity at 433 mL. Leakage was observed during cough and valsalva stress. Findings consistent with ISD, EMG- Appropriate changes in the waveforms were noted through out the study. I discussed treatment options to include urethral bulking and sling procedures, risks include but are not limited to urinary retention, infection, bleeding, need for another procedure, mesh erosion, urgency. 11/05/2023--Meghna is a 48-year-old female who states she has had urinary incontinence which is worsening over the last year. She leaks with coughing and sneezing she also has urgency. She has had recurrent UTIs in the past. In further discussion she does admit to vaginal dryness and irregular menstrual cycle. Urinalysis is nitrite positive. I will empirically start Levaquin 500 mg daily pending urine culture. Schedule renal bladder ultrasound. Discussed Vagifem twice a week. Will refer to transition mgr rn regarding irregular menstrual cycle. [facility] Medical History Allergic rhinitis GERD without esophagitis Vitamin D deficiency Overweight (BMI 25.0-29.9) Excess skin Spontaneous ecchymoses Right hip pain Obesity (BMI 30-39.9) Pain in left toe(s) Bunion of great toe of left foot Post-traumatic osteoarthritis of right hip Primary osteoarthritis of both knees Arthritis Surgical History Hx of colonoscopy History of esophagogastroduodenoscopy (EGD) History of total right hip arthroplasty (~06/04/21) History of surgery History of bilateral breast reduction surgery History of hip surgery H/O gastric bypass History of laparoscopic cholecystectomy History of tubal ligation Family History Mother Ovarian cancer Diabetes Father HIV (human immunodeficiency virus infection) Maternal Grandmother Stomach cancer Maternal Grandfather Myocardial infarction Brother In good health Sister In good health Mental health disorder Son In good health Daughter In good health Social History Household Members: Family Household Members Other:: minor child Housing: Apartment Are you a primary childcare aide to a significant other at home: No Do you presently have visiting nurse or other home services: No Alcohol intake: current Alcohol intake frequency: does not drink Patient Tobacco Use Status: Former Tobacco user Tobacco use type: Cigarette e-Cigarette/Vaping Use: Never Used Second Hand Smoke Exposure: No Substance Use Type: Marijuana service: No Current occupational status: unemployed Gender identity: Female Cognitive needs: No Hearing needs: No Vision needs: No Female Reproductive History Menstrual Age of Menarche: 15 Review of Systems Const All systems reviewed & are unremarkable except as noted in HPI and below Reports no additional complaints Eyes Reports no additional complaints ENT Reports no additional complaints Card Reports no additional complaints Resp Reports no additional complaints GI Reports no additional complaints Reports as per HPI Musc Reports no additional complaints Skin/Breast Reports system reviewed and no additional complaints, except as documented Neuro Reports no additional complaints Psych Reports no additional complaints Endo Reports no additional complaints Murali/Lymph Reports no additional complaints Aller/Immun Reports no additional complaints Office Procedures Post Void Residual Post Residual Void Post Void Residual (PVR): 0 13974-Cfmq Void Residual by ultrasound Results AMB Urinalysis, Automated UA Leukoctes 0 Qing/uL Last Edit by [employer] on 07/07/24 13:45 UA Nitrite Last Edit by [employer] on 07/07/24 13:45 UA Urobilinogen 0.2 mg/dL Last Edit by [employer] on 07/07/24 13:45 UA Protein 15 mg/dL Last Edit by [employer] on 07/07/24 13:45 UA pH 6.0 Last Edit by [employer] on 07/07/24 13:45 UA Blood 0 Adelso/uL Last Edit by [employer] on 07/07/24 13:45 UA Specific [place] 1.025 Last Edit by [employer] on 07/07/24 13:45 UA Ketone Last Edit by [employer] on 07/07/24 13:45 UA Bilirubin 0 mg/dL Last Edit by [employer] on 07/07/24 13:45 UA Glucose 0 mg/dL Last Edit by [employer] on 07/07/24 13:45 Assessment & Plan Assessment & Plan (1) Intrinsic sphincter deficiency (ISD): Code(s): N36.42 - Intrinsic sphincter deficiency (ISD) Category: Medical (2) MARIAH (stress urinary incontinence, female): Code(s): N39.3 - Stress incontinence (female) (male) Category: Medical Plan She states she is doing great, no leakage with cough. UA - negative. FU in 10 months. Cont Estrace cream. Orders: Orders AMB Urinalysis Automated Today Z13.9 - Encounter for screening, unspecified AMB Post Void Residual by ultrasound Today N39.3 - Stress incontinence (female) (male) Patient Instructions: The patient had an opportunity to ask questions regarding treatment plan. The patient expressed understanding and agreement with the above treatment plan. The patient is aware they should contact our office by phone for worsening of their current condition or the appearance of new symptoms. Compliance is encouraged with any medications and followup testing that is ordered. It is a privilege to be allowed the opportunity to participate in the urologic care of your patient. If you have any questions or concerns regarding treatment for the above conditions please do not hesitate to contact me. The office telephone contact is [phone]. This note is constructed in part using voice recognition software. While every effort has been made to ensure accuracy newspaper library manager errors may have been included. Yours sincerely, Marla Webster MD Coding Level of Care Code Est Pt Level 3 (40056) Diagnoses Intrinsic sphincter deficiency (ISD) N36.42 MARIAH (stress urinary incontinence, female) N39.3 CPT Codes Post Residual Void - PVR CPT Code: 06603-Wwqq Void Residual by ultrasound ([id number])
--- OUTSIDE RECORDS SUMMARY | 2024-07-07 14:12 | XMS_ITS | Clinical Summary ---
Author Organization Structure [facility] Address [address] [place] [address] Care Team Providers Care Enterprise Architect Manager Name Role Phone Joy Salgado MD Primary Care Provider [phone] Surgical History Surgery Date Site/Laterality Comments GASTRIC BYPASS 06/2016 PROCEDURE: GASTRIC BYPASS FOR OBESIT; COMMENT: [facility] CHOLECYSTECTOMY 04/2016 PROCEDURE: [place] LAPAROSCOPY SURG CHOLECYSTECTOMY; COMMENT: [facility] OTHER SURGICAL HISTORY 06/2014 PROCEDURE: [place] LIG/TRNSXJ FLP TUBE ABDL/VAG APPR UNI/BI; COMMENT: [facility] BREAST REDUCTION 2004 PROCEDURE: [place] BREAST REDUCTION; COMMENT: [facility] Medical History Medical History Date Comments Anxiety [...] drink = 0.6 oz pur e alcohol) Comments Unknown Sex and Gender Information Value Date Recorded Sex Assigned at Not on file Legal Sex Female 5:20 AM EST Gender Identity Not on file Sexual Orientation [...] Influencers of Health Screening 04/20/2022 COVID-19 Vaccine ( - 2023-2 5 season) 2024 Influenza Vaccine [...] patient's age to complete this topic Meningococcal B Vacine Aged Out No lo nger eligible based on patient's age to complete [...] age to complete this topic Care Teams Enterprise Architect Manager Relationship Specialty Start Date End Date Joy Salgado MD [address] [place] [address] [address] [facility] [place] [address] PCP - General Internal Medicine 12/01/18
== END 2024-07-07 13:49 | disposition home or self-care (01) ==
PROVIDERS: PCP Internal Medicine; Visit Provider Urology
DX: N36.42 Intrinsic sphincter deficiency (ISD) (principal); N39.3 Stress incontinence (female) (male); Z13.9 Encounter for screening, unspecified
CPT/HCPCS: 99213

== ENCOUNTER → 2024-07-07 13:19 | Outpatient (BNVA) | payer OTHER, SELFPAY | PROVIDERS: PCP Internal Medicine; Visit Provider Urology | DX: N36.42 Intrinsic sphincter deficiency (ISD) (principal); N39.3 Stress incontinence (female) (male) | CPT/HCPCS: 51798; 81003; 99212 ==

== ENCOUNTER 2024-08-07 08:56 | Emergency (ER) | payer OTHER, SELFPAY ==
--- NOTE | ~2024-08-07 | XR_ITS ---
CLINICAL HISTORY: pain Exam: AP pelvis with AP and frog-leg lateral views of the right hip. Comparison: February 29, 2024. Findings: Right total hip arthroplasty is unchanged in position and alignment compared to prior study. No fracture. Lucency adjacent to the tip of the femoral stem prosthesis is unchanged. Moderate degenerative change of the right-sided sacroiliac joint. Impression: Unchanged right hip arthroplasty. This document has been electronically signed by: Erik Oliva MD on 08/07/2024 11:08:23
--- NOTE | ~2024-08-07 | US_ITS ---
CLINICAL HISTORY: RT LEG PAIN, ? DVT Venous duplex ultrasound right lower extremity Comparison: None Findings: The visualized deep veins are fully compressible with normal Doppler color flow and spectral tracings. No popliteal cyst. IMPRESSION: 1. Negative for right lower extremity deep vein thrombosis. This document has been electronically signed by: Erik Oliva MD on 08/07/2024 11:24:20
[2024-08-07 09:06] VITALS: BP 159/66; PULSE 71; RESP 16; TEMP 36.2; O2SAT 100; BMI 30.8
--- NOTE | 2024-08-07 09:54 | PC.NURSE ---
Patient reports right hip pain x 2 weeks. Pain starts in the right hip/lower lumber and radiate down the right leg. Reports numbness and tingling in leg. Hx of right hip [place] [facility] Describes the pain as a constant sharp stabbing sensation. Denies falls, injury or trauma to hip. Bruise noted to medical aspect of right lower leg , patient states the bruise just appeared out of nowhere. Denies pain with urination but reports occasional nausea and vomiting. has tried to take tylenol, tramadol, and percocet without any relief in pain
--- NOTE | 2024-08-07 10:18 | ED.GENADULT ---
HPI - General Adult General Chief complaint: Extremity Injury, Lower Stated complaint: hip pain for 2 wks hx of past surgery Time Seen by Provider: 08/07/24 09:53 Source: patient Mode of arrival: ambulatory Limitations: no limitations History of Present Illness HPI narrative: This is a 49 years old the patient presented to the emergency room ambulatory with a chief complaint of right hip pain radiating to the lower extremity. Pain he has been going on for about a week. She is on tramadol she states the tramadol is not helping in the pain Onset (ago): week(s) (1) Location: lower extremity (right) Severity: moderate Quality: aching Pain Consistency: constant Relieving factors: none Exacerbating factors: none Associated symptoms: denies other symptoms Related Data Previous Rx's ?Medication ?Instructions ?Recorded cane #1 ea 12/07/20 clotrimazole 1 % topical cream 1 appl topical BID #45 grams 08/25/23 cyanocobalamin (vitamin B-12) 1,000 mcg PO DAILY #30 tabs 08/25/23 1,000 mcg tablet loratadine 10 mg tablet 10 mg PO DAILY #30 tabs 08/25/23 vitamin A palmitate 7,500 mcg 7,500 mcg PO DAILY #30 caps 08/25/23 (25,000 unit) capsule diclofenac sodium 1 % topical gel 4 g topical QID #100 grams 10/26/23 (Arthritis Pain (diclofenac)) polyethylene glycol 3350 17 17 g PO DAILY 30 days #510 grams 02/10/24 gram/dose oral powder (Miralax) pantoprazole 40 mg tablet,delayed 40 mg PO DAILY #90 tabs 04/13/24 release cholecalciferol (vitamin D3) 50 50 mcg PO DAILY 90 days #90 caps 06/16/24 mcg (2,000 unit) capsule ferrous sulfate 325 mg (65 mg 325 mg PO DAILY 90 days #90 tabs 06/16/24 iron) tablet (FeroSul) sucralfate 100 mg/mL oral 10 ml PO BID #414 mL 06/16/24 suspension (Carafate) estradiol 10 mcg vaginal tablet 10 mcg vaginal 2XW #8 tabs 06/29/24 (Vagifem) tramadol 50 mg tablet 50 mg PO TID PRN pain 30 days #90 07/21/24 tabs oxycodone 5 mg tablet 5 mg PO Q6H PRN pain #15 tabs 08/07/24 Allergies Allergy/AdvReac Type Severity Reaction Status Date / Time hazelnut [HAZELNUT] Allergy Intermediate ITCHING Verified 08/07/24 09:09 THROAT Review of Systems Constitutional: Constitutional: Reports no additional constitutional complaints Cardiovascular: Cardiovascular: Reports no additional cardiovascular complaints [facility] Past Medical History Attestation statement: The following information was validated with the patient. Medical History Allergic rhinitis GERD without esophagitis Vitamin D deficiency Overweight (BMI 25.0-29.9) Excess skin Spontaneous ecchymoses Right hip pain Obesity (BMI 30-39.9) Pain in left toe(s) Bunion of great toe of left foot Post-traumatic osteoarthritis of right hip Primary osteoarthritis of both knees Arthritis Surgical History Hx of colonoscopy History of esophagogastroduodenoscopy (EGD) History of total right hip arthroplasty (~06/04/21) History of surgery History of bilateral breast reduction surgery History of hip surgery H/O gastric bypass History of laparoscopic cholecystectomy History of tubal ligation Family History Family History Mother Ovarian cancer Diabetes Father HIV (human immunodeficiency virus infection) Maternal Grandmother Stomach cancer Maternal Grandfather Myocardial infarction Brother In good health Sister In good health Mental health disorder Son In good health Daughter In good health Social History Social History Household Members: Family Household Members Other:: minor child Housing: Apartment Are you a primary student career development specialist to a significant other at home: No Do you presently have visiting nurse or other home services: No Alcohol intake: current Alcohol intake frequency: a few times a month Patient Tobacco Use Status: Former Tobacco user Tobacco use type: Cigarette Smoked in Last 30 Days: No e-Cigarette/Vaping Use: Never Used Second Hand Smoke Exposure: No Use of substances other than those prescribed or required for medical reasons: No Substance Use Type: Marijuana Advance Directives: No Advance Directives Information Provided: Yes service: No Current occupational status: unemployed Gender identity: Female Cognitive needs: No Hearing needs: No Vision needs: No Physical Exam ED Vital Signs: Vital Signs - 24 hr 08/07/24 09:06 08/07/24 11:09 08/07/24 12:00 Temperature 97.2 F 97.6 F 97.6 F Pulse Rate 71 62 72 Respiratory Rate 16 20 18 Blood Pressure 159/66 H 134/84 135/80 Pulse Oximetry 100 100 97 Oxygen Delivery Method Room Air Room Air Room Air BMI result Body Mass Index 30.8 She looks well not toxic appearing comfortable in the stretcher Const General: cooperative Nutritional Appearance: average body habitus Orientation/consciousness: patient oriented x3 HENMT Head: Yes normal to inspection General nose exam: Normal external nose present Face and sinus: Yes normal facial exam Neck Neck: Yes normal visual inspection Chest Chest palpation & inspection: normal inspection of the chest Resp Effort & Inspection: normal respiratory effort Cardio Jugular venous distension: no JVD Rate: regular rate Rhythm: regular rhythm GI Inspection: Yes normal to inspection Palpation (GI): Soft to palpation Auscultation: normal bowel sounds Skin General skin exam: no rashes or lesions noted Lesions: no lesions Rashes: no rashes Trauma: no lacerations or abrasions Neuro General: patient oriented x3 Cranial nerves: Yes CN's II-XII intact bilaterally Extrem Other: Tenderness in the right hip tenderness in the right calf pedal pulses are present both posterior tibialis and dorsalis pedis Course Reevaluation(s) Reevaluation #1: Patient workup is negative ultrasound negative for DVT good perfusion of the right lower extremity x-ray of the hip normal I think she can be discharged home she will follow-up with the ortho Time: 11:59 Medical Decision Making Medical Decision Making [facility] Narrative: Patient is here with right hip pain right lower extremity pain we will obtain x-ray and ultrasound Differential Diagnosis Differential Diagnoses: The differential diagnosis associated with the presentation includes DVT/hip fracture dislocation Admission/Observation Consideration of admission/observation: Escalation of care including admission/observation considered Independent Interpretation I performed an independent interpretation of an: Plain X-Ray and Ultrasound Interpretation: I reviewed interpreted the x-ray as no fracture no dislocation Radiology Impression Discussion of test interpretation with radiology: I have reviewed the radiologist's reading. External Record Review External record reviewed: Inpatient record Prescription Management I considered prescription management with: Pain Medication Discharge Plan Discharge Clinical Impression: Leg pain, right Patient Disposition: Home, Self-Care Instructions: Leg Pain (ED) Additional Instructions: Follow-up with your orthopedist call and make an appointment,return if worse Prescriptions: New oxycodone 5 mg tablet 5 mg PO Q6H PRN (Reason: pain) Qty: 15 0RF Rx Instructions: partial filing upon pt request; Partial Fill upon patient request. No Action (DME) cane Device See Rx Instructions .ROUTE .MEDSUPPLY Qty: 1 0RF Rx Instructions: As directed diclofenac sodium [Arthritis Pain (diclofenac)] 1 % gel 4 g topical QID Qty: 100 0RF Rx Instructions: apply to single knee, ankle, foot; for foot includes sole/toes/top of foot pantoprazole 40 mg tablet,delayed release (DR/EC) 40 mg PO DAILY Qty: 90 3RF estradiol [Vagifem] 10 mcg tablet 10 mcg vaginal 2XW Qty: 8 3RF Rx Instructions: insert vaginally at bedtime twice a week Mon and Thurs tramadol 50 mg tablet 50 mg PO TID PRN (Reason: pain) 30 Days Qty: 90 0RF clotrimazole 1 % cream 1 appl topical BID Qty: 45 3RF vitamin A palmitate 7,500 mcg (25,000 unit) capsule 7,500 mcg PO DAILY Qty: 30 11RF cyanocobalamin (vitamin B-12) 1,000 mcg tablet 1,000 mcg PO DAILY Qty: 30 11RF loratadine 10 mg tablet 10 mg PO DAILY Qty: 30 0RF polyethylene glycol 3350 [Miralax] 17 gram/dose powder 17 g PO DAILY 30 Days Qty: 510 3RF cholecalciferol (vitamin D3) 50 mcg (2,000 unit) capsule 50 mcg PO DAILY 90 Days Qty: 90 3RF ferrous sulfate [FeroSul] 325 mg (65 mg iron) tablet 325 mg PO DAILY 90 Days Qty: 90 3RF sucralfate [Carafate] 100 mg/mL suspension 10 ml PO BID Qty: 414 3RF Referrals: Syed Sen MD [Physician] - 3 days Discharge Date/Time: 08/07/24 12:20 Print Language: Mongolian
[2024-08-07 11:09] VITALS: BP 134/84; PULSE 62; RESP 20; TEMP 36.4; O2SAT 100
--- NOTE | 2024-08-07 11:10 | PC.NURSE ---
Report received from ERNIE Arreguin. Taken over care at this time.
[2024-08-07 12:00] VITALS: BP 135/80; PULSE 72; RESP 18; TEMP 36.4; O2SAT 97
== END 2024-08-07 12:20 | disposition home or self-care (01) ==
PROVIDERS: Emergency Provider Emergency Medicine; PCP Internal Medicine
DX: M25.551 Pain in right hip (principal); M79.604 Pain in right leg
CPT/HCPCS: 73502; 93971; 99284

== ENCOUNTER → 2024-08-07 10:17 | Outpatient (BNV) | payer OTHER, SELFPAY | PROVIDERS: Emergency Provider Emergency Medicine; PCP Internal Medicine; Visit Provider Radiology Diagnostic Radiology | DX: M79.604 Pain in right leg (principal); M25.551 Pain in right hip | CPT/HCPCS: 73502; 93971 ==

== ENCOUNTER 2024-08-22 15:14 | Outpatient (AMB) | payer OTHER, SELFPAY ==
--- NOTE | 2024-08-22 15:20 | A.OFFPC_ITS ---
Vital Signs 08/22/24 15:21 Height 5 ft 6 in Weight 190 lb 2 oz BMI 30.7 BP 120/80 Blood Pressure Location Lt brachial Position Sitting Pulse 84 Pulse Source Pulse Oximeter Temp 97.5 F Temp Source Temporal Artery Scan Pulse Oximetry (%) 93 Oxygen Delivery Method Room Air Intake Visit Reasons: muscle spasm on her leg Intake Note: Patient is here to follow up on muscle spasm in her right leg. Switchboard Operator Helper Required: No Supervisor Bindery: Not Required per policy Accompanied by: Self / Same As Patient Allergies hazelnut [HAZELNUT] Allergy (Intermediate, Verified 08/22/24 15:29) ITCHING THROAT Medication List - Last Reconciled 08/22/24 by ALEJADNRA Mckeon As directed cholecalciferol (vitamin D3) 50 mcg PO DAILY 90 days clotrimazole 1% 1 appl topical BID cyanocobalamin (vitamin B-12) 1,000 mcg PO DAILY diclofenac sodium 1% (Arthritis Pain (diclofenac)) 4 grams topical QID estradiol (Vagifem) 10 mcg vaginal 2XW ferrous sulfate (FeroSul) 325 mg PO DAILY 90 days loratadine 10 mg PO DAILY pantoprazole 40 mg PO DAILY polyethylene glycol 3350 (Miralax) 17 grams PO DAILY 30 days sucralfate (Carafate) 10 mL PO BID tramadol 50 mg PO TID PRN 30 days vitamin A palmitate 7,500 mcg PO DAILY Tobacco use date assessed: 08/22/24 Dental Screening Dental Screen Date: 06/16/24 HPI muscle spasm on her leg HPI Details The patient is a 49-year-old female representing with pain in her right calf, right ankle, and right hip area The patient went to the emergency room with complaints of right hip pain radiating to the lower right extremity and was referred to orthopedics The patient was started on oxycodone 5 mg q.6 hours p.r.n. In office the patient reports that her pain started from her calf area and radiated upwards into her hip. Discussed with the patient that the radiculopathy usually goes down the leg instead of up the leg The patient reports that the pain feels like a cramp or shooting pain down her lower extremity. DVT was ruled out in the emergency room. Reports that she has an appointment next week with ortho. The patient reports that her lower extremity feels lumpy. The patient does have some superficial suspicious veins that could be varicose in nature. Discussed with the patient that since she is going to Orthopedics next week, we will hold off on referring her to vascular. We will wait to see Orthopedics recommendation. We will start the patient on gabapentin 100 mg t.i.d. and cyclobenzaprine 10 mg at [facility] Medical History Allergic rhinitis GERD without esophagitis Vitamin D deficiency Overweight (BMI 25.0-29.9) Excess skin Spontaneous ecchymoses Right hip pain Obesity (BMI 30-39.9) Pain in left toe(s) Bunion of great toe of left foot Post-traumatic osteoarthritis of right hip Primary osteoarthritis of both knees Arthritis Surgical History Hx of colonoscopy History of esophagogastroduodenoscopy (EGD) History of total right hip arthroplasty (~06/04/21) History of surgery History of bilateral breast reduction surgery History of hip surgery H/O gastric bypass History of laparoscopic cholecystectomy History of tubal ligation Family History Mother Ovarian cancer Diabetes Father HIV (human immunodeficiency virus infection) Maternal Grandmother Stomach cancer Maternal Grandfather Myocardial infarction Brother In good health Sister In good health Mental health disorder Son In good health Daughter In good health Social History Household Members: Family Household Members Other:: minor child Housing: Apartment Are you a primary childcare aide to a significant other at home: No Do you presently have visiting nurse or other home services: No Alcohol intake: current Alcohol intake frequency: a few times a month Patient Tobacco Use Status: Former Tobacco user Tobacco use type: Cigarette e-Cigarette/Vaping Use: Never Used Second Hand Smoke Exposure: Yes Substance Use Type: Marijuana service: No Current occupational status: unemployed Gender identity: Female Cognitive needs: No Hearing needs: No Vision needs: No Female Reproductive History Menstrual Age of Menarche: 15 Questionnaire Thrive Questionnaire Date Thrive assessed: 06/16/24 ADRIAN-7 AMB Questionnaire ADRIAN-7 Date ADRIAN - 7 assessed: 06/16/24 Source: Developed by Drs. Rashel Oneil, Cassandra Alcazar, Raymon Joseph and colleagues, with an educational naman from [employer]. Review of Systems ENT Denies sore throat Card Denies chest pain, Denies leg edema and Denies lightheadedness Resp Denies cough and Denies hemoptysis GI Denies abdominal pain, Denies melena, Denies constipation, Denies diarrhea and Denies vomiting Denies urinary frequency, Denies dysuria and Denies urinary urgency Musc Reports back pain (Right side of back), Reports arthralgias (Right hip), Denies joint swelling, Reports muscle cramps (Right calf), Denies muscle weakness, Reports radiating pain into limb and Denies stiffness Neuro Denies Abnormal speech present Physical exam (Primary Care) Vital Signs: Last Vital Signs Temp 97.5 F 08/22/24 15:21 Pulse 84 08/22/24 15:21 BP 120/80 08/22/24 15:21 Pulse Ox 93 08/22/24 15:21 Oxygen Delivery Method Room Air 08/22/24 15:21 BMI result Body Mass Index 30.7 Tobacco/Smoking Status: Tobacco use Status Tobacco use date assessed 08/22/24 08/22/24 15:26 Patient Tobacco Use Status Former Tobacco user 08/22/24 15:26 Tobacco use type Cigarette 08/22/24 15:26 e-Cigarette/Vaping Use Never Used 08/22/24 15:26 Thrive Assessment: Date of Thrive Assessment Date Thrive assessed 06/16/24 08/22/24 15:26 Const General: healthy appearing, no acute distress, alert and awake Nutritional Appearance: well nourished Orientation/consciousness: oriented to person, oriented to place and oriented to time [facility] Ears: external ears normal General nose exam: Normal external nose present Eyes Conjunctivae: conjunctivae normal Sclerae: sclerae normal Pupils: Equal, round and reactive pupils present Neck Neck: Yes no lymphadenopathy and Yes no JVD Thyroid: Thyroid normal Carotids: no bruits Resp Effort & Inspection: normal respiratory effort and not tachypneic Auscultation: no crackles, no rales, no rhonchi and no wheezes Cardio Rate: regular rate Rhythm: regular rhythm Heart sounds: no murmurs and normal S1 and S2 GI Palpation (GI): Soft to palpation, nontender, no hepatomegaly and no splenomegaly Auscultation: normal bowel sounds Back/Spine/Pelvis Cervical Spine: No Cervical spine tenderness Thoracic/Lumbar Spine: No thoracic spinal tenderness and No lumbar spinal tenderness Skin General skin exam: no rashes or lesions noted and dry skin Neuro General: oriented to person, oriented to place and oriented to time Cranial nerves: Yes Equal, round and reactive pupils present Speech: No Abnormal speech present Gait exam (Neuro): Normal gait present Extrem Right upper extremity: full ROM Left upper extremity: full ROM Right lower extremity: full ROM and lower leg Details: tenderness and other (Superficial varicose veins); no edema Left lower extremity: full ROM and lower leg (Superficial varicose veins) Details: tenderness and no edema; no edema Psych Mental Status: mental status grossly normal Speech and movement: Normal speech and movement present Affect: normal affect Attitude: cooperative Thought process: Normal thought process present Coding Level of Care Code Est Pt Level 3 (17393) Diagnoses Pain in right lower leg M79.661 Time Spent (min) 32 Assessment & Plan Assessment & Plan (1) Pain in right lower leg: Code(s): M79.661 - Pain in right lower leg Category: Medical Plan: Patient reports that the pain has been going on for a while;it became severe and she had to go to emergency room. She was ruled out for DVT. Ultrasound showed no occlusion. X-ray of the lower leg showed no fracture or dislocation. The patient was referred to orthopedic and was started on oxycodone 5 mg p.r.n in the emergency room.. The patient describes pain as cramps and nerve pain down the leg. We will start the patient on gabapentin 100 mg t.i.d. and cyclobenzaprine 10 mg at [facility]. The patient has an appointment with orthopedic next week. The patient does have some superficial varicose appearing veins in lower extremities. We will hold off on referring her to vascular for now and defer to Orthopedic recommendations Medications: New cyclobenzaprine 10 mg PO BEDTIME PRN 30 tabs 2RF muscle spasm gabapentin 100 mg PO TID 30 days 90 caps 1RF
[2024-08-22 15:21] VITALS: BP 120/80; PULSE 84; TEMP 36.4; O2SAT 93; BMI 30.7
--- OUTSIDE RECORDS SUMMARY | 2024-08-22 18:03 | XMS_ITS | Clinical Summary ---
Author Organization [facility] Address [address] [place] [address] Care Team Providers Care Cracking Unit Operator Name Role Phone Joy Salgado MD Primary Care Provider [phone] Surgical History Surgery Date Site/Laterality Comments GASTRIC BYPASS 06/2016 PROCEDURE: GASTRIC BYPASS FOR OBESIT; COMMENT: [facility] CHOLECYSTECTOMY 04/2016 PROCEDURE: [place] LAPAROSCOPY SURG CHOLECYSTECTOMY; COMMENT: [facility] OTHER SURGICAL HISTORY 06/2014 PROCEDURE: [place] LIG/TRNSXJ FLP TUBE ABDL/VAG APPR UNI/BI; COMMENT: [facility] BREAST REDUCTION 2004 PROCEDURE: [place] BREAST REDUCTION; COMMENT: [facility] Medical History Medical History Date Comments [...] age to complete this topic Meningococcal B Vaccine Aged Out No l onger eligible based on patient's age to complete [...] age to complete this topic Care Teams Cracking Unit Operator Relationship Specialty Start Date End Date Joy Salgado MD [address] [place] [address] [address] [facility] [place] [address] PCP - General Internal Medicine 12/01/18
== END 2024-08-22 15:51 | disposition home or self-care (01) ==
LOC: HO.HMCH 15:14
PROVIDERS: PCP Internal Medicine
DX: M79.661 Pain in right lower leg (principal)

== ENCOUNTER → 2024-08-22 15:14 | Outpatient (BNVA) | payer OTHER, SELFPAY | PROVIDERS: PCP Internal Medicine | DX: M79.661 Pain in right lower leg (principal); M25.571 Pain in right ankle and joints of right foot; M25.551 Pain in right hip; Z79.891 Long term (current) use of opiate analgesic | CPT/HCPCS: 99212 ==

== ENCOUNTER 2024-09-01 10:35 | Outpatient (AMB) | payer OTHER, SELFPAY ==
[2024-09-01 10:42] VITALS: BMI 30.7
--- NOTE | 2024-09-01 10:42 | MHC.OFFVIS ---
Vital Signs 09/01/24 10:42 Height 5 ft 6 in Weight 190 lb BMI 30.7 Intake Visit Reasons: OV- RT BERNIE 06/11/21 NE, continued pain Intake Note: Meghna is a 49 year old female who presents today for a follow up of her right BERNIE 06/11/21. She reports continued groin pain and cramping of he calf Allergies hazelnut [HAZELNUT] Allergy (Intermediate, Verified 08/22/24 15:29) ITCHING THROAT HPI HPI OV- RT BERNIE 06/11/21 NE, continued pain: Details: Patient is over 2 years status post right total hip. She went to the ED for some calf pain and they suggested that she should come see me. She states the calf pain is gone away but was in the posterolateral calf and tightness laterally. She was given gabapentin. She also has some mild pain in the right lateral hip. She has no groin pain. She states there is occasional numbness and tingling. [facility] Medical History Allergic rhinitis GERD without esophagitis Vitamin D deficiency Overweight (BMI 25.0-29.9) Excess skin Spontaneous ecchymoses Right hip pain Obesity (BMI 30-39.9) Pain in left toe(s) Bunion of great toe of left foot Post-traumatic osteoarthritis of right hip Primary osteoarthritis of both knees Arthritis Surgical History Hx of colonoscopy History of esophagogastroduodenoscopy (EGD) History of total right hip arthroplasty (~06/04/21) History of surgery History of bilateral breast reduction surgery History of hip surgery H/O gastric bypass History of laparoscopic cholecystectomy History of tubal ligation Family History Mother Ovarian cancer Diabetes Father HIV (human immunodeficiency virus infection) Maternal Grandmother Stomach cancer Maternal Grandfather Myocardial infarction Brother In good health Sister In good health Mental health disorder Son In good health Daughter In good health Social History Household Members: Family Household Members Other:: minor child Housing: Apartment Are you a primary hospice spiritual care coordinator to a significant other at home: No Do you presently have visiting nurse or other home services: No Alcohol intake: current Alcohol intake frequency: a few times a month Patient Tobacco Use Status: Former Tobacco user Tobacco use type: Cigarette e-Cigarette/Vaping Use: Never Used Second Hand Smoke Exposure: Yes Substance Use Type: Marijuana service: No Current occupational status: unemployed Gender identity: Female Cognitive needs: No Hearing needs: No Vision needs: No Female Reproductive History Menstrual Age of Menarche: 15 Physical Exam Vital Signs: BMI result Body Mass Index 30.7 Extrem Other: No pain with hip range of motion. Mild tenderness along the iliotibial band, the greater trochanter and a long the lateral lower leg. No abnormal findings however on exam. Results Reviewed Results Reviewed: I personally reviewed relevant radiographs. Right BERNIE in expected post operative position with no hardware complications or evidence of loosening Assessment & Plan Assessment & Plan (1) Pain in right lower leg: Code(s): M79.661 - Pain in right lower leg Category: Medical Plan: Pain in her right leg. Think course of physical therapy would be appropriate. Is a does not have anything to do with her prior hip replacement. Coding Level of Care Code Est Pt Level 3 (29902) Diagnoses Pain in right lower leg M79.661
--- OUTSIDE RECORDS SUMMARY | 2024-09-01 12:45 | XMS_ITS | Clinical Summary ---
Author Organization [facility] Address [address] [place] [address] Care Team Providers Care Inspector Integrated Circuits Name Role Phone Joy Salgado MD Primary Care Provider [phone] Surgical History Surgery Date Site/Laterality Comments GASTRIC BYPASS 06/2016 PROCEDURE: GASTRIC BYPASS FOR OBESIT; COMMENT: [facility] CHOLECYSTECTOMY 04/2016 PROCEDURE: [place] LAPAROSCOPY SURG CHOLECYSTECTOMY; COMMENT: [facility] OTHER SURGICAL HISTORY 06/2014 PROCEDURE: [place] LIG/TRNSXJ FLP TUBE ABDL/VAG APPR UNI/BI; COMMENT: [facility] BREAST REDUCTION 2004 PROCEDURE: [place] BREAST REDUCTION; COMMENT: [facility] Medical History Medical History Date Comments Anxiety [...] Influencers of Health Screening 04/20/2022 COVID-19 Vaccine (2023-2 5 season) 2024 Influenza Vaccine (Season Ended) 2025 Hepatitis A Vaccines Aged Out 02/18/2017 No [...] age to complete this topic Care Teams Inspector Integrated Circuits Relationship Specialty Start Date End Date Joy Salgado MD [address] [place] [address] [address] [facility] [place] [address] PCP - General Internal Medicine 12/01/18
== END 2024-09-01 10:59 | disposition home or self-care (01) ==
LOC: HO.HOS 10:36
PROVIDERS: PCP Internal Medicine; Visit Provider Orthopaedic Surgery
DX: M79.661 Pain in right lower leg (principal); Z96.641 Presence of right artificial hip joint
CPT/HCPCS: 99213

== ENCOUNTER → 2024-09-01 10:35 | Outpatient (BNVA) | payer OTHER, SELFPAY | PROVIDERS: PCP Internal Medicine; Visit Provider Orthopaedic Surgery | DX: M79.661 Pain in right lower leg (principal); M25.551 Pain in right hip; Z96.641 Presence of right artificial hip joint | CPT/HCPCS: 99212 ==

== ENCOUNTER 2024-11-03 07:43 | Outpatient (AMB) | payer OTHER, SELFPAY ==
--- NOTE | 2024-11-03 07:46 | A.OFFVIS_ITS ---
Intake Visit Reasons: medication discussion-estrace Intake Note: Patient presents today for follow up on medication discussion-estrace Urology Med: Estradiol Antibiotic Allergy: None Blood Thinner: None Allergies hazelnut (HAZELNUT) Allergy (Intermediate, Verified 11/03/24 07:49) ITCHING THROAT Medication List - Last Reconciled 11/03/24 by MD marilia Medrano As directed cholecalciferol (vitamin D3) 50 mcg PO DAILY 90 days clotrimazole 1% 1 appl topical BID cyanocobalamin (vitamin B-12) 1,000 mcg PO DAILY cyclobenzaprine 10 mg PO BEDTIME PRN diclofenac sodium 1% (Arthritis Pain (diclofenac)) 4 grams topical QID estradiol 0.01%(0.1mg/gram) (Estrace) apply pea sized amount to fingertip and apply vaginally daily at bedtime; ferrous sulfate (FeroSul) 325 mg PO DAILY 90 days gabapentin 100 mg PO TID 30 days loratadine 10 mg PO DAILY pantoprazole 40 mg PO DAILY polyethylene glycol 3350 (Miralax) 17 grams PO DAILY 30 days sucralfate (Carafate) 10 mL PO BID tramadol 50 mg PO TID PRN 30 days vitamin A palmitate 7,500 mcg PO DAILY HPI Comments Details: 11/03/24-- - The patient is a 49-year-old female presenting for follow-up on stress urinary incontinence and evaluation of microscopic hematuria. - Stress urinary incontinence: The patient underwent urethral bulking on 06/07/24 and reported improvement with no leakage during coughing as of her last visit on 07/07/24. - Microscopic hematuria: Detected during urinalysis with 3 plus blood and negative leukocytes. No recent imaging of kidneys noted, and cystoscopy at the time of urethral bulking showed bladder within normal limits. - Vaginal dryness: The patient reports persistent dryness despite using estrogen therapy (Vagifem). She experiences dryness during intercourse. - Menopausal symptoms: The patient describes irregular periods, hot flashes, mood changes, and dryness, attributing these to menopause. Urinary Symptoms Review - Stress urinary incontinence: No leakage during coughing post-urethral bulking. Results - Urinalysis: 3 plus blood, leukocytes negative. - Cystoscopy- 06/07/24: Bladder within normal limits at the time of urethral bulking. Discussion Notes I discussed with the patient the findings of microscopic hematuria and the need for further evaluation with an ultrasound to assess the kidneys for any stones or lesions. I explained that the urine sample would be sent for cytology to rule out any malignancy. We also discussed the management of vaginal dryness, including the use of estrogen cream and alternative lubricants. Follow-up was arranged to review the ultrasound results in 10 weeks. 07/07/24--Meghna is status post of bulkamid urethral injection on 06/07/24 for stress urinary incontinence, intrinsic sphincter deficiency. She states she is doing great, no leakage with cough. UA - negative. FU in 10 months. Cont Estrace cream. 05/06/2024--here for urodynamics. Meghna is a 49-year-old female with complaints of urinary incontinence. Interpretation: During the filling phase there was normal sensation, strong urge was noted at 415 mL, the patient felt that she was at capacity at 433 mL. Leakage was observed during cough and valsalva stress. Findings consistent with ISD, EMG- Appropriate changes in the waveforms were noted through out the study. I discussed treatment options to include urethral bulking and sling procedures, risks include but are not limited to urinary retention, infection, bleeding, need for another procedure, mesh erosion, urgency. 11/05/2023--Meghna is a 48-year-old female who states she has had urinary incontinence which is worsening over the last year. She leaks with coughing and sneezing she also has urgency. She has had recurrent UTIs in the past. In further discussion she does admit to vaginal dryness and irregular menstrual cycle. Urinalysis is nitrite positive. I will empirically start Levaquin 500 mg daily pending urine culture. Schedule renal bladder ultrasound. Discussed Vagifem twice a week. Will refer to contracts officer regarding irregular menstrual cycle. [facility] Medical History Allergic rhinitis GERD without esophagitis Vitamin D deficiency Overweight (BMI 25.0-29.9) Excess skin Spontaneous ecchymoses Right hip pain Obesity (BMI 30-39.9) Pain in left toe(s) Bunion of great toe of left foot Post-traumatic osteoarthritis of right hip Primary osteoarthritis of both knees Arthritis Surgical History Hx of colonoscopy History of esophagogastroduodenoscopy (EGD) History of total right hip arthroplasty (~06/04/21) History of surgery History of bilateral breast reduction surgery History of hip surgery H/O gastric bypass History of laparoscopic cholecystectomy History of tubal ligation Family History Mother Ovarian cancer Diabetes Father HIV (human immunodeficiency virus infection) Maternal Grandmother Stomach cancer Maternal Grandfather Myocardial infarction Brother In good health Sister In good health Mental health disorder Son In good health Daughter In good health Social History Household Members: Family Household Members Other:: minor child Housing: Apartment Are you a primary health care recruiter to a significant other at home: No Do you presently have visiting nurse or other home services: No Alcohol intake: current Alcohol intake frequency: a few times a month Patient Tobacco Use Status: Former Tobacco user Tobacco use type: Cigarette e-Cigarette/Vaping Use: Never Used Second Hand Smoke Exposure: Yes Substance Use Type: Marijuana service: No Current occupational status: unemployed Gender identity: Female Cognitive needs: No Hearing needs: No Vision needs: No Female Reproductive History Menstrual Age of Menarche: 15 Review of Systems Const All systems reviewed & are unremarkable except as noted in HPI and below Reports no additional complaints Eyes Reports no additional complaints ENT Reports no additional complaints Card Reports no additional complaints Resp Reports no additional complaints GI Reports no additional complaints Reports as per HPI Musc Reports no additional complaints Skin/Breast Reports system reviewed and no additional complaints, except as documented Neuro Reports no additional complaints Psych Reports no additional complaints Endo Reports no additional complaints Murali/Lymph Reports no additional complaints Aller/Immun Reports no additional complaints Results AMB Urinalysis, Automated UA Leukoctes 0 Qing/uL Last Edit by Dolly Spivey CMA on 11/03/24 08:12 UA Nitrite Negative Last Edit by Dolly Spivey CMA on 11/03/24 08:12 UA Urobilinogen 0.2 mg/dL Last Edit by Dolly Spivey CMA on 11/03/24 08:12 UA Protein 15 mg/dL Last Edit by Dolly Spivey CMA on 11/03/24 08:12 UA pH 6.0 Last Edit by Dolly Spivey CMA on 11/03/24 08:12 UA Blood 200 Adelso/uL Last Edit by Dolly Spivey CMA on 11/03/24 08:12 UA Specific [place] 1.020 Last Edit by Dolly Spivey CMA on 11/03/24 08:12 UA Ketone Negative Last Edit by Dolly Spivey CMA on 11/03/24 08:12 UA Bilirubin 1 mg/dL Last Edit by Dolly Spivey CMA on 11/03/24 08:12 UA Glucose 0 mg/dL Last Edit by Dolly Spivey CMA on 11/03/24 08:12 Results Reviewed Results Reviewed: Laboratory Last Values Urine pH (Auto) 6.0 11/03/24 08:10 Specific [place] (Auto) 1.020 11/03/24 08:10 Urine Protein (Auto) 15 mg/dL 11/03/24 08:10 Glucose (UA)(Auto) 0 mg/dL 11/03/24 08:10 Urine Ketones (Auto) Negative 11/03/24 08:10 Urine Blood (Auto) 200 [place]/uL 11/03/24 08:10 Urine Nitrite (Auto) Negative 11/03/24 08:10 Urine Bilirubin (Auto) 1 mg/dL 11/03/24 08:10 Urine Urobilinogen (Auto) 0.2 mg/dL 11/03/24 08:10 Leukocyte Esterase (Auto) 0 Qing/uL 11/03/24 08:10 Assessment & Plan Assessment & Plan (1) Intrinsic sphincter deficiency (ISD): Comment: no leakage post Bulkamid 05/2024 Code(s): N36.42 - Intrinsic sphincter deficiency (ISD) Category: Medical (2) MARIAH (stress urinary incontinence, female): Comment: no leakage post bulkamid 05/2024 Code(s): N39.3 - Stress incontinence (female) (male) Category: Medical (3) Perimenopausal atrophic vaginitis: Code(s): N95.2 - Postmenopausal atrophic vaginitis Category: Medical (4) Vaginal dryness: Code(s): N89.8 - Other specified noninflammatory disorders of vagina Category: Medical (5) Microscopic hematuria: Code(s): R31.29 - Other microscopic hematuria Category: Medical Plan Plan - Order an ultrasound to evaluate the kidneys for stones or lesions due to microscopic hematuria. - Send urine sample for cytology to rule out malignancy. - Prescribe estrogen cream for vaginal dryness, with instructions to apply a pea-sized amount daily. - Discuss alternative lubricants for vaginal dryness during intercourse. - Arrange follow-up in 10 weeks to review ultrasound results and discuss ongoing symptoms. Orders: Orders AMB Urinalysis Automated Today R32 - Unspecified urinary incontinence US renal BI 1 Month R31.29 - Other microscopic hematuria Medications: New estradiol 0.01%(0.1mg/gram) (Estrace) apply pea sized amount to fingertip and apply vaginally daily at bedtime; 42.5 grams 1RF Discontinued estradiol (Vagifem) insert vaginally at bedtime twice a week Mon and Thurs Discontinued Reason: Doctor's Order 10 mcg vaginal 2XW 8 tabs 3RF Patient Instructions: The patient had an opportunity to ask questions regarding treatment plan. The patient expressed understanding and agreement with the above treatment plan. The patient is aware they should contact our office by phone for worsening of their current condition or the appearance of new symptoms. Compliance is encouraged with any medications and followup testing that is ordered. It is a privilege to be allowed the opportunity to participate in the urologic care of your patient. If you have any questions or concerns regarding treatment for the above conditions please do not hesitate to contact me. The office telephone contact is [phone]. This note is constructed in part using voice recognition software. While every effort has been made to ensure accuracy developmental mathematics instructor errors may have been included. Yours sincerely, Marla Webster MD Scribe Plan - Not visible on output: Patient was informed and verbally consented to the use of an ambient scribe for clinic note documentation during this visit. Coding Level of Care Code Est Pt Level 4 (70463) Complex EM visit Add On G2211 Diagnoses Intrinsic sphincter deficiency (ISD) N36.42 MARIAH (stress urinary incontinence, female) N39.3 Perimenopausal atrophic vaginitis N95.2 Vaginal dryness N89.8 Microscopic hematuria R31.29
== END 2024-11-03 08:44 | disposition home or self-care (01) ==
LOC: HO.HUSH 07:44
PROVIDERS: PCP Internal Medicine; Visit Provider Urology
DX: N36.42 Intrinsic sphincter deficiency (ISD) (principal); N39.3 Stress incontinence (female) (male); N95.2 Postmenopausal atrophic vaginitis; R31.29 Other microscopic hematuria; R32 Unspecified urinary incontinence
CPT/HCPCS: 99214; G2211

== ENCOUNTER 2024-11-03 07:43 | Outpatient (REF) | payer OTHER, SELFPAY ==
[2024-11-03 17:47] LABS: Urine Cytology See Pathology rpt
== END 2024-11-03 07:44 | disposition home or self-care (01) ==
LOC: HO.LAB 07:43
PROVIDERS: PCP Internal Medicine; Visit Provider Urology
DX: R31.29 Other microscopic hematuria (principal); R32 Unspecified urinary incontinence; N89.8 Other specified noninflammatory disorders of vagina; N36.42 Intrinsic sphincter deficiency (ISD)
CPT/HCPCS: 81003; 88112; 99212

== ENCOUNTER 2024-12-15 15:01 | Outpatient (REF) | payer OTHER, SELFPAY ==
--- NOTE | ~2024-12-15 | US_ITS ---
CLINICAL HISTORY: R31.29 - Other microscopic hematuria US renal with Color Doppler Comparison: None Findings: Right kidney normal size and echotexture, 10.6 cm length. Mild hydronephrosis and mild hydroureter. Normal color flow. No nephrolithiasis. Benign renal cortical cyst midpole measuring 1.1 x 1.2 x 0.8 cm. Left kidney normal size and echotexture, 11.1 cm length. No hydronephrosis calculus or mass. Normal color flow. Urinary bladder was decompressed Impression: 1. Kidneys normal-size and position. Mild hydroureter and hydronephrosis right kidney. Benign renal cortical cyst right kidney. No nephrolithiasis. This document has been electronically signed by: Eitan Haji MD on 12/16/2024 09:50:44
--- OUTSIDE RECORDS SUMMARY | 2024-12-15 15:06 | XMS_ITS | Clinical Summary ---
Author Organization [facility] Address [address] [place] [address] Care Team Providers Care Psychological Operations Officer Name Role Phone Joy Salgado MD Primary Care Provider Surgical History Surgery Date Site/Laterality Comments GASTRIC BYPASS 06/2016 PROCEDURE: GASTRIC BYPASS FOR OBESIT; COMMENT: [facility] CHOLECYSTECTOMY 04/2016 PROCEDURE: [place] LAPAROSCOPY SURG CHOLECYSTECTOMY; COMMENT: [facility] OTHER SURGICAL HISTORY 06/2014 PROCEDURE: [place] LIG/TRNSXJ FLP TUBE ABDL/VAG APPR UNI/BI; COMMENT: [facility] BREAST REDUCTION 2004 PROCEDURE: [place] BREAST REDUCTION; COMMENT: [facility] Medical History Medical History Date [...] 03/18/2017 02/18/2017 Colorectal Cancer Screening: Colonoscopy 04/20/2022 HIV Screening 04/20/2022 Hepatitis C Screening 04/20/2022 Social Influencers of Health Screening 04/20/2022 COVID-19 Vaccine (1 - 2023-2 5 season) 2024 Depression Screening 05/18/2024 Influenza Vaccine (#1) 2025 Hepatitis A Vaccines Aged Out 02/18/2017 [...] 5 Years) and At-Risk Patients (6 to 49 Years) Aged Out No longer eligi ble based on patient's age to complete this topic RSV Immunization Patients Un [place] 20 months Aged Out No longer eligible b ased on patient's age to complete this topic Varicella Vaccines Aged Out No longer eligible based on patient's age to complete this topic Care Teams Psychological Operations Officer Relationship Specialty Start Date End Date Joy Salgado MD [address] [place] [address] [address] [facility] [place] [address] PCP - General Internal Medicine 12/01/18
== END 2024-12-15 15:02 | disposition home or self-care (01) ==
LOC: HO.US 15:01
PROVIDERS: PCP Internal Medicine; Visit Provider Urology
DX: R31.29 Other microscopic hematuria (principal)
CPT/HCPCS: 76775

== ENCOUNTER → 2024-12-15 15:03 | Outpatient (BNV) | payer OTHER, SELFPAY | PROVIDERS: PCP Internal Medicine; Visit Provider Radiology Diagnostic Radiology | DX: N13.39 Other hydronephrosis (principal) | CPT/HCPCS: 76775 ==

== ENCOUNTER 2025-01-12 08:57 | Outpatient (AMB) | payer OTHER, SELFPAY ==
--- NOTE | 2025-01-12 08:57 | A.OFFVIS_ITS ---
Intake Visit Reasons: 10w/US/ Cytology Intake Note: Patient presents today for: 10w/ us/ cytology Urology Med: Estradiol, vit b-12 Blood Thinner: None renal us done: 12/16/24 Counselor Dormitory Required: No Accompanied by: Self / Same As Patient Allergies hazelnut (HAZELNUT) Allergy (Intermediate, Verified 01/12/25 09:01) ITCHING THROAT Medication List - Last Reconciled 01/12/25 by MD marilia Medrano As directed cholecalciferol (vitamin D3) 50 mcg PO DAILY 90 days clotrimazole 1% 1 appl topical BID cyanocobalamin (vitamin B-12) 1,000 mcg PO DAILY cyclobenzaprine 10 mg PO BEDTIME PRN diclofenac sodium 1% (Arthritis Pain (diclofenac)) 4 grams topical QID estradiol 0.01%(0.1mg/gram) (Estrace) apply pea sized amount to fingertip and apply vaginally daily at bedtime; ferrous sulfate (FeroSul) 325 mg PO DAILY 90 days gabapentin 100 mg PO TID 30 days loratadine 10 mg PO DAILY nitrofurantoin monohyd/m-cryst 100 mg (Macrobid) 100 mg PO BID 7 days pantoprazole 40 mg PO DAILY polyethylene glycol 3350 (Miralax) 17 grams PO DAILY 30 days sucralfate (Carafate) 10 mL PO BID tramadol 50 mg PO TID PRN 30 days vitamin A palmitate 7,500 mcg PO DAILY HPI Comments Details: 01/12/25--telehealth follow-up renal ultrasound. Last visit 11/03/2024 microscopic hematuria noted. Urine sent for cytology resulted negative for m alignant cells. I reviewed renal ultrasound results mild right hydronephrosis hydroureter. The patient complains of right-sided pain. She states she has also noticed some increased urgency in the last several days. I will empirically start Macrobid 100 mg twice a day for 7 days. She will leave a urine sample and we will check a BUN and creatinine. CT urogram ordered. 11/03/24-- - The patient is a 49-year-old female presenting for follow-up on stress urinary incontinence and evaluation of microscopic hematuria. - Stress urinary incontinence: The patient underwent urethral bulking on 06/07/24 and reported improvement with no leakage during coughing as of her last visit on 07/07/24. - Microscopic hematuria: Detected during urinalysis with 3 plus blood and negative leukocytes. No recent imaging of kidneys noted, and cystoscopy at the time of urethral bulking showed bladder within normal limits. - Vaginal dryness: The patient reports persistent dryness despite using estrogen therapy (Vagifem). She experiences dryness during intercourse. - Menopausal symptoms: The patient describes irregular periods, hot flashes, mood changes, and dryness, attributing these to menopause. Urinary Symptoms Review - Stress urinary incontinence: No leakage during coughing post-urethral bulking. Results - Urinalysis: 3 plus blood, leukocytes negative. - Cystoscopy- 06/07/24: Bladder within normal limits at the time of urethral bulking. 07/07/24--Meghna is status post of bulkamid urethral injection on 06/07/24 for stress urinary incontinence, intrinsic sphincter deficiency. She states she is doing great, no leakage with cough. UA - negative. FU in 10 months. Cont Estrace cream. 05/06/2024--here for urodynamics. Meghna is a 49-year-old female with complaints of urinary incontinence. Interpretation: During the filling phase there was normal sensation, strong urge was noted at 415 mL, the patient felt that she was at capacity at 433 mL. Leakage was observed during cough and valsalva stress. Findings consistent with ISD, EMG- Appropriate changes in the waveforms were noted through out the study. I discussed treatment options to include urethral bulking and sling procedures, risks include but are not limited to urinary retention, infection, bleeding, need for another procedure, mesh erosion, urgency. 11/05/2023--Meghna is a 48-year-old female who states she has had urinary incon tinence which is worsening over the last year. She leaks with coughing and sneezing she also has urgency. She has had recurrent UTIs in the past. In further discussion she does admit to vaginal dryness and irregular menstrual cycle. Urinalysis is nitrite positive. I will empirically start Levaquin 500 mg daily pending urine culture. Schedule renal bladder ultrasound. Discussed Vagifem twice a week. Will refer to grain elevator motor starter regarding irregular menstrual cycle. [facility] Medical History Allergic rhinitis GERD without esophagitis Vitamin D deficiency Overweight (BMI 25.0-29.9) Excess skin Spontaneous ecchymoses Right hip pain Obesity (BMI 30-39.9) Pain in left toe(s) Bunion of great toe of left foot Post-traumatic osteoarthritis of right hip Primary osteoarthritis of both knees Arthritis Surgical History Hx of colonoscopy History of esophagogastroduodenoscopy (EGD) History of total right hip arthroplasty (~06/04/21) History of surgery History of bilateral breast reduction surgery History of hip surgery H/O gastric bypass History of laparoscopic cholecystectomy History of tubal ligation Family History Mother Ovarian cancer Diabetes Father HIV (human immunodeficiency virus infection) Maternal Grandmother Stomach cancer Maternal Grandfather Myocardial infarction Brother In good health Sister In good health Mental health disorder Son In good health Daughter In good health Social History Household Members: Family Household Members Other:: minor child Housing: Apartment Are you a primary pet caregiver to a significant other at home: No Do you presently have visiting nurse or other home services: No Alcohol intake: current Alcohol intake frequency: a few times a month Patient Tobacco Use Status: Former Tobacco user Tobacco use type: Cigarette e-Cigarette/Vaping Use: Never Used Second Hand Smoke Exposure: Yes Substance Use Type: Marijuana service: No Current occupational status: unemployed Gender identity: Female Cognitive needs: No Hearing needs: No Vision needs: No Female Reproductive History Menstrual Age of Menarche: 15 Review of Systems Const All systems reviewed & are unremarkable except as noted in HPI and below Reports no additional complaints Eyes Reports no additional complaints ENT Reports no additional complaints Card Reports no additional complaints Resp Reports no additional complaints GI Reports no additional complaints Reports as per HPI Musc Reports no additional complaints Skin/Breast Reports system reviewed and no additional complaints, except as documented Neuro Reports no additional complaints Psych Reports no additional complaints Endo Reports no additional complaints Murali/Lymph Reports no additional complaints Aller/Immun Reports no additional complaints Telehealth Telehealth Telehealth Platform: [facility] Location of provider rendering services: practice address Location of patient: address on file Patient Identification confirmed using: Name, : Yes Telehealth method: video Patient verbally consented to treatment: Yes Patient verbally consented to billing insurance company: Yes Patient informed of any privacy concerns related to visit: Yes Results Reviewed Results Reviewed: Date of Service: 12/15/24 US renal with Color Doppler Comparison: None Findings: Right kidney normal size and echotexture, 10.6 cm length. Mild hydronephrosis and mild hydroureter. Normal color flow. No nephrolithiasis. Benign renal cortical cyst midpole measuring 1.1 x 1.2 x 0.8 cm. Left kidney normal size and echotexture, 11.1 cm length. No hydronephrosis calculus or mass. Normal color flow. Urinary bladder was decompressed Impression: 1. Kidneys normal-size and position. Mild hydroureter and hydronephrosis right kidney. Benign renal cortical cyst right kidney. No nephrolithiasis. Collected: 11/03/24 Location: .LAB Received: 11/04/24 Diagnosis Urine: Negative for high-grade urothelial carcinoma. Comment: Examination of a monolayer preparation slide shows many benign squamous cells with bacteria, few benign urothelial cells, few inflammatory cells, rare red blood cells. Clinical History Microscopic hematuria Material Received Urine Gross Description Received is 29 cc of clear yellow fluid from which a ThinPrep slide is prepared. Copies To Aditya Aguirre MD [facility] Primary Care,[address] [place] [address] Marla Webster MD [facility] [place] Urology Services [address] [place] [address]. [address] [place] [address] [email or web address] Security Team NOTE: Unless otherwise stated, all tissue is formalin-fixed and paraffin- embedded. Some or all of the immunohistochemical tests reported herein may have been developed and their performance characteristics determined by [facility]. They have not been cleared or approved by the U.S. Food and Drug Administration (FDA). However, the FDA has determined that such clearance or approval is not necessary. This laboratory is certified under the Clinical Laboratory Improvement Amendments of 1988 (CLIA) as qualified to perform high complexity clinical laboratory testing. Electronically Signed By: Yuridia Brock 11/05/24 [id number] Patient: Meghna Louie Age/Sex: 49/F MR#: [id number] Page 1 of 1 Collected: 02/05/23 Status: COMP Req#: [id number] Received: 02/05/23 Source: [facility] Sp Desc: Urine page Subm Dr: Aditya Aguirre MD Ordered: Urine Culture Procedure Result Verified Urine Culture Final 02/07/23 Organism 1 Escherichia coli Quant > 100,000 cfu/mL E coli M.I.C. RX --------- --- Ampicillin >=32 R Ceftriaxone <=0.25 S Gentamicin <=1 S Levofloxacin <=0.12 S Nitrofurantoin <=16 S Trimethoprim/Sulfamethoxazole >=320 R Assessment & Plan Assessment & Plan (1) Hydroureter: Code(s): N13.4 - Hydroureter Category: Medical (2) Hydronephrosis, right: Code(s): N13.30 - Unspecified hydronephrosis Category: Medical (3) Hematuria: Code(s): R31.9 - Hematuria, unspecified Category: Medical (4) Abdominal pain, right lateral: Code(s): R10.9 - Unspecified abdominal pain Category: Medical Plan I will empirically start Macrobid 100 mg twice a day for 7 days. She will leave a urine sample and we will check a BUN and creatinine. CT urogram ordered. Orders: Orders CT urogram Today N13.30 - Unspecified hydronephrosis, N13.4 - Hydroureter, R31.9 - Hematuria, unspecified Medications: New nitrofurantoin monohyd/m-cryst 100 mg (Macrobid) must administer with a meal/food 100 mg PO BID 14 caps 0RF 7 days Coding Level of Care Code Tele Est Pt Level 4 (37296) Diagnoses Hydroureter N13.4 Hydronephrosis, right N13.30 Hematuria R31.9 Abdominal pain, right lateral R10.9
--- OUTSIDE RECORDS SUMMARY | 2025-01-12 09:47 | XMS_ITS | Clinical Summary ---
Author Organization [facility] Address [address] [place] [address] Care Team Providers Care Lining Marker Name Role Phone Joy Salgado MD Primary Care Provider [phone] Surgical History Surgery Date Site/Laterality Comments GASTRIC BYPASS 06/2016 PROCEDURE: GASTRIC BYPASS FOR OBESIT; COMMENT: [facility] CHOLECYSTECTOMY 04/2016 PROCEDURE: [place] LAPAROSCOPY SURG CHOLECYSTECTOMY; COMMENT: [facility] OTHER SURGICAL HISTORY 06/2014 PROCEDURE: [place] LIG/TRNSXJ FLP TUBE ABDL/VAG APPR UNI/BI; COMMENT: [facility] BREAST REDUCTION 2004 PROCEDURE: [place] BREAST REDUCTION; COMMENT: [facility] Medical History Medical History Date [...] age to complete this topic Care Teams Lining Marker Relationship Specialty Start Date End Date Joy Salgado MD [address] [place] [address] [address] [facility] [place] [address] PCP - General Internal Medicine 12/01/18
== END 2025-01-12 10:19 | disposition home or self-care (01) ==
LOC: HO.HUSH 08:57
PROVIDERS: PCP Internal Medicine; Visit Provider Urology
DX: N13.4 Hydroureter (principal); N13.30 Unspecified hydronephrosis; R31.9 Hematuria, unspecified; R10.9 Unspecified abdominal pain
CPT/HCPCS: 99214

== ENCOUNTER 2025-01-19 09:16 | Outpatient (REF) | payer OTHER, SELFPAY ==
--- OUTSIDE RECORDS SUMMARY | 2025-01-19 09:54 | XMS_ITS | Clinical Summary ---
Author Organization [email or web address] Address [address] [place] [address] Care Team Providers Care Counselor Nurses' Association Name Role Phone Joy Salgado MD Primary Care Provider [phone] Surgical History Surgery Date Site/Laterality Comments GASTRIC BYPASS 06/2016 PROCEDURE: GASTRIC BYPASS FOR OBESIT; COMMENT: [facility] CHOLECYSTECTOMY 04/2016 PROCEDURE: [place] LAPAROSCOPY SURG CHOLECYSTECTOMY; COMMENT[facility] OTHER SURGICAL HISTORY 06/2014 PROCEDURE: [place] LIG/TRNSXJ FLP TUBE ABDL/VAG APPR UNI/BI; COMMENT: [facility] BREAST REDUCTION 2004 PROCEDURE: [place] BREAST REDUCTION; COMMENT: [facility] Medical History Medical History Date Comments Anxiety [...] 04/20/2022 Social Influencers of Health Screening 04/20/2022 Depression Screening 05/18/2024 COVID-19 Vaccine (1 - 2023-2 5 season) 2025 Influenza Vaccine (#1) 2025 Hepatitis A Vaccines [...] age to complete this topic Care Teams Counselor Nurses' Association Relationship Specialty Start Date End Date Joy Salgado MD [address] [place] [address] [address] [facility] [place] [address] PCP - General Internal Medicine 12/01/18
[2025-01-19 11:05] LABS: Blood Urea Nitrogen 13 mg/dL (9-16); Estimated Glomerular Filt Rate > 60
[2025-01-19 11:28] LABS: Appearance Urine Clear; Glucose Urine UA Negative (Negative); PH 7.0 (5.0-9.0); Specific Gravity - Urine 1.020 (1.005-1.025); UMIC TRIGGER UA YES
== END 2025-01-19 09:17 | disposition home or self-care (01) ==
LOC: HO.LAB 09:16
PROVIDERS: PCP Internal Medicine; Visit Provider Urology
DX: N13.4 Hydroureter (principal); R31.29 Other microscopic hematuria; N39.0 Urinary tract infection, site not specified; N13.30 Unspecified hydronephrosis
CPT/HCPCS: 36415; 81001; 82565; 84520; 87086

== ENCOUNTER 2025-02-08 10:55 | Outpatient (REF) | payer OTHER, SELFPAY ==
--- NOTE | ~2025-02-08 | CT_ITS ---
EXAMINATION: CT ABDOMEN AND PELVIS WITHOUT AND WITH CONTRAST CLINICAL INFORMATION: N13.4 - Hydroureter COMPARISON: Renal ultrasound December 15, 2024 TECHNIQUE: Noncontrast CT of the abdomen and pelvis is performed followed by split bolus contrast-enhanced images using 85 mL Omnipaque 350 contrast. Postcontrast imaging is performed during the combined nephrogram and excretion phase. Sagittal and coronal reformatted images were obtained on the technologist's workstation for both the precontrast and postcontrast phases. This CT examination was performed using dose optimization techniques as appropriate, variously including the following: *Automated exposure control *Adjustment of mA and/or kV according to patient size (this includes techniques or standardized protocols for targeted exams where dose is matched to indication/reason for exam; i.e. extremities or head) *Use of iterative reconstruction technique FINDINGS: LUNG BASES: The visualized lung bases are unremarkable. LIVER, GALLBLADDER, AND BILIARY TREE: There is a lesion in the right hepatic lobe, mostly segment 8, extending into segment 7. It measures 2.2 x 3.4 cm (transverse by AP). Without contrast it measured 43 Hounsfield units and after contrast measured 60 Hounsfield units. There appears to be a central vessel enhancing within the lesion. The gallbladder surgically absent. There are clips in the gallbladder fossa. There is no biliary ductal dilation. PANCREAS: Unremarkable. SPLEEN: Unremarkable. ADRENAL GLANDS: Unremarkable. KIDNEYS AND URETERS: There is moderate right hydronephrosis and hydroureter. There is a stone at the right ureterovesicular junction measuring 6 x 11 mm. No stones are identified. There is no left hydronephrosis. The kidneys enhance symmetrically and there is concentration and excretion of contrast bilaterally. BLADDER: Unremarkable. GASTROINTESTINAL TRACT: Gastric bypass surgery has been performed. There is also surgical anastomosis and proximal small bowel in the ventral midline. Findings within normal limits. The colon is unremarkable. ABDOMINAL WALL: No significant hernia is appreciated. LYMPH NODES: Normal. VASCULAR: Unremarkable. PELVIC VISCERA: Uterus and adnexa are unremarkable. OSSEUS STRUCTURES: Total hip replacement has been performed on the right. Mild degenerative changes are present in the SI joints. CT/CT urogram IMPRESSION: Moderate right hydroureteronephrosis with a 6 x 11 mm stone at the ureterovesicular junction. There is an indeterminate 2.2 x 3.4 cm lesion in the right hepatic lobe involving mostly segment 8 with extension segment 7. Follow-up MRI abdomen/liver without and with IV contrast. Results communicated with Dr. Webster with a response at 12:56 PM Eastern time. Electronically signed by: Luis Sandra MD 02/08/2025 12:57 PM EDT
[2025-02-08] MEDS: iohexoL 350 MG/ML 100 ML INFUS..BTL IV (11:25)
--- OUTSIDE RECORDS SUMMARY | 2025-02-08 14:02 | XMS_ITS | Clinical Summary ---
Author Organization [facility] Address [address] [place] [address] Care Team Providers Care Air Quality Manager Name Role Phone Joy Salgado MD Primary Care Provider [phone] Surgical History Surgery Date Site/Laterality Comments GASTRIC BYPASS 06/2016 PROCEDURE: GASTRIC BYPASS FOR OBESIT; COMMENT: [facility] CHOLECYSTECTOMY 04/2016 PROCEDURE: [place] LAPAROSCOPY SURG CHOLECYSTECTOMY; COMMENT: [facility] OTHER SURGICAL HISTORY 06/2014 PROCEDURE: [place] LIG/TRNSXJ FLP TUBE ABDL/VAG APPR UNI/BI; COMMENT: [facility] BREAST REDUCTION 2004 PROCEDURE: [place] BREAST REDUCTION; COMMENT: [facility] Medical History Medical History Date Comments [...] age to complete this topic Care Teams Air Quality Manager Relationship Specialty Start Date End Date Joy Salgado MD [address] [place] [address] [address] [facility] [place] [address] PCP - General Internal Medicine 12/01/18
== END 2025-02-08 10:56 | disposition home or self-care (01) ==
LOC: HO.CT 10:55
PROVIDERS: PCP Internal Medicine; Visit Provider Urology
DX: N13.4 Hydroureter (principal); N13.30 Unspecified hydronephrosis; R31.9 Hematuria, unspecified
CPT/HCPCS: 74178; Q9967

== ENCOUNTER → 2025-02-08 10:57 | Outpatient (BNV) | payer OTHER, SELFPAY | PROVIDERS: PCP Internal Medicine; Visit Provider Radiology Diagnostic Radiology | DX: N13.2 Hydronephrosis with renal and ureteral calculous obstruction (principal); K76.89 Other specified diseases of liver | CPT/HCPCS: 74178 ==

== ENCOUNTER 2025-02-09 11:43 | Outpatient (AMB) | payer OTHER, SELFPAY ==
--- NOTE | 2025-02-09 11:43 | A.OFFVIS_ITS ---
Intake Visit Reasons: CT follow up Intake Note: Patient presents today via telehealth for a CT follow up * 02/[address] Urology Med: Estradiol, Vit b-12 Blood Thinner: None Antibiotic Allergy:None Residential Advisor Required: No Accompanied by: Self / Same As Patient Allergies hazelnut (HAZELNUT) Allergy (Intermediate, Verified 02/09/25 11:43) ITCHING THROAT HPI Comments Details: 02/09/25 Meek is a 49-year-old female telehealth follow-up to review CT imaging the patient had a CAT scan yesterday which noted an 11 mm obstructing stone with hydronephrosis also a small indeterminate 8 mm liver lesion I will refer her to GI. History of Present Illness The patient is a 49-year-old female presenting with a follow-up on CT imaging results. The CT scan performed yesterday revealed an 11 mm obstructing kidney stone causing hydronephrosis. The stone has migrated from the kidney to near the bladder, causing intermittent discomfort on the affected side. The size of the stone is significant enough that it will not pass spontaneously, necessitating surgical intervention. The proposed intervention involves a procedure under anesthesia where a small sc ope is inserted through the urethra to the bladder and up to the stone, which will be fragmented using a laser and ureteral stent placement. Additionally, the CT scan identified an 8 mm indeterminate liver lesion, for which a referral to gastroenterology is planned. Results - CT scan: 11 mm obstructing kidney stone with hydronephrosis, 8 mm indeterminate liver lesion Plan 1. Obstructing Kidney Stone With Hydronephrosis - Plan for surgical intervention using right ureteroscopy and laser lithotripsy to fragment the stone, stent - Scheduled for surgery on the upcoming Thursday, with pre-operative instructions to fast after midnight the night before. 2. Indeterminate Liver Lesion - Referral to gastroenterology for further evaluation and management. 01/12/25--telehealth follow-up renal ultrasound. Last visit 11/03/2024 microscopic hematuria noted. Urine sent for cytology resulted negative for malignant cells. I reviewed renal ultrasound results mild right hydronephrosis hydroureter. The patient complains of right-sided pain. She states she has also noticed some increased urgency in the last several days. I will empirically start Macrobid 100 mg twice a day for 7 days. She will leave a urine sample and we will check a BUN and creatinine. CT urogram ordered. 11/03/24-- - The patient is a 49-year-old female presenting for follow-up on stress urinary incontinence and evaluation of microscopic hematuria. - Stress urinary incontinence: The patient underwent urethral bulking on 06/07/24 and reported improvement with no leakage during coughing as of her last visit on 07/07/24. - Microscopic hematuria: Detected during urinalysis with 3 plus blood and negative leukocytes. No recent imaging of kidneys noted, and cystoscopy at the time of urethral bulking showed bladder within normal limits. - Vaginal dryness: The patient reports persistent dryness despite using estrogen therapy (Vagifem). She experiences dryness during intercourse. - Menopausal symptoms: The patient describes irregular periods, hot flashes, mood changes, and dryness, attributing these to menopause. Urinary Symptoms Review - Stress urinary incontinence: No leakage during coughing post-urethral bulking. Results - Urinalysis: 3 plus blood, leukocytes negative. - Cystoscopy- 06/07/24: Bladder within normal limits at the time of urethral bulking. 07/07/24--Meghna is status post of bulkamid urethral injection on 06/07/24 for stress urinary incontinence, intrinsic sphincter deficiency. She states she is doing great, no leakage with cough. UA - negative. FU in 10 months. Cont Estrace cream. 05/06/2024--here for urodynamics. Meghna is a 49-year-old female with complaints of urinary incontinence. Interpretation: During the filling phase there was normal sensation, strong urge was noted at 415 mL, the patient felt that she was at capacity at 433 mL. Leakage was observed during cough and valsalva stress. Findings consistent with ISD, EMG- Appropriate changes in the waveforms were noted through out the study. I discussed treatment options to include urethral bulking and sling procedures, risks include but are not limited to urinary retention, infection, bleeding, need for another procedure, mesh erosion, urgency. 11/05/2023--Meghna is a 48-year-old female who states she has had urinary incontinence which is worsening over the last year. She leaks with coughing and sneezing she also has urgency. She has had recurrent UTIs in the past. In further discussion she does admit to vaginal dryness and irregular menstrual cycle. Urinalysis is nitrite positive. I will empirically start Levaquin 500 mg daily pending urine culture. Schedule renal bladder ultrasound. Discussed Vagifem twice a week. Will refer to college associate regarding irregular menstrual cycle. [facility] Medical History Allergic rhinitis GERD without esophagitis Vitamin D deficiency Overweight (BMI 25.0-29.9) Excess skin Spontaneous ecchymoses Right hip pain Obesity (BMI 30-39.9) Pain in left toe(s) Bunion of great toe of left foot Post-traumatic osteoarthritis of right hip Primary osteoarthritis of both knees Arthritis Surgical History Hx of colonoscopy History of esophagogastroduodenoscopy (EGD) History of total right hip arthroplasty (~06/04/21) History of surgery History of bilateral breast reduction surgery History of hip surgery H/O gastric bypass History of laparoscopic cholecystectomy History of tubal ligation Family History Mother Ovarian cancer Diabetes Father HIV (human immunodeficiency virus infection) Maternal Grandmother Stomach cancer Maternal Grandfather Myocardial infarction Brother In good health Sister In good health Mental health disorder Son In good health Daughter In good health Social History Household Members: Family Household Members Other:: minor child Housing: Apartment Are you a primary health careers instructor to a significant other at home: No Do you presently have visiting nurse or other home services: No Alcohol intake: current Alcohol intake frequency: a few times a month Patient Tobacco Use Status: Former Tobacco user Tobacco use type: Cigarette e-Cigarette/Vaping Use: Never Used Second Hand Smoke Exposure: Yes Substance Use Type: Marijuana service: No Current occupational status: unemployed Gender identity: Female Cognitive needs: No Hearing needs: No Vision needs: No Female Reproductive History Menstrual Age of Menarche: 15 Review of Systems Const All systems reviewed & are unremarkable except as noted in HPI and below Reports no additional complaints Eyes Reports no additional complaints ENT Reports no additional complaints Card Reports no additional complaints Resp Reports no additional complaints GI Reports no additional complaints Reports as per HPI Musc Reports no additional complaints Skin/Breast Reports system reviewed and no additional complaints, except as documented Neuro Reports no additional complaints Psych Reports no additional complaints Endo Reports no additional complaints Murali/Lymph Reports no additional complaints Aller/Immun Reports no additional complaints Telehealth Telehealth Telehealth Platform: Visible Measures Location of provider rendering services: practice address Location of patient: address on file Patient Identification confirmed using: Name, : Yes Telehealth method: video Patient verbally consented to treatment: Yes Patient verbally consented to billing insurance company: Yes Patient informed of any privacy concerns related to visit: Yes Results Reviewed Results Reviewed: Date of Service: 02/08/25 Reason for Exam: N13.4 - Hydroureter EXAMINATION: CT ABDOMEN AND PELVIS WITHOUT AND WITH CONTRAST CLINICAL INFORMATION: N13.4 - Hydroureter COMPARISON: Renal ultrasound December 15, 2024 TECHNIQUE: Noncontrast CT of the abdomen and pelvis is performed followed by split bolus contrast-enhanced images using 85 mL Omnipaque 350 contrast. Postcontrast imaging is performed during the combined nephrogram and excretion phase. Sagittal and coronal reformatted images were obtained on the technologist's workstation for both the precontrast and postcontrast phases. This CT examination was performed using dose optimization techniques as appropriate, variously including the following: *Automated exposure control *Adjustment of mA and/or kV according to patient size (this includes techniques or standardized protocols for targeted exams where dose is matched to indication/reason for exam; i.e. extremities or head) *Use of iterative reconstruction technique FINDINGS: LUNG BASES: The visualized lung bases are unremarkable. LIVER, GALLBLADDER, AND BILIARY TREE: There is a lesion in the right hepatic lobe, mostly segment 8, extending into segment 7. It measures 2.2 x 3.4 cm (transverse by AP). Without contrast it measured 43 Hounsfield units and after contrast measured 60 Hounsfield units. There appears to be a central vessel enhancing within the lesion. The gallbladder surgically absent. There are clips in the gallbladder fossa. There is no biliary ductal dilation. PANCREAS: Unremarkable. SPLEEN: Unremarkable. ADRENAL GLANDS: Unremarkable. KIDNEYS AND URETERS: There is moderate right hydronephrosis and hydroureter. There is a stone at the right ureterovesicular junction measuring 6 x 11 mm. No stones are identified. There is no left hydronephrosis. The kidneys enhance symmetrically and there is concentration and excretion of contrast bilaterally. BLADDER: Unremarkable. GASTROINTESTINAL TRACT: Gastric bypass surgery has been performed. There is also surgical anastomosis and proximal small bowel in the ventral midline. Findings within normal limits. The colon is unremarkable. ABDOMINAL WALL: No significant hernia is appreciated. LYMPH NODES: Normal. VASCULAR: Unremarkable. PELVIC VISCERA: Uterus and adnexa are unremarkable. OSSEUS STRUCTURES: Total hip replacement has been performed on the right. Mild degenerative changes are present in the SI joints. IMPRESSION: Moderate right hydroureteronephrosis with a 6 x 11 mm stone at the ureterovesicular junction. There is an indeterminate 2.2 x 3.4 cm lesion in the right hepatic lobe involving mostly segment 8 with extension segment 7. Follow-up MRI abdomen/liver without and with IV contrast. Date of Service: 12/15/24 US renal with Color Doppler Comparison: None Findings: Right kidney normal size and echotexture, 10.6 cm length. Mild hydronephrosis and mild hydroureter. Normal color flow. No nephrolithiasis. Benign renal cortical cyst midpole measuring 1.1 x 1.2 x 0.8 cm. Left kidney normal size and echotexture, 11.1 cm length. No hydronephrosis calculus or mass. Normal color flow. Urinary bladder was decompressed Impression: 1. Kidneys normal-size and position. Mild hydroureter and hydronephrosis right kidney. Benign renal cortical cyst right kidney. No nephrolithiasis. Collected: 11/03/24 Location: .[facility] Received: 11/04/24 Diagnosis Urine: Negative for high-grade urothelial carcinoma. Comment: Examination of a monolayer preparation slide shows many benign squamous cells with bacteria, few benign urothelial cells, few inflammatory cells, rare red blood cells. Clinical History Microscopic hematuria Material Received Urine Gross Description Received is 29 cc of clear yellow fluid from which a ThinPrep slide is prepared. Copies To Aditya Aguirre MD [facility] Primary Care,[address] [place] [address] Marla Webster MD [facility] Urology Services [address] [place] [address] Dr[address] [place], [place] [id number] [email or web address] NOTE: Unless otherwise stated, all tissue is formalin-fixed and paraffin- embedded. Some or all of the immunohistochemical tests reported herein may have been developed and their performance characteristics determined by [facility]. They have not been cleared or approved by the U.S. Food and Drug Administration (FDA). However, the FDA has determined that such clearance or approval is not necessary. This laboratory is certified under the Clinical Laboratory Improvement Amendments of 1988 (CLIA) as qualified to perform high complexity clinical laboratory testing. Electronically Signed By: Yuridia Brock 11/05/24 [id number] Patient: Meghna Louie Age/Sex: 49/F MR#: [id number] Page 1 of Collected: 02/05/23 Status: COMP Req#: [id number] Received: 02/05/23 Source: [facility] Sp Desc: Urine page Subm Dr: Aditya Aguirre MD Ordered: Urine Culture Procedure Result Verified Urine Culture Final 02/07/23 Organism 1 Escherichia coli Quant > 100,000 cfu/mL E coli M.I.C. RX --------- --- Ampicillin >=32 R Ceftriaxone <=0.25 S Gentamicin <=1 S Levofloxacin <=0.12 S Nitrofurantoin <=16 S Trimethoprim/Sulfamethoxazole >=320 R Assessment & Plan Assessment & Plan (1) Hydronephrosis, right: Code(s): N13.30 - Unspecified hydronephrosis Category: Medical (2) Ureteral stone: Code(s): N20.1 - Calculus of ureter Category: Medical (3) Hydroureter: Code(s): N13.4 - Hydroureter Category: Medical Plan Plan 1. Obstructing Kidney Stone With Hydronephrosis - Plan for surgical intervention using right ureteroscopy and laser lithotripsy to fragment the stone, stent - Scheduled for surgery on the upcoming Thursday, with pre-operative instructions to fast after midnight the night before. 2. Indeterminate Liver Lesion - Referral to gastroenterology for further evaluation and management. Orders: Referrals Gastroenterology Referral K76.9 - Liver disease, unspecified Patient Instructions: The patient had an opportunity to ask questions regarding treatment plan. The patient expressed understanding and agreement with the above treatment plan. The patient is aware they should contact our office by phone for worsening of their current condition or the appearance of new symptoms. Compliance is encouraged with any medications and followup testing that is ordered. It is a privilege to be allowed the opportunity to participate in the urologic care of your patient. If you have any questions or concerns regarding treatment for the above conditions please do not hesitate to contact me. The office telephone contact is [phone]. This note is constructed in part using voice recognition software. While every effort has been made to ensure accuracy weatherization operations manager errors may have been included. Yours sincerely, Marla Webster MD Scribe Plan - Not visible on output: Patient was informed and verbally consented to the use of an ambient scribe for clinic note documentation during this visit. Coding Level of Care Code Tele Est Pt Level 4 (82013) Complex EM visit Add On G2211 Diagnoses Hydronephrosis, right N13.30 Ureteral stone N20.1 Hydroureter N13.4
--- OUTSIDE RECORDS SUMMARY | 2025-02-09 16:33 | XMS_ITS | Clinical Summary ---
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 Name Role Phone Joy Salgado MD Primary Care Provider [phone] Surgical History Surgery Date Site/Laterality Comments GASTRIC BYPASS 06/2016 PROCEDURE: GASTRIC BYPASS FOR OBESIT; COMMENT: [facility] CHOLECYSTECTOMY 04/2016 PROCEDURE: AR LAPAROSCOPY SURG CHOLECYSTECTOMY; COMMENT: [facility] OTHER SURGICAL HISTORY 06/2014 PROCEDURE: AR LIG/TRNSXJ FLP TUBE ABDL/VAG APPR UNI/BI; COMMENT: [facility] BREAST REDUCTION 2004 PROCEDURE: AR BREAST REDUCTION; COMMENT: [facility] Medical History Medical History Date Comments [...] age to complete this topic Care Teams [employer] Welding 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
== END 2025-02-09 13:41 | disposition home or self-care (01) ==
LOC: HO.HUSH 11:43
PROVIDERS: PCP Internal Medicine; Visit Provider Urology
DX: N13.30 Unspecified hydronephrosis (principal); N20.1 Calculus of ureter; N13.4 Hydroureter
CPT/HCPCS: 99214

== ENCOUNTER 2025-02-20 10:15 | Outpatient (AMB) | payer OTHER, SELFPAY ==
--- NOTE | 2025-02-20 10:15 | A.OFFVIS_ITS ---
Intake Visit Reasons: Discuss Surgical Procedure Intake Note: Patient presents today for follow up to discuss surgical procedure Urology Med: Estradiol, Vit b-12 Blood Thinner: None Antibiotic Allergy:None Spring Bender Required: No Accompanied by: Self / Same As Patient Allergies hazelnut (HAZELNUT) Allergy (Intermediate, Verified 02/20/25 10:17) ITCHING THROAT HPI Comments Details: 02/20/25--History of Present Illness The patient is a 49-year-old female presenting with an obstructing right ureteral stone. The stone measures 11 mm and is located near the bladder, causing discomfort and urinary symptoms. The patient has a history of a similar stone many years ago, which was resolved without surgical intervention. Plan Right ureteroscopy laser lithotripsy ureteral stent. Risks discussed included but not limited to, possible need to repeat procedure if stone is not completely fragmented, Irritative voiding symptoms, bladder spasms, urgency, blood in urine. 02/09/25 Meek is a 49-year-old female telehealth follow-up to review CT imaging the patient had a CAT scan yesterday which noted an 11 mm obstructing stone with hydronephrosis also a small indeterminate 8 mm liver lesion I will refer her to GI. History of Present Illness The patient is a 49-year-old female presenting with a follow-up on CT imaging results. The CT scan performed yesterday revealed an 11 mm obstructing kidney stone causing hydronephrosis. The stone has migrated from the kidney to near the bladder, causing intermittent discomfort on the affected side. The size of the stone is significant enough that it will not pass spontaneously, necessitating surgical intervention. The proposed intervention involves a procedure under anesthesia where a small scope is inserted through the urethra to the bladder and up to the stone, which will be fragmented using a laser and ureteral stent placement. Additionally, the CT scan identified an 8 mm indeterminate liver lesion, for which a referral to gastroenterology is planned. Results - CT scan: 11 mm obstructing kidney stone with hydronephrosis, 8 mm indeterminate liver lesion Plan 1. Obstructing Kidney Stone With Hydronephrosis - Plan for surgical intervention using right ureteroscopy and laser lithotripsy to fragment the stone, stent - Scheduled for surgery on the upcoming Thursday, with pre-operative inst ructions to fast after midnight the night before. 2. Indeterminate Liver Lesion - Referral to gastroenterology for further evaluation and management. 01/12/25--telehealth follow-up renal ultrasound. Last visit 11/03/2024 microscopic hematuria noted. Urine sent for cytology resulted negative for malignant cells. I reviewed renal ultrasound results mild right hydronephrosis hydroureter. The patient complains of right-sided pain. She states she has also noticed some increased urgency in the last several days. I will empirically start Macrobid 100 mg twice a day for 7 days. She will leave a urine sample and we will check a BUN and creatinine. CT urogram ordered. 11/03/24-- - The patient is a 49-year-old female presenting for follow-up on stress urinary incontinence and evaluation of microscopic hematuria. - Stress urinary incontinence: The patient underwent urethral bulking on 06/07/24 and reported improvement with no leakage during coughing as of her last visit on 07/07/24. - Microscopic hematuria: Detected during urinalysis with 3 plus blood and negative leukocytes. No recent imaging of kidneys noted, and cystoscopy at the time of urethral bulking showed bladder within normal limits. - Vaginal dryness: The patient reports persistent dryness despite using estrogen therapy (Vagifem). She experiences dryness during intercourse. - Menopausal symptoms: The patient describes irregular periods, hot flashes, mood changes, and dryness, attributing these to menopause. Urinary Symptoms Review - Stress urinary incontinence: No leakage during coughing post-urethral bulking. Results - Urinalysis: 3 plus blood, leukocytes negative. - Cystoscopy- 06/07/24: Bladder within normal limits at the time of urethral bulking. 07/07/24--Meghna is status post of bulkamid urethral injection on 06/07/24 for stress urinary incontinence, intrinsic sphincter deficiency. She states she is doing great, no leakage with cough. UA - negative. FU in 10 months. Cont Estrace cream. 05/06/2024--here for urodynamics. Meghna is a 49-year-old female with complaints of urinary incontinence. Interpretation: During the filling phase there was normal sensation, strong urge was noted at 415 mL, the patient felt that she was at capacity at 433 mL. Leakage was observed during cough and valsalva stress. Findings consistent with ISD, EMG- Appropriate changes in the waveforms were noted through out the study. I discussed treatment options to include urethral bulking and sling procedures, risks include but are not limited to urinary retention, infection, bleeding, need for another procedure, mesh erosion, urgency. 11/05/2023--Meghna is a 48-year-old female who states she has had urinary incontinence which is worsening over the last year. She leaks with coughing and sneezing she also has urgency. She has had recurrent UTIs in the past. In further discussion she does admit to vaginal dryness and irregular menstrual cycle. Urinalysis is nitrite positive. I will empirically start Levaquin 500 mg daily pending urine culture. Schedule renal bladder ultrasound. Discussed Vagifem twice a week. Will refer to java web developer regarding irregular menstrual cycle. [facility] Medical History Allergic rhinitis GERD without esophagitis Vitamin D deficiency Overweight (BMI 25.0-29.9) Excess skin Spontaneous ecchymoses Right hip pain Obesity (BMI 30-39.9) Pain in left toe(s) Bunion of great toe of left foot Post-traumatic osteoarthritis of right hip Primary osteoarthritis of both knees Arthritis Surgical History Hx of colonoscopy History of esophagogastroduodenoscopy (EGD) History of total right hip arthroplasty (~06/04/21) History of surgery History of bilateral breast reduction surgery History of hip surgery H/O gastric bypass History of laparoscopic cholecystectomy History of tubal ligation Family History Mother Ovarian cancer Diabetes Father HIV (human immunodeficiency virus infection) Maternal Grandmother Stomach cancer Maternal Grandfather Myocardial infarction Brother In good health Sister In good health Mental health disorder Son In good health Daughter In good health Social History Household Members: Family Household Members Other:: minor child Housing: Apartment Are you a primary healthcare facility administrator to a significant other at home: No Do you presently have visiting nurse or other home services: No Alcohol intake: current Alcohol intake frequency: a few times a month Patient Tobacco Use Status: Former Tobacco user Tobacco use type: Cigarette e-Cigarette/Vaping Use: Never Used Second Hand Smoke Exposure: Yes Substance Use Type: Marijuana service: No Current occupational status: unemployed Gender identity: Female Cognitive needs: No Hearing needs: No Vision needs: No Female Reproductive History Menstrual Age of Menarche: 15 Review of Systems Const All systems reviewed & are unremarkable except as noted in HPI and below Reports no additional complaints Eyes Reports no additional complaints ENT Reports no additional complaints Card Reports no additional complaints Resp Reports no additional complaints GI Reports no additional complaints Reports as per HPI Musc Reports no additional complaints Skin/Breast Reports system reviewed and no additional complaints, except as documented Neuro Reports no additional complaints Psych Reports no additional complaints Endo Reports no additional complaints Murali/Lymph Reports no additional complaints Aller/Immun Reports no additional complaints Results AMB Urinalysis, Automated UA Leukoctes 0 Qing/uL Last Edit by Bree Alvarado MA on 02/20/25 10:48 UA Nitrite Negative Last Edit by Bree Alvarado MT on 02/20/25 10:48 UA Urobilinogen 0.2 mg/dL Last Edit by Bree Alvarado MT on 02/20/25 10:48 UA Protein 0 mg/dL Last Edit by Bree Alvarado MT on 02/20/25 10:48 UA pH 6.5 Last Edit by Bree Alvarado, MT on 02/20/25 10:48 UA Blood 0 Adelso/uL Last Edit by Bree Alvarado MT on 02/20/25 10:48 UA Specific Regan 1.015 Last Edit by Bree Alvarado MT on 02/20/25 10:48 UA Ketone Negative Last Edit by Bree Alvarado MT on 02/20/25 10:48 UA Bilirubin 0 mg/dL Last Edit by Bree Alvarado MT on 02/20/25 10:48 UA Glucose 0 mg/dL Last Edit by Bree Alvarado MT on 02/20/25 10:48 Results Reviewed Results Reviewed: Laboratory Last Values Urine pH (Auto) 6.5 02/20/25 10:30 Specific Regan (Auto) 1.015 02/20/25 10:30 Urine Protein (Auto) 0 mg/dL 02/20/25 10:30 Glucose (UA)(Auto) 0 mg/dL 02/20/25 10:30 Urine Ketones (Auto) Negative 02/20/25 10:30 Urine Blood (Auto) 0 Adelso/uL 02/20/25 10:30 Urine Nitrite (Auto) Negative 02/20/25 10:30 Urine Bilirubin (Auto) 0 mg/dL 02/20/25 10:30 Urine Urobilinogen (Auto) 0.2 mg/dL 02/20/25 10:30 Leukocyte Esterase (Auto) 0 Qing/uL 02/20/25 10:30 Assessment & Plan Assessment & Plan (1) Hydronephrosis, right: Code(s): N13.30 - Unspecified hydronephrosis Category: Medical (2) Ureteral stone: Code(s): N20.1 - Calculus of ureter Category: Medical (3) Hydroureter: Code(s): N13.4 - Hydroureter Category: Medical Plan Plan Cystoscopy. Right ureteroscopy laser lithotripsy ureteral stent. Risks discussed included but not limited to, possible need to repeat procedure if stone is not completely fragmented, Irritative voiding symptoms, bladder spasms, urgency, blood in urine. Orders: Orders AMB Urinalysis Automated Today Z13.9 - Encounter for screening, unspecified Patient Instructions: The patient had an opportunity to ask questions regarding treatment plan. The patient expressed understanding and agreement with the above treatment plan. The patient is aware they should contact our office by phone for worsening of their current condition or the appearance of new symptoms. Compliance is encouraged with any medications and followup testing that is ordered. It is a privilege to be allowed the opportunity to participate in the urologic care of your patient. If you have any questions or concerns regarding treatment for the above conditions please do not hesitate to contact me. The office telephone contact is [phone]. This note is constructed in part using voice recognition software. While every effort has been made to ensure accuracy pockets and pieces necktie operator errors may have been included. Yours sincerely, Marla Webster MD Scribe Plan - Not visible on output: Patient was informed and verbally consented to the use of an ambient scribe for clinic note documentation during this visit. Coding Level of Care Code Est Pt Level 3 (07657) Diagnoses Hydronephrosis, right N13.30 Ureteral stone N20.1 Hydroureter N13.4
--- OUTSIDE RECORDS SUMMARY | 2025-02-20 11:56 | XMS_ITS | Clinical Summary ---
Author Organization [facility] Address [address] [place] [address] Care Team Providers Care Injury Prevention Coordinator Name Role Phone Joy Salgado MD Primary Care Provider [phone] Surgical History Surgery Date Site/Laterality Comments GASTRIC BYPASS 06/2016 PROCEDURE: GASTRIC BYPASS FOR OBESIT; COMMENT: [facility] CHOLECYSTECTOMY 04/2016 PROCEDURE: [place] LAPAROSCOPY SURG CHOLECYSTECTOMY; COMMENT: [facility] OTHER SURGICAL HISTORY 06/2014 PROCEDURE: [place] LIG/TRNSXJ FLP TUBE ABDL/VAG APPR UNI/BI; COMMENT: [facility] BREAST REDUCTION 2004 PROCEDURE: [place] BREAST REDUCTION; COMMENT: [facility] Medical History Medical History Date [...] Last Done Comments Breast Cancer Screening 1977 Colorectal Cancer Screening: Colonoscopy 1977 DTaP,Tdap,and Td Vaccines (1 - Tdap) 1996 Cervical Cancer Screening: P ap Smear 1998 Hepatitis B Vaccines (2 of 3 - Hep B Twinrix 3-dose series) 03/18/2017 02/18/2017 HIV Screening 04/20/2022 Hepatitis C Screening 04/20/2022 Social Influencers of Health Screening 04/20/2022 Depression Screening 05/18/2024 COVID-19 Vaccine (1 - 2023-2 5 season) 2025 Influenza Vaccine (#1) 2025 RSV Immunization Adult Patie nts (1 - 1-dose 75+ series) 2052 Hepatitis A Vaccines Aged Out 02/18/2017 No [...] age to complete this topic Care Teams Injury Prevention Coordinator Relationship Specialty Start Date End Date Joy Salgado MD 2 [facility] [address] [facility] [place] [address] PCP - General Internal Medicine 12/01/18
== END 2025-02-20 11:07 | disposition home or self-care (01) ==
LOC: HO.HUSH 10:16
PROVIDERS: PCP Internal Medicine; Visit Provider Urology
DX: N13.30 Unspecified hydronephrosis (principal); N20.1 Calculus of ureter; N13.4 Hydroureter; Z13.9 Encounter for screening, unspecified
CPT/HCPCS: 99213

== ENCOUNTER → 2025-02-20 10:15 | Outpatient (BNVA) | payer OTHER, SELFPAY | PROVIDERS: PCP Internal Medicine; Visit Provider Urology | DX: N13.2 Hydronephrosis with renal and ureteral calculous obstruction (principal); N13.4 Hydroureter | CPT/HCPCS: 81003; 99212 ==

== ENCOUNTER 2025-02-21 07:43 | Emergency (ER) | payer OTHER, SELFPAY ==
--- NOTE | ~2025-02-21 | XR_ITS ---
EXAMINATION: XR WRIST, RIGHT CLINICAL INFORMATION: fall, swelling COMPARISON: None available. TECHNIQUE: PA, lateral, and oblique views of the right wrist. FINDINGS: The bones and soft tissues are normal. No fracture. Alignment is anatomic with normal joint spaces. No erosions or abnormal soft tissue calcifications. XR/XR wrist RT min 3V IMPRESSION: Normal right wrist. Electronically signed by: Anayeli Kaufman MD 02/21/2025 08:17 AM EDT
--- NOTE | ~2025-02-21 | XR_ITS ---
EXAMINATION: XR HAND, RIGHT CLINICAL INFORMATION: fall, swelling COMPARISON: None available. TECHNIQUE: PA, lateral, and oblique views of the right hand. FINDINGS: The bones and soft tissues are normal. No fracture. Alignment is anatomic. Joint spaces are maintained. No erosions or soft tissue calcifications. XR/XR hand RT min 3V IMPRESSION: Normal right hand. Electronically signed by: Anayeli Kaufman MD 02/21/2025 08:17 AM EDT
[2025-02-21 07:46] VITALS: BP 118/65; PULSE 68; RESP 20; TEMP 37; O2SAT 99; BMI 30.2
[2025-02-21 09:14] VITALS: BP 118/94; PULSE 64; RESP 20; TEMP 36.7; O2SAT 95
--- NOTE | 2025-02-21 09:37 | ED.EXTPRO ---
HPI - Extremity Problem General Chief complaint: Extremity Problem Stated complaint: R hand injury Time Seen by Provider: 02/21/25 09:05 Source: patient, RN notes reviewed and old records reviewed Mode of arrival: ambulatory History of Present Illness ED Provider: Angelique Diaz PA-C HPI Narrative: 49-year-old female with past medical history of arthritis, GERD, presenting to the ED complaining of right hand/wrist pain and swelling s/p mechanical trip and fall yesterday on sidewalk. States caught herself with hand, denies head trauma or LOC. Denies injury to other area, numbness, tingling, weakness. Related Data Previous Rx's ?Medication ?Instructions ?Recorded cane #1 ea 12/07/20 clotrimazole 1 % topical cream 1 appl topical BID #45 grams 08/25/23 loratadine 10 mg tablet 10 mg PO DAILY #30 tabs 08/25/23 vitamin A palmitate 7,500 mcg 7,500 mcg PO DAILY #30 caps 08/25/23 (25,000 unit) capsule diclofenac sodium 1 % topical gel 4 g topical QID #100 grams 10/26/23 (Arthritis Pain (diclofenac)) polyethylene glycol 3350 17 17 g PO DAILY 30 days #510 grams 02/10/24 gram/dose oral powder (Miralax) pantoprazole 40 mg tablet,delayed 40 mg PO DAILY #90 tabs 04/13/24 release cholecalciferol (vitamin D3) 50 50 mcg PO DAILY 90 days #90 caps 06/16/24 mcg (2,000 unit) capsule ferrous sulfate 325 mg (65 mg 325 mg PO DAILY 90 days #90 tabs 06/16/24 iron) tablet (FeroSul) sucralfate 100 mg/mL oral 10 ml PO BID #414 mL 06/16/24 suspension (Carafate) cyclobenzaprine 10 mg tablet 10 mg PO BEDTIME PRN muscle spasm 08/22/24 #30 tabs estradiol 0.01% (0.1 mg/gram) See Rx Instructions vaginal DAILY 11/03/24 vaginal cream (Estrace) #42.5 grams cyanocobalamin (vitamin B-12) 1,000 mcg PO DAILY #30 tabs 11/13/24 1,000 mcg tablet gabapentin 100 mg capsule 100 mg PO TID 30 days #90 caps 12/07/24 nitrofurantoin 100 mg PO BID 7 days #14 caps 01/12/25 monohydrate/macrocrystals 100 mg capsule (Macrobid) tramadol 50 mg tablet 50 mg PO TID PRN pain 30 days #90 02/16/25 tabs Allergies Allergy/AdvReac Type Severity Reaction Status Date / Time hazelnut (HAZELNUT) Allergy Intermediate ITCHING Verified 02/21/25 07:48 THROAT Review of Systems Review of Systems: Yes all other systems are reviewed and are negative Constitutional: Constitutional: Reports as per [facility] Past Medical History Attestation statement: The following information was validated with the patient. Source: old records reviewed Medical History Allergic rhinitis GERD without esophagitis Vitamin D deficiency Overweight (BMI 25.0-29.9) Excess skin Spontaneous ecchymoses Right hip pain Obesity (BMI 30-39.9) Pain in left toe(s) Bunion of great toe of left foot Post-traumatic osteoarthritis of right hip Primary osteoarthritis of both knees Arthritis Surgical History Hx of colonoscopy History of esophagogastroduodenoscopy (EGD) History of total right hip arthroplasty (~06/04/21) History of surgery History of bilateral breast reduction surgery History of hip surgery H/O gastric bypass History of laparoscopic cholecystectomy History of tubal ligation Family History Family History Mother Ovarian cancer Diabetes Father HIV (human immunodeficiency virus infection) Maternal Grandmother Stomach cancer Maternal Grandfather Myocardial infarction Brother In good health Sister In good health Mental health disorder Son In good health Daughter In good health Social History Social History Household Members: Family Household Members Other:: minor child Housing: Apartment Are you a primary client care specialist to a significant other at home: No Do you presently have visiting nurse or other home services: No Alcohol intake: current Alcohol intake frequency: a few times a month Patient Tobacco Use Status: Former Tobacco user Tobacco use type: Cigarette e-Cigarette/Vaping Use: Never Used Second Hand Smoke Exposure: Yes Substance Use Type: Marijuana Advance Directives: No Advance Directives Information Provided: No service: No Current occupational status: unemployed Gender identity: Female Cognitive needs: No Hearing needs: No Vision needs: No Physical Exam Vital Signs: Vital Signs: Last Vital Signs Temp 98.0 F 02/21/25 09:14 Pulse 64 02/21/25 09:14 Resp 20 02/21/25 09:14 BP 118/94 H 02/21/25 09:14 Pulse Ox 95 02/21/25 09:14 O2 Del Method Room Air 02/21/25 09:14 BMI result Body Mass Index 30.2 Const: General: cooperative, healthy appearing and no acute distress Orientation/consciousness: patient oriented x3 Limitations: no limitations HEENT: Head: Yes normal to inspection and Yes atraumatic Ears: hearing grossly normal bilaterally General nose exam: Normal external nose present Face and sinus: Yes normal facial exam Eyes: General: appearance normal, both eyes and all related structures EOM: EOMs intact bilaterally Neck: Neck: Yes normal visual inspection and Yes no meningeal signs Resp: Effort & Inspection: normal respiratory effort and no respiratory distress Cardio: Rate: regular rate Skin: Rashes: no rashes Wounds: no wounds Neuro: General: patient oriented x3, tone normal and no meningeal signs Cranial nerves: Yes CN's II-XII intact bilaterally Gait exam (Neuro): Normal gait present Extrem: Other: Right hand ulnar aspect with appreciable swelling and slight ecchymosis. Tender to palpation. ROM intact with discomfort. Neurovascularly intact. Gkumsy-gw-mxnmt opposition intact. No snuffbox tenderness. No forearm or elbow tenderness. Course Course Course Narrative: -hand and wrist x-rays unremarkable. Todd wrap applied for comfort Results discussed with patient including worrisome signs and symptoms and strict return precautions, and when to return to the emergency department. They verbalized understanding and feel safe for discharge at this time. Medical Decision Making Medical Decision Making MDM Narrative: 49-year-old female with past medical history of arthritis, GERD, presenting to the ED complaining of right hand/wrist pain and swelling s/p mechanical trip and fall yesterday on sidewalk. On exam vital signs stable, NAD, nontoxic appearing, physical exam as noted above. Concern for fracture vs sprain/contusion. No evidence of overlying infection/cellulitis or compartment syndrome. No snuffbox tenderness Plan: X-ray Please refer to course for remaining clinical decision making, interpretation of labs/imaging results, and discussions with consultants and/or family members. Differential Diagnosis Differential Diagnoses: The differential diagnosis associated with the presentation includes As above Independent Interpretation I performed an independent interpretation of an: Plain X-Ray (My interpretation: Appear unremarkable. No appreciable fractures.) Radiology Impression Discussion of test interpretation with radiology: I have reviewed the radiologist's reading. External Record Review External record reviewed: Inpatient record, Office record, Outpatient record, Prior outpatient labs, Prior outpatient radiology, Primary care record and Outside ED record Tests considered The following testing was considered but not selected: As above Prescription Management I considered prescription management with: Pain Medication Chronic Conditions Patient?s care impacted by: Other Social Determinants Patient?s care significantly limited by Social Determinants of Health including: Other Social Determinant of Health Procedures Orthopedic Splinting/Casting Injury #1: Side: right Upper Extremity Injury Location: hand Upper Extremity Immobilizer: Todd wrap Discharge Plan Discharge Clinical Impression: Contusion of hand, Right wrist sprain Patient Disposition: Home, Self-Care Instructions: Sprain (ED), Contusion in Adults (ED) Additional Instructions: Your x-rays do not show a fracture/break Wear Todd wrap for comfort Ice and elevate Take Tylenol and ibuprofen for pain/swelling If symptoms persist or worsen her pain is unbearable return to the ED Follow-up with orthopedics as needed. Follow up with your doctor Prescriptions: No Action (DME) cane Device See Rx Instructions .ROUTE .MEDSUPPLY Qty: 1 0RF Rx Instructions: As directed diclofenac sodium [Arthritis Pain (diclofenac)] 1 % gel 4 g topical QID Qty: 100 0RF Rx Instructions: apply to single knee, ankle, foot; for foot includes sole/toes/top of foot pantoprazole 40 mg tablet,delayed release (DR/EC) 40 mg PO DAILY Qty: 90 3RF cyanocobalamin (vitamin B-12) 1,000 mcg tablet 1,000 mcg PO DAILY Qty: 30 11RF gabapentin 100 mg capsule 100 mg PO TID 30 Days Qty: 90 1RF tramadol 50 mg tablet 50 mg PO TID PRN (Reason: pain) 30 Days Qty: 90 0RF clotrimazole 1 % cream 1 appl topical BID Qty: 45 3RF vitamin A palmitate 7,500 mcg (25,000 unit) capsule 7,500 mcg PO DAILY Qty: 30 11RF loratadine 10 mg tablet 10 mg PO DAILY Qty: 30 0RF polyethylene glycol 3350 [Miralax] 17 gram/dose powder 17 g PO DAILY 30 Days Qty: 510 3RF cholecalciferol (vitamin D3) 50 mcg (2,000 unit) capsule 50 mcg PO DAILY 90 Days Qty: 90 3RF ferrous sulfate [FeroSul] 325 mg (65 mg iron) tablet 325 mg PO DAILY 90 Days Qty: 90 3RF sucralfate [Carafate] 100 mg/mL suspension 10 ml PO BID Qty: 414 3RF cyclobenzaprine 10 mg tablet 10 mg PO BEDTIME PRN (Reason: muscle spasm) Qty: 30 2RF nitrofurantoin monohyd/m-cryst [Macrobid] 100 mg capsule 100 mg PO BID 7 Days Qty: 14 0RF Rx Instructions: must administer with a meal/food estradiol [Estrace] 0.01 % (0.1 mg/gram) cream See Rx Instructions vaginal DAILY Qty: 42.5 1RF Rx Instructions: apply pea sized amount to fingertip and apply vaginally daily at bedtime; Referrals: [facility] [Provider Group] Referral Note: Follow-up as needed Aditya Aguirre MD [Primary Care Provider, Internal Medicine] Print Language: Czech
--- OUTSIDE RECORDS SUMMARY | 2025-02-21 10:10 | XMS_ITS | Clinical Summary ---
Author Organization [facility] Address [address] [place] [address] Care Team Providers Care [employer] Name Role Phone Joy Salgado MD Primary Care Provider [phone] Surgical History Surgery Date Site/Laterality Comments GASTRIC BYPASS 06/2016 PROCEDURE: GASTRIC BYPASS FOR OBESIT; COMMENT: [facility] CHOLECYSTECTOMY 04/2016 PROCEDURE: [place] LAPAROSCOPY SURG CHOLECYSTECTOMY; COMMENT: [facility] OTHER SURGICAL HISTORY 06/2014 PROCEDURE: [place] LIG/TRNSXJ FLP TUBE ABDL/VAG APPR UNI/BI; COMMENT: [facility] BREAST REDUCTION 2004 PROCEDURE: [place] BREAST REDUCTION; COMMENT: [facility] Medical History Medical History Date Comments [...] age to complete this topic Care Teams [employer] Relationship Specialty Start Date End Date Joy Salgado MD 2 [facility] [address] [facility] [place] [address] PCP - General Internal Medicine 12/01/18
== END 2025-02-21 10:54 | disposition home or self-care (01) ==
PROVIDERS: Emergency Provider Emergency Medicine; PCP Internal Medicine
DX: S60.221A Contusion of right hand, initial encounter (principal); S63.501A Unspecified sprain of right wrist, initial encounter; W01.0XXA Fall on same level from slipping, tripping and stumbling without subsequent striking against object, initial encounter; Y93.01 Activity, walking, marching and hiking; Y92.9 Unspecified place or not applicable; Y99.8 Other external cause status; Z87.891 Personal history of nicotine dependence; Z79.899 Other long term (current) drug therapy
CPT/HCPCS: 73110; 73130; 99283

== ENCOUNTER → 2025-02-21 07:50 | Outpatient (BNV) | payer OTHER, SELFPAY | PROVIDERS: PCP Internal Medicine; Visit Provider Radiology Diagnostic Radiology | DX: R22.31 Localized swelling, mass and lump, right upper limb (principal); W19.XXXA Unspecified fall, initial encounter | CPT/HCPCS: 73110; 73130 ==

== ENCOUNTER 2025-02-21 09:53 | Day surgery (SDC) | payer OTHER, SELFPAY ==
--- NOTE | ~2025-02-21 | FL_ITS ---
EXAMINATION: FLUOROSCOPY GUIDANCE FOR NEEDLE PLACEMENT CLINICAL INFORMATION: cystoscopy, ureteroscopy, retro, laser possible COMPARISON: None available. TECHNIQUE: Fluoroscopy provided in the operating room. FINDINGS: Multiple fluoroscopic images obtained in the operating room during cystoscopy and ureteroscopy. The final images demonstrate tubing projected over the right lower abdomen/pelvis, inferiorly extending beyond the [id number]. See operative report. FLUOROSCOPY TIME: 0.2 minutes Dose: 4.68 mgy FL/FL guidance in OR IMPRESSION: As above Electronically signed by: Gaudencio Fenton MD 02/21/2025 12:39 PM EDT
[2025-02-21 10:35] VITALS: BMI 34.2
[2025-02-21] MEDS: Lactated Ringers 1,000 ML 100 ML IVCONT (10:38)
--- NOTE | 2025-02-21 10:42 | MHC.SHP ---
Pre-Procedural Eval Section A - 24 Hr Update-Section A only Date of Service: 02/21/25 The patient is an INPATIENT: No The patient has been examined within 24 hours of the surgical procedure. The History & Physical has been completed within 30 days and I have reviewed it.: Yes Section B - Complete if H&P > 30 days Chief Complaint: Calculus of ureter, right Allergies: Allergies Allergy/AdvReac Type Severity Reaction Status Date / Time hazelnut (HAZELNUT) Allergy Intermediate ITCHING Verified 02/21/25 07:48 THROAT Plan Diagnosis/Plan: Unchanged I have reviewed the history and physical and performed a pertinent physical examination on my patient. No changes have occurred unless specified. Plan for Cystoscopy, right ureteroscopy, possible laser lithotripsy, possible ureteral stent. Risks discussed included but not limited to, possible need to repeat procedure if stone is not completely fragmented, Irritative voiding symptoms, bladder spasms, urgency, blood in urine. Time Spent With Patient Time: Total time managing care of this patient today ____ minutes.
--- NOTE | 2025-02-21 10:49 | P.OP_ITS ---
Operative Note Operative Note Date of Service: 02/21/25 Narrative: PreOperative Diagnosis:?? Right ureteral stone, right hydronephrosis Post Operative Diagnosis:?? Right ureteral stone, right hydronephrosis Procedure: - Cystoscopy, right retrograde, right ureteroscopy laser lithotripsy stent insertion, 6 Marshallese by 22-32 cm Surgeon:?Dr Marla Webster Anesthesia:? General Procedure: After informed consent was verified the patient was brought to the operating placed on the OR table in supine position.? General Anesthesia was administered per protocol.? The patient was placed in lithotomy position, prepped and draped in the usual sterile fashion.? Safety pause time-out and side of surgery confirmed.? Antibiotics confirmed. 2% lidocaine jelly 10 mL was passed transurethrally. A 22 Marshallese cystoscope was inserted transurethrally. Both ureteric orifices were in normal position. An open-ended ureteral catheter was passed into the right ureteral orifice and a retrograde examination was performed. There was a filling defect in the distal right ureter and dilatation of the proximal ureter and renal pelvis and calyces. A guidewire was passed through the ureteral catheter into the kidney. A 2nd guidewire was then passed into the kidney to use as a safety. The cystoscope was removed, leaving both guidewires in place. One guidewire was used as the safety and was attached to the draping. The semi rigid ureteroscope was passed over one of the guidewires to the level of the stone in the ureter. One asaf dewire was then removed. Laser lithotripsy of the stone was done using the 365 fiber with a alternating pulsating and dusting setting. There was good fragmentation of the stone. The fragments were small enough to pass on their own. The ureteroscope was removed. The cystoscope was passed over the safety guidewire. A?6 Marshallese by 22-32 cm stent was placed into the ureter and renal pelvis under a combination of fluoroscopy and direct visualization. The bladder was emptied.? The rigid cystoscope was removed. ? The patient tolerated the procedure well and was brought to the recovery room in stable condition. Complications: None Drains: Ureteral stent as dictated above
--- NOTE | 2025-02-21 10:50 | P.CONAN_ITS ---
Documented by User: Angelique Boggs NP 02/20/25 12:23 HPI - Anesthesia Eval Consult details Narrative: 49 yr old female for right cystoscopy, ureteroroscopy, retro, laser PMFSH Active Problems Active Problems: All Active Problems Ureteral stone (Acute) Liver lesion (Acute) Abdominal pain, right lateral (Acute) Hematuria (Acute) Hydronephrosis, right (Acute) Hydroureter (Acute) Microscopic hematuria (Acute) Vaginal dryness (Acute) Pain in right lower leg (Acute) MARIAH (stress urinary incontinence, female) (Acute) Intrinsic sphincter deficiency (ISD) (Acute) Osteoarthritis (Acute) Allergic rhinitis (Acute) GERD without esophagitis (Acute) Vitamin D deficiency (Acute) Trichomoniasis (Acute) Encounter for screening examination for sexually transmitted disease (Acute) Perimenopausal symptoms (Acute) Perimenopausal atrophic vaginitis (Acute) Recurrent UTI (Acute) Urinary incontinence (Acute) External incisional dehiscence (Acute) S/P brachioplasty (Acute) S/P panniculectomy (Acute) Constipation (Acute) Postgastrectomy malabsorption (Acute) Acid reflux (Acute) Colon cancer screening (Acute) Breast cancer screening by mammogram (Acute) Annual physical exam (Acute) Right-sided chest pain (Acute) Right elbow pain (Acute) Right shoulder pain (Acute) Neck pain (Acute) Cervical cancer screening (Acute) Malodorous urine (Acute) Vaginal itching (Acute) Epigastric abdominal pain (Acute) S/P gastric bypass (Acute) Overweight (Acute) Bromhidrosis (Acute) Hyperhidrosis of axilla (Acute) UTI (urinary tract infection) (Acute) Anemia (Chronic) Abnormal vaginal bleeding in premenopausal patient (Acute) Osteoarthritis of left knee (Acute) Status post total replacement of right hip (Acute) Pre-op evaluation (Acute) Anemia (Acute) Post-traumatic acute tubular necrosis (Acute) Osteoarthritis of right knee (Acute) Osteoarthritis of right hip (Acute) Potential exposure to STD (Acute) Bacterial vaginosis (Acute) Family hx of ovarian malignancy (Acute) control counseling (Acute) Well woman exam with routine gynecological exam (Acute) Excess skin (Acute) H/O gastric bypass (Acute) Overweight (BMI 25.0-29.9) (Acute) Spontaneous ecchymoses (Acute) Right hip pain (Acute) Obesity (BMI 30-39.9) (Acute) Pain in left toe(s) (Acute) Bunion of great toe of left foot (Acute) Post-traumatic osteoarthritis of right hip (Acute) Primary osteoarthritis of both knees (Acute) Past Medical History Medical History Allergic rhinitis GERD without esophagitis Vitamin D deficiency Overweight (BMI 25.0-29.9) Excess skin Spontaneous ecchymoses Right hip pain Obesity (BMI 30-39.9) Pain in left toe(s) Bunion of great toe of left foot Post-traumatic osteoarthritis of right hip Primary osteoarthritis of both knees Arthritis Family History Family History Mother Ovarian cancer Diabetes Father HIV (human immunodeficiency virus infection) Maternal Grandmother Stomach cancer Maternal Grandfather Myocardial infarction Brother In good health Sister In good health Mental health disorder Son In good health Daughter In good health Family history of problems with anesthesia: No Surgical History Surgical History Hx of colonoscopy History of esophagogastroduodenoscopy (EGD) History of total right hip arthroplasty (~06/04/21) History of surgery History of bilateral breast reduction surgery History of hip surgery H/O gastric bypass History of laparoscopic cholecystectomy History of tubal ligation History of Problems with Anesthesia: No Social History Social History Household Members: Family Household Members Other:: minor child Housing: Apartment Are you a primary director of health care marketing to a significant other at home: No Do you presently have visiting nurse or other home services: No Alcohol intake: current Alcohol intake frequency: a few times a month Patient Tobacco Use Status: Former Tobacco user Tobacco use type: Cigarette e-Cigarette/Vaping Use: Never Used Second Hand Smoke Exposure: Yes Use of substances other than those prescribed or required for medical reasons: Yes Substance Use Type: Marijuana Have you been hit, kicked, punched, or otherwise hurt by someone within the past year? If so, by whom?: No Are you DNR?: No Advance Directives: No Advance Directives Information Provided: Yes Patient : No : Yes Poor oral hygiene: No service: No Current occupational status: unemployed Gender identity: Female Cognitive needs: No Hearing needs: No Vision needs: No Meds Allergies Allergy/AdvReac Type Severity Reaction Status Date / Time hazelnut (HAZELNUT) Allergy Intermediate ITCHING Verified 02/21/25 07:48 THROAT Assessment and Plan Final Anesthetic Review Family History of Problems with Anesthesia: No History of Problems with Anesthesia: No Documented by User: Pattie Méndez DO 02/21/25 10:54 ON LICENSE OF [facility] Past Medical History Medical History Allergic rhinitis GERD without esophagitis Vitamin D deficiency Overweight (BMI 25.0-29.9) Excess skin Spontaneous ecchymoses Right hip pain Obesity (BMI 30-39.9) Pain in left toe(s) Bunion of great toe of left foot Post-traumatic osteoarthritis of right hip Primary osteoarthritis of both knees Arthritis Family History Family History Mother Ovarian cancer Diabetes Father HIV (human immunodeficiency virus infection) Maternal Grandmother Stomach cancer Maternal Grandfather Myocardial infarction Brother In good health Sister In good health Mental health disorder Son In good health Daughter In good health Family history of problems with anesthesia: No Surgical History Surgical History Hx of colonoscopy History of esophagogastroduodenoscopy (EGD) History of total right hip arthroplasty (~06/04/21) History of surgery History of bilateral breast reduction surgery History of hip surgery H/O gastric bypass History of laparoscopic cholecystectomy History of tubal ligation History of Problems with Anesthesia: No Social History Social History Household Members: Family Household Members Other:: minor child Housing: Apartment Are you a primary director of health care marketing to a significant other at home: No Do you presently have visiting nurse or other home services: No Alcohol intake: current Alcohol intake frequency: a few times a month Patient Tobacco Use Status: Former Tobacco user Tobacco use type: Cigarette e-Cigarette/Vaping Use: Never Used Second Hand Smoke Exposure: Yes Use of substances other than those prescribed or required for medical reasons: Yes Substance Use Type: Marijuana Have you been hit, kicked, punched, or otherwise hurt by someone within the past year? If so, by whom?: No Are you DNR?: No Advance Directives: No Advance Directives Information Provided: Yes Patient : No : Yes Poor oral hygiene: No service: No Current occupational status: unemployed Gender identity: Female Cognitive needs: No Hearing needs: No Vision needs: No Meds Allergies Allergy/AdvReac Type Severity Reaction Status Date / Time hazelnut (HAZELNUT) Allergy Intermediate ITCHING Verified 02/21/25 07:48 THROAT Exam Exam Date and Time: 02/21/25 1050 Height,Weight and Vital Signs: Height 5 ft 6 in Weight 96 kg Airway Mallampati Class: I TM Dist: >3cm Neck ROM: Full Loose/Missing/Broken Teeth: No (patient denies any loose or broken teeth) Heart: S1S2 Lungs: CTAB Assessment and Plan Assessment Anesthesia Assessment: Anesthesia Plan Discussed and Chart Reviewed Final Anesthetic Review Family History of Problems with Anesthesia: No History of Problems with Anesthesia: No NPO: Yes ASA Class: II Final Preanesthetic Review: No Changes in Pt Med Stat, Meds/Allgs Chart Reviewed, Consent Obtained/Reviewed and Anes Risks/Benef Reviewed Patient Risk: Low Procedure Risk: Low Anesthetic Plan Anesthetic Plan: GA and Agree w/ Assess. and Plan Disposition: Standard PACU
[2025-02-21 12:30] VITALS: BP 149/84; PULSE 75; RESP 16; TEMP 36.3; O2SAT 100
[2025-02-21 12:35] VITALS: BP 148/76; PULSE 76; RESP 16; O2SAT 100
[2025-02-21 12:40] VITALS: BP 150/82; PULSE 70; RESP 14; O2SAT 100
[2025-02-21 12:45] VITALS: BP 126/79; PULSE 93; RESP 16; O2SAT 98
[2025-02-21 13:00] VITALS: BP 123/79; PULSE 80; RESP 16; O2SAT 99
[2025-02-21 13:15] VITALS: BP 119/68; PULSE 87; RESP 16; TEMP 36.1; O2SAT 100
== END 2025-02-21 14:23 | disposition home or self-care (01) ==
PROVIDERS: PCP Internal Medicine; Visit Provider Urology
PROC: (CPT 52356; principal; 2025-02-21 11:30)
DX: N13.2 Hydronephrosis with renal and ureteral calculous obstruction (principal); N13.4 Hydroureter; Z87.442 Personal history of urinary calculi; R82.90 Unspecified abnormal findings in urine; K76.9 Liver disease, unspecified; N39.3 Stress incontinence (female) (male); N92.6 Irregular menstruation, unspecified; Z87.440 Personal history of urinary (tract) infections; E66.9 Obesity, unspecified; M17.0 Bilateral primary osteoarthritis of knee; J30.9 Allergic rhinitis, unspecified; Z98.890 Other specified postprocedural states; Z87.891 Personal history of nicotine dependence; Z56.0 Unemployment, unspecified
CPT/HCPCS: 52356; 88300; C1758; C1769; C2617; J0690; J1100; J1596; J2003; J2250; J2371; J2405; J2704; J3010; Q9967

== ENCOUNTER → 2025-02-21 09:53 | Outpatient (BNV) | payer OTHER, SELFPAY | PROVIDERS: PCP Internal Medicine; Visit Provider Urology | DX: N13.2 Hydronephrosis with renal and ureteral calculous obstruction (principal) | CPT/HCPCS: 52356; 74420 ==

== ENCOUNTER 2025-02-24 09:55 | Outpatient (REF) | payer OTHER, SELFPAY ==
--- OUTSIDE RECORDS SUMMARY | 2025-02-24 10:49 | XMS_ITS | Clinical Summary ---
Author Organization [facility] Address [address] [place] [address] Care Team Providers Care Tea Room Manager Name Role Phone Joy Salgado MD Primary Care Provider [phone] Surgical History Surgery Date Site/Laterality Comments GASTRIC BYPASS 06/2016 PROCEDURE: GASTRIC BYPASS FOR OBESIT; COMMENT: [facility] CHOLECYSTECTOMY 04/2016 PROCEDURE: NE LAPAROSCOPY SURG CHOLECYSTECTOMY; COMMENT: [facility] OTHER SURGICAL HISTORY 06/2014 PROCEDURE: NE LIG/TRNSXJ FLP TUBE ABDL/VAG APPR UNI/BI; COMMENT: [facility] BREAST REDUCTION 2004 PROCEDURE: NE BREAST REDUCTION; COMMENT: [facility] Medical History Medical History Date Comments [...] Hep B Twinrix 3-dose series) 03/18/2017 02/18/2017 Depression Screening 05/18/2024 COVID-19 Vaccine (1 - [...] age to complete this topic Care Teams Tea Room Manager Relationship Specialty Start Date End Date Joy Salgado MD [address] [place] [address] [address] [facility] [place] [id number] PCP - General Internal Medicine 12/01/18
== END 2025-02-24 09:56 | disposition home or self-care (01) ==
LOC: HO.MAMMO 09:55
PROVIDERS: PCP Internal Medicine; Visit Provider Internal Medicine
DX: Z12.31 Encounter for screening mammogram for malignant neoplasm of breast (principal)
CPT/HCPCS: 77063; 77067

== ENCOUNTER → 2025-02-24 10:00 | Outpatient (BNV) | payer OTHER, SELFPAY | PROVIDERS: PCP Internal Medicine; Visit Provider Radiology Body Imaging | DX: Z12.31 Encounter for screening mammogram for malignant neoplasm of breast (principal) | CPT/HCPCS: 77063; 77067 ==

== ENCOUNTER 2025-03-01 20:53 | Emergency (ER) | payer OTHER, SELFPAY ==
[2025-03-01 21:10] VITALS: BP 132/62; PULSE 68; RESP 17; TEMP 36.6; O2SAT 95; BMI 30.5
--- OUTSIDE RECORDS SUMMARY | 2025-03-01 21:57 | XMS_ITS | Clinical Summary ---
Author Organization [facility] Address [address] [place] [address] Care Team Providers Care Teacher Of The Deaf/Hard Of Hearing Name Role Phone Joy Salgado MD Primary Care Provider [phone] Surgical History Surgery Date Site/Laterality Comments GASTRIC BYPASS 06/2016 PROCEDURE: GASTRIC BYPASS FOR OBESIT; COMMENT: [facility] CHOLECYSTECTOMY 04/2016 PROCEDURE: [place] LAPAROSCOPY SURG CHOLECYSTECTOMY; COMMENT: [facility] OTHER SURGICAL HISTORY 06/2014 PROCEDURE: [place] LIG/TRNSXJ FLP TUBE ABDL/VAG APPR UNI/BI; COMMENT: [facility] BREAST REDUCTION 2004 PROCEDURE: [place] BREAST REDUCTION; COMMENT: [facility] Medical History Medical History Date Comments [...] age to complete this topic Care Teams Teacher Of The Deaf/Hard Of Hearing Relationship Specialty Start Date End Date Joy Salgado MD [address] [place] [address] [address] [facility] In Internal Medicine [place] [id number] PCP - General Internal Medicine 12/01/18
--- NOTE | 2025-03-01 22:16 | ED_ITS ---
HPI - Extremity Problem General Chief complaint: Extremity Injury, Upper Stated complaint: R wrist pain, seen last week Time Seen by Provider: 03/01/25 22:16 Source: patient Mode of arrival: ambulatory Limitations: no limitations History of Present Illness ED Provider: HPI Narrative: 49-year-old woman presenting with, right hand pain over the hypothenar eminence, was seen here on the 7th had negative x-rays, states takes acetaminophen and although she is not supposed to because of history of gastric bypass surgery ibuprofen as well and still pain is not better and she is not able to sleep. No fevers or chills no chest pain or shortness of breath. Related Data Previous Rx's ?Medication ?Instructions ?Recorded cane #1 ea 12/07/20 clotrimazole 1 % topical cream 1 appl topical BID #45 grams 08/25/23 loratadine 10 mg tablet 10 mg PO DAILY #30 tabs 02/08 vitamin A palmitate 7,500 mcg 7,500 mcg PO DAILY #30 c aps 08/25/23 (25,000 unit) capsule diclofenac sodium 1 % topical gel 4 g topical QID #100 grams 10/26/23 (Arthritis Pain (diclofenac)) polyethylene glycol 3350 17 17 g PO DAILY 30 days #510 grams 02/10/24 gram/dose oral powder (Miralax) pantoprazole 40 mg tablet,delayed 40 mg PO DAILY #90 t abs 04/13/24 release cholecalciferol (vitamin D3) 50 50 mcg PO DAILY 90 day s #90 caps 06/16/24 mcg (2,000 unit) capsule ferrous sulfate 325 mg (65 mg 325 mg PO DAILY 90 days #90 tabs 06/16/24 iron) tablet (FeroSul) sucralfate 100 mg/mL oral 10 ml PO BID #414 mL 5 suspension (Carafate) cyclobenzaprine 10 mg tablet 10 mg PO BEDTIME PRN musc le spasm 08/22/24 #30 tabs estradiol 0.01% (0.1 mg/gram) See Rx Instructions vagi nal DAILY 11/03/24 vaginal cream (Estrace) #42.5 grams cyanocobalamin (vitamin B-12) 1,000 mcg PO DAILY #30 t abs 11/13/24 1,000 mcg tablet gabapentin 100 mg capsule 100 mg PO TID 30 days #90 ca ps 12/07/24 nitrofurantoin 100 mg PO BID 7 days #14 cap s 01/12/25 monohydrate/macrocrystals 100 mg capsule (Macrobid) tramadol 50 mg tablet 50 mg PO TID PRN pain 30 day s #90 02/16/25 tabs oxycodone-acetaminophen 5 mg-325 1 tab PO .Q 6-8 hours PRN pain #10 02/21/25 mg tablet (Percocet) tabs phenazopyridine 200 mg tablet 200 mg PO .B.i.d. For ur inary 02/21/25 (Pyridium) discomfort from ureteral ella nt #20 tabs Allergies Allergy/AdvReac Type Severity Reaction Status Date / Time hazelnut (HAZELNUT) Allergy Intermediate ITCHING Verified 03/01/25 21:15 THROAT Review of Systems Constitutional: Constitutional: Reports as per [facility] Past Medical History Medical History Allergic rhinitis GERD without esophagitis Vitamin D deficiency Overweight (BMI 25.0-29.9) Excess skin Spontaneous ecchymoses Right hip pain Obesity (BMI 30-39.9) Pain in left toe(s) Bunion of great toe of left foot Post-traumatic osteoarthritis of right hip Primary osteoarthritis of both knees Arthritis Surgical History Hx of colonoscopy History of esophagogastroduodenoscopy (EGD) History of total right hip arthroplasty (~06/04/21) History of surgery History of bilateral breast reduction surgery History of hip surgery H/O gastric bypass History of laparoscopic cholecystectomy History of tubal ligation Family History Family History Mother Ovarian cancer Diabetes Father HIV (human immunodeficiency virus infection) Maternal Grandmother Stomach cancer Maternal Grandfather Myocardial infarction Brother In good health Sister In good health Mental health disorder Son In good health Daughter In good health Social History Social History Household Members: Family Household Members Other:: minor child Housing: Apartment Are you a primary lawn care worker to a significant other at home: No Do you presently have visiting nurse or other home services: No Alcohol intake: current Alcohol intake frequency: a few times a month Patient Tobacco Use Status: Former Tobacco user Tobacco use type: Cigarette e-Cigarette/Vaping Use: Never Used Second Hand Smoke Exposure: Yes Substance Use Type: Marijuana Advance Directives: No Advance Directives Information Provided: Yes Do you have a plan to hurt others: No Plan service: No Current occupational status: unemployed Gender identity: Female Cognitive needs: No Hearing needs: No Vision needs: No Physical Exam Exam: Exam: Examination of right hand, tenderness along the ulnar aspect of 5th metatarsal, able to make her wrist hitchhike a thumb squeeze my hand and radial ulnar pulses +2 no wrist swelling Alert and oriented x4 Vital Signs: Vital Signs: Last Vital Signs Temp 97.8 F 03/01/25 21:10 Pulse 68 03/01/25 21:10 Resp 17 03/01/25 21:10 BP 132/62 03/01/25 21:10 Pulse Ox 95 03/01/25 21:10 O2 Del Method Room Air 03/01/25 21:10 BMI result Body Mass Index 30.5 Medical Decision Making Medical Decision Making MDM Narrative: 10:31 PM 03/01/2025 (Dr. Celso Delgado): I have explained to patient that it is fairly limited what she can take for pain, I recommend acetaminophen she states it does not help she started using ibuprofen she does have history gastric bypass, risk versus benefit discussed with the patient I will give her 1 dose of steroids in the ER and a shot of Toradol to help with the sleep but after that I recommend that she ice and use a acetaminophen. I reviewed her x- rays from prior visit she has no fractures today neurovascular exam is unremarkable Differential Diagnosis Differential Diagnoses: The differential diagnosis associated with the pres entation includes (Contusion, fracture, arterial insufficiency, venous insufficiency, infection, cellulitis) Prescription Management I considered prescription management with: Pain Medication Discharge Plan Discharge Clinical Impression: Contusion of hand, right Patient Disposition: Home, Self-Care Additional Instructions: I recommend filling the additional of water and adding some ice and placing your hand there for about 10 minutes a few times a day to help with the pain and inflammation, please do not take any more ibuprofen I gave you a shot of Toradol here and 1 dose of steroids, because of the history of gastric bypass you are not supposed to be on anti-inflammatory medications some hoping the 1 time treatment of this in the emergency department we will allow you to sleep and also prevent you from taking ibuprofen at home, you can only use Tylenol 975 mg every 6 hours around the clock for pain. For re-evaluation follow up with the PCP any other issues concerns come back to the ER Prescriptions: No Action (DME) cane Device See Rx Instructions .ROUTE .MEDSUPPLY Qty: 1 0RF Rx Instructions: As directed diclofenac sodium [Arthritis Pain (diclofenac)] 1 % gel 4 g topical QID Qty: 100 0RF Rx Instructions: apply to single knee, ankle, foot; for foot includes sole/toes/top of foot pantoprazole 40 mg tablet,delayed release (DR/EC) 40 mg PO DAILY Qty: 90 3RF cyanocobalamin (vitamin B-12) 1,000 mcg tablet 1,000 mcg PO DAILY Qty: 30 11RF gabapentin 100 mg capsule 100 mg PO TID 30 Days Qty: 90 1RF tramadol 50 mg tablet 50 mg PO TID PRN (Reason: pain) 30 Days Qty: 90 0RF oxycodone-acetaminophen [Percocet] 5-325 mg tablet 1 tab PO .Q 6-8 hours PRN (Reason: pain) Qty: 10 0RF Rx Instructions: Partial Fill upon patient request. phenazopyridine [Pyridium] 200 mg tablet 200 mg PO .B.i.d. Qty: 20 0RF Rx Instructions: Must administer with food clotrimazole 1 % cream 1 appl topical BID Qty: 45 3RF vitamin A palmitate 7,500 mcg (25,000 unit) capsule 7,500 mcg PO DAILY Qty: 30 11RF loratadine 10 mg tablet 10 mg PO DAILY Qty: 30 0RF polyethylene glycol 3350 [Miralax] 17 gram/dose powder 17 g PO DAILY 30 Days Qty: 510 3RF cholecalciferol (vitamin D3) 50 mcg (2,000 unit) capsule 50 mcg PO DAILY 90 Days Qty: 90 3RF ferrous sulfate [FeroSul] 325 mg (65 mg iron) tablet 325 mg PO DAILY 90 Days Qty: 90 3RF sucralfate [Carafate] 100 mg/mL suspension 10 ml PO BID Qty: 414 3RF cyclobenzaprine 10 mg tablet 10 mg PO BEDTIME PRN (Reason: muscle spasm) Qty: 30 2RF nitrofurantoin monohyd/m-cryst [Macrobid] 100 mg capsule 100 mg PO BID 7 Days Qty: 14 0RF Rx Instructions: must administer with a meal/food estradiol [Estrace] 0.01 % (0.1 mg/gram) cream See Rx Instructions vaginal DAILY Qty: 42.5 1RF Rx Instructions: apply pea sized amount to fingertip and apply vaginally daily at bedtime; Print Language: Burkinan
--- NOTE | 2025-03-01 22:53 | PC.NURSE ---
medicated per mar.
--- NOTE | 2025-03-01 22:59 | PC.NURSE ---
reviewed discharge instructions with pt. pt verbalized understanding, no sign of distress.
[2025-03-01 23:00] VITALS: BP 132/62; PULSE 68; RESP 17; TEMP 36.6; O2SAT 95
== END 2025-03-01 23:01 | disposition home or self-care (01) ==
PROVIDERS: Emergency Provider Emergency Medicine; PCP Internal Medicine
DX: S60.221A Contusion of right hand, initial encounter (principal); X58.XXXA Exposure to other specified factors, initial encounter; Y93.9 Activity, unspecified; Y92.9 Unspecified place or not applicable; M25.531 Pain in right wrist; Z87.891 Personal history of nicotine dependence
CPT/HCPCS: 96372; 99284; J1885; J8540

== ENCOUNTER 2025-03-03 07:28 | Outpatient (AMB) | payer OTHER, SELFPAY ==
[2025-03-03 07:30] VITALS: BP 128/72; PULSE 82; O2SAT 98; BMI 29.9
--- NOTE | 2025-03-03 07:30 | MHC.PC.OV ---
Vital Signs 03/03/25 07:30 Height 5 ft 6 in Weight 185 lb BMI 29.9 BP 128/72 Blood Pressure Location Lt brachial Position Sitting Pulse 82 Pulse Source Pulse Oximeter Pulse Oximetry (%) 98 Oxygen Delivery Method Room Air Int[place] [facility] [place] Allergies hazelnut (HAZELNUT) Allergy (Intermediate, Verified 03/03/25 07:30) ITCHING THROAT Medication List - Last Reconciled 03/03/25 by Danna Avalos NP cane As directed cholecalciferol (vitamin D3) 50 mcg PO DAILY 90 days cyanocobalamin (vitamin B-12) 1,000 mcg PO DAILY cyclobenzaprine 10 mg PO BEDTIME diclofenac sodium 1% (Arthritis Pain (diclofenac)) 4 grams topical QID estradiol 0.01%(0.1mg/gram) (Estrace) apply pea sized amount to fingertip and apply vaginally daily at bedtime; ferrous sulfate (FeroSul) 325 mg PO DAILY 90 days gabapentin 100 mg PO TID 30 days loratadine 10 mg PO DAILY pantoprazole 40 mg PO DAILY sucralfate (Carafate) 10 mL PO BID tramadol 50 mg PO TID PRN 30 days vitamin A palmitate 7,500 mcg PO DAILY Tobacco use date assessed: 08/22/24 Dental Screening Dental Screen Date: 06/16/24 HPI HPI Comments History of Present Illness Details 49 y/o Female Patient who presents to the clinic today for EDF. Pt was [place] [facility] [place] for an evaluation and treatment of right wrist Sprain. Pt Fell at home on 02/20/25 after tripping on a Sidewalk. Pt had X-rays which showed: No fracture. Alignment is anatomic with normal joint spaces. No erosions or abnormal soft tissue calcifications. Pt has been taking Acetaminophen with minimal relief. Pt is not able to take NSAIDs due to h/o Gastric Bypass surgery. She has been Elevating the wrist, and applying Ice/Heat with very minimal relief. Pt asking for another medication for pain relief. Per Med List; Pt is prescribed Tramadol 50 mg TID. FORMERLY [facility], [facility]–1983 Medical History Allergic rhinitis GERD without esophagitis Vitamin D deficiency Overweight (BMI 25.0-29.9) Excess skin Spontaneous ecchymoses Right hip pain Obesity (BMI 30-39.9) Pain in left toe(s) Bunion of great toe of left foot Post-traumatic osteoarthritis of right hip Primary osteoarthritis of both knees Arthritis Surgical History Hx of colonoscopy History of esophagogastroduodenoscopy (EGD) History of total right hip arthroplasty (~06/04/21) History of surgery History of bilateral breast reduction surgery History of hip surgery H/O gastric bypass History of laparoscopic cholecystectomy History of tubal ligation Family History Mother Ovarian cancer Diabetes Father HIV (human immunodeficiency virus infection) Maternal Grandmother Stomach cancer Maternal Grandfather Myocardial infarction Brother In good health Sister In good health Mental health disorder Son In good health Daughter In good health Social History Household Members: Family Household Members Other:: minor child Housing: Apartment Are you a primary healthcare administrative assistant to a significant other at home: No Do you presently have visiting nurse or other home services: No Alcohol intake: current Alcohol intake frequency: does not drink Patient Tobacco Use Status: Former Tobacco user Tobacco use type: Cigarette e-Cigarette/Vaping Use: Never Used Second Hand Smoke Exposure: Yes Substance Use Type: Marijuana service: No Current occupational status: unemployed Gender identity: Female Cognitive needs: No Hearing needs: No Vision needs: No Female Reproductive History Menstrual Age of Menarche: 15 Questionnaire PHQ-9 Over the last 2 weeks, how often have you been bothered by any of the following problems? 1. Little interest or pleasure in doing things: more than half the days 2. Feeling down, depressed, or hopeless: several days 3. Trouble falling or staying asleep, or sleeping too much: nearly every day 4. Feeling tired or having little energy: more than half the days 5. Poor appetite or overeating: nearly every day 6. Feeling bad about yourself - or that you are a failure or have let yourself or your family down: not at all 7. Trouble concentrating on things, such as reading the newspaper or watching television: not at all 8. Moving or speaking so slowly that other people could have noticed. Or the opposite - being so fidgety or restless that you have been moving around a lot more than usual: not at all 9. Thoughts that you would be better off or of hurting yourself in some way: not at all Total score: 11 Depression Screening Interpretation: Positive Depression Screening Done: Yes Source: Developed by Drs. Rashel Oneil, Cassandra Alcazar, Raymon Joseph and colleagues, with an educational naman from [employer]. Thrive Questionnaire Date Thrive assessed: 06/16/24 I am a: Patient What is your living situation today?: I have a steady place to live Within the past 12 months, did the food you bought not last and you didn't have the money to get more?: I choose not to answer this question Within the past 12 months, did you worry whether your food would run out before you got money to buy more?: I choose not to answer this question Do you have trouble paying for medicines?: I choose not to answer this question Do you have trouble getting transportation to medical appointments?: I choose not to answer this question Do you have trouble paying your heating and electricity bill?: Yes Do you have trouble taking care of your child, family member or friend?: No Do you have trouble with day-to-day activities such as bathing, preparing meals, shopping, managing finances, etc.?: I choose not to answer this question Are you currently unemployed and looking for a job?: I choose not to answer this question Are you interested in more education?: I choose not to answer this question Please select the resources that you would like help with: None Currently or been in a relationship where the following occur: I choose not to answer THRIVE Score: 1 AUDIT C Alcohol Use Questionnaire (AUDIT-C) 1. How often do you have a drink containing alcohol?: Never 3. How often do you have six or more drinks on one occasion?: Never Total Score: 0 ADRIAN-7 AMB Questionnaire ADRIAN-7 Date ADRIAN - 7 assessed: 06/16/24 Feeling nervous, anxious, or on edge: 2 = More than half the days Not being able to stop or control worryin = More than half the days Worrying too much about different things: 0 = Not at all Trouble relaxin = More than half the days Being so restless that it is hard to sit still: 0 = Not at all Becoming easily annoyed or irritable: 0 = Not at all Feeling afraid as if something awful might happen: 0 = Not at all Total ADRIAN-7 score (0-4 normal; 5-9 mild; 10-14 moderate; 15-21 severe): 6 Source: Developed by Drs. Rashel Oneil, Cassandra Alcazar, Raymon Joseph and colleagues, with an educational naman from [employer]. Review of Systems Const All systems reviewed & are unremarkable except as noted in HPI and below Physical exam (Primary Care) Vital Signs: Last Vital Signs Pulse 82 03/03/25 07:30 BP 128/72 03/03/25 07:30 Pulse Ox 98 03/03/25 07:30 Oxygen Delivery Method Room Air 03/03/25 07:30 BMI result Body Mass Index 29.9 Tobacco/Smoking Status: Tobacco use Status Tobacco use date assessed 08/22/24 03/03/25 07:35 Patient Tobacco Use Status Former Tobacco user 03/03/25 07:35 Tobacco use type Cigarette 03/03/25 07:35 e-Cigarette/Vaping Use Never Used 03/03/25 07:35 PHQ-9: PHQ-9 Score PHQ-9: Total score 11 03/03/25 07:44 Depression Screening Interpretation: Positive Thrive Assessment: Date of Thrive Assessment Date Thrive assessed 06/16/24 03/03/25 07:35 Currently or been in a relationship where the following occur: I choose not to answer Const General: no acute distress Nutritional Appearance: well nourished Orientation/consciousness: patient oriented x3 Neuro General: patient oriented x3, gait normal and moves all extremities Extrem Right upper extremity: wrist Details: tenderness Location: of the distal radius and of the distal ulna, swelling Location: of the dorsal wrist (Mild swelling) and normal ROM; no crepitus and no deformity Psych Speech and movement: Normal speech and movement present Coding Level of Care Code Est Pt Level 4 (08435) Diagnoses Sprain of right wrist, unspecified location, initial encounter S63.501A Encounter type: initial encounter Wrist sprain location: unspecified location Time Spent (min) 20 Assessment & Plan Assessment & Plan (1) Right wrist sprain: Code(s): S63.501A - Unspecified sprain of right wrist, initial encounter Category: Medical Qualifiers: Encounter type: initial encounter Wrist sprain location: unspecified location Qualified Code(s): S63.501A - Unspecified sprain of right wrist, initial encounter Plan: Acetaminophen and Flexeril for pain relief. Wrapped wrist with Todd, Ice and Heat Rest joint and elevate. Ordered PT. Orders: Orders PT Evaluation and Treatment Today S63.501A - Unspecified sprain of right wrist, initial encounter Medications: New acetaminophen 1,000 mg (2 x 500 mg) PO Q6H PRN 30 caps 0RF pain S63.501A - Unspecified sprain of right wrist, initial encounter Changed From cyclobenzaprine 10 mg PO BEDTIME PRN 30 tabs 2RF muscle spasm S63.501A - Unspecified sprain of right wrist, initial encounter To cyclobenzaprine 10 mg PO BEDTIME 20 tabs 2RF muscle spasm S63.501A - Unspecified sprain of right wrist, initial encounter Discontinued oxycodone-acetaminophen 5-325 mg (Percocet) Partial Fill upon patient request. Discontinued Reason: Patient Completed Course 1 tab PO .Q 6-8 hours PRN 10 tabs 0RF pain phenazopyridine (Pyridium) Must administer with food Discontinued Reason: Patient Completed Course 200 mg PO .B.i.d. 20 tabs 0RF For urinary discomfort from ureteral stent polyethylene glycol 3350 (Miralax) Discontinued Reason: Patient Completed Course 17 grams PO DAILY 30 days 510 grams 3RF
--- OUTSIDE RECORDS SUMMARY | 2025-03-03 07:31 | XMS_ITS | Clinical Summary ---
Author Organization [facility] [place] [facility] Address [address] [place] [address] Care Team Providers Care Criminal Legal Assistant Name Role Phone Joy Salgado MD Primary Care Provider Surgical History Surgery Date Site/Laterality Comments GASTRIC BYPASS 06/2016 PROCEDURE: GASTRIC BYPASS FOR OBESIT; COMMENT: [facility] CHOLECYSTECTOMY 04/2016 PROCEDURE: [place] LAPAROSCOPY SURG CHOLECYSTECTOMY; COMMENT: [facility] OTHER SURGICAL HISTORY 06/2014 PROCEDURE: [place] LIG/TRNSXJ FLP TUBE ABDL/VAG APPR UNI/BI; COMMENT: [facility] BREAST REDUCTION 2004 PROCEDURE: [place] BREAST REDUCTION; COMMENT: [facility] Medical History Medical History Date Comments [...] age to complete this topic Care Teams Criminal Legal Assistant Relationship Specialty Start Date End Date Joy Salgado MD [address] [place] [address] [address] [facility] [place] [id number] PCP - General Internal Medicine 12/01/18
== END 2025-03-03 08:37 | disposition home or self-care (01) ==
LOC: HO.HMCH 07:29
PROVIDERS: PCP Internal Medicine; Visit Provider Nurse Practitioner Family
DX: S63.501A Unspecified sprain of right wrist, initial encounter (principal)

== ENCOUNTER → 2025-03-03 07:28 | Outpatient (BNVA) | payer OTHER, SELFPAY | PROVIDERS: PCP Internal Medicine; Visit Provider Nurse Practitioner Family | DX: S63.501A Unspecified sprain of right wrist, initial encounter (principal); W19.XXXA Unspecified fall, initial encounter; Y93.9 Activity, unspecified; Y92.9 Unspecified place or not applicable; Y99.9 Unspecified external cause status | CPT/HCPCS: 99212 ==

== ENCOUNTER 2025-03-20 09:07 | Outpatient (AMB) | payer OTHER, SELFPAY ==
--- NOTE | 2025-03-20 09:34 | MHC.OFFVIS ---
Intake Visit Reasons: Stent removal Intake Note: Patient presents today for a stent removal Urology Med: Estradiol, Vitamin B12 Blood Thinner: None Antibiotic Allergy:None Lot#:[id number] EXP:10/25/27 Gun Numberer Required: No Accompanied by: Self / Same As Patient Allergies hazelnut (HAZELNUT) Allergy (Intermediate, Verified 03/20/25 09:34) ITCHING THROAT HPI Comments Details: 03/20/2025--here ureteral stent removal. Status post right ureteroscopy laser lithotripsy. Sees the patient stress urinary incontinence. History of Bulkamid 06/07/24. I have discussed diet modification to decrease risk of forming more kidney stones. I have discussed low oxalate diet and specific foods to avoid including certain green leafy vegetables, chocalate, nuts, tea, beets, rubarb; low sodium, decreased use of animal protein and the importance of hydration drinking up to 2-2.5 liters of fluids and use of adding lemon to water to increase citrate in the diet. A pamphlet is also provided today. 20 minutes spent in review of records pertaining to this visit and including [id number] discussion with the patient and documentation of this visit. Plan: 24 hour urine collection 02/20/25--The patient is a 49-year-old female presenting with an obstructing right ureteral stone. The stone measures 11 mm and is located near the bladder, causing discomfort and urinary symptoms. The patient has a history of a similar stone many years ago, which was resolved without surgical intervention. Plan Right ureteroscopy laser lithotripsy ureteral stent. Risks discussed included but not limited to, possible need to repeat procedure if stone is not completely fragmented, Irritative voiding symptoms, bladder spasms, urgency, blood in urine. 02/09/25 Meek is a 49-year-old female telehealth follow-up to review CT imaging the patient had a CAT scan yesterday which noted an 11 mm obstructing stone with hydronephrosis also a small indeterminate 8 mm liver lesion I will refer her to GI. History of Present Illness The patient is a 49-year-old female presenting with a follow-up on CT imaging results. The CT scan performed yesterday revealed an 11 mm obstructing kidney stone causing hydronephrosis. The stone has migrated from the kidney to near the bladder, causing intermittent discomfort on the affected side. The size of the stone is significant enough that it will not pass spontaneously, necessitating surgical intervention. The proposed intervention involves a procedure under anesthesia where a small scope is inserted through the urethra to the bladder and up to the stone, which will be fragmented using a laser and ureteral stent placement. Additionally, the CT scan identified an 8 mm indeterminate liver lesion, for which a referral to gastroenterology is planned. Results - CT scan: 11 mm obstructing kidney stone with hydronephrosis, 8 mm indeterminate liver lesion Plan 1. Obstructing Kidney Stone With Hydronephrosis - Plan for surgical intervention using right ureteroscopy and laser lithotripsy to fragment the stone, stent - Scheduled for surgery on the upcoming Thursday, with pre-operative instructions to fast after midnight the night before. 2. Indeterminate Liver Lesion - Referral to gastroenterology for further evaluation and management. 01/12/25--telehealth follow-up renal ultrasound. Last visit 11/03/2024 microscopic hematuria noted. Urine sent for cytology resulted negative for malignant cells. I reviewed renal ultrasound results mild right hydronephrosis hydroureter. The patient complains of right-sided pain. She states she has also noticed some increased urgency in the last several days. I will empirically start Macrobid 100 mg twice a day for 7 days. She will leave a urine sample and we will check a BUN and creatinine. CT urogram ordered. 11/03/24-- - The patient is a 49-year-old female presenting for follow-up on stress urinary incontinence and evaluation of microscopic hematuria. - Stress urinary incontinence: The patient underwent urethral bulking on 06/07/24 and reported improvement with no leakage during coughing as of her last visit on 07/07/24. - Microscopic hematuria: Detected during urinalysis with 3 plus blood and negative leukocytes. No recent imaging of kidneys noted, and cystoscopy at the time of urethral bulking showed bladder within normal limits. - Vaginal dryness: The patient reports persistent dryness despite using estrogen therapy (Vagifem). She experiences dryness during intercourse. - Menopausal symptoms: The patient describes irregular periods, hot flashes, mood changes, and dryness, attributing these to menopause. Urinary Symptoms Review - Stress urinary incontinence: No leakage during coughing post-urethral bulking. Results - Urinalysis: 3 plus blood, leukocytes negative. - Cystoscopy- 06/07/24: Bladder within normal limits at the time of urethral bulking. 07/07/24--Meghna is status post of bulkamid urethral injection on 06/07/24 for stress urinary incontinence, intrinsic sphincter deficiency. She states she is doing great, no leakage with cough. UA - negative. FU in 10 months. Cont Estrace cream. 05/06/2024--here for urodynamics. Meghna is a 49-year-old female with complaints of urinary incontinence. Interpretation: During the filling phase there was normal sensation, strong urge was noted at 415 mL, the patient felt that she was at capacity at 433 mL. Leakage was observed during cough and valsalva stress. Findings consistent with ISD, EMG- Appropriate changes in the waveforms were noted through out the study. I discussed treatment options to include urethral bulking and sling procedures, risks include but are not limited to urinary retention, infection, bleeding, need for another procedure, mesh erosion, urgency. 11/05/2023--Meghna is a 48-year-old female who states she has had urinary incontinence which is worsening over the last year. She leaks with coughing and sneezing she also has urgency. She has had recurrent UTIs in the past. In further discussion she does admit to vaginal dryness and irregular menstrual cycle. Urinalysis is nitrite positive. I will empirically start Levaquin 500 mg daily pending urine culture. Schedule renal bladder ultrasound. Discussed Vagifem twice a week. Will refer to tire maintenance technician regarding irregular menstrual cycle. [facility] Medical History Allergic rhinitis GERD without esophagitis Vitamin D deficiency Overweight (BMI 25.0-29.9) Excess skin Spontaneous ecchymoses Right hip pain Obesity (BMI 30-39.9) Pain in left toe(s) Bunion of great toe of left foot Post-traumatic osteoarthritis of right hip Primary osteoarthritis of both knees Arthritis Surgical History Hx of colonoscopy History of esophagogastroduodenoscopy (EGD) History of total right hip arthroplasty (~06/04/21) History of surgery History of bilateral breast reduction surgery History of hip surgery H/O gastric bypass History of laparoscopic cholecystectomy History of tubal ligation Family History Mother Ovarian cancer Diabetes Father HIV (human immunodeficiency virus infection) Maternal Grandmother Stomach cancer Maternal Grandfather Myocardial infarction Brother In good health Sister In good health Mental health disorder Son In good health Daughter In good health Social History Household Members: Family Household Members Other:: minor child Housing: Apartment Are you a primary client care consultant to a significant other at home: No Do you presently have visiting nurse or other home services: No Alcohol intake: current Alcohol intake frequency: does not drink Patient Tobacco Use Status: Former Tobacco user Tobacco use type: Cigarette e-Cigarette/Vaping Use: Never Used Second Hand Smoke Exposure: Yes Substance Use Type: Marijuana service: No Current occupational status: unemployed Gender identity: Female Cognitive needs: No Hearing needs: No Vision needs: No Female Reproductive History Menstrual Age of Menarche: 15 Review of Systems Const All systems reviewed & are unremarkable except as noted in HPI and below Reports no additional complaints Eyes Reports no additional complaints ENT Reports no additional complaints Card Reports no additional complaints Resp Reports no additional complaints GI Reports no additional complaints Reports as per HPI Musc Reports no additional complaints Skin/Breast Reports system reviewed and no additional complaints, except as documented Neuro Reports no additional complaints Psych Reports no additional complaints Endo Reports no additional complaints Murali/Lymph Reports no additional complaints Aller/Immun Reports no additional complaints Office Procedures Cystoscopy Consent Discussed risk and benefit or proposed procedure with the patient. Information consent for procedure given to the patient. Discussed technical aspects, risks, benefits and alternatives in full. Addressed all of the patient's questions and concerns regarding the procedure. The patient demonstrated knowledge and understanding. They wish to proceed with this procedure. Preparation The patient was prepped in the usual manner. A ring sewer was present and in the room. Genitalia was prepped with betadine solution in a sterile manner. Lidocaine Jelly 2% was placed into the urethra and 16Fr flexible Olympus cystoscope was inserted into the meatus after adequate lubrication. Procedure Time out per protocol performed. Speculum used as indicated for adequate visualization of urethra, the flexible cystoscope is passed transurethrally: Cystoscopy findings: mild edema ureteral orifice which is expected, distal end of ureteral stent visualized. The grasping forceps were used and the stent was removed without difficulty. [id number] with stent removal DISPOSABLE SCOPE URO-G FLEXIBLE SCOPE Procedure code (CPT) selection complete Office Meds lidocaine HCl 2 % mucosal jelly in applicator Performing Provider: Marla Webster MD [facility] Administered by: Janene Simmons RN on 03/20/25 09:49 Dose Route Admin Location Dispensed Lot Number Expiration Date [employer] 10 mL intra-urethral 20 mL ciprofloxacin HCl 500 mg tablet Performing Provider: Marla Webster MD Performing Location: [facility] Administered by: Janene Simmons RN on 03/20/25 09:49 Dose Route Admin Location Dispensed Lot Number Expiration Date [employer] 500 mg PO 1 tab phenazopyridine 200 mg tablet Performing Provider: Marla Webster MD Performing Location: [facility] Administered by: Janene Simmons RN on 03/20/25 09:49 Dose Route Admin Location Dispensed Lot Number Expiration Date [employer] 200 mg PO 1 tab Results Reviewed Results Reviewed: Date of Service: 02/08/25 Reason for Exam: N13.4 - Hydroureter EXAMINATION: CT ABDOMEN AND PELVIS WITHOUT AND WITH CONTRAST CLINICAL INFORMATION: N13.4 - Hydroureter COMPARISON: Renal ultrasound December 15, 2024 TECHNIQUE: Noncontrast CT of the abdomen and pelvis is performed followed by split bolus contrast-enhanced images using 85 mL Omnipaque 350 contrast. Postcontrast imaging is performed during the combined nephrogram and excretion phase. Sagittal and coronal reformatted images were obtained on the technologist's workstation for both the precontrast and postcontrast phases. This CT examination was performed using dose optimization techniques as appropriate, variously including the following: *Automated exposure control *Adjustment of mA and/or kV according to patient size (this includes techniques or standardized protocols for targeted exams where dose is matched to indication/reason for exam; i.e. extremities or head) *Use of iterative reconstruction technique FINDINGS: LUNG BASES: The visualized lung bases are unremarkable. LIVER, GALLBLADDER, AND BILIARY TREE: There is a lesion in the right hepatic lobe, mostly segment 8, extending into segment 7. It measures 2.2 x 3.4 cm (transverse by AP). Without contrast it measured 43 Hounsfield units and after contrast measured 60 Hounsfield units. There appears to be a central vessel enhancing within the lesion. The gallbladder surgically absent. There are clips in the gallbladder fossa. There is no biliary ductal dilation. PANCREAS: Unremarkable. SPLEEN: Unremarkable. ADRENAL GLANDS: Unremarkable. KIDNEYS AND URETERS: There is moderate right hydronephrosis and hydroureter. There is a stone at the right ureterovesicular junction measuring 6 x 11 mm. No stones are identified. There is no left hydronephrosis. The kidneys enhance symmetrically and there is concentration and excretion of contrast bilaterally. BLADDER: Unremarkable. GASTROINTESTINAL TRACT: Gastric bypass surgery has been performed. There is also surgical anastomosis and proximal small bowel in the ventral midline. Findings within normal limits. The colon is unremarkable. ABDOMINAL WALL: No significant hernia is appreciated. LYMPH NODES: Normal. VASCULAR: Unremarkable. PELVIC VISCERA: Uterus and adnexa are unremarkable. OSSEUS STRUCTURES: Total hip replacement has been performed on the right. Mild degenerative changes are present in the SI joints. IMPRESSION: Moderate right hydroureteronephrosis with a 6 x 11 mm stone at the ureterovesicular junction. There is an indeterminate 2.2 x 3.4 cm lesion in the right hepatic lobe involving mostly segment 8 with extension segment 7. Follow-up MRI abdomen/liver without and with IV contrast. Date of Service: 12/15/24 US renal with Color Doppler Comparison: None Findings: Right kidney normal size and echotexture, 10.6 cm length. Mild hydronephrosis and mild hydroureter. Normal color flow. No nephrolithiasis. Benign renal cortical cyst midpole measuring 1.1 x 1.2 x 0.8 cm. Left kidney normal size and echotexture, 11.1 cm length. No hydronephrosis calculus or mass. Normal color flow. Urinary bladder was decompressed Impression: 1. Kidneys normal-size and position. Mild hydroureter and hydronephrosis right kidney. Benign renal cortical cyst right kidney. No nephrolithiasis. Collected: 11/03/24 Location: .LAB Received: 11/04/24 Diagnosis Urine: Negative for high-grade urothelial carcinoma. Comment: Examination of a monolayer preparation slide shows many benign squamous cells with bacteria, few benign urothelial cells, few inflammatory cells, rare red blood cells. Clinical History Microscopic hematuria Material Received Urine Gross Description Received is 29 cc of clear yellow fluid from which a ThinPrep slide is prepared. Copies To Aditya Aguirre MD [facility] [place] Primary Care,[address] [place], [place] [address] Marla Webster MD [facility] [address] [place] [address] [address] [place] [address] [email or web address] Interactive NOTE: Unless otherwise stated, all tissue is formalin-fixed and paraffin-embedded. Some or all of the immunohistochemical tests reported herein may have been developed and their performance characteristics determined by [facility]. They have not been cleared or approved by the U.S. Food and Drug Administration (FDA). However, the FDA has determined that such clearance or approval is not necessary. This laboratory is certified under the Clinical Laboratory Improvement Amendments of 1988 (CLIA) as qualified to perform high complexity clinical laboratory testing. Electronically Signed By: Yuridia Brock 11/05/24 [id number] Patient: Meghna Louie Age/Sex: 49/F MR#: [id number] Page 1 of 1 Collected: 02/05/23 Status: COMP Req#: [id number] Received: 02/05/23 Source: [facility] Sp Desc: Urine page Subm Dr: Aditya Aguirre MD Ordered: Urine Culture Procedure Result Verified Urine Culture Final 02/07/23 Organism 1 Escherichia coli Quant > 100,000 cfu/mL E coli M.I.C. RX --------- --- Ampicillin >=32 R Ceftriaxone <=0.25 S Gentamicin <=1 S Levofloxacin <=0.12 S Nitrofurantoin <=16 S Trimethoprim/Sulfamethoxazole >=320 R Assessment & Plan Assessment & Plan (1) Hydronephrosis, right: Code(s): N13.30 - Unspecified hydronephrosis Category: Medical (2) Intrinsic sphincter deficiency (ISD): Comment: no leakage post Bulkamid 05/2024 Code(s): N36.42 - Intrinsic sphincter deficiency (ISD) Category: Medical (3) MARIAH (stress urinary incontinence, female): Comment: no leakage post bulkamid 05/2024 Code(s): N39.3 - Stress incontinence (female) (male) Category: Medical (4) Perimenopausal atrophic vaginitis: Code(s): N95.2 - Postmenopausal atrophic vaginitis Category: Medical Plan Right ureteral stent removed today. Diet modification discussed. Plan: 24 hour urine collection Orders: Orders AMB Cystoscopy Today N20.1 - Calculus of ureter Patient Instructions: The patient had an opportunity to ask questions regarding treatment plan. The patient expressed understanding and agreement with the above treatment plan. The patient is aware they should contact our office by phone for worsening of their current condition or the appearance of new symptoms. Compliance is encouraged with any medications and followup testing that is ordered. It is a privilege to be allowed the opportunity to participate in the urologic care of your patient. If you have any questions or concerns regarding treatment for the above conditions please do not hesitate to contact me. The office telephone contact is [phone]. This note is constructed in part using voice recognition software. While every effort has been made to ensure accuracy field sales engineer errors may have been included. Yours sincerely, Marla Webster MD Coding Level of Care Code Est Pt Level 3 (09977) Diagnoses Hydronephrosis, right N13.30 Intrinsic sphincter deficiency (ISD) N36.42 MARIAH (stress urinary incontinence, female) N39.3 Perimenopausal atrophic vaginitis N95.2 CPT Codes Cystoscopy - CPT: 34656-Ydrxpugfaj with stent removal ([id number])
== END 2025-03-20 10:02 | disposition home or self-care (01) ==
LOC: HO.HUSH 09:08
PROVIDERS: PCP Internal Medicine; Visit Provider Urology
DX: N13.30 Unspecified hydronephrosis (principal); N36.42 Intrinsic sphincter deficiency (ISD); N39.3 Stress incontinence (female) (male); N95.2 Postmenopausal atrophic vaginitis; N20.1 Calculus of ureter
CPT/HCPCS: 52310

== ENCOUNTER → 2025-03-20 09:07 | Outpatient (BNVA) | payer OTHER, SELFPAY | PROVIDERS: PCP Internal Medicine; Visit Provider Urology | DX: N20.1 Calculus of ureter (principal) | CPT/HCPCS: 52310; 81003 ==